=== PATIENT | female | born 1945 | race Caucasian/White ===

== ENCOUNTER 2016-07-28 19:38 | Emergency (ER) | payer OTHER, BC ==
[~2016-07-28] VITALS: Ht 165.1 cm; Wt 40.6 kg
[2016-07-28 19:43] VITALS: TEMP 37.2; Ht 165.1 cm; Wt 40.6 kg
[2016-07-28] MEDS ORDERED: ONDA4TAB46 PO (20:36)
[2016-07-28] MEDS ORDERED: POLY335019 PO (20:36)
[2016-07-28] MEDS ORDERED: OXYC1TAB3 PO (20:36)
[2016-07-28] MEDS ORDERED: ACET-1047 PO (20:36)
[2016-07-28] MEDS ORDERED: PRMT25 PO (20:36)
[2016-07-28] MEDS ORDERED: SERT25TA PO (20:36)
[2016-07-28] MEDS ORDERED: DICL1GEL12 TOP (20:36)
[2016-07-28] MEDS ORDERED: POTA10SO10 PO (20:36)
[2016-07-28] MEDS ORDERED: OXYSR/10 PO (20:36)
[2016-07-28] MEDS ORDERED: FOLI1TAB7 PO (20:36)
[2016-07-28] MEDS ORDERED: PANT40TA PO (20:36)
[2016-07-28] MEDS ORDERED: GABA-113 PO (20:36)
[2016-07-28] MEDS ORDERED: ASPI81TA28 PO (20:36)
[2016-07-28] MEDS ORDERED: DOCU100C31 PO (20:36)
[2016-07-28] MEDS ORDERED: ATOR-24 PO (20:36)
--- NOTE | 2016-07-28 20:49 | DIAGNOSTIC IMAGING REPORT ---
RIGHT FOOT 3 VIEWS HISTORY: RIGHT FOOT, HIT OFF A BEDPOST Right COMPARISON: None. FINDINGS: The bones are osteopenic. Small plantar heel spur. Mild soft tissue swelling within the dorsum of the midfoot. No acute fracture or dislocation. The Lisfranc joint is intact. Old, healed fractures within the third metatarsal and proximal phalanx of the right fifth toe. No radiopaque foreign bodies. IMPRESSION: No acute fractures within the right foot. Electronically signed by: Kenyon Alford M.D. 07/28/2016 8:47 PM Dictated Date/Time: 07/28/2016 8:45 PM
--- NOTE | 2016-07-28 21:01 | EMERGENCY ROOM VISIT NOTE ---
ED Visit Note First contact with patient: 19:47 CHIEF COMPLAINT: Right foot injury this afternoon Patient is a 71-year-old white female who presents the emergency department accompanied by her brother for evaluation of right foot pain. She struck the lateral aspect of the foot on a bed post this evening. She was wearing slippers at that time. Initially, she did not notice any discomfort and was able to walk and bear weight, but as the afternoon went on, it became more painful and she could not bear weight. She applied ice to the area. She is on chronic OxyContin and oxycodone for her low back pain and took her normal doses. She presently rates her for pain a 09/25. REVIEW OF SYSTEMS: Review of systems as per HPI. All other systems reviewed were negative. At least 6 systems reviewed. PMH: Electronic medical records are reviewed and summarized as above/below. See Problem List. SOCIAL HISTORY: Patient resides in [place], but has been staying locally with family members while she recovers from a prolonged hospitalization. Nonsmoker. PHYSICAL EXAM: Vital Signs: Reviewed Nurse's notes. GENERAL: Chronically ill- appearing 71-year-old white female who is awake and alert and seated in a wheelchair in no acute distress. EXTREMITIES: She has a knee-high RAJINDER stockings on the right lower extremity. This was removed. She has soft tissue swelling noted in the ankle and in the dorsum of the foot. There is slight ecchymosis over the fifth metatarsal, she is exquisite tenderness in the arch of her foot. Skin is otherwise intact. Distal pulses are easily palpable. Sensation to light touch is intact. Capillary refill is less than 2 seconds. EMERGENCY DEPARTMENT COURSE: X-rays of the right foot were obtained and were negative for acute fracture. The patient has a walker at home. They're also in the process of getting a wheelchair. She has an appointment with a new primary care provider to become established on Sunday, and was encouraged to keep this. She was advised to ice and elevate, and continue her regular pain medications. Differential diagnosis includes fracture, sprain, contusion, among others. RIGHT FOOT 3 VIEWS HISTORY: RIGHT FOOT, HIT OFF A BEDPOST Right COMPARISON: None. FINDINGS: The bones are osteopenic. Small plantar heel spur. Mild soft tissue swelling within the dorsum of the midfoot. No acute fracture or dislocation. The Lisfranc joint is intact. Old, healed fractures within the third metatarsal and proximal phalanx of the right fifth toe. No radiopaque foreign bodies. IMPRESSION: No acute fractures within the right foot. Problem List Medical Problems: (1) Chronic low back pain Status: Chronic (2) CVA (cerebral vascular accident) Status: Resolved (3) Dyslipidemia Status: Chronic (4) GERD (gastroesophageal reflux disease) Status: Chronic (5) Heart disease Status: Chronic (6) Hypertension Status: Chronic Current/Historical Medications Scheduled Aspirin (Aspirin Ec), 81 MG PO QAM Atorvastatin (Lipitor), 40 MG PO HS Diclofenac Sodium (Topical) (Voltaren 1% Top Gel), 1 APPLN TOP BID Docusate Sodium (Docusate Sodium), 100 MG PO Q2D Folic Acid (Folvite), 1 MG PO QAM Gabapentin (Neurontin), 600 MG PO HS Midodrine (Midodrine HCl), 2.5 MG PO TID Oxycodone HCl (Oxycontin), 10 MG PO BID Pantoprazole (Protonix), 40 MG PO QAM Potassium Chloride (Potassium Chloride), 20 MEQ PO QAM Sertraline (Zoloft), 25 MG PO QAM Scheduled PRN Acetaminophen (Mapap), 650 MG PO Q6H PRN for Pain or Fever Ondansetron Hcl (Zofran), 4 MG PO Q8 PRN for Nausea Oxycodone Ir (Roxicodone Ir), 2.5 MG PO BID PRN for Severe Pain Polyethylene Glycol 3350 (Miralax), 17 GM PO DAILY PRN for Constipation Allergies Coded Allergies: Penicillins (Verified Allergy, Intermediate, RASH-HAPPENED A CHILD, 03/04) Vital Signs Date Time Temp Pulse Resp B/P Pulse Ox O2 Delivery O2 Flow Rate FiO2 07/28/16 19:43 37.2 102 18 168/77 99 Room Air Departure Information Impression Primary Impression: Contusion of right foot Referrals Magalys VAZQUEZ M.D. (PCP) Patient Instructions My [facility] Additional Instructions Ibuprofen(Motrin, Advil) may be used for fever or pain. Use 600mg every six hours as needed. Take with food. Avoid using more than 2400mg in a 24 hour period. Do not use 2400mg per day for more than three consecutive days without physician direction. Prolonged inappropriate use can lead to stomach upset or ulcers. This medication can be taken if you need to drive, work, or perform activities which may be dangerous when taking narcotic pain medication. (AND/OR) Acetaminophen(Tylenol) may be used for fever or pain. Use 1000mg every six hours as needed. Avoid using more than 3000mg in a 24 hour period. This medication can be taken if you need to drive, work, or perform activities which may be dangerous when taking narcotic pain medication. Ice compresses for 20 minutes at a time four times daily for 2-3 days. Use your walker for ambulation as needed. Rest and elevate your injury. Continue current medications. Return to the ER immediately for any numbness, tingling, severe pain, extreme swelling in the extremity or as needed. Followup with your family doctor on Sunday as you have scheduled.
[2016-07-28 21:22] VITALS: BP 163/71; PULSE 98; O2SAT 97
[2016-08-25] MEDS ORDERED: RXC5 PO (16:02)
[2016-08-25] MEDS ORDERED: OXYSR/10 PO (16:02)
[2016-08-25] MEDS ORDERED: DEXA2TAB PO (16:02)
[2016-08-25] MEDS ORDERED: LACO50TA PO (16:17)
[2016-08-25] MEDS ORDERED: KFL500 PO (16:17)
[2016-09-26] MEDS ORDERED: MGCUDL400 PO (12:50)
[2016-09-26] MEDS ORDERED: RXC5 PO (12:50)
[2016-09-26] MEDS ORDERED: OXYSR/10 PO (12:50)
[2016-09-26] MEDS ORDERED: RXNS5 PO (12:50)
[2016-09-26] MEDS ORDERED: LORA-741 PO (12:55)
== END 2016-07-28 21:34 | disposition home or self-care (01) ==
LOC: C.EDB 19:41 → EDBD 19:41 → C.EDD 21:34
DX: S90.31XA Contusion of right foot, initial encounter (principal); W22.8XXA Striking against or struck by other objects, initial encounter; E78.5 Hyperlipidemia, unspecified; K21.9 Gastro-esophageal reflux disease without esophagitis; I10 Essential (primary) hypertension; I51.9 Heart disease, unspecified; G89.29 Other chronic pain; Z86.73 Personal history of transient ischemic attack (TIA), and cerebral infarction without residual deficits; Z79.82 Long term (current) use of aspirin; Z79.899 Other long term (current) drug therapy; Z88.0 Allergy status to penicillin

== ENCOUNTER 2016-08-05 18:32 | Inpatient (IN) | payer OTHER, BC ==
[~2016-08-05] VITALS: Ht 165.1 cm; Wt 57.0 kg
[~2016-08-05 18:32] MED LIST: ACET-1047 PO; ASPI81TA28 PO; ATOR-24 PO; DICL1GEL12 TOP; DOCU100C31 PO; FOLI1TAB7 PO; GABA-113 PO; ONDA4TAB46 PO; OXYC1TAB3 PO; OXYSR/10 PO; PANT40TA PO; POLY335019 PO; POTA10SO10 PO; PRMT25 PO; SERT25TA PO
[2016-08-05] MEDS ORDERED: MoRPHine SULFATE 10 MG/ML CARP/VIAL IM STA (18:53)
--- NOTE | 2016-08-05 18:55 | EMERGENCY ROOM VISIT NOTE ---
History Report prepared by Gonzalez: Hilary Cabrera Under the Supervision of: Dr. Amaury Pedraza M.D. First contact with patient: 18:40 Chief Complaint: PAIN (GENERALIZED) Stated Complaint: BACK PAIN, HEADACHE History of Present Illness The patient is a 71 year old female who presents to the Emergency Room with complaints of a persistent headache for the past 2 weeks. She is accompanied by her brother. She rates her pain as a 10/10 and describes the headache as feeling "splitting" and like a "sinus infection". She has been taking Sudafed for her congestion. The patient reports she was recently hospitalized in [place] for "strengthening and weight gain". She came to [place] to move in with her brother on July 22, 2016 and has been doing physical therapy. She admits to a history of chronic back pain and reports she injured one of her feet and rib area in an accident while getting into her home recently. She states she has been taking both Oxycodone (3 times a day) and OxyContin (twice a day) for her pain, but reports she has needed increasing doses recently to manage her discomfort. She has been unable to sleep because of her pain. The patient has established care with Dr. Bowden at [facility] and is supposed to undergo a CT scan early next week. She is also working on getting a home health nurse to come into her home once a week to help with PT and OT. The patient denies any abdominal pain. Source of History: patient, sibling (brother) Onset: 2 weeks [employer] Position: head Symptom Intensity: 10/10 Timing: other (persistent) Modifying Factors (Relieving): narcotics (Oxycodone) Associated Symptoms: + back pain, No abdominal pain Review of Systems All systems have been listed, reviewed, and are negative other than those previously mentioned. Please see Additional Medical History Sheet. Past Medical & Surgical Medical Problems: (1) Chronic low back pain (2) CVA (cerebral vascular accident) (3) Dyslipidemia (4) GERD (gastroesophageal reflux disease) (5) Heart disease (6) Hypertension Social History Smoking Status: Never Smoker Alcohol Use: none Drug Use: none Marital Status: Housing Status: lives with family Occupation Status: retired Current/Historical Medications Scheduled Aspirin (Aspirin Ec), 81 MG PO QAM Atorvastatin (Lipitor), 40 MG PO HS Diclofenac Sodium (Topical) (Voltaren 1% Top Gel), 1 APPLN TOP BID Folic Acid (Folvite), 1 MG PO QAM Gabapentin (Neurontin), 600 MG PO HS Midodrine (Midodrine HCl), 2.5 MG PO TID Oxycodone HCl (Oxycontin), 10 MG PO BID Pantoprazole (Protonix), 40 MG PO QAM Potassium Chloride (Potassium Chloride), 20 MEQ PO QAM Sertraline (Zoloft), 25 MG PO QAM Scheduled PRN Ondansetron Hcl (Zofran), 4 MG PO Q8 PRN for Nausea Oxycodone Ir (Roxicodone Ir), 2.5 MG PO BID PRN for Severe Pain Polyethylene Glycol 3350 (Miralax), 17 GM PO DAILY PRN for Constipation Allergies Coded Allergies: Penicillins (Verified Allergy, Intermediate, RASH-HAPPENED A CHILD, ) Physical Exam Vital Signs Date Time Temp Pulse Resp B/P Pulse Ox O2 Delivery O2 Flow Rate FiO2 08/05/16 21:58 100 20 120/72 95 Nasal Cannula 4.0 08/05/16 20:17 105 20 141/71 94 Nasal Cannula 6.0 08/05/16 20:14 58 Room Air 08/05/16 18:34 36.8 117 20 124/64 95 Room Air Physical Exam GENERAL: Patient awake, alert, oriented x 3. Patient appears to be in mild to moderate distress. Patient follows commands. Patient does not appear toxic. Patient is adequately hydrated and well-nourished. SKIN: No erythema, pallor, cyanosis or rash HEENT: Patient has some tenderness on palpation of maxillary and frontal sinus. Normal head, pupils equal, reactive to light and accommodation. Ears normal. Oral cavity and posterior pharynx appear normal. Neck: Without adenopathy, no neck vein distention. LUNGS: Clear to auscultation. No wheezes, no rales, no rhonchi. HEART: No murmurs. No gallops. No rubs ABDOMEN: Soft and nontender. EXTREMITIES: No signs of infection or trauma. No pedal or pretibial edema. No calf or thigh tenderness. NEUROLOGIC: Cranial nerves II-XII within normal limits. No gross motor sensory function deficits. Medical Decision & Procedures ER Provider Diagnostic Interpretation: This X-Ray was reviewed and interpreted by myself and the radiologist. CHEST 2 VIEWS ROUTINE IMPRESSION: Large left pleural effusion demonstrate near complete opacification left hemithorax. Slight cardiomediastinal silhouette shift to the right. Electronically signed by: Bunny Braun M.D. 08/05/2016 7:17 PM Laboratory Results 08/05/16 21:02 Red Blood Count 4.54, Mean Corpuscular Volume 84.4, Mean Corpuscular Hemoglobin 26.4, Mean Corpuscular Hemoglobin Concent 31.3, Mean Platelet Volume 9.7, Neutrophils (%) (Auto) 75.0, Lymphocytes (%) (Auto) 15.4, Monocytes (%) (Auto) 8.7, Eosinophils (%) (Auto) 0.5, Basophils (%) (Auto) 0.2, Neutrophils # (Auto) 7.50, Lymphocytes # (Auto) 1.54, Monocytes # (Auto) 0.87, Eosinophils # (Auto) 0.05, Basophils # (Auto) 0.02 08/05/16 21:02 Test 08/05/16 21:02 08/05/16 22:42 08/05/16 22:48 White Blood Count 10.00 K/uL (4.8-10.8) Red Blood Count 4.54 M/uL (4.2-5.4) Hemoglobin 12.0 g/dL (12.0-16.0) Hematocrit 38.3 % (37-47) Mean Corpuscular Volume 84.4 fL (80-100) Mean Corpuscular Hemoglobin 26.4 pg (25-34) Mean Corpuscular Hemoglobin Concent 31.3 g/dl (32-36) Platelet Count 293 K/uL (130-400) Mean Platelet Volume 9.7 fL (7.4-10.4) Neutrophils (%) (Auto) 75.0 % Lymphocytes (%) (Auto) 15.4 % Monocytes (%) (Auto) 8.7 % Eosinophils (%) (Auto) 0.5 % Basophils (%) (Auto) 0.2 % Neutrophils # (Auto) 7.50 K/uL (1.4-6.5) Lymphocytes # (Auto) 1.54 K/uL (1.2-3.4) Monocytes # (Auto) 0.87 K/uL (0.11-0.59) Eosinophils # (Auto) 0.05 K/uL (0-0.5) Basophils # (Auto) 0.02 K/uL (0-0.2) RDW Standard Deviation 50.6 fL (36.4-46.3) RDW Coefficient of Variation 16.1 % (11.5-14.5) Immature Granulocyte % (Auto) 0.2 % Immature Granulocyte # (Auto) 0.02 K/uL (0.00-0.02) Activated Partial Thromboplast Time 25.2 SECONDS (21.0-31.0) Partial Thromboplastin Ratio 1.0 Anion Gap 7.0 mmol/L (3-11) Est Creatinine Clear Calc Drug Dose 42.6 ml/min Estimated GFR () 71.7 Estimated GFR (Non- 61.9 BUN/Creatinine Ratio 23.7 (10-20) Calcium Level 9.2 mg/dl (8.5-10.1) Total Bilirubin 0.4 mg/dl (0.2-1) Aspartate Amino Transf (AST/SGOT) 18 U/L (15-37) Alanine Aminotransferase (ALT/SGPT) 15 U/L (12-78) Alkaline Phosphatase 123 U/L (45-117) Troponin I < 0.015 ng/ml (0-0.045) Pro-B-Type Natriuretic Peptide 886 pg/ml (0-900) Total Protein 7.3 gm/dl (6.4-8.2) Albumin 3.0 gm/dl (3.4-5.0) Globulin 4.3 gm/dl (2.5-4.0) Albumin/Globulin Ratio 0.7 (0.9-2) Magnesium Level 2.3 mg/dl (1.8-2.4) Ethyl Alcohol mg/dL < 3.0 mg/dl (0-3) Arterial Blood pH 7.41 (7.35-7.45) Arterial Blood Partial Pressure CO2 41 mmHg (35-46) Arterial Blood Partial Pressure O2 69 mm/Hg (80-95) Arterial Blood HCO3 26 mmol/L (19-24) Arterial Blood Oxygen Saturation 91.5 % (90-95) Arterial Blood Base Excess 1.1 mEq/L (-9-1.8) Arterial Blood Gas Delivery 4 L Case Test POS (POS) Laboratory results as stated above per my review. Medications Administered Medications (Trade) Dose Ordered Sig/Yuriy Route Start Time Stop Time Status Last Admin Dose Admin Morphine Sulfate (MoRPHine SULFATE INJ) 10 mg NOW STAT IM 08/05/16 18:53 08/05/16 18:54 DC 08/05/16 19:00 10 MG ECG Indication: weakness Rate (beats per minute): 110 Rhythm: sinus tachycardia Findings: no acute ischemic change, no ectopy ED Course 1842: Past medical records reviewed. The patient was evaluated in room A10. A complete history and physical examination was performed. 1852: Morphine Sulfate 10 mg IM. 1924: I reevaluated the patient. She is resting comfortably. 2019: Nursing informed me the patients pulse oximetry was 58%. She placed her on 6 Liters of Oxygen and her pulse ox is now in the 90's. 2022: I reevaluated the patient. I discussed my recommendation that she remain in the hospital for further evaluation and management and she verbalized complete understanding and agreement. 2229: I discussed the patients case with Queenie Issa. The patient will be further evaluated. Medical Decision Nurses notes reviewed. Medical history sheet reviewed. Differential diagnosis includes but is not limited to: Rib contusion versus fracture, pneumothorax, sinus congestion, chronic pain. The patient has a prior history of severe anemia and alcohol abuse. She was in the hospital in [place] for over one month followed by a long stay in the rehabilitation hospital. She recently moved here. Initially she had a chest x- ray performed to rule out a rib fracture. The patient was found to have a large left-sided pleural effusion. She was also hypoxic and required oxygen. Multiple other labs were obtained. Please see above. The patient will require admission. I discussed care with Dr. Angeles. I also discussed care with the patient and her brother. Consults Time Called: 2224 Consulting Physician: Queenie Issa Returned Call: [phone] I discussed the patients case with Queenie Issa. The patient will be further evaluated. Impression Primary Impression: Pleural effusion on left Scribe Attestation The scribe's documentation has been prepared under my direction and personally reviewed by me in its entirety. I confirm that the note above accurately reflects all work, treatment, procedures, and medical decision making performed by me. Departure Information Dispostion Being Evaluated By Hospitalist Referrals Magalys BOWDEN M.D. (PCP) Patient Instructions My [facility]
--- NOTE | 2016-08-05 19:19 | DIAGNOSTIC IMAGING REPORT ---
CHEST 2 VIEWS ROUTINE CLINICAL HISTORY: rib fx pneumo?? Chest pain COMPARISON STUDY: None FINDINGS: Very large left pleural effusion. Mild cardiac mediastinal silhouette shift of the right. Right lung is grossly clear. No evidence for true pneumothorax. IMPRESSION: Large left pleural effusion demonstrate near complete opacification left hemithorax. Slight cardiomediastinal silhouette shift to the right. Electronically signed by: Bunny Braun M.D. 08/05/2016 7:17 PM Dictated Date/Time: 08/05/2016 7:16 PM
[2016-08-05 21:30] LABS: ALT/SGPT 15 U/L (12-78); BLOOD UREA NITROGEN 22 mg/dl (7-18); BUN/CREATININE RATIO 23.7 (10-20); CARBON DIOXIDE 27 mmol/L (21-32); CHLORIDE 103 mmol/L (98-107); CREATININE 0.94 mg/dl (0.60-1.20); GLUCOSE 125 mg/dl (70-99); POTASSIUM 4.7 mmol/L (3.5-5.1); SODIUM 137 mmol/L (136-145)
[2016-08-05 21:35] LABS: ALB/GLOB RATIO 0.7 (0.9-2); ALKALINE PHOSPHATASE 123 U/L (45-117); AST/SGOT 18 U/L (15-37)
[2016-08-05 21:38] LABS: BASO % 0.2 %; BASO ABS # 0.02 K/uL (0-0.2); COMPLETE YES; EOS % 0.5 %; HEMATOCRIT 38.3 % (37-47); IG% 0.2 %; LYMPH % 15.4 %; LYMPH ABS # 1.54 K/uL (1.2-3.4); MEAN CELL VOLUME 84.4 fL (80-100); MEAN CORPUSCULAR HEMOGLOBIN 26.4 pg (25-34); MEAN CORPUSCULAR HGB CONC 31.3 g/dl (32-36); MEAN PLATELET VOLUME 9.7 fL (7.4-10.4); MONO % 8.7 %; PLATELET COUNT 293 K/uL (130-400); RED BLOOD COUNT 4.54 M/uL (4.2-5.4)
[2016-08-05 22:13] LABS: CALCIUM 9.2 mg/dl (8.5-10.1)
[2016-08-05 23:03] LABS: ARTERIAL BLD GAS O2 SATURATION 91.5 % (90-95); ARTERIAL BLOOD GAS BASE EXCESS 1.1 mEq/L (-9-1.8); ARTERIAL BLOOD GAS HCO3 26 mmol/L (19-24); ARTERIAL BLOOD GAS PO2 69 mm/Hg (80-95); ARTERIAL BLOOD GAS pH 7.41 (7.35-7.45)
[2016-08-05 23:04] LABS: ALLEN TEST POS (POS)
[2016-08-05 23:05] LABS: O2 ADMINISTRATION 4 L
[2016-08-05 23:10] LABS: MAGNESIUM 2.3 mg/dl (1.8-2.4)
[2016-08-05] MEDS ORDERED: ONDANSETRON INJ 2 MG/ML 2 ML VIAL IV ONE (23:46)
[2016-08-05] MEDS ORDERED: ONDANSETRON INJ 2 MG/ML 2 ML VIAL ONE (23:50)
[2016-08-06] VITALS (9 sets, daily range): BP systolic 88–186; BP diastolic 59–81; PULSE 79–96; TEMP 36.5–36.9; O2SAT 91–97; Ht 165.1 cm; Wt 57.0 kg
[2016-08-06] MEDS ORDERED: OPTIRAY 320 IV PRN (00:45)
[2016-08-06] MEDS ORDERED: OXYCODONE HCL 10 MG TABCR (OXYCONTIN) PO STA (01:00)
[2016-08-06] MEDS ORDERED: OXYCODONE HCL IR 5 MG TAB (IMMEDIATE RELEASE) PO PRN (01:15)
[2016-08-06] MEDS ORDERED: DEXAMETHASONE SOD INJ 10 MG/ML VIAL IV STA (02:27)
[2016-08-06] MEDS ORDERED: POLYETHYLENE (MIRALAX) 17 GM PACK PO PRN (03:00)
[2016-08-06] MEDS ORDERED: NITROGLYCERIN 0.4 MG SL PER TAB CHARGE SL PRN (03:00)
[2016-08-06] MEDS ORDERED: PROMETHAZINE HCL INJ 12.5 MG in SODIUM CHLORIDE 0.9% 50ML 50 ML IV PRN (03:00)
[2016-08-06] MEDS ORDERED: SODIUM CHLORIDE 0.9% 500ML 500 ML IV ONE (03:15)
[2016-08-06] MEDS ORDERED: OXYCODONE/ACETAMINOPHEN 5-325 TAB PO PRN (03:15)
[2016-08-06] MEDS ORDERED: OXYCODONE HCL IR 5 MG TAB (IMMEDIATE RELEASE) PO STA (03:25)
[2016-08-06] MEDS ORDERED: LEVALBUTEROL/IPRATROPIUM NEB INH PRN (03:30)
[2016-08-06] MEDS: ONDANSETRON INJ 2 MG/ML 2 ML VIAL IV PRN (04:45)
[2016-08-06] MEDS ORDERED: LEVALBUTEROL 1.25MG/0.5ML NEB INH PRN (05:00)
[2016-08-06] MEDS ORDERED: IPRATROPIUM BROMIDE NEB SOLN 0.02% 2.5 ML VIAL INH PRN (05:00)
[2016-08-06] MEDS ORDERED: IBUPROFEN 200 MG TAB PO PRN (05:15)
[2016-08-06] MEDS ORDERED: KETOROLAC TROMETHAMINE 15 MG/ML VIAL IV. PRN (05:15)
[2016-08-06 06:32] LABS: MANUAL MICROSCOPIC REQUIRED? NO; REVIEW REQ? NO; URINE APPEARANCE CLEAR (CLEAR); URINE BILIRUBIN NEG (NEG); URINE COLOR YELLOW; URINE NITRITE NEG (NEG); URINE SPECIFIC GRAVITY 1.042 (1.000-1.030); UROBILINOGEN NEG (NEG); ZZUR CULT IF INDIC CLEAN CATCH NO
--- NOTE | 2016-08-06 06:53 | DIAGNOSTIC IMAGING REPORT ---
HEAD CT NONCONTRAST CT DOSE: HISTORY: Headache. TECHNIQUE: Multiaxial CT images of the head were performed without the use of intravenous contrast. Automated exposure control was utilized for this study. Comparison: None. Findings: The paranasal sinuses and mastoid air cells are clear. There is a 2.6 cm lesion within the cortex of the right frontal lobe anteriorly. There is adjacent vasogenic edema. There is a hypodense area within the medial aspect of the right occipital lobe which may be due to an old infarct. There is also focal area of vasogenic edema within the posterior aspect the right occipital lobe and a possible 1.2 cm lesion. No hematoma or midline shift. The ventricles are normal in size. Impression: 1. Suspect 2 lesions within the right frontal lobe and right occipital lobe as described above. 2. Hypodensity within the medial aspect of the right occipital lobe favors an old infarct. 3. Brain MRI is recommended for further evaluation. Electronically signed by: Kenyon Alford M.D. 08/06/2016 6:51 AM Dictated Date/Time: 08/06/2016 6:48 AM
--- NOTE | 2016-08-06 07:31 | Pulmonary Consultation ---
History General Date of Service: August 06, 2016. Stated Complaint: Respiratory Failure, Acute HPI The patient is a 71 year old female who presents to with complaints of Respiratory Failure, Acute. The patient's primary care provider is Magalys VAZQUEZ M.D.. 71-year-old female who presented to the emergency room secondary to progressive headache over the last 2 weeks. She was accompanied by her brother and rated the pain a 10 out of 10. Further workup noted almost complete opacification of the left hemithorax by chest x-ray and CT angiogram ruled out pulmonary embolism but noted large left hemithoracic pleural effusion. The patient has been chronically sick since March 12, 2016 in and out of the hospital with prolonged stays in the intensive care unit and very little understanding of the underlying etiology of those studies. She is also noted to be at rehabilitation centers where she feels were inadequate in her care. At this time she does note continued headache but it is decreased, chronic fatigue and notable dyspnea on exertion. She denies: Fever, chills, vertigo, syncope, pleurisy, classic cardiac chest pain or chronic cough. Work-Up: WBC: 10K (Nuerto#: >7.50) Plt: 293K H/H: 12/38 AB.41/41/69/26 (4Lnc) INR/PT/aPTT: 1.0/11.0/25.2 BUN/Cr: 22/0.94 ALB: 3.0 TP: 7.3 BNP: 886 CXR: Osteopenia, right sided tracheal/mediastinal deviation Right sided luis antonio fullness with signs of daniele-bronchial cuffing Large left sided possible loculated effusion CT Head: Report Pending but per sign-out sign of right frontal vasogenic edema CT Abd: Bilateral pleural effusions L>>>R CTA Thorax: Bilateral pleural effusions L>>>R Right mediastinal shift Possible R4 and 7 enlarged lymph-nodes but poor quality exam Collapsed LLL and it appears Lingula with l large part of the FRANKLIN RLL 14mmnodule Right major fissure fluid Right hilar enlarge lymph nodes Historian: patient, EMS Review of Systems Constitutional: reports: malaise, weakness Eyes: reports: blurred vision ENT: reports: no symptoms Cardiovascular: reports: no symptoms Respiratory: reports: as stated in HPI Gastrointestinal: reports: no symptoms Genitourinary - Female: reports: urinary frequency Musculoskeletal: reports: back pain, myalgias Integumentary: reports: no symptoms Neurologic: reports: no symptoms Psychiatric: reports: anxiety Endocrine: no symptoms Hematologic / Lymphatic: no symptoms Allergic / Immunologic: no symptoms Past Medical History Past Medical History: 1) Chronic low back pain 2) CVA (cerebral vascular accident) 3) Dyslipidemia 4) GERD 5) Heart disease 6) Hypertension 7) Foot fractures 3rd metatarsal and proximal right 5th phalanx 8) Macular degeneration 9) Left eye cataract Past Surgical History: 1) L5-S1 laminectomy 2) Left Knee repair 3) Tonsillectomy Family History Patient is unsure of her family history we'll attempt to contact the brother Social History Smoking Status: Chronic smoker for greater than 30 year period of time notably inconsistent use and exact pack per day history is unknown Alcohol Use: none Drug Use: none Marital Status: Housing Status: lives with family Occupation Status: retired Smoking Status: Current Every Day Smoker Marital status: Occupational Status: retired Allergies Coded Allergies: Penicillins (Verified Allergy, Intermediate, RASH-HAPPENED A CHILD, ) Current Medications Reported Home Medications Medications Dose Route/Sig Max Daily Dose Days Date Category Dose Instructions Roxicodone Ir (Oxycodone HCl) 5 Mg Tab 2.5 Mg PO BID PRN 07/28/16 Reported Zofran (Ondansetron HCl) 4 Mg Tab 4 Mg PO Q8 PRN 07/28/16 Reported Voltaren 1% Top Gel (Diclofenac Sodium (Topical)) 1 % Gel 1 Appln TOP BID 07/28/16 Reported APPLY TO LOWER BACK Oxycontin (Oxycodone HCl) 10 Mg Tabcr 10 Mg PO BID 07/28/16 Reported Midodrine HCl (Midodrine) 2.5 Mg Tab 2.5 Mg PO TID 07/28/16 Reported Neurontin (Gabapentin) 300 Mg Cap 600 Mg PO HS 07/28/16 Reported Aspirin Ec (Aspirin) 81 Mg Tab 81 Mg PO QAM 07/28/16 Reported Miralax (Polyethylene Glycol 3350) 1 Pow Pow 17 Gm PO DAILY PRN 07/28/16 Reported Zoloft (Sertraline HCl) 25 Mg Tab 25 Mg PO QAM 07/28/16 Reported Potassium Chloride 10 % Liq 20 Meq PO QAM 07/28/16 Reported 20 MEQ/15 ML DOSE. Protonix (Pantoprazole Sodium) 40 Mg Tab 40 Mg PO QAM 07/28/16 Reported Folvite (Folic Acid) 1 Mg Tab 1 Mg PO QAM 07/28/16 Reported Lipitor (Atorvastatin Calcium) 40 Mg Tab 40 Mg PO HS 07/28/16 Reported Physical Physical Exam Vital Signs: Date Time Temp Pulse Resp B/P Pulse Ox O2 Delivery O2 Flow Rate FiO2 08/06/16 03:43 36.7 96 18 122/81 91 Nasal Cannula 4.0 08/06/16 02:54 101 22 159/80 93 Nasal Cannula 4.0 08/06/16 00:29 101 18 95 Nasal Cannula 4.0 08/05/16 21:58 100 20 120/72 95 Nasal Cannula 4.0 08/05/16 20:17 105 20 141/71 94 Nasal Cannula 6.0 08/05/16 20:14 58 Room Air 08/05/16 18:34 36.8 117 20 124/64 95 Room Air General Appearance: cachetic Head: NORMOCEPHALIC, ATRAUMATIC Eyes: PERRLA, NO DISCHARGE, EOMI ENT: NORMAL EAR EXAM, NORMAL NASAL EXAM, NORMAL MOUTH EXAM, NORMAL THROAT EXAM Neck: NORMAL RANGE OF MOTION, NO TENDERNESS, TRACHEA MIDLINE, NO STRIDOR Respiratory: other (decreased breath sounds with dullness to percussion of the left hemithorax ultrasound showing large left-sided pleural effusion and signs a loculated lung) Cardiovasular: REGULAR RATE/RHYTHM, NORMAL S1S2, NO M/G/R, NO MURMUR, NO GALLOP , NO RUB Abdomen: NON TENDER, NORMAL BOWEL SOUNDS, NO REBOUND, NO MASSES, NO GUARDING, NO ORGANOMEGALY, other (patient deferred rectal exam) Genitourinary - Female: EXTERNAL GENITALIA NORMAL Back: NORMAL INSPECTION, NO MIDLINE TENDERNESS, NO CVA TENDERNESS Upper Extremities: NO EDEMA, NO DEFORMITY, NORMAL ROM Lower Extremities: NO EDEMA, NO DEFORMITY, NORMAL ROM Pulses: carotid (R) (2+), carotid (L) (2+), dorsalis pedis (R) (1+), dorsalis pedis (L) (1+) Neuro: ALERT, ORIENTED x 3, NORMAL MOTOR EXAM, NORMAL SENSATION, NORMAL CEREBELLAR EXAM, NORMAL SPEECH Reflexes: biceps (R) (1+), bicpes (L) (1+), achilles (R) (1+), achilles (L) (1+ ) Babinski Testing: right (equivocal), left (equivocal) Psychiatric: anxious Diagnostics Labs Results Past 24 Hours Test 08/05/16 21:02 08/05/16 22:42 08/05/16 22:48 08/06/16 05:48 Range/Units White Blood Count 10.00 4.8-10.8 K/uL Red Blood Count 4.54 4.2-5.4 M/uL Hemoglobin 12.0 12.0-16.0 g/dL Hematocrit 38.3 37-47 % Mean Corpuscular Volume 84.4 80-100 fL Mean Corpuscular Hemoglobin 26.4 25-34 pg Mean Corpuscular Hemoglobin Concent 31.3 32-36 g/dl Platelet Count 293 130-400 K/uL Mean Platelet Volume 9.7 7.4-10.4 fL Neutrophils (%) (Auto) 75.0 % Lymphocytes (%) (Auto) 15.4 % Monocytes (%) (Auto) 8.7 % Eosinophils (%) (Auto) 0.5 % Basophils (%) (Auto) 0.2 % Neutrophils # (Auto) 7.50 1.4-6.5 K/uL Lymphocytes # (Auto) 1.54 1.2-3.4 K/uL Monocytes # (Auto) 0.87 0.11-0.59 K/uL Eosinophils # (Auto) 0.05 0-0.5 K/uL Basophils # (Auto) 0.02 0-0.2 K/uL RDW Standard Deviation 50.6 36.4-46.3 fL RDW Coefficient of Variation 16.1 11.5-14.5 % Immature Granulocyte % (Auto) 0.2 % Immature Granulocyte # (Auto) 0.02 0.00-0.02 K/uL Prothrombin Time 11.0 9.0-12.0 SECONDS Prothromb Time International Ratio 1.0 0.9-1.1 Activated Partial Thromboplast Time 25.2 21.0-31.0 SECONDS Partial Thromboplastin Ratio 1.0 Sodium Level 137 136-145 mmol/L Potassium Level 4.7 3.5-5.1 mmol/L Chloride Level 103 98-107 mmol/L Carbon Dioxide Level 27 21-32 mmol/L Anion Gap 7.0 3-11 mmol/L Blood Urea Nitrogen 22 7-18 mg/dl Creatinine 0.94 0.60-1.20 mg/dl Est Creatinine Clear Calc Drug Dose 42.6 ml/min Estimated GFR () 71.7 Estimated GFR (Non- 61.9 BUN/Creatinine Ratio 23.7 10-20 Random Glucose 125 70-99 mg/dl Calcium Level 9.2 8.5-10.1 mg/dl Total Bilirubin 0.4 0.2-1 mg/dl Aspartate Amino Transf (AST/SGOT) 18 15-37 U/L Alanine Aminotransferase (ALT/SGPT) 15 12-78 U/L Alkaline Phosphatase 123 45-117 U/L Total Creatine Kinase 37 26-192 U/L Troponin I < 0.015 0-0.045 ng/ml Pro-B-Type Natriuretic Peptide 886 0-900 pg/ml Total Protein 7.3 6.4-8.2 gm/dl Albumin 3.0 3.4-5.0 gm/dl Globulin 4.3 2.5-4.0 gm/dl Albumin/Globulin Ratio 0.7 0.9-2 Magnesium Level 2.3 1.8-2.4 mg/dl Lipase 128 73-393 U/L Ethyl Alcohol mg/dL < 3.0 0-3 mg/dl Arterial Blood pH 7.41 7.35-7.45 Arterial Blood Partial Pressure CO2 41 35-46 mmHg Arterial Blood Partial Pressure O2 69 80-95 mm/Hg Arterial Blood HCO3 26 19-24 mmol/L Arterial Blood Oxygen Saturation 91.5 90-95 % Arterial Blood Base Excess 1.1 -9-1.8 mEq/L Arterial Blood Gas Delivery 4 L Case Test POS POS Urine Color YELLOW Urine Appearance CLEAR CLEAR Urine pH 5.0 4.5-7.5 Urine Specific [place] 1.042 1.000-1.030 Urine Protein 3+ NEG Urine Glucose (UA) NEG NEG Urine Ketones NEG NEG Urine Occult Blood 1+ NEG Urine Nitrite NEG NEG Urine Bilirubin NEG NEG Urine Urobilinogen NEG NEG Urine Leukocyte Esterase NEG NEG Urine WBC (Auto) 1-5 0-5 /hpf Urine RBC (Auto) 0-4 0-4 /hpf Urine Hyaline Casts (Auto) 1-5 0-5 /lpf Urine Epithelial Cells (Auto) 10-20 0-5 /lpf Urine Bacteria (Auto) NEG NEG Diagnostic Radiology CXR: Osteopenia, right sided tracheal/mediastinal deviation Right sided luis antonio fullness with signs of daniele-bronchial cuffing Large left sided possible loculated effusion CT Head: Report Pending but per sign-out sign of right frontal vasogenic edema CT Abd: Bilateral pleural effusions L>>>R CTA Thorax: Bilateral pleural effusions L>>>R Right mediastinal shift Possible R4 and 7 enlarged lymph-nodes but poor quality exam Collapsed LLL and it appears Lingula with l large part of the FRANKLIN RLL 14mmnodule Right major fissure fluid Right hilar enlarge lymph nodes Impression Assessment and Plan 71-year-old female with large left-sided pleural effusion and signs mediastinal shifting next line #1 pleural effusion: At this time the patient has agreed to undergo IPC placement. This procedure should be helpful is both a diagnostic and therapeutic processes. The patient has had poor follow-up for her health maintenance such as colonoscopies, mammography's and speculum examinations. This a high likelihood this is malignant in origin so will send off for fluid cytology will also evaluate for possible infectious etiology or even rheumatologic evaluations. #2 mediastinal shift: At this time the patient shows both clinical as well as radiographic evidence of mediastinal shift but no signs of tension physiology. We'll initiate IPC catheter placement to avoid this issue.
--- NOTE | 2016-08-06 08:15 | DIAGNOSTIC IMAGING REPORT ---
CHEST CTA for PULMONARY ARTERIES CT DOSE: 989.18 mGy.cm HISTORY: Atypical chest pain. Back pain. Short of breath. TECHNIQUE: Multiaxial CT images of the chest were performed following the intravenous administration of contrast to evaluate the pulmonary arteries. Maximal intensity projection images were also obtained. COMPARISON STUDY: Chest 08/05/2016. FINDINGS: No evidence for an aortic dissection. The majority of the segmental and subsegmental pulmonary arteries are nondiagnostic due to the motion artifact. The main and lobar pulmonary arteries appear patent. Large left pleural effusion with associated right mediastinal shift. 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 Therefore, this favors a subclavian steal. There is compressive atelectasis of the left lower lobe and majority of the left upper lobe due to the large left pleural effusion. There is a 3.2 cm hypodense lesion within the left lower lobe. Scattered groundglass airspace opacity seen within the right lung apex. A 1.4 cm irregular nodule within the right lower lobe. Small to moderate right pleural effusion. Narrowing of the left lower lobe and left upper lobe bronchi. There is right axillary and subpectoral lymphadenopathy. Dominant right axillary lymph node measures 1.4 x 0.9 cm. There is mediastinal lymphadenopathy. Dominant AP window lymph node measures 1.9 x 1.4 cm. IMPRESSION: 1. No evidence for central pulmonary embolus. 2. Large left pleural effusion with associated right mediastinal shift. 3. A 3 cm left lower lobe hypodense lesion which is concerning for a primary malignancy or metastatic focus. 4. There is also a 1.4 cm irregular nodule within the right lower lobe. 5. Mediastinal lymphadenopathy. There is also right axillary/subpectoral lymphadenopathy. 6. Small to moderate right pleural effusion. 7. 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 Electronically signed by: Kenyon Alford M.D. 08/06/2016 8:13 AM Dictated Date/Time: 08/06/2016 8:02 AM
--- NOTE | 2016-08-06 08:22 | DIAGNOSTIC IMAGING REPORT ---
ABDOMEN AND PELVIS CT WITH IV CONTRAST CT DOSE: HISTORY: Generalized abdominal pain and back pain. TECHNIQUE: Multiaxial CT images of the abdomen and pelvis were performed following the use of intravenous contrast. COMPARISON STUDY: None. FINDINGS: Please refer to the dedicated chest CT performed same day for further evaluation. The gallbladder is distended. Common bile duct is mildly distended up to 8 mm. No hepatic or splenic masses. There is mild periportal edema within the left hepatic lobe. Normal caliber main pancreatic duct. A 6 mm hypodense lesion within the pancreatic tail. No hydronephrosis. A few subcentimeter bilateral renal hypodense lesions which are too small to characterize. Normal adrenal glands. No retroperitoneal lymphadenopathy. Bladder is not well-distended. Colonic diverticulosis. No bowel wall thickening or obstruction. Normal appendix. Moderate stool within the colon. IMPRESSION: 1. Please refer to the dedicated chest CT for further evaluation of the chest abnormalities. 2. Distended gallbladder and common bile duct. 3. No hepatic or splenic masses. 4. No bowel wall thickening or obstruction. 5. A 6 mm hypodense lesion within the pancreatic tail consistent with a small cystic lesion such as a side branch intraductal papillary mucinous neoplasm. Electronically signed by: Kenyon Alford M.D. 08/06/2016 8:20 AM Dictated Date/Time: 08/06/2016 8:13 AM
[2016-08-06] MEDS ORDERED: PANTOprazole SOD 40 MG TAB PO SCH (09:00)
[2016-08-06] MEDS ORDERED: MIDODRINE 2.5 MG TAB PO SCH (09:00)
[2016-08-06] MEDS: OXYCODONE HCL 10 MG TABCR (OXYCONTIN) PO SCH ×2 (09:03→21:01)
[2016-08-06] MEDS: DOCUSATE SODIUM 100 MG CAP PO SCH (09:03)
[2016-08-06] MEDS: ASPIRIN 81 MG ECTAB PO SCH (09:04)
--- NOTE | 2016-08-06 09:04 | Procedure Note ---
Procedure Note Date of Service August 06, 2016. Procedure Note Procedures: left sided indwelling pleural catheter Consent: obtained via the patient and placed into the chart Pre-Procedural Dx: Left-sided pleural effusion Post-Procedural Dx: Left-sided pleural effusion Analgesia: 10cc of 1% Liquid Lidocaine Procedure: The patient was placed in an upright position and thoracic US was used to select a spot for the procedure. A spot along the posterior axillary line was marked in the 7th intercostal space. The patient was then draped and prepped in a sterile fashion. A modified Seldinger technique was then used for catheter placement. Approximately 5 cm anterior a small 6 cm cut was performed and tunneling was made to the initial and catheter insertion. The indwelling pleural catheter easily slid into the left hemithorax. Flowing this approximately 1100cc of serosanguineous pleural fluid was removed. EBL: 3cc Complications: none
[2016-08-06] MEDS: SERTRALINE HCL 50 MG TAB PO SCH (09:05)
[2016-08-06] MEDS: DICLOFENAC SOD 1% GEL 100 GM TUBE EXT SCH ×2 (09:05→21:03)
[2016-08-06] MEDS: PANTOprazole SOD 40 MG TAB PO SCH (09:05)
--- NOTE | 2016-08-06 09:23 | DIAGNOSTIC IMAGING REPORT ---
CHEST ONE VIEW PORTABLE HISTORY: S/P Thoracentesis left sided COMPARISON: Chest 08/05/2016. FINDINGS: Moderate to large left pleural effusion is slightly decreased in size. Left chest tube terminates in the left lung apex. Small left apical pneumothorax with a pleural gap of 6 mm. Small right pleural effusion. Right mediastinal shift has improved. IMPRESSION: Decrease in size in the moderate to large left pleural effusion status post chest tube placement. There is a small left apical pneumothorax. Electronically signed by: Kenyon Alford M.D. 08/06/2016 9:22 AM Dictated Date/Time: 08/06/2016 9:21 AM
--- NOTE | 2016-08-06 09:47 | HISTORY & PHYSICAL EXAMINATION ---
DATE OF ADMISSION: 08/06/2016 PRIMARY CARE DOCTOR: Dr. Bowden. CHIEF COMPLAINTS: Headache, bodyaches. HISTORY OF PRESENT ILLNESS: History obtained from patient and records. 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 Patient is originally from [place], [place]. Recently relocated to [place], [place] 3 weeks ago under her brother's care. Recent confinement at [place], [place] from February 2016 to March 2016 for hypotension, anemia, embolic CVA, respiratory failure status post intubation. As per records, the patient was found at home in February 2016 lying on the floor at her home with the house in disorder and empty alcohol bottles. On admission, she was noted to be hypotensive and to have a hemoglobin of 4. FOBT negative. cystic lung mass on CXR. A CAT scan of the chest did not show any PE; however, showed a cavitary left lower lobe lung mass, 2.4 x 5 cm with inflammation and right upper nodule measuring 6 mm as well as lymphadenopathy. Admitted in the ICU. SBP and anemia improved w/ pressor tx, IVF, and blood transfusion. PX later noted to be hypotensive, confused, in resp distress after one week of confinement. PX subsequently intubated the next 2 weeks. MRI showed extensive subacute strokes. Concern for possible embolic event w/ a CTA w/c showed L subclavian artery occlusion. Anticoag precluded by recent bleed. Px dcd on low dose ASA. The patient initially put on Keppra for possible seizure, subsequently discontinued after negative EEG. PX subsequently noted to have UGIB at the ICU. EGD done showed some gastritis/fungal esophagitis sp Mycafungin tx. NGT trauma noted in the stomach. PX dcd on PPI. Pulmonary was consulted for lung mass. She underwent a bronchoscopy, mostly negative pathology as per records. Future biopsy recommended by crotch piece baster. Patient recalls thoracentesis done for pleural fluid as well. Px noted to have a DVT on the right leg. She underwent a IVC filter placement due to recent GI bleed. Hypotension initially treated w/ IVF, pressors, steroids. PX later maintained on midodrine. Patient subsequently underwent 3 months of rehab at [facility]. Upon on discharge from rehab about 3 weeks ago, the patient travelled to [place], [place] by car with her brother to reside w/ him permanently. Since arriving at [place], px noted achy frontal headache sx going to her face w/c she attributed to poss sinus congestion from allergies. No fever, no chills. No recent head trauma. Px also noted vague achy abdominal pain the few weeks. some nausea, no vomiting. no dysuria, Good bowel movement albeit pasty. About 2 weeks ago, the patient was seen at the Emergency Room for right foot pain after hitting the bed post. Seen at the Emergency Room. No acute fracture of the right foot. Patient was discharged. Patient noted left sided pleuritic chest pain after brother assisted her getting out of the car upon returning home from the ER. No actual shortness of breath. usual dry cough sx She saw a new PCP for the first time this week. Chest x-ray done at the office showed moderate L pleural effusion w/ atelectasis , poss L hilar mass. Outpatient CT chest study contemplated. Px presented to the ER tonight because of worsening headache and body aches. MEDICAL HISTORY: As above. SURGERIES: IVC filter placement, tonsillectomy, adenectomy, back surgery and knee surgery. HOME MEDICATIONS: Include aspirin, atorvastatin, diclofenac, folic acid, gabapentin, midodrine, Zofran, OxyContin, OxyIR, Protonix, potassium chloride, sertraline, and polyethylene glycol. ALLERGIES: TO PENICILLIN. FAMILY HISTORY: Heart disease. 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 . REVIEW OF SYSTEMS: as per HPI. admits to some depression. No suicidality. All other ROS negative. PHYSICAL EXAMINATION: VITAL SIGNS: Blood pressure was noted to be 120/70, pulse rate 100, RR 20, and O2 sats 58% on room, later 94% on 6 liters. GENERAL: Noted to be hyposthenic, occasionally agitated, somewhat uncomfortable, and distressed. SKIN: Pallor. HEENT: Pale palpebral conjunctivae. Dry mucosa. NECK: No JVD. supple CHEST: Decreased breath sounds, L. HEART: Regular rate and rhythm. ABDOMEN: Some distention, no overt tenderness. EXTREMITIES: No edema and no tenderness. NEUROLOGIC: No gross focality. LABS: Hemoglobin was noted to be 12, WBC 7 and platelets 293. Sodium 137, potassium 4.7, chloride 103, CO2 of 27, BUN 20, creatinine 0.9, glucose 125, and alkaline phosphatase 143. IMAGING: Chest x-ray showed large pleural effusion with near complete opacification of the left hemithorax with some shift to the right. EKG as per my interpretation : rate 110, sinus tachycardia, possible left atrial enlargement, some T-wave flattening in the septal leads, PRWP. ABG, pH 7.4, pCO2 of 41, pO2 of 69, 91.5 on 4 L. ASSESSMENT: 1. Acute hypoxemic failure secondary to pleural effusion (possibly malignant) hx L lung tumor noted on CT chest during 02/2016 confinement in [place] (negative initial bronchoscopic bx) Rule out pulmonary embolism w/ pleuritic chest pain. 2. Headaches possibly from allergic rhinosinusitis rule out structural intracranial pathology. 3. Nonspecific abdominal pain in the last few months possibly from narcotic related. Rule out structural abdominal pathology. 4. History of embolic cerebrovascular accident as per records 5. idiopathic hypotension as per records BP stable on midodrine 6. 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 7. History of gastritis and fungal esophagitis sp treatment. 8. Depression, suboptimal, not on meds 9. Past tobacco and alcohol abuse. 10. Chronic back pain sp surgery on narcotics. 11. malnutrition (low BMI) PLAN: PCU supplemental O2 CT chest, PE study CT head RE persistent ÁLVAREZ CT abd pelvis. RE abd pain Further management pending CT results Pulmonary consult. RE L pleural effusion Psych consult once px amenable. RE depression Nutrition consult RE low BMI. DVT prophylaxis, Lovenox subQ if no bleed on CAT scan. Full code. ADDENDUM : CAT scans initial read noted. CT of the head : vasogenic edema, Right frontal lobe w possible adjacent lesion R frontal lobe cortex measuring 1.5 x 2.9 cm with adjacent buckling of the white matter, some mass effect on the frontal horn of the right lateral ventricle. No hemorrhage or midline shift. Focal cortical hyperdensity involving right paracentral occipital lobe poss age indeterminate infarct. MRI recommended. CT chest with contrast : no evidence of PE, large left pleural effusion with compressive atelectasis entire left lobe, entire left upper lobe with white large rightward shift of the mediastinum. Circumscribed 3 cm hypodense lesion on the collapsed left lower lobe, indeterminate. Moderate right pleural effusion with adjacent atelectasis. 1.5 cm nodule right lower lobe. Atherosclerosis. CT abdomen and pelvis : gallbladder, common bile duct distention, no free air; hypodense lesion, pancreatic tail, moderate to large stool burden, diverticulosis. Will initiate Decadron for increased intracranial pressure 2 to tumorigenic edema. MRI Brain RE abn CT head Case discussed with Dr. Mckay (crotch piece baster immigration lawyer) He recommends possible chest tube insertion in the morning, Radiation Oncology consult for possible brain METs with vasogenic edema, and obtaining images from confinement from [facility] [place] months ago. Px and brother updated of CT findings and plan of care. PX requested that her information only be provided to her brother, Mr. Ang Fan. (Contact number : [phone]) Total critical care time : 60 mins. CALDERON
[2016-08-06] MEDS: DEXAMETHASONE INJ 4 MG in SYRINGE 0 ML IV SCH ×3 (09:57→19:23)
[2016-08-06 10:14] LABS: PLEURAL FLUID APPEARANCE CLOUDY; PLEURAL FLUID COLOR AMBER; PLEURAL FLUID MONONUC RELAT 94.5 %; PLEURAL FLUID POLYNUC 5.5 %; PLEURAL FLUID SOURCE LEFT LUNG; PLEURAL FLUID WBC (A) 1403 /uL
--- NOTE | 2016-08-06 12:18 | Progress Note ---
Internal Med Progress Note Date of Service: August 06, 2016. Provider Documentation: SUBJECTIVE: Patient c/o pain in back, left foot. SOB is better. Cough +, no sputum production, no chest pain, nausea, vomiting, abdominal pain Headache is better On 4 Litres oxygen OBJECTIVE: Vital Signs-as noted below Exam: General-AAOX3, no distress, Cachexia + Malnourished Eyes-No icterus Neck-Supple, No JVD Lungs-AE decreased on left side more than right. few crackles, no wheezing, rhonchi. IPC Filter placement + Heart-S1, S2 normal, no murmur Abdomen-Soft, non tender, non distended, BS present Extremities-No edema Neuro-Grossly no focal deficits Lab data as noted below. ASSESSMENT & PLAN: ASSESSMENT AND PLAN : ACUTE HYPOXIC RESPIRATORY FAILURE : Secondary to B/L PLEURAL EFFUSION LEFT > RIGHT. -On 4 L oxygen (none at home) -S/P IPC catheter placement by Dr Mckay today -Follow up pleural fluid analysis/Cytology as suspicious for pulmonary malignancy. POSSIBLE METASTATIC PULMONARY MALIGNANCY: Hx Left lung tumor noted on CT chest during 02/2016 confinement in [place] (Negative initial bronchoscopic bx). Was recommended to get another biopsy done in future. -Work up - CT abdomen- 1. Distended gallbladder and common bile duct. 3. No hepatic or splenic masses.4. No bowel wall thickening or obstruction. 5. A 6 mm hypodense lesion within the pancreatic tail consistent with a small cystic lesion such as a side branch intraductal papillary mucinous neoplasm. 2. Headaches possibly from allergic rhinosinusitis. CT scan chest-1. No evidence for central pulmonary embolus. 2. Large left pleural effusion with associated right mediastinal shift. 3. A 3 cm left lower lobe hypodense lesion which is concerning for a primary malignancy or metastatic focus. 4. There is also a 1.4 cm irregular nodule within the right lower lobe. 5. Mediastinal lymphadenopathy. There is also right axillary/subpectoral lymphadenopathy. 6. Small to moderate right pleural effusion. 7. 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 CT head- 1. Suspect 2 lesions within the right frontal lobe and right occipital lobe as described above. 2. Hypodensity within the medial aspect of the right occipital lobe favors an old infarct. -Follow up Cytology- Left pleural effusion -Appreciate pulmonary inputs HX OF EMBOLIC CVA -As per records -CT head- likely old infarct in right occipital lobe -Not on anticoagulation secondary to GI bleeding in past HX OF PVD IDIOPATHIC HYPOTENSION -On midodrine. Held as her BP was in 180s and now down to 80s. -Will restart it again RECURRENT DVT S/P IVC FILTER PLACEMENT -Had IVC filter placed at [place] as had GI bleeding. HX OF GASTRITIS/FUNGAL ESOPHAGITIS S/P TREATMENT DEPRESSION -Suboptimal PAST TOBACCO /ALCOHOL ABUSE CHRONIC BACK PAIN S/P SURGERY -On chronic narcotics MALNUTRITION Low BMI -Clerical Investigator consulted DVT prophylaxis: High risk with history of DVT in past, IVC filter placed. Did have GI bleeding in past. Full code. Does not want us to talk about her health her condition to anyone except her and her brother. Vital Signs: Date Time Temp Pulse Resp B/P Pulse Ox O2 Delivery O2 Flow Rate FiO2 08/06/16 12:00 36.5 79 18 88/59 96 Nasal Cannula 4.0 115/67 08/06/16 08:34 36.6 87 16 186/62 96 Nasal Cannula 4.0 08/06/16 08:00 91 Nasal Cannula 4.0 08/06/16 03:43 36.7 96 18 122/81 91 Nasal Cannula 4.0 08/06/16 02:54 101 22 159/80 93 Nasal Cannula 4.0 08/06/16 00:29 101 18 95 Nasal Cannula 4.0 08/05/16 21:58 100 20 120/72 95 Nasal Cannula 4.0 08/05/16 20:17 105 20 141/71 94 Nasal Cannula 6.0 08/05/16 20:14 58 Room Air 08/05/16 18:34 36.8 117 20 124/64 95 Room Air Lab Results: Results Past 24 Hours Test 08/05/16 21:02 08/05/16 22:42 08/05/16 22:48 08/06/16 00:00 Range/Units White Blood Count 10.00 4.8-10.8 K/uL Red Blood Count 4.54 4.2-5.4 M/uL Hemoglobin 12.0 12.0-16.0 g/dL Hematocrit 38.3 37-47 % Mean Corpuscular Volume 84.4 80-100 fL Mean Corpuscular Hemoglobin 26.4 25-34 pg Mean Corpuscular Hemoglobin Concent 31.3 32-36 g/dl Platelet Count 293 130-400 K/uL Mean Platelet Volume 9.7 7.4-10.4 fL Neutrophils (%) (Auto) 75.0 % Lymphocytes (%) (Auto) 15.4 % Monocytes (%) (Auto) 8.7 % Eosinophils (%) (Auto) 0.5 % Basophils (%) (Auto) 0.2 % Neutrophils # (Auto) 7.50 1.4-6.5 K/uL Lymphocytes # (Auto) 1.54 1.2-3.4 K/uL Monocytes # (Auto) 0.87 0.11-0.59 K/uL Eosinophils # (Auto) 0.05 0-0.5 K/uL Basophils # (Auto) 0.02 0-0.2 K/uL RDW Standard Deviation 50.6 36.4-46.3 fL RDW Coefficient of Variation 16.1 11.5-14.5 % Immature Granulocyte % (Auto) 0.2 % Immature Granulocyte # (Auto) 0.02 0.00-0.02 K/uL Prothrombin Time 11.0 9.0-12.0 SECONDS Prothromb Time International Ratio 1.0 0.9-1.1 Activated Partial Thromboplast Time 25.2 21.0-31.0 SECONDS Partial Thromboplastin Ratio 1.0 Sodium Level 137 136-145 mmol/L Potassium Level 4.7 3.5-5.1 mmol/L Chloride Level 103 98-107 mmol/L Carbon Dioxide Level 27 21-32 mmol/L Anion Gap 7.0 3-11 mmol/L Blood Urea Nitrogen 22 7-18 mg/dl Creatinine 0.94 0.60-1.20 mg/dl Est Creatinine Clear Calc Drug Dose 42.6 ml/min Estimated GFR () 71.7 Estimated GFR (Non- 61.9 BUN/Creatinine Ratio 23.7 10-20 Random Glucose 125 70-99 mg/dl Calcium Level 9.2 8.5-10.1 mg/dl Total Bilirubin 0.4 0.2-1 mg/dl Aspartate Amino Transf (AST/SGOT) 18 15-37 U/L Alanine Aminotransferase (ALT/SGPT) 15 12-78 U/L Alkaline Phosphatase 123 45-117 U/L Total Creatine Kinase 37 26-192 U/L Troponin I < 0.015 0-0.045 ng/ml Pro-B-Type Natriuretic Peptide 886 0-900 pg/ml Total Protein 7.3 6.4-8.2 gm/dl Albumin 3.0 3.4-5.0 gm/dl Globulin 4.3 2.5-4.0 gm/dl Albumin/Globulin Ratio 0.7 0.9-2 Magnesium Level 2.3 1.8-2.4 mg/dl Lipase 128 73-393 U/L Ethyl Alcohol mg/dL < 3.0 0-3 mg/dl Hepatitis C Antibody Screen NEG NEG Arterial Blood pH 7.41 7.35-7.45 Arterial Blood Partial Pressure CO2 41 35-46 mmHg Arterial Blood Partial Pressure O2 69 80-95 mm/Hg Arterial Blood HCO3 26 19-24 mmol/L Arterial Blood Oxygen Saturation 91.5 90-95 % Arterial Blood Base Excess 1.1 -9-1.8 mEq/L Arterial Blood Gas Delivery 4 L Case Test POS POS Pleural Fluid Source LEFT LUNG Pleural Fluid Color EDY Pleural Fluid Appearance CLOUDY Pleural Fluid WBC 1403 /uL Pleural Fluid RBC 9000 /uL Pleural Fluid pH 7.37 7.3-7.4 Pleural Fluid Polynuclear WBCs % 5.5 % Pleural Fluid Mononuclear WBCs % 94.5 % Pleural Fluid Total Protein 4.0 g/dl Pleural Fluid LDH 276 IU Pleural Fluid Glucose 148 mg/dl Pleural Fluid Amylase 70 U/L Test 08/06/16 05:48 Range/Units Urine Color YELLOW Urine Appearance CLEAR CLEAR Urine pH 5.0 4.5-7.5 Urine Specific [place] 1.042 1.000-1.030 Urine Protein 3+ NEG Urine Glucose (UA) NEG NEG Urine Ketones NEG NEG Urine Occult Blood 1+ NEG Urine Nitrite NEG NEG Urine Bilirubin NEG NEG Urine Urobilinogen NEG NEG Urine Leukocyte Esterase NEG NEG Urine WBC (Auto) 1-5 0-5 /hpf Urine RBC (Auto) 0-4 0-4 /hpf Urine Hyaline Casts (Auto) 1-5 0-5 /lpf Urine Epithelial Cells (Auto) 10-20 0-5 /lpf Urine Bacteria (Auto) NEG NEG Microbiology Results 08/06/16 Acid Fast Stain, Received Pending 08/06/16 Mycobacterial Culture, Received Pending 08/06/16 Gram Stain - Final, Resulted 08/06/16 Bacterial Culture, Resulted Pending
[2016-08-06] MEDS: BOOST VANILLA PO SCH ×4 (14:00→21:04)
[2016-08-06] MEDS: hydrOXYzine HCL 10 MG TAB PO PRN (19:23)
[2016-08-06] MEDS ORDERED: GADAVIST IV PRN (20:45)
[2016-08-06] MEDS: GABAPENTIN 300 MG CAP PO SCH (21:02)
[2016-08-06] MEDS: ATORVASTATIN 20 MG TAB PO SCH (21:03)
--- NOTE | 2016-08-06 21:03 | DIAGNOSTIC IMAGING REPORT ---
Brain MRI WITH AND WITHOUT CONTRAST HISTORY: headache, abn ct TECHNIQUE: Multiplanar multisequence MRI of the brain was performed both before and after the intravenous administration of contrast. COMPARISON STUDY: Head CT 08/06/2016. FINDINGS: There is a 1 cm ring-enhancing lesion seen within the right frontal lobe and a 5 mm ring-enhancing lesion within the right occipital lobe. There is surrounding vasogenic edema at these locations. 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 No acute infarct, hematoma, or midline shift. There is mild mass effect along the frontal horn of the right lateral ventricle. The paranasal sinuses and mastoid air cells are clear. The orbits are unremarkable. IMPRESSION: Right enhancing lesions within the right frontal lobe and right occipital lobe which are highly suspicious for metastatic disease. Electronically signed by: Kenyon Alford M.D. 08/06/2016 9:02 PM Dictated Date/Time: 08/06/2016 8:52 PM
[2016-08-06] MEDS: OXYCODONE HCL IR 5 MG TAB (IMMEDIATE RELEASE) PO PRN (23:33)
[2016-08-07] VITALS (7 sets, daily range): BP systolic 114–136; BP diastolic 65–70; PULSE 73–89; TEMP 36.2–36.9; O2SAT 95–100
[2016-08-07] MEDS: DEXAMETHASONE INJ 4 MG in SYRINGE 0 ML IV SCH ×4 (02:38→20:55)
--- NOTE | 2016-08-07 08:04 | DIAGNOSTIC IMAGING REPORT ---
SINGLE VIEW CHEST CLINICAL HISTORY: Left pleural effusion. Pleural catheter. FINDINGS: An AP, portable, upright chest radiograph is compared to chest x-ray and chest CT dated 08/06/2016. The examination is degraded by portable technique and patient rotation. The cardiomediastinal silhouette is unremarkable. There is atherosclerotic calcification of the thoracic aorta. Advanced emphysema and chronic interstitial thickening are identified. A pleural drain is seen at the left lung base. There is only trace residual left pleural effusion which is somewhat completely resolved from yesterday. Left basilar airspace opacities persist. The right lung is grossly clear No pneumothorax is seen. The skeletal structures are osteopenic. The bony thorax is grossly intact. IMPRESSION: 1. Advanced emphysema. 2. A pleural drain is seen at the left lung base and the left pleural effusion has almost completely resolved. 3. There are airspace opacities in the left mid to lower lung. This could represent atelectasis, an infectious/inflammatory pneumonitis, and/or a component of reexpansion edema. Radiographic follow-up to resolution is recommended. 3. The right lung is grossly clear. 4. No pneumothorax is clearly seen. Electronically signed by: Woodrow Brush M.D. 08/07/2016 8:03 AM Dictated Date/Time: 08/07/2016 8:01 AM
[2016-08-07] MEDS: DICLOFENAC SOD 1% GEL 100 GM TUBE EXT SCH ×2 (08:06→20:59)
[2016-08-07] MEDS: DOCUSATE SODIUM 100 MG CAP PO SCH (08:06)
[2016-08-07] MEDS: OXYCODONE HCL 10 MG TABCR (OXYCONTIN) PO SCH ×2 (08:07→20:55)
[2016-08-07] MEDS: PANTOprazole SOD 40 MG TAB PO SCH (08:07)
[2016-08-07] MEDS: ASPIRIN 81 MG ECTAB PO SCH (08:08)
[2016-08-07] MEDS: OXYCODONE HCL IR 5 MG TAB (IMMEDIATE RELEASE) PO PRN ×2 (08:08→16:43)
[2016-08-07] MEDS: SERTRALINE HCL 50 MG TAB PO SCH (08:09)
[2016-08-07] MEDS: BOOST VANILLA PO SCH ×6 (08:10→21:00)
--- NOTE | 2016-08-07 10:06 | Progress Note ---
Internal Med Progress Note Date of Service: August 07, 2016. Provider Documentation: SUBJECTIVE: Patient is feeling much better today. SOB has improved. No chest pain, nausea, vomiting, abdominal pain. Headache is better On 3 Litres oxygen (down from 4 L) Left pleural catheter- drained 950 cc at night OBJECTIVE: Vital Signs-as noted below Exam: General-AAOX3, no distress, Cachexia + Malnourished Eyes-No icterus Neck-Supple, No JVD Lungs-AE decreased on left side more than right- Improved air entry. Few crackles, no wheezing, rhonchi. Left PC in situ + Heart-S1, S2 normal, no murmur Abdomen-Soft, non tender, non distended, BS present Extremities-No edema Neuro-Grossly no focal deficits Lab data as noted below. ASSESSMENT & PLAN: Patient moved from [place] few weeks ago. Had a complicated hospital course in March 2015 ([place]) followed by Rehab stay o f 3 months. Moved to [facility] to be with her brother. ASSESSMENT AND PLAN : ACUTE HYPOXIC RESPIRATORY FAILURE : Secondary to B/L PLEURAL EFFUSION LEFT > RIGHT, suspicious for malignant effusion -On 3 L oxygen - down from 4 L (none at home) -S/P Left sided pleural catheter placement by Dr Mckay on 08/06/16--> Drained around 950 cc at night. -Pleural fluid - no bacterial infection. Cytology - pending. -Try to wean off oxygen. Will need 2 step prior to discharge -Pulmonary on board. Appreciate inputs POSSIBLE METASTATIC PULMONARY MALIGNANCY: Hx Left lung tumor noted on CT chest during 02/2016 confinement in [place] (Negative initial bronchoscopic bx). Was recommended to get another biopsy done in future. -Work up - CT abdomen- 1. Distended gallbladder and common bile duct. 3. No hepatic or splenic masses.4. No bowel wall thickening or obstruction. 5. A 6 mm hypodense lesion within the pancreatic tail consistent with a small cystic lesion such as a side branch intraductal papillary mucinous neoplasm. 2. Headaches possibly from allergic rhinosinusitis. CT scan chest-1. No evidence for central pulmonary embolus. 2. Large left pleural effusion with associated right mediastinal shift. 3. A 3 cm left lower lobe hypodense lesion which is concerning for a primary malignancy or metastatic focus. 4. There is also a 1.4 cm irregular nodule within the right lower lobe. 5. Mediastinal lymphadenopathy. There is also right axillary/subpectoral lymphadenopathy. 6. Small to moderate right pleural effusion. 7. 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 CT head- 1. Suspect 2 lesions within the right frontal lobe and right occipital lobe as described above. 2. Hypodensity within the medial aspect of the right occipital lobe favors an old infarct. -Follow up Cytology- Left pleural effusion -Appreciate pulmonary inputs HEADACHE Primary reason of coming to ER. CT head- 1. Suspect 2 lesions within the right frontal lobe and right occipital lobe as described above. 2. Hypodensity within the medial aspect of the right occipital lobe favors an old infarct. -IV Decadron q 8 hours x Day 2 to decrease vasogenic edema --> Needs to be tapered -Evaluation for carcinoma as before. HX OF EMBOLIC CVA -As per records -CT head- likely old infarct in right occipital lobe -Not on anticoagulation secondary to GI bleeding in past HX OF PVD IDIOPATHIC HYPOTENSION -On midodrine. Held as her BP was in 180s and now down to 80s. -Will restart it again RECURRENT DVT S/P IVC FILTER PLACEMENT -Had IVC filter placed at [place] as had GI bleeding. HX OF GASTRITIS/FUNGAL ESOPHAGITIS S/P TREATMENT DEPRESSION -Suboptimal PAST TOBACCO /ALCOHOL ABUSE CHRONIC BACK PAIN S/P SURGERY -On chronic narcotics MALNUTRITION Low BMI -Clothing Sales Assistant consulted DVT prophylaxis: High risk with history of DVT in past, IVC filter placed. Did have GI bleeding in past. Full code. DISPOSITION To be determined PT/OT ordered Discussed with patient, brother by bedside. Does not want us to talk about her health condition to anyone except her and her brother. OK for brother to make decisions on her behalf if she is not capable of making her own medical decisions. Vital Signs: Date Time Temp Pulse Resp B/P Pulse Ox O2 Delivery O2 Flow Rate FiO2 08/07/16 07:43 36.2 89 16 117/67 100 Nasal Cannula 08/07/16 04:00 99 Nasal Cannula 3.0 08/07/16 03:51 36.2 73 17 127/70 99 Nasal Cannula 3.0 08/06/16 23:59 96 Nasal Cannula 3.0 08/06/16 23:34 36.6 80 18 119/70 97 Nasal Cannula 3.0 08/06/16 20:00 95 Nasal Cannula 4.0 08/06/16 18:57 36.6 84 16 122/67 95 Nasal Cannula 4.5 08/06/16 16:00 Nasal Cannula 4.0 08/06/16 15:23 36.9 80 16 107/61 94 Nasal Cannula 4.5 08/06/16 12:00 91 Nasal Cannula 4.0 08/06/16 12:00 36.5 79 18 88/59 96 Nasal Cannula 4.0 115/67 Lab Results: Results Past 24 Hours Test 08/07/16 04:44 Range/Units
--- NOTE | 2016-08-07 13:46 | Pulmonology Progress Note ---
Pulmonary Progress Note Date of Service August 07, 2016. Attending Dr. Mckay Subjective Patient notes much improved pulmonary status as well as decreased headache Objective Patient able to ambulate from the bathroom to her bed as well as complete full sentences is with no signs of respiratory insufficiency or distress: Vital signs: Stable on 2 L nasal cannula Respiratory: Mild rhonchi appreciated greatest on the left hemithorax Cardiac: S1-S2 regular rate and rhythm Abdomen: Positive bowel sounds soft nontender Skin: No breakdown noted MRI Brain: Enhancing lesions of the right frontal and right occipital lobe suspicious for metastatic disease Chest x-ray: Dramatic resolution of the patients left-sided pleural effusion with IPC and place Pleural effusion: PH: 7.37 Total protein: 4.0 LDH: 276 Glucose: 148 Amylase: 70 WBC: 1403 /95% mononuclear cells Microbiology: No organisms noted on Gram stain and no growth to date Pathology: Pending Assessment & Plan 71-year-old female admitted with large left-sided pleural effusion status post IPC: #1 sided pleural effusion: Patient is status post IPC with notable improvement in her pleural effusion as well as her pulmonary signs and symptoms. At this time we'll obtain high resolution CAT scan of the left hemithorax for further evaluation for possible primary malignancy. #2 anxiety: Patient is notably anxious today possibly secondary to steroids, anxiety over current medical condition, metastatic lesions to her head or possible withdrawal type symptoms. I spoken to the nursing staff and will monitor closely. Data Medications: Current Inpatient Medications Medications (Trade) Dose Ordered Sig/Yuriy Route Start Time Stop Time Status Last Admin Dose Admin Ondansetron HCl (Zofran Inj) 4 mg Q6H PRN IV 08/06/16 00:00 09/05/16 00:00 08/06/16 04:45 4 MG Oxycodone HCl (Oxycontin Tab) 10 mg BID PO 08/06/16 09:00 08/20/16 08:59 08/07/16 08:07 10 MG Ioversol (Optiray 320) 100 ml UD PRN IV 08/06/16 00:45 08/10/16 00:44 Acetaminophen (Tylenol Tab) 650 mg Q4H PRN PO 08/06/16 03:00 09/05/16 02:59 Nitroglycerin (Nitrostat Tab) 0.4 mg UD PRN SL 08/06/16 03:00 09/05/16 02:59 Aspirin (Ecotrin Tab) 81 mg QAM PO 08/06/16 09:00 09/05/16 08:59 08/07/16 08:08 81 MG Atorvastatin Calcium (Lipitor Tab) 40 mg HS PO 08/06/16 21:00 09/05/16 20:59 08/06/16 21:03 40 MG Diclofenac Sodium (Voltaren 1% Top Gel) 1 appln BID EXT 08/06/16 09:00 09/05/16 08:59 08/07/16 08:06 1 APPLN Folic Acid (Folvite Tab) 1 mg QAM PO 08/06/16 09:00 09/05/16 08:59 08/07/16 08:08 1 MG Gabapentin (Neurontin Cap) 600 mg HS PO 08/06/16 21:00 09/05/16 20:59 08/06/16 21:02 600 MG Midodrine (Proamatine Tab) 2.5 mg TID@0900,1400,1800 PO 08/06/16 09:00 09/05/16 08:59 Future Hold Pantoprazole Sodium (Protonix Tab) 40 mg QAM PO 08/06/16 09:00 09/05/16 08:59 08/07/16 08:07 40 MG Sertraline HCl (Zoloft Tab) 25 mg QAM PO 08/06/16 09:00 09/05/16 08:59 08/07/16 08:09 25 MG Polyethylene 17 gm 17 gm DAILY PRN PO 08/06/16 03:00 09/05/16 02:59 Promethazine HCl/ Sodium Chloride (Phenergan Inj/ Nss 50ml) 50.5 ml @ 204 mls/hr Q6H PRN IV 08/06/16 03:00 09/05/16 02:59 Hydroxyzine HCl 10 mg 10 mg Q6H PRN PO 08/06/16 03:00 09/05/16 02:59 08/06/16 19:23 10 MG Dexamethasone Sodium Phosphate/ Syringe (Decadron Inj/ Syringe) 1 ml @ 1 mls/min Q6H IV 08/06/16 08:00 09/05/16 07:59 08/07/16 08:08 1 MLS/MIN Docusate Sodium (coLACE CAP) 100 mg DAILY PO 08/06/16 09:00 09/05/16 08:59 08/07/16 08:06 100 MG Ipratropium [place] (Atrovent 0.02% 0.5MG/2.5ML Neb) 0.5 mg Q4H PRN INH 08/06/16 05:00 09/05/16 04:59 Levalbuterol (Xopenex 1.25MG/ 0.5ML Neb) 1.25 mg Q4H PRN INH 08/06/16 05:00 09/05/16 04:59 Ketorolac Tromethamine (Toradol Inj) 15 mg Q6H PRN IV. 08/06/16 05:15 08/11/16 05:14 Ibuprofen (Advil Tab) 400 mg Q6H PRN PO 08/06/16 05:15 09/05/16 05:14 Enteral Nutritional Formula (Boost) 1 can TID PO 08/06/16 14:00 09/05/16 13:59 08/07/16 08:10 1 CAN Oxycodone HCl (Roxicodone Immediate Rel Tab) 5 mg Q6H PRN PO 08/06/16 20:15 08/20/16 20:14 08/07/16 08:08 5 MG Gadobutrol (Gadavist) 4.5 mmol UD PRN IV 08/06/16 20:45 08/10/16 20:44 I & O: 24-Hour Column 08/07/16 08:00 Intake Total 895 ml Output Total 5150 ml Balance -4255 ml Vital Signs: Date Time Temp Pulse Resp B/P Pulse Ox O2 Delivery O2 Flow Rate FiO2 08/07/16 12:00 Nasal Cannula 2.0 08/07/16 11:52 36.7 86 18 114/65 95 Nasal Cannula 08/07/16 08:00 Nasal Cannula 2.0 08/07/16 07:43 36.2 89 16 117/67 100 Nasal Cannula 08/07/16 04:00 99 Nasal Cannula 3.0 08/07/16 03:51 36.2 73 17 127/70 99 Nasal Cannula 3.0 08/06/16 23:59 96 Nasal Cannula 3.0 08/06/16 23:34 36.6 80 18 119/70 97 Nasal Cannula 3.0 08/06/16 20:00 95 Nasal Cannula 4.0 08/06/16 18:57 36.6 84 16 122/67 95 Nasal Cannula 4.5 08/06/16 16:00 Nasal Cannula 4.0 08/06/16 15:23 36.9 80 16 107/61 94 Nasal Cannula 4.5 Laboratory Results: Last 24 Hours Test 08/07/16 04:44
[2016-08-07 13:57] LABS: HEMATOCRIT 31.1 % (37-47); MEAN CELL VOLUME 82.1 fL (80-100); MEAN CORPUSCULAR HEMOGLOBIN 25.9 pg (25-34); MEAN CORPUSCULAR HGB CONC 31.5 g/dl (32-36); MEAN PLATELET VOLUME 9.5 fL (7.4-10.4); PLATELET COUNT 303 K/uL (130-400); RED BLOOD COUNT 3.79 M/uL (4.2-5.4); WHITE BLOOD COUNT 15.64 K/uL (4.8-10.8)
[2016-08-07 14:22] LABS: BUN/CREATININE RATIO 27.1 (10-20); CREATININE 1.1 mg/dl (0.60-1.20); POTASSIUM 4.6 mmol/L (3.5-5.1)
--- NOTE | 2016-08-07 15:47 | DIAGNOSTIC IMAGING REPORT ---
CT OF THE CHEST WITHOUT IV CONTRAST CLINICAL HISTORY: Evaluation for possible primary lung cancer. COMPARISON STUDY: Chest CT August 06, 2016. CT DOSE: 186.03 mGy.cm TECHNIQUE: Axial images of the chest were obtained without IV contrast. Images were reviewed in the axial, sagittal, and coronal planes. IV contrast was not administered for this examination. FINDINGS: A left pleural catheter has been placed with marked decrease in size of the left pleural effusion since CT of August 06, 2016. There is a trace residual pleural effusion. There is a small right pleural effusion. Note is made of a 3.1 x 2.7 cm thick-walled cavitary left lower lobe lesion. This likely corresponds to the hypodense abnormality on prior CT. Note is again made of a 1.4 cm groundglass and solid right lower lobe nodule shown on image 172. This is unchanged. There is also a 0.6 cm irregular nodule within the right upper lobe shown on image 67 of 296. There are scattered bilateral groundglass opacities. There is no pneumothorax. Central airways are patent. Multiple mildly enlarged mediastinal lymph nodes are noted, including a prevascular node measures 1.3 cm in short axis diameter. There are mildly enlarged precarinal and subcarinal lymph nodes. No suspicious osseous lesions are present. Upper abdomen is unremarkable on this unenhanced exam. There is no pericardial effusion. IMPRESSION: 1. Marked decrease in size of the left pleural effusion status post pleural catheter placement. Trace residual pleural effusion. Significant improvement in left lung aeration. 2. 3.1 x 2.7 cm thick-walled cavitary left lower lobe lesion. Differential considerations include a primary lung malignancy or an infectious process such as cavitary pneumonia or atypical infectious process such as fungal or mycobacterial infection. 2. Several groundglass and solid nodules within the lungs, as described above. These may be neoplastic or infectious. 4. No change in mild mediastinal lymphadenopathy which remains indeterminate. Electronically signed by: Festus Hannon M.D. 08/07/2016 3:45 PM Dictated Date/Time: 08/07/2016 3:29 PM
--- NOTE | 2016-08-07 17:44 | Radiation Oncology Consult ---
Radiation Oncology Consult Date / Reason August 07, 2016. Physicians Radiation Oncologist: Dr. Jos Dee Diagnosis (1) Pulmonary mass Stage: Unknown at this time (2) Brain metastases Stage: Unknown at this time History of Present Illness I am seeing Ms. Lisa in consultation at the request of Dr. Jay. Ms. Lisa is a 71-year-old female who recently presented to the emergency room due to headaches and shortness of breath. Her subsequent ED/Hospital Course: 1. Chest x-ray on 08/05/2016 - "IMPRESSION: Large left pleural effusion demonstrate near complete opacification left hemithorax. Slight cardiomediastinal silhouette shift to the right." 2. CT of the head on 08/06/2016 - "Impression: 1. Suspect 2 lesions within the right frontal lobe and right occipital lobe as described above. 2. Hypodensity within the medial aspect of the right occipital lobe favors an old infarct. 3. Brain MRI is recommended for further evaluation." 3. CT angiogram of the chest on 08/06/2016 - "IMPRESSION: 1. No evidence for central pulmonary embolus. 2. Large left pleural effusion with associated right mediastinal shift. 3. A 3 cm left lower lobe hypodense lesion which is concerning for a primary malignancy or metastatic focus. 4. There is also a 1.4 cm irregular nodule within the right lower lobe. 5. Mediastinal lymphadenopathy. There is also right axillary/subpectoral lymphadenopathy. 6. Small to moderate right pleural effusion. 7. 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 CT Abdomen/Pelvis (08/06/2016) - IMPRESSION: 1. Please refer to the dedicated chest CT for further evaluation of the chest abnormalities. 2. Distended gallbladder and common bile duct. 3. No hepatic or splenic masses. 4. No bowel wall thickening or obstruction. 5. A 6 mm hypodense lesion within the pancreatic tail consistent with a small cystic lesion such as a side branch intraductal papillary mucinous neoplasm 5. MRI of Brain (08/06/2016) - IMPRESSION: Right enhancing lesions within the right frontal lobe and right occipital lobe which are highly suspicious for metastatic disease. 6. Placement of catheter to drain large left pleural effusion by Dr. Mckay - cytology results are still pending. Social History Smoking Status: Current Every Day Smoker Estimated Cigarettes Per Day: 20 Hx Alcohol Use: Yes (occasionally ) Hx Substance Use : No Allergies Coded Allergies: Penicillins (Verified Allergy, Intermediate, RASH-HAPPENED A CHILD, ) Home Medications Scheduled Aspirin (Aspirin Ec), 81 MG PO QAM Atorvastatin (Lipitor), 40 MG PO HS Diclofenac Sodium (Topical) (Voltaren 1% Top Gel), 1 APPLN TOP BID Folic Acid (Folvite), 1 MG PO QAM Gabapentin (Neurontin), 600 MG PO HS Midodrine (Midodrine HCl), 2.5 MG PO TID Oxycodone HCl (Oxycontin), 10 MG PO BID Pantoprazole (Protonix), 40 MG PO QAM Potassium Chloride (Potassium Chloride), 20 MEQ PO QAM Sertraline (Zoloft), 25 MG PO QAM Scheduled PRN Ondansetron Hcl (Zofran), 4 MG PO Q8 PRN for Nausea Oxycodone Ir (Roxicodone Ir), 2.5 MG PO BID PRN for Severe Pain Polyethylene Glycol 3350 (Miralax), 17 GM PO DAILY PRN for Constipation Review of Systems Ear/Hearing: Ear Side: Bilateral Hearing Ability: Normal Edema: Present?: No Location Body Site Modifier: Bilateral Degree: Trace Sexuality-Female: Patient ?: No Pain Management Side: Mid Patient Preferred Pain Scale: 0 - 10 Initial Pain Intensity: 8.0 Physical Exam Height: 5 (Feet) 5.00 (Inches) 165.1 (Centimeters) 1.6510 (Meters) Weight: 97 (Pounds) 10.6 (Ounces) 44.300 (Kilograms) 99374.000 (Grams) Date Time Temp Pulse Resp B/P Pulse Ox O2 Delivery O2 Flow Rate FiO2 08/07/16 16:00 Nasal Cannula 2.0 08/07/16 15:24 36.6 76 22 136/68 99 Nasal Cannula 2.0 08/07/16 12:00 Nasal Cannula 2.0 08/07/16 11:52 36.7 86 18 114/65 95 Nasal Cannula 08/07/16 08:00 Nasal Cannula 2.0 08/07/16 07:43 36.2 89 16 117/67 100 Nasal Cannula 08/07/16 04:00 99 Nasal Cannula 3.0 08/07/16 03:51 36.2 73 17 127/70 99 Nasal Cannula 3.0 08/06/16 23:59 96 Nasal Cannula 3.0 08/06/16 23:34 36.6 80 18 119/70 97 Nasal Cannula 3.0 08/06/16 20:00 95 Nasal Cannula 4.0 08/06/16 18:57 36.6 84 16 122/67 95 Nasal Cannula 4.5 General Appearance: + cachetic, + thin Head: normocephalic Eyes: normal inspection ENT: normal ENT inspection Neck: supple, no adenopathy Respiratory/Chest: chest non-tender, no respiratory distress, + decreased breath sounds, + crackles Cardiovascular: regular rate, rhythm, no edema, no gallop, no JVD, no murmur Abdomen/GI: normal bowel sounds, non tender, soft, no organomegaly, no pulsatile mass Neurologic/Psych: video intern II-XII nml as tested, no motor/sensory deficits, alert, normal mood/affect, normal reflexes, oriented x 3 Laboratory Labortaory Results: were reviewed Pathology Pathology Comments Results Pending Imaging Imaging studies: were reviewed Assessment & Recommendations Ms. Lisa is a 71-year-old female who presents with probable metastatic lung cancer to the brain. The patient did undergo a thoracentesis by Dr. Mckay and the fluid has been sent for cytology and the results are pending. We are been asked to evaluate the patient regarding the metastatic disease in the brain. In general, I did have an in depth discussion with the patient regarding her diagnosis as well as potential treatment options regarding the brain. At this point, I have recommended that we do not initiate treatment until the patient has a confirmed diagnosis. With respect to treatment for her likely metastatic disease in the brain, I have recommended consideration of stereotactic radiosurgery. Alternatively, the patient could be considered for surgical resection however I went to the patient that maybe likely given her overall performance status and the patient is not interested in this option due to potential quality of life issues. We did also discuss whole brain radiation therapy as an alternative however the patient would prefer to preserve her quality of life. After the patient does have a confirmed diagnosis, we will bring her down for CT simulation for treatment planning. The patient should also be evaluated by medical oncology after there is confirmation of a diagnosis of cancer. I have spoken to her medical team and they are in agreement. We explained the indications, alternatives, benefits, risks and side effects of external beam radiation therapy to the brain. We explain the most common side effects including but not limited to skin erythema, skin break down, hair loss, radiation necrosis, fatigue, short-term memory loss, decreased neurocognitive performance, cerebral edema, hearing loss, damage to cochlea structures, seizures, loss of sensory and or motor function. We explained the treatment planning process and what to expect before during and after treatment. The patient understands and would be willing to consent to treatment. The patient had multiple questions which were answered to their full satisfaction. Thank you for allowing us to participate in the care of this patient. This chart was completed in part utilizing [employer] Speech Voice Recognition software. Attempts were made to minimize the grammatical errors, random word insertions, pronoun errors and incomplete sentences. Any formal questions or concerns about the content, text or information contained within the body of this dictation should be directly addressed to the provider for clarification. Jos Dee MD Department of Radiation Oncology [facility] Total Time In Consultation I spent 30 minutes examining and counseling the patient. I spent 15 minutes completing this note. Copy To Verónica Dee., S; Carlo Mckay MD
[2016-08-07] MEDS: GABAPENTIN 300 MG CAP PO SCH (20:56)
[2016-08-07] MEDS: ATORVASTATIN 20 MG TAB PO SCH (20:57)
[2016-08-08] VITALS (8 sets, daily range): BP systolic 91–156; BP diastolic 56–74; PULSE 75–83; TEMP 36.5–36.9; O2SAT 94–99
[2016-08-08] MEDS: DEXAMETHASONE INJ 4 MG in SYRINGE 0 ML IV SCH ×4 (02:26→19:53)
[2016-08-08] MEDS: OXYCODONE HCL IR 5 MG TAB (IMMEDIATE RELEASE) PO PRN ×2 (06:50→13:48)
[2016-08-08 07:34] LABS: HEMATOCRIT 32.3 % (37-47); MEAN CELL VOLUME 83.5 fL (80-100); MEAN CORPUSCULAR HEMOGLOBIN 26.4 pg (25-34); MEAN CORPUSCULAR HGB CONC 31.6 g/dl (32-36); MEAN PLATELET VOLUME 9.6 fL (7.4-10.4); PLATELET COUNT 293 K/uL (130-400); RED BLOOD COUNT 3.87 M/uL (4.2-5.4); WHITE BLOOD COUNT 10.95 K/uL (4.8-10.8)
[2016-08-08 08:07] LABS: BUN/CREATININE RATIO 32.4 (10-20); CREATININE 0.97 mg/dl (0.60-1.20); POTASSIUM 4.6 mmol/L (3.5-5.1)
[2016-08-08 08:29] LABS: CALCIUM 8.4 mg/dl (8.5-10.1)
[2016-08-08] MEDS: PANTOprazole SOD 40 MG TAB PO SCH (09:13)
[2016-08-08] MEDS: DOCUSATE SODIUM 100 MG CAP PO SCH (09:13)
[2016-08-08] MEDS: SERTRALINE HCL 50 MG TAB PO SCH (09:13)
[2016-08-08] MEDS: ASPIRIN 81 MG ECTAB PO SCH (09:14)
[2016-08-08] MEDS: DICLOFENAC SOD 1% GEL 100 GM TUBE EXT SCH ×2 (09:15→19:21)
[2016-08-08] MEDS: BOOST VANILLA PO SCH ×6 (09:15→19:20)
[2016-08-08] MEDS: OXYCODONE HCL 10 MG TABCR (OXYCONTIN) PO SCH ×2 (09:22→19:21)
[2016-08-08] MEDS: ONDANSETRON INJ 2 MG/ML 2 ML VIAL IV PRN (18:21)
--- NOTE | 2016-08-08 18:29 | Progress Note ---
Internal Med Progress Note Date of Service: August 08, 2016. Provider Documentation: SUBJECTIVE: resting comfortably says headaches much improved still feeling weak and tired eating ok slept ok has some chest pain while taking deep breath or coughing OBJECTIVE: Vital Signs-as noted below Exam: General-alert and awake and oriented x 3. ENT-normal hearing Neck-no neck masses Lungs-cta b/l no wheezing or crackles Heart-s1 and s2 heard regular rate and rhythm no murmurs Abdomen-soft bowel sounds present non tender no distension Extremities- no present no erythema Neuro-alert and awake oriented moves extremities Lab data as noted below. ASSESSMENT & PLAN: ACUTE HYPOXIC RESPIRATORY FAILURE : Secondary to B/L PLEURAL EFFUSION LEFT > RIGHT, suspicious for malignant effusion currently on 2lts oxygen S/P Left sided pleural catheter placement by Dr Mckay on 08/06/16--> Drained around 950 cc at night. Pleural fluid - no bacterial infection. Cytology -still pending. Needs 2 step prior to discharge Pulmonary on board and Appreciate inputs POSSIBLE METASTATIC PULMONARY MALIGNANCY: Hx Left lung tumor noted on CT chest during 02/2016 confinement in [place] (Negative initial bronchoscopic bx). Was recommended to get another biopsy done in future. Awaiting Cytology- Left pleural effusion Pulmonary on board HEADACHE Primary reason of coming to ER. ct head vasogenic edema on iv decadron improving radiation oncology on board and appreciate inputs. HX OF EMBOLIC CVA As per records CT head- likely old infarct in right occipital lobe Not on anticoagulation secondary to GI bleeding in past on aspirin HX OF PVD on aspirin IDIOPATHIC HYPOTENSION On midodrine. Held as her BP was in 180s and now down Will restart it again if needed RECURRENT DVT S/P IVC FILTER PLACEMENT Had IVC filter placed at [place] as had GI bleeding. HX OF GASTRITIS/FUNGAL ESOPHAGITIS S/P TREATMENT DEPRESSION Suboptimal PAST TOBACCO /ALCOHOL ABUSE CHRONIC BACK PAIN S/P SURGERY On chronic narcotics MALNUTRITION Low BMI Primary Teaching Assistant consulted DVT prophylaxis: High risk with history of DVT in past, IVC filter placed. Did have GI bleeding in past. scds Full code. DISPOSITION To be determined transferred to medical floor PT/OT ordered Vital Signs: Date Time Temp Pulse Resp B/P Pulse Ox O2 Delivery O2 Flow Rate FiO2 08/08/16 16:00 Nasal Cannula 2.0 08/08/16 15:21 80 96 08/08/16 15:02 36.6 76 20 115/66 99 2.0 5/23/17 12:15 Nasal Cannula 2.0 08/08/16 12:15 36.8 78 18 119/69 98 Room Air 08/08/16 11:43 36.8 78 18 98 2.0 08/08/16 08:10 36.8 78 18 156/74 98 08/08/16 08:00 Nasal Cannula 2.0 08/08/16 03:32 36.7 75 16 91/56 94 Nasal Cannula 2.0 08/07/16 23:55 36.8 74 17 121/68 97 Nasal Cannula 2.0 08/07/16 19:20 36.9 76 20 118/70 97 Nasal Cannula 2.0 Lab Results: Results Past 24 Hours Test 08/08/16 07:26 Range/Units White Blood Count 10.95 4.8-10.8 K/uL Red Blood Count 3.87 4.2-5.4 M/uL Hemoglobin 10.2 12.0-16.0 g/dL Hematocrit 32.3 37-47 % Mean Corpuscular Volume 83.5 80-100 fL Mean Corpuscular Hemoglobin 26.4 25-34 pg Mean Corpuscular Hemoglobin Concent 31.6 32-36 g/dl RDW Standard Deviation 48.7 36.4-46.3 fL RDW Coefficient of Variation 16.1 11.5-14.5 % Platelet Count 293 130-400 K/uL Mean Platelet Volume 9.6 7.4-10.4 fL Sodium Level 139 136-145 mmol/L Potassium Level 4.6 3.5-5.1 mmol/L Chloride Level 106 98-107 mmol/L Carbon Dioxide Level 27 21-32 mmol/L Anion Gap 6.0 3-11 mmol/L Blood Urea Nitrogen 31 7-18 mg/dl Creatinine 0.97 0.60-1.20 mg/dl Est Creatinine Clear Calc Drug Dose 38.3 ml/min Estimated GFR () 69.1 Estimated GFR (Non- 59.6 BUN/Creatinine Ratio 32.4 10-20 Random Glucose 169 70-99 mg/dl Calcium Level 8.4 8.5-10.1 mg/dl
[2016-08-08] MEDS: GABAPENTIN 300 MG CAP PO SCH (19:22)
[2016-08-08] MEDS: ATORVASTATIN 20 MG TAB PO SCH (19:22)
[2016-08-09] VITALS (7 sets, daily range): BP systolic 122–186; BP diastolic 67–78; PULSE 65–93; TEMP 36.4–36.8; O2SAT 97–100
[2016-08-09] MEDS: DEXAMETHASONE INJ 4 MG in SYRINGE 0 ML IV SCH ×4 (01:40→21:00)
[2016-08-09] MEDS: OXYCODONE HCL IR 5 MG TAB (IMMEDIATE RELEASE) PO PRN ×3 (07:49→23:40)
[2016-08-09] MEDS: OXYCODONE HCL 10 MG TABCR (OXYCONTIN) PO SCH ×2 (07:49→21:00)
[2016-08-09] MEDS: PANTOprazole SOD 40 MG TAB PO SCH (07:50)
[2016-08-09] MEDS: SERTRALINE HCL 50 MG TAB PO SCH (07:50)
[2016-08-09] MEDS: DOCUSATE SODIUM 100 MG CAP PO SCH ×2 (07:50→07:55)
[2016-08-09] MEDS: ASPIRIN 81 MG ECTAB PO SCH (07:50)
[2016-08-09] MEDS: DICLOFENAC SOD 1% GEL 100 GM TUBE EXT SCH ×2 (07:51→20:59)
[2016-08-09] MEDS: BOOST VANILLA PO SCH ×6 (07:51→20:00)
--- NOTE | 2016-08-09 11:17 | Pulmonology Progress Note ---
Pulmonary Progress Note Date of Service August 09, 2016. Attending Dr. Mckay Subjective Patient is very emotional and easy to anger. She and her brother did review her CAT scan imaging as well as as result of her pleural fluid diagnosing stage IV lung carcinoma. Objective Patient is not having active pulmonary complaints denies productive cough, hemoptysis, fever or pleurisy Vital signs: Stable on 2 L nasal cannula Respiratory: Mild rhonchi appreciated greatest on the left hemithorax Cardiac: S1-S2 regular rate and rhythm Abdomen: Positive bowel sounds soft nontender Skin: No breakdown noted MRI Brain: Enhancing lesions of the right frontal and right occipital lobe suspicious for metastatic disease Chest x-ray: Dramatic resolution of the patients left-sided pleural effusion with IPC and place Pleural effusion: PH: 7.37 Total protein: 4.0 LDH: 276 Glucose: 148 Amylase: 70 WBC: 1403 /95% mononuclear cells Microbiology: No organisms noted on Gram stain and no growth to date Pathology: Pending [facility] diagnoses: non-ST elevated myocardial infarction mild rhabdomyolysis SIRS with associated hypotension Alcohol abuse: Empty bottles of alcohol found in the home per EMS treated with Librium Bilateral pleural effusions (right>>> left) Malnutrition Polysubstance abuse Admission chest x-ray: Cystic lung mass CT angiogram: Left lower lobe cavitating lung mass 2.4 x 2.5 cm, right upper lobe 6 mm nodule Diffuse mediastinal lymphadenopathy Previous medical history DVT 2006 Alcoholism Procedures: Lumbar puncture: Intubation EGD: Severe esophagitis, gastritis EEG: BiPLEDS not subclinical seizure activity MRI of the brain, extensive subacute strokes Bronchoscopy 03/24/2016: No definitive findings mild yeast Particular catheter rash, bronchoalveolar lavage of the left lower lobe Assessment & Plan 71-year-old female status post IPC placement for large left-sided pleural effusion now on diagnosed with stage IV lung carcinoma: #1 sided pleural effusion: CT of the thorax demonstrates complete resolution of the patient's pleural effusion. We'll maintain IPC catheter placement for both therapeutic drainage as well as possible pleurodesis which is noted to occur in 50-60% the patient's within the next 3 months. #2 anxiety: Patient with severe anxiety and anger at this time continue to monitor. She is noted per [place] to have a history of alcoholism will continue after monitor for alcohol withdrawal as well as opiate withdrawal. We' ll place on CIWA protocol. #3 chronic pain: We'll consult pain management team #4 stage IV lung carcinoma: Patient has stage IV adenocarcinoma of the lung. Radiation oncology is artery involved with prostatic lesions of the head will consult oncology at this time. #5 pleural effusion: There were subsegments of single cells suggestive of reactive mesothelial cells. We'll continue to monitor secondary to possible hidden infection. Data Medications: Current Inpatient Medications Medications (Trade) Dose Ordered Sig/Yuriy Route Start Time Stop Time Status Last Admin Dose Admin Ondansetron HCl (Zofran Inj) 4 mg Q6H PRN IV 08/06/16 00:00 09/05/16 00:00 08/08/16 18:21 4 MG Oxycodone HCl (Oxycontin Tab) 10 mg BID PO 08/06/16 09:00 08/20/16 08:59 08/09/16 07:49 10 MG Ioversol (Optiray 320) 100 ml UD PRN IV 08/06/16 00:45 08/10/16 00:44 Acetaminophen (Tylenol Tab) 650 mg Q4H PRN PO 08/06/16 03:00 09/05/16 02:59 Nitroglycerin (Nitrostat Tab) 0.4 mg UD PRN SL 08/06/16 03:00 09/05/16 02:59 Aspirin (Ecotrin Tab) 81 mg QAM PO 08/06/16 09:00 09/05/16 08:59 08/09/16 07:50 81 MG Atorvastatin Calcium (Lipitor Tab) 40 mg HS PO 08/06/16 21:00 09/05/16 20:59 08/08/16 19:22 40 MG Diclofenac Sodium (Voltaren 1% Top Gel) 1 appln BID EXT 08/06/16 09:00 09/05/16 08:59 08/09/16 07:51 1 APPLN Folic Acid (Folvite Tab) 1 mg QAM PO 08/06/16 09:00 09/05/16 08:59 08/09/16 07:50 1 MG Gabapentin (Neurontin Cap) 600 mg HS PO 08/06/16 21:00 09/05/16 20:59 08/08/16 19:22 600 MG Midodrine (Proamatine Tab) 2.5 mg TID@0900,1400,1800 PO 08/06/16 09:00 09/05/16 08:59 Future Hold Pantoprazole Sodium (Protonix Tab) 40 mg QAM PO 08/06/16 09:00 09/05/16 08:59 08/09/16 07:50 40 MG Sertraline HCl (Zoloft Tab) 25 mg QAM PO 08/06/16 09:00 09/05/16 08:59 08/09/16 07:50 25 MG Polyethylene 17 gm 17 gm DAILY PRN PO 08/06/16 03:00 09/05/16 02:59 Promethazine HCl/ Sodium Chloride (Phenergan Inj/ Nss 50ml) 50.5 ml @ 204 mls/hr Q6H PRN IV 08/06/16 03:00 09/05/16 02:59 Hydroxyzine HCl 10 mg 10 mg Q6H PRN PO 08/06/16 03:00 09/05/16 02:59 08/06/16 19:23 10 MG Dexamethasone Sodium Phosphate/ Syringe (Decadron Inj/ Syringe) 1 ml @ 1 mls/min Q6H IV 08/06/16 08:00 09/05/16 07:59 08/09/16 07:51 1 MLS/MIN Docusate Sodium (coLACE CAP) 100 mg DAILY PO 08/06/16 09:00 09/05/16 08:59 08/08/16 09:13 100 MG Ipratropium [place] (Atrovent 0.02% 0.5MG/2.5ML Neb) 0.5 mg Q4H PRN INH 08/06/16 05:00 09/05/16 04:59 Levalbuterol (Xopenex 1.25MG/ 0.5ML Neb) 1.25 mg Q4H PRN INH 08/06/16 05:00 09/05/16 04:59 Ketorolac Tromethamine (Toradol Inj) 15 mg Q6H PRN IV. 08/06/16 05:15 08/11/16 05:14 Ibuprofen (Advil Tab) 400 mg Q6H PRN PO 08/06/16 05:15 09/05/16 05:14 Enteral Nutritional Formula (Boost) 1 can TID PO 08/06/16 14:00 09/05/16 13:59 08/09/16 07:51 1 CAN Oxycodone HCl (Roxicodone Immediate Rel Tab) 5 mg Q6H PRN PO 08/06/16 20:15 08/20/16 20:14 08/09/16 07:49 5 MG Gadobutrol (Gadavist) 4.5 mmol UD PRN IV 08/06/16 20:45 08/10/16 20:44 Vital Signs: Date Time Temp Pulse Resp B/P Pulse Ox O2 Delivery O2 Flow Rate FiO2 08/09/16 08:10 Nasal Cannula 2.0 08/09/16 07:34 36.5 66 16 129/72 100 1.0 08/09/16 03:42 36.4 65 16 122/69 98 Nasal Cannula 2.0 08/09/16 00:00 Nasal Cannula 2.0 08/08/16 23:39 36.5 79 16 132/69 97 Nasal Cannula 2.0 08/08/16 20:00 Nasal Cannula 2.0 08/08/16 19:32 36.9 83 16 115/60 98 Room Air 08/08/16 16:00 Nasal Cannula 2.0 08/08/16 15:21 80 96 08/08/16 15:02 36.6 76 20 115/66 99 2.0 08/08/16 12:15 Nasal Cannula 2.0 08/08/16 12:15 36.8 78 18 119/69 98 Room Air 08/08/16 11:43 36.8 78 18 98 2.0
[2016-08-09] MEDS: hydrOXYzine HCL 10 MG TAB PO PRN (11:42)
--- NOTE | 2016-08-09 12:44 | Oncology Consultation ---
Oncology/Heme Consultation Date of Consultation: August 09, 2016. Attending Physician: Pablo Matta MD Reason for Consultation: Probable lung carcinoma stage IV History of Present Illness Ms. Garcia seen today. Her brother Ang she currently lives with was present during the entire visit. She had presented by the records with headache and decreasing performance status. She reviews with me that in February last year while living in [place] she had a CVA and her brother confirms that she was in rehabilitation for a few months [facility] and has now relocated to this area. With her evaluation this time she was found to have a large left pleural effusion subsequently been drained with cytologic findings consistent with adenocarcinoma lung primary. Also an MRI of the brain is demonstrated that is consistent with metastatic disease. CT of the abdomen was reviewed in I believe is negative for definite evidence of metastatic disease. The chart reflects that she had been noted in the past to have a cavitary lesion in the left lung and apparently prior biopsies have been unrevealing. She is a smoker for quite some time. She also admits to moderate alcohol usage. She denies any prior history of heart disease or [place] disease other than was been mentioned. Chart also reflects that she has a history of deep venous thrombosis in the past and an IVC filter had been previously placed. She states her weight is been stable but she is very thin. Past Medical/Surgical History Medical Problems: (1) Chronic low back pain Status: Chronic (2) Contusion of right foot Status: Acute (3) Dyslipidemia Status: Chronic (4) GERD (gastroesophageal reflux disease) Status: Chronic (5) Heart disease Status: Chronic (6) Hypertension Status: Chronic (7) Pleural effusion on left Status: Acute Social History Smoking Status: Current Every Day Smoker Drug Use: none Marital Status: Housing Status: lives with family Occupation Status: retired Allergies Coded Allergies: Penicillins (Verified Allergy, Intermediate, RASH-HAPPENED A CHILD, ) Home Medications Scheduled Aspirin (Aspirin Ec), 81 MG PO QAM Atorvastatin (Lipitor), 40 MG PO HS Diclofenac Sodium (Topical) (Voltaren 1% Top Gel), 1 APPLN TOP BID Folic Acid (Folvite), 1 MG PO QAM Gabapentin (Neurontin), 600 MG PO HS Midodrine (Midodrine HCl), 2.5 MG PO TID Oxycodone HCl (Oxycontin), 10 MG PO BID Pantoprazole (Protonix), 40 MG PO QAM Potassium Chloride (Potassium Chloride), 20 MEQ PO QAM Sertraline (Zoloft), 25 MG PO QAM Scheduled PRN Ondansetron Hcl (Zofran), 4 MG PO Q8 PRN for Nausea Oxycodone Ir (Roxicodone Ir), 2.5 MG PO BID PRN for Severe Pain Polyethylene Glycol 3350 (Miralax), 17 GM PO DAILY PRN for Constipation Current Inpatient Medications Current Inpatient Medications Medications (Trade) Dose Ordered Sig/Yuriy Route Start Time Stop Time Status Last Admin Dose Admin Ondansetron HCl (Zofran Inj) 4 mg Q6H PRN IV 08/06/16 00:00 09/05/16 00:00 08/08/16 18:21 4 MG Oxycodone HCl (Oxycontin Tab) 10 mg BID PO 08/06/16 09:00 08/20/16 08:59 08/09/16 07:49 10 MG Ioversol (Optiray 320) 100 ml UD PRN IV 08/06/16 00:45 08/10/16 00:44 Acetaminophen (Tylenol Tab) 650 mg Q4H PRN PO 08/06/16 03:00 09/05/16 02:59 Nitroglycerin (Nitrostat Tab) 0.4 mg UD PRN SL 08/06/16 03:00 09/05/16 02:59 Aspirin (Ecotrin Tab) 81 mg QAM PO 08/06/16 09:00 09/05/16 08:59 08/09/16 07:50 81 MG Atorvastatin Calcium (Lipitor Tab) 40 mg HS PO 08/06/16 21:00 09/05/16 20:59 08/08/16 19:22 40 MG Diclofenac Sodium (Voltaren 1% Top Gel) 1 appln BID EXT 08/06/16 09:00 09/05/16 08:59 08/09/16 07:51 1 APPLN Folic Acid (Folvite Tab) 1 mg QAM PO 08/06/16 09:00 09/05/16 08:59 08/09/16 07:50 1 MG Gabapentin (Neurontin Cap) 600 mg HS PO 08/06/16 21:00 09/05/16 20:59 08/08/16 19:22 600 MG Midodrine (Proamatine Tab) 2.5 mg TID@0900,1400,1800 PO 08/06/16 09:00 09/05/16 08:59 Future Hold Pantoprazole Sodium (Protonix Tab) 40 mg QAM PO 08/06/16 09:00 09/05/16 08:59 08/09/16 07:50 40 MG Sertraline HCl (Zoloft Tab) 25 mg QAM PO 08/06/16 09:00 09/05/16 08:59 08/09/16 07:50 25 MG Polyethylene 17 gm 17 gm DAILY PRN PO 08/06/16 03:00 09/05/16 02:59 Promethazine HCl/ Sodium Chloride (Phenergan Inj/ Nss 50ml) 50.5 ml @ 204 mls/hr Q6H PRN IV 08/06/16 03:00 09/05/16 02:59 Hydroxyzine HCl 10 mg 10 mg Q6H PRN PO 08/06/16 03:00 09/05/16 02:59 08/09/16 11:42 10 MG Dexamethasone Sodium Phosphate/ Syringe (Decadron Inj/ Syringe) 1 ml @ 1 mls/min Q6H IV 08/06/16 08:00 09/05/16 07:59 08/09/16 07:51 1 MLS/MIN Docusate Sodium (coLACE CAP) 100 mg DAILY PO 08/06/16 09:00 09/05/16 08:59 08/08/16 09:13 100 MG Ipratropium [place] (Atrovent 0.02% 0.5MG/2.5ML Neb) 0.5 mg Q4H PRN INH 08/06/16 05:00 09/05/16 04:59 Levalbuterol (Xopenex 1.25MG/ 0.5ML Neb) 1.25 mg Q4H PRN INH 08/06/16 05:00 09/05/16 04:59 Ketorolac Tromethamine (Toradol Inj) 15 mg Q6H PRN IV. 08/06/16 05:15 08/11/16 05:14 Ibuprofen (Advil Tab) 400 mg Q6H PRN PO 08/06/16 05:15 09/05/16 05:14 Enteral Nutritional Formula (Boost) 1 can TID PO 08/06/16 14:00 09/05/16 13:59 08/09/16 07:51 1 CAN Oxycodone HCl (Roxicodone Immediate Rel Tab) 5 mg Q6H PRN PO 08/06/16 20:15 08/20/16 20:14 08/09/16 07:49 5 MG Gadobutrol (Gadavist) 4.5 mmol UD PRN IV 08/06/16 20:45 08/10/16 20:44 Review of Systems Constitutional: Negative for definite weight loss, night sweats, or fever Eyes: Negative for event change of vision ENT: Negative for epistaxis, nasal discharge, sore throat, or deafness Cardiovascular: Negative for chest pain, palpitations, dizziness, diaphoresis Respiratory: Negative for new shortness of breath,hemoptysis, or purulent cough Gastrointestinal: Negative for diarrhea, hematemesis, melena, nausea, vomiting , or dyspepsia Integumentary (skin): Negative for rash or jaundice discoloration Genitourinary: Negative for urinary frequency, hematuria, or dysuria Neurological: Negative for weakness, seizure activity, she has had frequent headaches headaches, Lymphatic/Hematologic: Negative for petechiae, bleeding or new adenopathy Musculoskeletal: Negative for new joint or back pain Allergic/Immunologic: Negative for unusual rash or pruritis. Physical Exam Date Time Temp Pulse Resp B/P Pulse Ox O2 Delivery O2 Flow Rate FiO2 08/09/16 11:29 36.7 93 18 186/77 97 Room Air 08/09/16 08:10 Nasal Cannula 2.0 08/09/16 07:34 36.5 66 16 129/72 100 1.0 08/09/16 03:42 36.4 65 16 122/69 98 Nasal Cannula 2.0 08/09/16 00:00 Nasal Cannula 2.0 08/08/16 23:39 36.5 79 16 132/69 97 Nasal Cannula 2.0 08/08/16 20:00 Nasal Cannula 2.0 08/08/16 19:32 36.9 83 16 115/60 98 Room Air 08/08/16 16:00 Nasal Cannula 2.0 08/08/16 15:21 80 96 08/08/16 15:02 36.6 76 20 115/66 99 2.0 Constitutional: vitals are stable. Thin female Eyes: Eyes are JACQUELINE EOMI without conjuctival erythema or icterus. ENT: External examination was negative for masses. Neck: Negative for masses or palpable thyromegaly Respiratory: Lung sounds were generally clear bilaterally. Chest catheters in place in the left lung (left thorax) Cardiovascular: Heart was RRR without significant murmur, gallops aoe rubs Gastrointestinal: No palpable hepatic or splenomegaly. The abdomen was soft with normal bowel sounds. Lymphatic system: there was no palpable peripheral lymphadenopathy Musculoskeletal System: The musculoskeletal system seemed concordant with age. Skin: The skin was negative for jaundice. Neurologic exam: The exam was negative for any focal findings. Deep tendon reflexes were equal and symmetrical. Psychiatric exam: Was essentially negative with normal mood and effect. Breast exam: Done with patient permission was negative for palpable masses or corollary supraclavicular or axillary palpable adenopathy. Exam was witnessed by either a relative, explosive operator grenade, or clinic staff. Extremities: Negative for significant edema or erythema Assessment & Plan Probable adenocarcinoma of the lung (primary) stage IV. She has seen radiation therapy and then understand radiation therapy is being planned for the brain. Biomarker studies are currently pending on the positive pleural fluid. Pain doesn't seem to be an issue. We will arrange for follow-up in our clinic to occur to 3 weeks which would be needed I suspect near the end of her radiation therapy and within the time of receiving biomarker studies. She has been told today that this is a difficult tumor to treat and with the information we currently have it is uncurable. She understood that. Follow-up in our clinic will be arranged in for now we will sign off as a service but please don't hesitate to reconsult if needed.
--- NOTE | 2016-08-09 15:05 | Radiation Oncology Progress Nt ---
Radiation Oncology Progress Nt Date of Service Date of Service: August 09, 2016. Subjective Pt evaluation today including: conversation w/ patient, conversation w/ family , chart review, review of studies Voiding: no voiding problems, no incontinence Review of Systems All Other Systems: Reviewed and Negative Objective Vital Signs Date Time Temp Pulse Resp B/P Pulse Ox O2 Delivery O2 Flow Rate FiO2 08/09/16 14:55 36.7 93 18 166/74 99 Room Air 08/09/16 12:38 84 148/78 98 Room Air 08/09/16 11:29 36.7 93 18 186/77 97 Room Air 08/09/16 08:10 Nasal Cannula 2.0 08/09/16 07:34 36.5 66 16 129/72 100 1.0 08/09/16 03:42 36.4 65 16 122/69 98 Nasal Cannula 2.0 08/09/16 00:00 Nasal Cannula 2.0 08/08/16 23:39 36.5 79 16 132/69 97 Nasal Cannula 2.0 08/08/16 20:00 Nasal Cannula 2.0 08/08/16 19:32 36.9 83 16 115/60 98 Room Air 08/08/16 16:00 Nasal Cannula 2.0 08/08/16 15:21 80 96 08/08/16 15:02 36.6 76 20 115/66 99 2.0 Physical Exam General Appearance: WD/WN, no apparent distress Eyes: normal inspection ENT: normal ENT inspection Neurologic/Psychiatric: operator vacuum II-XII nml as tested, alert, oriented x 3 Laboratory Results FINAL DIAGNOSIS - 08/06/2016 PLEURAL FLUID, LEFT PLEURAL CAVITY (CYTOLOGIC ANALYSIS): 1. METASTATIC ADENOCARCINOMA OF PULMONARY ORIGIN IS SEEN. 2. PLEASE SEE ABOVE DISCUSSION. Assessment and Plan Today, I did review the cytology findings from the thoracentesis performed by Dr. Mckay. The results did reveal metastatic adenocarcinoma of the lung. Today, I did discuss with the patient proceeding with stereotactic radiosurgery of the brain for the 2 lesions in the right frontal lobe and right occipital lobe. Again, we did discuss alternative treatment options including observation , it surgery and whole brain radiation therapy; we did discuss the advantages and disadvantages of each treatment option. At this point, the patient is not interested in surgery and would prefer to undergo radiation therapy. The patient would prefer to undergo stereotactic radiosurgery. We then spent time discussing the indications, alternatives, benefits, risks and side effects of stereotactic radiosurgery as previously documented in the consultation note. We will bring the patient down tomorrow for CT simulation for treatment planning. The patient will then be treated in the outpatient setting. The patient should also be seen by medical oncology. Please call us with any further questions or concerns.
--- NOTE | 2016-08-09 16:15 | Progress Note ---
Internal Med Progress Note Date of Service: August 09, 2016. Provider Documentation: SUBJECTIVE: patient got upset after she got news of her cancer but doing ok ow back pain is better denies sob afebrile awaiting further decisions regarding her cancer treatments OBJECTIVE: Vital Signs-as noted below Exam: General-alert and awake and oriented x 3. ENT-normal hearing Neck-no neck masses Lungs-cta b/l no wheezing or crackles Heart-s1 and s2 heard regular rate and rhythm no murmurs Abdomen-soft bowel sounds present non tender no distension Extremities- no present no erythema Neuro-alert and awake oriented moves extremities Lab data as noted below. ASSESSMENT & PLAN: ACUTE HYPOXIC RESPIRATORY FAILURE : Secondary to B/L PLEURAL EFFUSION LEFT > RIGHT, suspicious for malignant effusion currently on 2lts oxygen S/P Left sided pleural catheter placement by Dr Mckay on 08/06/16--> Drained around 950 cc at night. Pleural fluid - no bacterial infection. Cytology -still pending. Needs 2 step prior to discharge Pulmonary on board and Appreciate inputs stable now POSSIBLE METASTATIC PULMONARY MALIGNANCY: Hx Left lung tumor noted on CT chest during 02/2016 confinement in [place] (Negative initial bronchoscopic bx). Was recommended to get another biopsy done in future. Metastatic Adenocarcinoma of primary lung origin as per Cytology- Left pleural effusion Pulmonary on board Heme/onco to followup as outpatient radiation oncology to decide tx plan HEADACHE Primary reason of coming to ER. ct head vasogenic edema on iv decadron much improved radiation oncology on board and appreciate inputs. Stable condition: HX OF EMBOLIC CVA As per records CT head- likely old infarct in right occipital lobe Not on anticoagulation secondary to GI bleeding in past on aspirin HX OF PVD on aspirin IDIOPATHIC HYPOTENSION On midodrine. Held as her BP was in 180s and now down Will restart it again if needed RECURRENT DVT S/P IVC FILTER PLACEMENT Had IVC filter placed at [place] as had GI bleeding. HX OF GASTRITIS/FUNGAL ESOPHAGITIS S/P TREATMENT DEPRESSION Suboptimal PAST TOBACCO /ALCOHOL ABUSE CHRONIC BACK PAIN S/P SURGERY On chronic narcotics MALNUTRITION Low BMI Outpatient Therapist consulted DVT prophylaxis: High risk with history of DVT in past, IVC filter placed. Did have GI bleeding in past. scds Full code. DISPOSITION pt/ot social service for d/c planning Vital Signs: Date Time Temp Pulse Resp B/P Pulse Ox O2 Delivery O2 Flow Rate FiO2 08/09/16 14:55 36.7 93 18 166/74 99 Room Air 08/09/16 12:38 84 148/78 98 Room Air 08/09/16 11:29 36.7 93 18 186/77 97 Room Air 08/09/16 08:10 Nasal Cannula 2.0 08/09/16 07:34 36.5 66 16 129/72 100 1.0 08/09/16 03:42 36.4 65 16 122/69 98 Nasal Cannula 2.0 08/09/16 00:00 Nasal Cannula 2.0 08/08/16 23:39 36.5 79 16 132/69 97 Nasal Cannula 2.0 08/08/16 20:00 Nasal Cannula 2.0 08/08/16 19:32 36.9 83 16 115/60 98 Room Air
[2016-08-09] MEDS: GABAPENTIN 300 MG CAP PO SCH (21:01)
[2016-08-09] MEDS: ATORVASTATIN 20 MG TAB PO SCH (21:01)
[2016-08-10] VITALS (9 sets, daily range): BP systolic 110–150; BP diastolic 58–73; PULSE 77–85; TEMP 36.4–36.6; O2SAT 96–99
[2016-08-10] MEDS: DEXAMETHASONE INJ 4 MG in SYRINGE 0 ML IV SCH ×4 (02:29→20:07)
[2016-08-10] MEDS: DOCUSATE SODIUM 100 MG CAP PO SCH (08:00)
[2016-08-10] MEDS: OXYCODONE HCL 10 MG TABCR (OXYCONTIN) PO SCH ×2 (08:14→20:08)
[2016-08-10] MEDS: OXYCODONE HCL IR 5 MG TAB (IMMEDIATE RELEASE) PO PRN ×2 (08:15→14:17)
[2016-08-10] MEDS: DICLOFENAC SOD 1% GEL 100 GM TUBE EXT SCH ×2 (08:15→20:00)
[2016-08-10] MEDS: PANTOprazole SOD 40 MG TAB PO SCH (08:16)
[2016-08-10] MEDS: SERTRALINE HCL 50 MG TAB PO SCH (08:16)
[2016-08-10] MEDS: ASPIRIN 81 MG ECTAB PO SCH (08:16)
[2016-08-10] MEDS: BOOST VANILLA PO SCH ×6 (08:17→20:07)
--- NOTE | 2016-08-10 09:22 | CONSULTATION REPORT ---
DATE OF CONSULTATION: 08/10/2016 Plan of care discussed with Dr. Ruiz. CHIEF COMPLAINT: Chronic low back pain and headaches. HISTORY OF PRESENT ILLNESS: Ms. Lisa is a 71-year-old white female who was admitted with predominant complaint of headache and generalized body aches. The patient was found to be hypotensive and extremely anemic upon admission with a cystic lung mass identified on chest x-ray. The patient had a large pleural effusion and underwent IPC placement during this admission. Diagnosis of lung adenocarcinoma with metastatic disease involving the brain has been identified during this admission. The patient has been initiated on steroid therapy which has significantly improved her headache complaints. The patient also reports chronic axial low back pain with chronic utilization of opiate therapy in the outpatient setting with a prior history of lumbar laminectomy procedure performed in the mid . The patient had significant resolution of radicular pain from the surgical intervention, but has had persisting axial low back pain in the lumbosacral region without radiation. The patient is indicating adequate pain control at this time with her current medications of OxyContin at 10 mg b.i.d. with use of OxyIR 5 mg on a q. 6 hour basis for p.r.n. breakthrough pain. The patient also remains on gabapentin therapy at 600 mg at bedtime. The patient is rating her pain at a 5/10 and is satisfied with her level of pain control at this time. She denies residual radicular pattern to her pain, footdrop or any recent falling. The patient denies any bowel or bladder incontinence. She is moving her bowels without complications and denies diarrhea. No further constitutional complaints are noted at this time. PAST MEDICAL HISTORY: 1. Chronic lumbago, status post laminectomy. 2. History of CVA. 3. Dyslipidemia. 4. GERD. 5. CAD. 6. Hypertension. 7. History of third metatarsal and proximal right fifth phalanx fracture. 8. Macular degeneration. 9. Left eye cataract. 10. Opioid dependency. 11. Chronic alcohol abuse. 12. Lung adenocarcinoma with metastatic disease -- brain metastasis. PAST SURGICAL HISTORY: 1. L5-S1 laminectomy. 2. Left knee repair. 3. Tonsillectomy. 4. Status post IVC filter placement. SOCIAL HISTORY: The patient has tobacco utilization with a greater than [id number] history and continue to smoke 1 pack per day. Past history of alcohol abuse. The patient is not currently working. She is , currently residing with a brother in [place], [place]. She recently moved to [facility] from [place]. FAMILY HISTORY: CAD. ALLERGIES: PENICILLIN. CURRENT MEDICATIONS: Reviewed extensively in EMR -- refer current listing. REVIEW OF SYSTEMS: The patient denies complaints related to cardiac, pulmonary, GI, , endocrine, neurologic, hepatic, renal, ENT, dermatologic, musculoskeletal as described above in the HPI. PHYSICAL EXAMINATION: VITAL SIGNS: Temperature 36.4 degrees Celsius, pulse 77, respirations 16, BP 132/73, pulse oximetry 98 on room air. GENERAL: Ms. Lisa is lying quietly upon entering the room in no acute distress. Speech and thought process are appropriate. Mood and affect is appropriate. Cognition is intact. HEAD: Normocephalic and atraumatic. EYES: Pupils are equal, round, and reactive to light. Extraocular muscles are intact. NECK: Supple without adenopathy and full range of motion. CHEST: IVC catheter is in place in the left lateral chest wall. She is nontender to palpation of the chest with AP and lateral compression. She is nontender over the midline of the thoracic spine location. LUMBAR SPINE: The patient has a well-healed midline surgical incision over the lower lumbar spine. She has complete loss of lumbar lordosis. She is minimally tender in the lumbosacral region which is nonfocal. LOWER EXTREMITIES: Strength testing 5/5 and equal with dorsiflexion, plantar flexion, and hip flexion/extension maneuvering. Sensation is intact without deficits. No evidence of edema, erythema or skin breakdown. IMAGING STUDIES: Reviewed upon this hospitalization which were extensive -- refer to EMR. ASSESSMENT: 1. Chronic lumbago, status post L5-S1 laminectomy. 2. Lung adenocarcinoma -- new diagnosis upon this admission with brain metastasis. 3. Headache secondary to above -- improving. 4. History of cerebrovascular accident. 5. Depressive disorder. 6. Opioid dependency. 7. History of alcohol/tobacco abuse. TREATMENT AND RECOMMENDATIONS: 1. The patient is indicating adequate pain control at this time. Would recommend maintaining OxyContin 10 mg b.i.d. as well as OxyIR 5 mg on a q. 6 h. basis for p.r.n. breakthrough pain which is her chronic level of outpatient utilization per her reported history. I see no need for escalation of opiate therapy at this time. 2. Patient aware of her current diagnosis and plan for radiation therapy per Dr. Dee. We did discuss impact of headache complaints moving forward and she verbalized understanding. Thank you for allowing us to take in the care of Ms. Lisa. She appears to be stable on current opiate therapy and we will sign off on the patient at this time. Please reconsult pain service for further recommendations should her pain control be inadequate moving forward. MTDD
--- NOTE | 2016-08-10 17:25 | Pulmonology Progress Note ---
Pulmonary Progress Note Date of Service August 10, 2016. Attending Dr. Rouse Subjective Patient is calm and collected No shortness of breath, tolerating room air Objective Patient is not having active pulmonary complaints denies productive cough, hemoptysis, fever or pleurisy Vital signs: Stable on room air Respiratory: Few scattered rhonchi Chest: Left pleural catheter, no bleeding, dressing dry Cardiac: S1-S2 regular rate and rhythm Abdomen: Positive bowel sounds soft nontender Skin: No breakdown noted Pleural fluid pathology: metastatic adeno CA Assessment & Plan 71-year-old female status post IPC placement for large left-sided pleural effusion, diagnosed with stage IV lung carcinoma: Drain indwelling pleural catheter as needed. It will remain in place Radiation oncology and hematology-oncology following the patient. Decadron for right frontal and right occipital mets. To start radiation therapy of the brain. Awaiting biomarkers So far no evidence of septic process May be discharged from a pulmonary perspective Data Medications: Current Inpatient Medications Medications (Trade) Dose Ordered Sig/Yuriy Route Start Time Stop Time Status Last Admin Dose Admin Ondansetron HCl (Zofran Inj) 4 mg Q6H PRN IV 08/06/16 00:00 09/05/16 00:00 08/08/16 18:21 4 MG Oxycodone HCl (Oxycontin Tab) 10 mg BID PO 08/06/16 09:00 08/20/16 08:59 08/10/16 08:14 10 MG Acetaminophen (Tylenol Tab) 650 mg Q4H PRN PO 08/06/16 03:00 09/05/16 02:59 Nitroglycerin (Nitrostat Tab) 0.4 mg UD PRN SL 08/06/16 03:00 09/05/16 02:59 Aspirin (Ecotrin Tab) 81 mg QAM PO 08/06/16 09:00 09/05/16 08:59 08/10/16 08:16 81 MG Atorvastatin Calcium (Lipitor Tab) 40 mg HS PO 08/06/16 21:00 09/05/16 20:59 08/09/16 21:01 40 MG Diclofenac Sodium (Voltaren 1% Top Gel) 1 appln BID EXT 08/06/16 09:00 09/05/16 08:59 08/10/16 08:15 1 APPLN Folic Acid (Folvite Tab) 1 mg QAM PO 08/06/16 09:00 09/05/16 08:59 08/10/16 08:16 1 MG Gabapentin (Neurontin Cap) 600 mg HS PO 08/06/16 21:00 09/05/16 20:59 08/09/16 21:01 600 MG Midodrine (Proamatine Tab) 2.5 mg TID@0900,1400,1800 PO 08/06/16 09:00 09/05/16 08:59 Future Hold Pantoprazole Sodium (Protonix Tab) 40 mg QAM PO 08/06/16 09:00 09/05/16 08:59 08/10/16 08:16 40 MG Sertraline HCl (Zoloft Tab) 25 mg QAM PO 08/06/16 09:00 09/05/16 08:59 08/10/16 08:16 25 MG Polyethylene 17 gm 17 gm DAILY PRN PO 08/06/16 03:00 09/05/16 02:59 Promethazine HCl/ Sodium Chloride (Phenergan Inj/ Nss 50ml) 50.5 ml @ 204 mls/hr Q6H PRN IV 08/06/16 03:00 09/05/16 02:59 Hydroxyzine HCl 10 mg 10 mg Q6H PRN PO 08/06/16 03:00 09/05/16 02:59 08/09/16 11:42 10 MG Dexamethasone Sodium Phosphate/ Syringe (Decadron Inj/ Syringe) 1 ml @ 1 mls/min Q6H IV 08/06/16 08:00 09/05/16 07:59 08/10/16 14:18 1 MLS/MIN Docusate Sodium (coLACE CAP) 100 mg DAILY PO 08/06/16 09:00 09/05/16 08:59 08/08/16 09:13 100 MG Ipratropium [place] (Atrovent 0.02% 0.5MG/2.5ML Neb) 0.5 mg Q4H PRN INH 08/06/16 05:00 09/05/16 04:59 Levalbuterol (Xopenex 1.25MG/ 0.5ML Neb) 1.25 mg Q4H PRN INH 08/06/16 05:00 09/05/16 04:59 Ketorolac Tromethamine (Toradol Inj) 15 mg Q6H PRN IV. 08/06/16 05:15 08/11/16 05:14 Ibuprofen (Advil Tab) 400 mg Q6H PRN PO 08/06/16 05:15 09/05/16 05:14 Enteral Nutritional Formula (Boost) 1 can TID PO 08/06/16 14:00 09/05/16 13:59 08/10/16 14:18 1 CAN Oxycodone HCl (Roxicodone Immediate Rel Tab) 5 mg Q6H PRN PO 08/06/16 20:15 08/20/16 20:14 08/10/16 14:17 5 MG Gadobutrol (Gadavist) 4.5 mmol UD PRN IV 08/06/16 20:45 08/10/16 20:44 Vital Signs: Date Time Temp Pulse Resp B/P Pulse Ox O2 Delivery O2 Flow Rate FiO2 08/10/16 16:00 99 Room Air 08/10/16 15:39 97 08/10/16 15:15 36.4 79 16 110/71 98 Room Air 08/10/16 11:18 36.4 81 16 123/65 96 Room Air 08/10/16 08:20 Room Air 08/10/16 07:31 36.4 77 16 132/73 98 Room Air 08/10/16 05:02 36.4 78 19 117/58 96 Room Air 08/10/16 00:30 Room Air 08/10/16 00:06 36.6 82 19 150/70 96 Room Air 08/09/16 19:44 36.8 83 18 133/67 97 Room Air
[2016-08-10] MEDS: ACETAMINOPHEN 325 MG TAB PO PRN (17:38)
--- NOTE | 2016-08-10 19:06 | Progress Note ---
Internal Med Progress Note Date of Service: August 10, 2016. Provider Documentation: SUBJECTIVE: patient eating her lunch denies pain afebrile says she is too weak to go back to her brothers house and request for rehab placement OBJECTIVE: Vital Signs-as noted below Exam: General-alert and awake and oriented x 3. ENT-normal hearing Neck-no neck masses Lungs-cta b/l no wheezing or crackles Heart-s1 and s2 heard regular rate and rhythm no murmurs Abdomen-soft bowel sounds present non tender no distension Extremities- no present no erythema Neuro-alert and awake oriented moves extremities Lab data as noted below. ASSESSMENT & PLAN: ACUTE HYPOXIC RESPIRATORY FAILURE : Secondary to B/L PLEURAL EFFUSION LEFT > RIGHT, suspicious for malignant effusion currently on 2lts oxygen S/P Left sided pleural catheter placement by Dr Mckay on 08/06/16--> Drained around 950 cc at night. Pleural fluid - no bacterial infection. Cytology -still pending. Needs 2 step prior to discharge Pulmonary on board and Appreciate inputs stable now and saturating fine on room air. POSSIBLE METASTATIC PULMONARY MALIGNANCY: Hx Left lung tumor noted on CT chest during 02/2016 confinement in [place] (Negative initial bronchoscopic bx). Was recommended to get another biopsy done in future. Metastatic Adenocarcinoma of primary lung origin as per Cytology- Left pleural effusion Pulmonary on board Heme/onco to followup as outpatient had ct mapping for radiation today radiation oncology to decide tx plan HEADACHE Primary reason of coming to ER. ct head vasogenic edema on iv decadron much improved will taper Decadron radiation oncology on board and appreciate inputs. Stable condition: HX OF EMBOLIC CVA As per records CT head- likely old infarct in right occipital lobe Not on anticoagulation secondary to GI bleeding in past on aspirin HX OF PVD on aspirin IDIOPATHIC HYPOTENSION On midodrine. Held as her BP was in 180s and now down Will restart it again if needed RECURRENT DVT S/P IVC FILTER PLACEMENT Had IVC filter placed at [place] as had GI bleeding. 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 Did have GI bleeding in past. scds Full code. DISPOSITION pt/ot patient request placement social service for d/c planning Vital Signs: Date Time Temp Pulse Resp B/P Pulse Ox O2 Delivery O2 Flow Rate FiO2 08/10/16 16:00 99 Room Air 08/10/16 15:39 97 08/10/16 15:15 36.4 79 16 110/71 98 Room Air 08/10/16 11:18 36.4 81 16 123/65 96 Room Air 08/10/16 08:20 Room Air 08/10/16 07:31 36.4 77 16 132/73 98 Room Air 08/10/16 05:02 36.4 78 19 117/58 96 Room Air 08/10/16 00:30 Room Air 08/10/16 00:06 36.6 82 19 150/70 96 Room Air 08/09/16 19:44 36.8 83 18 133/67 97 Room Air
[2016-08-10] MEDS: ATORVASTATIN 20 MG TAB PO SCH (20:08)
[2016-08-10] MEDS: GABAPENTIN 300 MG CAP PO SCH (20:09)
[2016-08-11] MEDS: DEXAMETHASONE INJ 4 MG in SYRINGE 0 ML IV SCH ×3 (01:56→14:04)
[2016-08-11 04:43] VITALS: BP 109/72; PULSE 73; TEMP 36.4; O2SAT 97
[2016-08-11 07:43] VITALS: BP 100/64; PULSE 68; TEMP 36.4; O2SAT 97
[2016-08-11] MEDS: DOCUSATE SODIUM 100 MG CAP PO SCH (08:00)
[2016-08-11] MEDS: OXYCODONE HCL IR 5 MG TAB (IMMEDIATE RELEASE) PO PRN ×3 (08:14→21:24)
[2016-08-11] MEDS: SERTRALINE HCL 50 MG TAB PO SCH (08:14)
[2016-08-11] MEDS: OXYCODONE HCL 10 MG TABCR (OXYCONTIN) PO SCH ×2 (08:14→20:03)
[2016-08-11] MEDS: PANTOprazole SOD 40 MG TAB PO SCH (08:15)
[2016-08-11] MEDS: ASPIRIN 81 MG ECTAB PO SCH (08:15)
[2016-08-11] MEDS: BOOST VANILLA PO SCH ×6 (08:15→20:08)
[2016-08-11] MEDS: DICLOFENAC SOD 1% GEL 100 GM TUBE EXT SCH ×2 (08:16→20:08)
[2016-08-11 11:02] VITALS: BP 96/59; PULSE 76; TEMP 36.7; O2SAT 97
[2016-08-11] MEDS: ACETAMINOPHEN 325 MG TAB PO PRN ×2 (12:57→17:23)
[2016-08-11 14:51] VITALS: BP 161/73; PULSE 93; TEMP 36.7; O2SAT 96
--- NOTE | 2016-08-11 18:28 | Progress Note ---
Internal Med Progress Note Date of Service: August 11, 2016. Provider Documentation: SUBJECTIVE: patient resting comfortably no sob' no pain afebrile OBJECTIVE: Vital Signs-as noted below Exam: General-alert and awake and oriented x 3. ENT-normal hearing Neck-no neck masses Lungs-cta b/l no wheezing or crackles Heart-s1 and s2 heard regular rate and rhythm no murmurs Abdomen-soft bowel sounds present non tender no distension Extremities- no present no erythema Neuro-alert and awake oriented moves extremities Lab data as noted below. ASSESSMENT & PLAN: ACUTE HYPOXIC RESPIRATORY FAILURE : Secondary to B/L PLEURAL EFFUSION LEFT > RIGHT, suspicious for malignant effusion required oxygen S/P Left sided pleural catheter placement by Dr Mckay on 08/06/16--> Drained around 950 cc at night. Pleural fluid - no bacterial infection. sent for Cytology - Needs 2 step prior to discharge Pulmonary on board and Appreciate inputs stable now and saturating fine on room air. POSSIBLE METASTATIC PULMONARY MALIGNANCY: Hx Left lung tumor noted on CT chest during 02/2016 confinement in [place] (Negative initial bronchoscopic bx). Was recommended to get another biopsy done in future. Metastatic Adenocarcinoma of primary lung origin as per Cytology- Left pleural effusion Pulmonary on board Heme/onco to followup as outpatient had ct mapping for radiation radiation oncology to decide tx plan HEADACHE Primary reason of coming to ER. ct head vasogenic edema on iv decadron much improved will taper Decadron to po radiation oncology on board and appreciate inputs. Stable condition: HX OF EMBOLIC CVA As per records CT head- likely old infarct in right occipital lobe Not on anticoagulation secondary to GI bleeding in past on aspirin HX OF PVD on aspirin IDIOPATHIC HYPOTENSION On midodrine. Held as her BP was in 180s and now down Will restart it again if needed RECURRENT DVT S/P IVC FILTER PLACEMENT Had IVC filter placed at [place] as had GI bleeding. 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 Did have GI bleeding in past. scds Full code. DISPOSITION pt/ot patient request placement plan for rehab social service for d/c planning Vital Signs: Date Time Temp Pulse Resp B/P Pulse Ox O2 Delivery O2 Flow Rate FiO2 08/11/16 16:10 Room Air 08/11/16 14:51 36.7 93 18 161/73 96 Room Air 08/11/16 11:02 36.7 76 16 96/59 97 Room Air 08/11/16 08:20 Room Air 08/11/16 07:43 36.4 68 16 100/64 97 Room Air 08/11/16 04:43 36.4 73 20 109/72 97 Room Air 08/11/16 00:00 Room Air 08/10/16 23:23 36.6 85 20 137/69 97 Room Air 08/10/16 19:28 36.4 82 18 123/66 97 Room Air
[2016-08-11 19:58] VITALS: BP 144/69; PULSE 76; TEMP 36.7; O2SAT 96
[2016-08-11] MEDS: ATORVASTATIN 20 MG TAB PO SCH (20:04)
[2016-08-11] MEDS: GABAPENTIN 300 MG CAP PO SCH (20:05)
[2016-08-11] MEDS: DEXAMETHASONE 4 MG TAB PO SCH (20:08)
[2016-08-11 23:19] VITALS: BP_SYST 112; BP_SYST 166; BP_DIAS 74; PULSE 82; TEMP 36.7; O2SAT 96
[2016-08-12] VITALS (7 sets, daily range): BP systolic 99–156; BP diastolic 64–76; PULSE 78–84; TEMP 36.5–36.8; O2SAT 97–99
[2016-08-12] MEDS: OXYCODONE HCL IR 5 MG TAB (IMMEDIATE RELEASE) PO PRN ×3 (04:21→17:09)
[2016-08-12] MEDS: DOCUSATE SODIUM 100 MG CAP PO SCH (08:00)
[2016-08-12] MEDS: DEXAMETHASONE 4 MG TAB PO SCH ×3 (08:19→20:15)
[2016-08-12] MEDS: ASPIRIN 81 MG ECTAB PO SCH (08:20)
[2016-08-12] MEDS: SERTRALINE HCL 50 MG TAB PO SCH (08:21)
[2016-08-12] MEDS: BOOST VANILLA PO SCH ×6 (08:21→20:13)
[2016-08-12] MEDS: DICLOFENAC SOD 1% GEL 100 GM TUBE EXT SCH ×2 (08:21→20:15)
[2016-08-12] MEDS: OXYCODONE HCL 10 MG TABCR (OXYCONTIN) PO SCH ×2 (08:21→20:10)
[2016-08-12] MEDS: PANTOprazole SOD 40 MG TAB PO SCH (08:21)
--- NOTE | 2016-08-12 18:52 | Progress Note ---
Internal Med Progress Note Date of Service: August 12, 2016. Provider Documentation: SUBJECTIVE: patient resting comfortably eating fine no pain afebrile OBJECTIVE: Vital Signs-as noted below Exam: General-alert and awake and oriented x 3. ENT-normal hearing Neck-no neck masses Lungs-cta b/l no wheezing or crackles Heart-s1 and s2 heard regular rate and rhythm no murmurs Abdomen-soft bowel sounds present non tender no distension Extremities- no present no erythema Neuro-alert and awake oriented moves extremities Lab data as noted below. ASSESSMENT & PLAN: ACUTE HYPOXIC RESPIRATORY FAILURE : Secondary to B/L PLEURAL EFFUSION LEFT > RIGHT, suspicious for malignant effusion required oxygen S/P Left sided pleural catheter placement by Dr Mckay on 08/06/16--> Drained around 950 cc at night. Pleural fluid - no bacterial infection. sent for Cytology - Needs 2 step prior to discharge Pulmonary on board and Appreciate inputs stable now and saturating fine on room air. no complaints POSSIBLE METASTATIC PULMONARY MALIGNANCY: Hx Left lung tumor noted on CT chest during 02/2016 confinement in [place] (Negative initial bronchoscopic bx). Was recommended to get another biopsy done in future. Metastatic Adenocarcinoma of primary lung origin as per Cytology- Left pleural effusion Pulmonary on board Heme/onco to followup as outpatient had ct mapping for radiation radiation oncology to decide tx plan await final diagnosis HEADACHE Primary reason of coming to ER. ct head vasogenic edema on iv decadron much improved will taper Decadron to po radiation oncology on board and appreciate inputs. stable Stable condition: HX OF EMBOLIC CVA As per records CT head- likely old infarct in right occipital lobe Not on anticoagulation secondary to GI bleeding in past on aspirin HX OF PVD on aspirin IDIOPATHIC HYPOTENSION On midodrine. Held as her BP was in 180s and now down Will restart it again if needed stable. RECURRENT DVT S/P IVC FILTER PLACEMENT Had IVC filter placed at [place] as had GI bleeding. 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 DVT prophylaxis: High risk with history of DVT in past, IVC filter placed. Did have GI bleeding in past. scds Full code. DISPOSITION pt/ot patient requests placement plan for rehab and await placement social service for d/c planning Vital Signs: Date Time Temp Pulse Resp B/P Pulse Ox O2 Delivery O2 Flow Rate FiO2 08/12/16 16:07 Room Air 08/12/16 14:48 36.6 83 20 130/72 97 Room Air 08/12/16 11:11 36.8 81 18 108/71 97 Room Air 08/12/16 10:00 Room Air 08/12/16 07:12 36.5 80 18 100/65 97 Room Air 08/12/16 04:13 36.6 78 20 156/76 98 Room Air 08/12/16 00:00 99 Room Air 08/11/16 23:19 36.7 82 20 112/74 96 Room Air 166/74 08/11/16 19:58 36.7 76 20 144/69 96 Room Air
[2016-08-12] MEDS: GABAPENTIN 300 MG CAP PO SCH (20:14)
[2016-08-12] MEDS: ATORVASTATIN 20 MG TAB PO SCH (20:14)
[2016-08-13 04:06] VITALS: BP 100/68; PULSE 80; TEMP 36.6; O2SAT 99
[2016-08-13] MEDS: OXYCODONE HCL IR 5 MG TAB (IMMEDIATE RELEASE) PO PRN ×3 (05:50→18:33)
[2016-08-13 07:20] VITALS: BP 105/69; PULSE 79; TEMP 36.6; O2SAT 100
[2016-08-13] MEDS: DOCUSATE SODIUM 100 MG CAP PO SCH (08:00)
[2016-08-13] MEDS: ASPIRIN 81 MG ECTAB PO SCH (08:27)
[2016-08-13] MEDS: OXYCODONE HCL 10 MG TABCR (OXYCONTIN) PO SCH ×2 (08:27→20:32)
[2016-08-13] MEDS: DEXAMETHASONE 4 MG TAB PO SCH ×3 (08:27→20:34)
[2016-08-13] MEDS: PANTOprazole SOD 40 MG TAB PO SCH (08:27)
[2016-08-13] MEDS: BOOST VANILLA PO SCH ×6 (08:28→20:34)
[2016-08-13] MEDS: SERTRALINE HCL 50 MG TAB PO SCH (08:28)
[2016-08-13] MEDS: DICLOFENAC SOD 1% GEL 100 GM TUBE EXT SCH ×2 (08:28→20:35)
[2016-08-13] MEDS: SIMETHICONE 80 MG CHEW PO PRN (09:25)
[2016-08-13 11:05] VITALS: BP 131/65; PULSE 80; TEMP 36.6; O2SAT 98
[2016-08-13 14:41] VITALS: BP 147/75; PULSE 85; TEMP 36.9; O2SAT 96
--- NOTE | 2016-08-13 17:28 | Progress Note ---
Internal Med Progress Note Date of Service: August 13, 2016. Provider Documentation: SUBJECTIVE: patient resting comfortably says having somewhat loose stools but no diarrhea no abdominal pain denies sob OBJECTIVE: Vital Signs-as noted below Exam: General-alert and awake and oriented x 3. ENT-normal hearing Neck-no neck masses Lungs-cta b/l no wheezing or crackles Heart-s1 and s2 heard regular rate and rhythm no murmurs Abdomen-soft bowel sounds present non tender no distension Extremities- no present no erythema Neuro-alert and awake oriented moves extremities Lab data as noted below. ASSESSMENT & PLAN: ACUTE HYPOXIC RESPIRATORY FAILURE : Secondary to B/L PLEURAL EFFUSION LEFT > RIGHT, suspicious for malignant effusion required oxygen S/P Left sided pleural catheter placement by Dr Mckay on 08/06/16--> Drained around 950 cc at night. Pleural fluid - no bacterial infection. sent for Cytology - Pulmonary on board and Appreciate inputs stable now and saturating fine on room air. no complaints to drain Pleurx catheter based on symptoms POSSIBLE METASTATIC PULMONARY MALIGNANCY: Hx Left lung tumor noted on CT chest during 02/2016 confinement in [place] (Negative initial bronchoscopic bx). Was recommended to get another biopsy done in future. Metastatic Adenocarcinoma of primary lung origin as per Cytology- Left pleural effusion Pulmonary on board Heme/onco to followup as outpatient had ct mapping for radiation radiation oncology to decide tx plan awaiting final diagnosis no pain HEADACHE Primary reason of coming to ER. ct head vasogenic edema on iv decadron much improved will taper Decadron to po radiation oncology on board and appreciate inputs. stable Stable condition: HX OF EMBOLIC CVA As per records CT head- likely old infarct in right occipital lobe Not on anticoagulation secondary to GI bleeding in past on aspirin HX OF PVD on aspirin IDIOPATHIC HYPOTENSION On midodrine. Held as her BP was in 180s and now down Will restart it again if needed stable. RECURRENT DVT S/P IVC FILTER PLACEMENT Had IVC filter placed at [place] as had GI bleeding. 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 DVT prophylaxis: High risk with history of DVT in past, IVC filter placed. Did have GI bleeding in past. scds Full code. DISPOSITION pt/ot patient requests placement plan for rehab and await placement social service for d/c planning Vital Signs: Date Time Temp Pulse Resp B/P Pulse Ox O2 Delivery O2 Flow Rate FiO2 08/13/16 14:41 36.9 85 18 147/75 96 Room Air 08/13/16 14:29 Room Air 08/13/16 11:05 36.6 80 18 131/65 98 Room Air 08/13/16 07:20 36.6 79 16 105/69 100 Room Air 08/13/16 04:06 36.6 80 20 100/68 99 Room Air 08/12/16 23:59 Room Air 08/12/16 23:44 36.5 84 20 99/64 98 Room Air 08/12/16 20:00 Room Air 08/12/16 19:25 36.8 81 18 151/75 98 Room Air
[2016-08-13 19:50] VITALS: BP 138/72; PULSE 85; TEMP 36.9; O2SAT 98
[2016-08-13] MEDS: GABAPENTIN 300 MG CAP PO SCH (20:33)
[2016-08-13] MEDS: ATORVASTATIN 20 MG TAB PO SCH (20:33)
[2016-08-14 00:10] VITALS: BP 136/72; PULSE 83; TEMP 36.6; O2SAT 97
[2016-08-14 03:55] VITALS: BP 131/71; PULSE 83; TEMP 36.5; O2SAT 97
[2016-08-14] MEDS: OXYCODONE HCL IR 5 MG TAB (IMMEDIATE RELEASE) PO PRN ×2 (05:46→15:38)
[2016-08-14 08:33] VITALS: BP 138/73; PULSE 78; TEMP 37; O2SAT 98
[2016-08-14] MEDS: SERTRALINE HCL 50 MG TAB PO SCH (08:35)
[2016-08-14] MEDS: OXYCODONE HCL 10 MG TABCR (OXYCONTIN) PO SCH ×2 (08:35→19:50)
[2016-08-14] MEDS: PANTOprazole SOD 40 MG TAB PO SCH (08:36)
[2016-08-14] MEDS: DEXAMETHASONE 4 MG TAB PO SCH ×3 (08:36→19:50)
[2016-08-14] MEDS: DICLOFENAC SOD 1% GEL 100 GM TUBE EXT SCH ×2 (08:36→19:49)
[2016-08-14] MEDS: ASPIRIN 81 MG ECTAB PO SCH (08:36)
[2016-08-14] MEDS: BOOST VANILLA PO SCH ×6 (08:36→19:51)
[2016-08-14] MEDS: DOCUSATE SODIUM 100 MG CAP PO SCH (08:37)
[2016-08-14] MEDS: SIMETHICONE 80 MG CHEW PO PRN (09:20)
[2016-08-14 11:40] VITALS: BP 137/82; PULSE 82; TEMP 36.8; O2SAT 98
[2016-08-14 17:08] VITALS: BP 145/69; PULSE 82; TEMP 36.7; O2SAT 96
[2016-08-14 18:50] VITALS: BP 139/69; PULSE 80; TEMP 36.8; O2SAT 96
--- NOTE | 2016-08-14 19:04 | Progress Note ---
Internal Med Progress Note Date of Service: August 14, 2016. Provider Documentation: SUBJECTIVE: says has some lose stools no abdominal pain appetite is good had some low back pain today no chest pain or sob awaiting radiation tx OBJECTIVE: Vital Signs-as noted below Exam: General-alert and awake and oriented x 3. ENT-normal hearing Neck-no neck masses Lungs-cta b/l no wheezing or crackles Heart-s1 and s2 heard regular rate and rhythm no murmurs Abdomen-soft bowel sounds present non tender no distension Extremities- no present no erythema Neuro-alert and awake oriented moves extremities Lab data as noted below. ASSESSMENT & PLAN: 71F who was ([place] [facility]recently admitted to hospital in [place] February 2016 to March 2016 for hypotension, anemia, embolic CVA, respiratory failure status post intubation.Also found to have embolic strokes, Gi bleed, DVT s/p filter and lung mass. Had bronchoscopy and biopsy of lung mass but negative findings and recommend for future biopsy. Patient then moved to [place] to live with her brother. Patient also has hx of alcoholism. Presented with respiratory failure form pleural effusions and headaches. Ct head showed vasogenic edema and was started on Decadron. Seen by pulmonary s.p Pleurx catheter and pleural fluid drained. Currently headaches resolved and sob resolved. Cytology from pleural fluid came back metastatic adenocarcinoma of pulmonary origin.Seen by radiation/oncology and heme/onco. hem/onco o f/u as outpatinet in 2 weeks. [id number]/oncology planning for radiation tx. patient doesn't want to go home and requesting rehab placement. ACUTE HYPOXIC RESPIRATORY FAILURE : Secondary to B/L PLEURAL EFFUSION LEFT > RIGHT, suspicious for malignant effusion required oxygen S/P Left sided pleural catheter placement by Dr Mckay on 08/06/16--> Drained around 950 cc at night. Pleural fluid - no bacterial infection. sent for Cytology - Pulmonary on board and Appreciate inputs stable now and saturating fine on room air. no complaints to drain Pleurx catheter based on symptoms f/u as outpatient POSSIBLE METASTATIC PULMONARY MALIGNANCY: Hx Left lung tumor noted on CT chest during 02/2016 confinement in [place] (Negative initial bronchoscopic bx). Was recommended to get another biopsy done in future. Metastatic Adenocarcinoma of primary lung origin as per Cytology- Left pleural effusion Pulmonary on board Heme/onco to followup as outpatient in couple of weeks had ct mapping for radiation radiation oncology to decide tx plan possible radiation tomorrow HEADACHE Primary reason of coming to ER. ct head vasogenic edema on iv decadron much improved Tapered Decadron to po radiation oncology on board and appreciate inputs. stable HX OF EMBOLIC CVA As per records CT head- likely old infarct in right occipital lobe Not on anticoagulation secondary to GI bleeding in past on aspirin HX OF PVD on aspirin IDIOPATHIC HYPOTENSION On midodrine. Held as her BP was in 180s and now down Will restart it again if needed stable currently RECURRENT DVT S/P IVC FILTER PLACEMENT Had IVC filter placed at [place] as had GI bleeding. 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 DVT prophylaxis: High risk with history of DVT in past, IVC filter placed. Did have GI bleeding in past. scds Full code. DISPOSITION pt/ot patient requests placement plan for rehab and await placement social service for d/c planning Followup with Family doctor, heme/onco, radiation/oncology and pulmonary Vital Signs: Date Time Temp Pulse Resp B/P Pulse Ox O2 Delivery O2 Flow Rate FiO2 08/14/16 18:50 36.8 80 16 139/69 96 Room Air 08/14/16 17:08 36.7 82 16 145/69 96 Room Air 08/14/16 16:00 Room Air 08/14/16 11:40 36.8 82 17 137/82 98 Room Air 08/14/16 08:33 37.0 78 16 138/73 98 Room Air 08/14/16 08:20 Room Air 08/14/16 03:55 36.5 83 20 131/71 97 Room Air 08/14/16 00:10 36.6 83 20 136/72 97 Room Air 08/13/16 23:59 Room Air
[2016-08-14] MEDS: hydrOXYzine HCL 10 MG TAB PO PRN (19:49)
[2016-08-14] MEDS: ATORVASTATIN 20 MG TAB PO SCH (19:50)
[2016-08-14] MEDS: GABAPENTIN 300 MG CAP PO SCH (19:50)
[2016-08-15] VITALS (7 sets, daily range): BP systolic 115–151; BP diastolic 67–77; PULSE 74–89; TEMP 36.4–36.8; O2SAT 97–100
[2016-08-15] MEDS: OXYCODONE HCL IR 5 MG TAB (IMMEDIATE RELEASE) PO PRN ×3 (06:46→20:47)
[2016-08-15] MEDS: DOCUSATE SODIUM 100 MG CAP PO SCH (08:00)
[2016-08-15] MEDS: SERTRALINE HCL 50 MG TAB PO SCH (08:28)
[2016-08-15] MEDS: DEXAMETHASONE 4 MG TAB PO SCH ×3 (08:28→19:52)
[2016-08-15] MEDS: ASPIRIN 81 MG ECTAB PO SCH (08:29)
[2016-08-15] MEDS: PANTOprazole SOD 40 MG TAB PO SCH (08:29)
[2016-08-15] MEDS: OXYCODONE HCL 10 MG TABCR (OXYCONTIN) PO SCH ×2 (08:29→19:52)
[2016-08-15] MEDS: BOOST VANILLA PO SCH ×6 (08:29→19:52)
[2016-08-15] MEDS: DICLOFENAC SOD 1% GEL 100 GM TUBE EXT SCH ×2 (08:33→19:52)
[2016-08-15] MEDS: SIMETHICONE 80 MG CHEW PO PRN ×2 (10:05→16:13)
--- NOTE | 2016-08-15 13:00 | Progress Note ---
Medicine Progress Note Date & Time of Visit: August 15, 2016 at 11:20 . Subjective No fever. Dyspnea improved since chest tube insertion. Occasional mild cough. No chest pain. No nausea, vomiting. Stools soft, but not loose. Headache improved since starting dexamethasone. No focal neuro symptoms. . Objective Last 8 Hrs Date Time Temp Pulse Resp B/P Pulse Ox O2 Delivery O2 Flow Rate FiO2 08/15/16 11:28 36.8 81 18 134/67 98 Room Air 08/15/16 08:15 Room Air 08/15/16 07:21 36.5 74 18 146/71 99 Room Air Physical Exam: General- no distress Eyes- anicteric Neck- no JVD Lungs- decreased breath sounds left base Heart- RRR Thorax- left lateral pleural catheter site bandaged Abdomen- + BS, soft, nontender Extremities- no pretibial edema or calf tenderness Neuro- alert, oriented; PERRL, EOMI; motor strength upper and lower extremities intact . Assessment & Plan ADENOCARCINOMA CT chest revealed large left pleural effusion, small-moderate right pleural effusion, 3 cm FRANKLIN mass, 1.4 cm RLL mass, mediastinal adenopathy. Cytology from left thoracentesis revealed adenocarcinoma. Immunohistochemical stains notable for positive TTF-1 and Napsin A consistent with pulmonary primary. Management per Medical Oncology. BRAIN METS Neuroimaging demonstrated right frontal and occipital lesions with associated vasogenic edema. Presumed brain mets from underlying adenocarcinoma. Headache improved with dexamethasone. Radiation therapy anticipated. MALIGNANT LEFT PLEURAL EFFUSION Dyspnea improved after insertion of pleural catheter. Cytology revealed adenocarcinoma. Immunohistochemical stains notable for positive TTF-1 and Napsin A consistent with pulmonary primary. DEPRESSION Continue sertraline. VTE PROPHYLAXIS History of DVT. No anticoagulants due to brain mets. S/P IV filter. SCD's. Ambulate. DISPOSITION To be determined. Medical follow-up with Dr. Bowden. . Current Inpatient Medications: Current Inpatient Medications Medications (Trade) Dose Ordered Sig/Yuriy Route Start Time Stop Time Status Last Admin Dose Admin Ondansetron HCl (Zofran Inj) 4 mg Q6H PRN IV 08/06/16 00:00 09/05/16 00:00 08/08/16 18:21 4 MG Oxycodone HCl (Oxycontin Tab) 10 mg BID PO 08/06/16 09:00 08/20/16 08:59 08/15/16 08:29 10 MG Acetaminophen (Tylenol Tab) 650 mg Q4H PRN PO 08/06/16 03:00 09/05/16 02:59 08/11/16 17:23 650 MG Nitroglycerin (Nitrostat Tab) 0.4 mg UD PRN SL 08/06/16 03:00 09/05/16 02:59 Aspirin (Ecotrin Tab) 81 mg QAM PO 08/06/16 09:00 09/05/16 08:59 08/15/16 08:29 81 MG Atorvastatin Calcium (Lipitor Tab) 40 mg HS PO 08/06/16 21:00 09/05/16 20:59 08/14/16 19:50 40 MG Diclofenac Sodium (Voltaren 1% Top Gel) 1 appln BID EXT 08/06/16 09:00 09/05/16 08:59 08/14/16 08:36 1 APPLN Folic Acid (Folvite Tab) 1 mg QAM PO 08/06/16 09:00 09/05/16 08:59 08/15/16 08:29 1 MG Gabapentin (Neurontin Cap) 600 mg HS PO 08/06/16 21:00 09/05/16 20:59 08/14/16 19:50 600 MG Midodrine (Proamatine Tab) 2.5 mg TID@0900,1400,1800 PO 08/06/16 09:00 09/05/16 08:59 Future Hold Pantoprazole Sodium (Protonix Tab) 40 mg QAM PO 08/06/16 09:00 09/05/16 08:59 08/15/16 08:29 40 MG Sertraline HCl (Zoloft Tab) 25 mg QAM PO 08/06/16 09:00 09/05/16 08:59 08/15/16 08:28 25 MG Polyethylene 17 gm 17 gm DAILY PRN PO 08/06/16 03:00 09/05/16 02:59 Promethazine HCl/ Sodium Chloride (Phenergan Inj/ Nss 50ml) 50.5 ml @ 204 mls/hr Q6H PRN IV 08/06/16 03:00 09/05/16 02:59 Hydroxyzine HCl (Vistaril Tab) 10 mg Q6H PRN PO 08/06/16 03:00 09/05/16 02:59 08/14/16 19:49 10 MG Docusate Sodium (coLACE CAP) 100 mg DAILY PO 08/06/16 09:00 09/05/16 08:59 08/08/16 09:13 100 MG Ipratropium [place] (Atrovent 0.02% 0.5MG/2.5ML Neb) 0.5 mg Q4H PRN INH 08/06/16 05:00 09/05/16 04:59 Levalbuterol (Xopenex 1.25MG/ 0.5ML Neb) 1.25 mg Q4H PRN INH 08/06/16 05:00 09/05/16 04:59 Ibuprofen (Advil Tab) 400 mg Q6H PRN PO 08/06/16 05:15 09/05/16 05:14 Enteral Nutritional Formula (Boost) 1 can TID PO 08/06/16 14:00 09/05/16 13:59 08/15/16 08:29 1 CAN Oxycodone HCl (Roxicodone Immediate Rel Tab) 5 mg Q6H PRN PO 08/06/16 20:15 08/20/16 20:14 08/15/16 06:46 5 MG Dexamethasone (Decadron Tab) 4 mg TID PO 08/11/16 20:00 09/10/16 19:59 08/15/16 08:28 4 MG Simethicone (Mylicon Chew Tab) 80 mg Q6H PRN PO 08/12/16 17:45 09/11/16 17:44 08/15/16 10:05 80 MG
[2016-08-15] MEDS: ATORVASTATIN 20 MG TAB PO SCH (19:52)
[2016-08-15] MEDS: GABAPENTIN 300 MG CAP PO SCH (19:52)
[2016-08-16] MEDS: SIMETHICONE 80 MG CHEW PO PRN ×2 (00:01→09:31)
[2016-08-16] MEDS: OXYCODONE HCL IR 5 MG TAB (IMMEDIATE RELEASE) PO PRN ×3 (03:43→16:11)
[2016-08-16 03:56] VITALS: BP 113/75; PULSE 89; TEMP 36.9; O2SAT 97
[2016-08-16 05:51] LABS: HEMATOCRIT 34.1 % (37-47); MEAN CELL VOLUME 83.4 fL (80-100); MEAN CORPUSCULAR HEMOGLOBIN 26.4 pg (25-34); MEAN CORPUSCULAR HGB CONC 31.7 g/dl (32-36); PLATELET COUNT 344 K/uL (130-400); RED BLOOD COUNT 4.09 M/uL (4.2-5.4); WHITE BLOOD COUNT 19.85 K/uL (4.8-10.8)
[2016-08-16 06:30] LABS: BUN/CREATININE RATIO 52.3 (10-20); CALCIUM 7.4 mg/dl (8.5-10.1); CREATININE 0.82 mg/dl (0.60-1.20); POTASSIUM 4.8 mmol/L (3.5-5.1)
[2016-08-16 07:37] VITALS: BP 104/68; PULSE 80; TEMP 36.4; O2SAT 100
[2016-08-16] MEDS ORDERED: DOCUSATE SODIUM 100 MG CAP PO PRN (08:00)
[2016-08-16] MEDS: ASPIRIN 81 MG ECTAB PO SCH (08:30)
[2016-08-16] MEDS: DEXAMETHASONE 4 MG TAB PO SCH ×3 (08:30→20:29)
[2016-08-16] MEDS: SERTRALINE HCL 50 MG TAB PO SCH (08:30)
[2016-08-16] MEDS: PANTOprazole SOD 40 MG TAB PO SCH (08:30)
[2016-08-16] MEDS: BOOST VANILLA PO SCH ×6 (08:31→20:00)
[2016-08-16] MEDS: DICLOFENAC SOD 1% GEL 100 GM TUBE EXT SCH ×2 (08:31→20:31)
[2016-08-16] MEDS: OXYCODONE HCL 10 MG TABCR (OXYCONTIN) PO SCH ×2 (08:31→20:30)
[2016-08-16] MEDS: ONDANSETRON INJ 2 MG/ML 2 ML VIAL IV PRN (09:27)
[2016-08-16 11:04] VITALS: BP 107/72; PULSE 86; TEMP 36.6; O2SAT 94
[2016-08-16] MEDS ORDERED: ONDANSETRON 4MG OD TAB PO PRN (12:30)
[2016-08-16] MEDS: ACETAMINOPHEN 325 MG TAB PO PRN (13:35)
[2016-08-16 16:32] VITALS: BP 147/69; PULSE 91; TEMP 36.9; O2SAT 96
[2016-08-16] MEDS: hydrOXYzine HCL 10 MG TAB PO PRN (17:40)
[2016-08-16 19:43] VITALS: BP 136/68; PULSE 82; TEMP 37.1; O2SAT 97
[2016-08-16] MEDS: ATORVASTATIN 20 MG TAB PO SCH (20:29)
[2016-08-16] MEDS: GABAPENTIN 300 MG CAP PO SCH (20:29)
--- NOTE | 2016-08-16 22:39 | Progress Note ---
Medicine Progress Note Date & Time of Visit: August 16, 2016 at 11:50 . Subjective No fever. Minimal cough. No shortness of breath. No chest pain. Mild nausea. No vomiting. No constipation or diarrhea. Headache resolved. . Objective Last 8 Hrs Date Time Temp Pulse Resp B/P Pulse Ox O2 Delivery O2 Flow Rate FiO2 08/16/16 19:43 37.1 82 20 136/68 97 Room Air 08/16/16 16:32 36.9 91 18 147/69 96 Room Air 08/16/16 16:00 Room Air Physical Exam: General- no distress Eyes- anicteric Neck- no JVD Lungs- clear to auscultation Heart- RRR Abdomen- + BS, soft, nontender Extremities- no pretibial edema or calf tenderness Neuro- alert, oriented; PERRL, EOMI; motor strength upper and lower extremities intact . Laboratory Results: Last 24 Hours Test 08/16/16 05:15 White Blood Count 19.85 K/uL Red Blood Count 4.09 M/uL Hemoglobin 10.8 g/dL Hematocrit 34.1 % Mean Corpuscular Volume 83.4 fL Mean Corpuscular Hemoglobin 26.4 pg Mean Corpuscular Hemoglobin Concent 31.7 g/dl RDW Standard Deviation 51.4 fL RDW Coefficient of Variation 16.9 % Platelet Count 344 K/uL Mean Platelet Volume 9.0 fL Sodium Level 140 mmol/L Potassium Level 4.8 mmol/L Chloride Level 105 mmol/L Carbon Dioxide Level 30 mmol/L Anion Gap 5.0 mmol/L Blood Urea Nitrogen 43 mg/dl Creatinine 0.82 mg/dl Est Creatinine Clear Calc Drug Dose 52.1 ml/min Estimated GFR () 84.6 Estimated GFR (Non- 73.0 BUN/Creatinine Ratio 52.3 Random Glucose 144 mg/dl Calcium Level 7.4 mg/dl Assessment & Plan ADENOCARCINOMA CT chest revealed large left pleural effusion, small-moderate right pleural effusion, 3 cm FRANKLIN mass, 1.4 cm RLL mass, mediastinal adenopathy. Cytology from left thoracentesis revealed adenocarcinoma. Immunohistochemical stains notable for positive TTF-1 and Napsin A consistent with pulmonary primary. Management per Medical Oncology. BRAIN METS Neuroimaging demonstrated right frontal and occipital lesions with associated vasogenic edema. Presumed brain mets from underlying adenocarcinoma. Headache improved with dexamethasone. Radiation therapy anticipated. MALIGNANT LEFT PLEURAL EFFUSION Dyspnea improved after insertion of pleural catheter. Cytology revealed adenocarcinoma. Immunohistochemical stains notable for positive TTF-1 and Napsin A consistent with pulmonary primary. LEUKOCYTOSIS WBC today = 19,850. Afebrile. No specific signs/symptoms of infection. Leukocytosis most likely secondary to steroid therapy. Follow. DEPRESSION Continue sertraline. VTE PROPHYLAXIS History of DVT. No anticoagulants due to brain mets. S/P IV filter. SCD's. Ambulate. DISPOSITION To be determined. Anticipate need for inpatient rehabilitation for skilled care. Medical follow-up with Dr. Bowden. Radiation Oncology follow-up with Dr. Jos Dee. Medical Oncology follow-up with Dr. Montano. . Current Inpatient Medications: Current Inpatient Medications Medications (Trade) Dose Ordered Sig/Yuriy Route Start Time Stop Time Status Last Admin Dose Admin Ondansetron HCl (Zofran Inj) 4 mg Q6H PRN IV 08/06/16 00:00 09/05/16 00:00 08/08/16 18:21 4 MG Oxycodone HCl (Oxycontin Tab) 10 mg BID PO 08/06/16 09:00 08/20/16 08:59 08/16/16 20:30 10 MG Acetaminophen (Tylenol Tab) 650 mg Q4H PRN PO 08/06/16 03:00 09/05/16 02:59 08/16/16 13:35 650 MG Nitroglycerin (Nitrostat Tab) 0.4 mg UD PRN SL 08/06/16 03:00 09/05/16 02:59 Aspirin (Ecotrin Tab) 81 mg QAM PO 08/06/16 09:00 09/05/16 08:59 08/16/16 08:30 81 MG Atorvastatin Calcium (Lipitor Tab) 40 mg HS PO 08/06/16 21:00 09/05/16 20:59 08/16/16 20:29 40 MG Diclofenac Sodium (Voltaren 1% Top Gel) 1 appln BID EXT 08/06/16 09:00 09/05/16 08:59 08/16/16 20:31 1 APPLN Folic Acid (Folvite Tab) 1 mg QAM PO 08/06/16 09:00 09/05/16 08:59 08/16/16 08:30 1 MG Gabapentin (Neurontin Cap) 600 mg HS PO 08/06/16 21:00 09/05/16 20:59 08/16/16 20:29 600 MG Midodrine (Proamatine Tab) 2.5 mg TID@0900,1400,1800 PO 08/06/16 09:00 09/05/16 08:59 Future Hold Pantoprazole Sodium (Protonix Tab) 40 mg QAM PO 08/06/16 09:00 09/05/16 08:59 08/16/16 08:30 40 MG Sertraline HCl (Zoloft Tab) 25 mg QAM PO 08/06/16 09:00 09/05/16 08:59 08/16/16 08:30 25 MG Polyethylene 17 gm 17 gm DAILY PRN PO 08/06/16 03:00 09/05/16 02:59 Promethazine HCl/ Sodium Chloride (Phenergan Inj/ Nss 50ml) 50.5 ml @ 204 mls/hr Q6H PRN IV 08/06/16 03:00 09/05/16 02:59 Hydroxyzine HCl (Vistaril Tab) 10 mg Q6H PRN PO 08/06/16 03:00 09/05/16 02:59 08/16/16 17:40 10 MG Ipratropium [place] (Atrovent 0.02% 0.5MG/2.5ML Neb) 0.5 mg Q4H PRN INH 08/06/16 05:00 09/05/16 04:59 Levalbuterol (Xopenex 1.25MG/ 0.5ML Neb) 1.25 mg Q4H PRN INH 08/06/16 05:00 09/05/16 04:59 Ibuprofen (Advil Tab) 400 mg Q6H PRN PO 08/06/16 05:15 09/05/16 05:14 Enteral Nutritional Formula (Boost) 1 can TID PO 08/06/16 14:00 09/05/16 13:59 08/16/16 20:00 1 CAN Oxycodone HCl (Roxicodone Immediate Rel Tab) 5 mg Q6H PRN PO 08/06/16 20:15 08/20/16 20:14 08/16/16 16:11 5 MG Dexamethasone (Decadron Tab) 4 mg TID PO 08/11/16 20:00 09/10/16 19:59 08/16/16 20:29 4 MG Simethicone (Mylicon Chew Tab) 80 mg Q6H PRN PO 08/12/16 17:45 09/11/16 17:44 08/16/16 09:31 80 MG Docusate Sodium (coLACE CAP) 100 mg DAILY PRN PO 08/16/16 08:00 09/15/16 07:59 Ondansetron HCl (Zofran Odt) 4 mg Q6H PRN PO 08/16/16 12:30 09/15/16 12:29
[2016-08-16 23:36] VITALS: BP 136/70; PULSE 87; TEMP 36.6; O2SAT 98
[2016-08-17] VITALS (7 sets, daily range): BP systolic 122–179; BP diastolic 66–81; PULSE 78–138; TEMP 36.6–37.3; O2SAT 93–100
[2016-08-17] MEDS: OXYCODONE HCL IR 5 MG TAB (IMMEDIATE RELEASE) PO PRN ×3 (05:51→19:26)
[2016-08-17] MEDS: BOOST VANILLA PO SCH ×6 (08:00→21:00)
[2016-08-17] MEDS: DEXAMETHASONE 4 MG TAB PO SCH ×3 (08:58→21:00)
[2016-08-17] MEDS: DICLOFENAC SOD 1% GEL 100 GM TUBE EXT SCH ×2 (08:58→21:00)
[2016-08-17] MEDS: OXYCODONE HCL 10 MG TABCR (OXYCONTIN) PO SCH ×2 (08:59→21:00)
[2016-08-17] MEDS: PANTOprazole SOD 40 MG TAB PO SCH (08:59)
[2016-08-17] MEDS: ASPIRIN 81 MG ECTAB PO SCH (08:59)
[2016-08-17] MEDS: SERTRALINE HCL 50 MG TAB PO SCH (09:00)
[2016-08-17] MEDS: SIMETHICONE 80 MG CHEW PO PRN ×2 (09:24→15:48)
[2016-08-17] MEDS ORDERED: LOPERAMIDE HCL 2 MG CAP PO PRN (16:30)
[2016-08-17] MEDS ORDERED: LOPERAMIDE HCL 2 MG CAP PO ONE (16:45)
[2016-08-17] MEDS: hydrOXYzine HCL 10 MG TAB PO PRN (17:07)
[2016-08-17] MEDS ORDERED: NALOXONE HCL 0.4 MG/1 ML VIAL/CARP IV STA (19:39)
[2016-08-17] MEDS ORDERED: NALOXONE HCL 0.4 MG/1 ML VIAL/CARP ONE (19:41)
--- NOTE | 2016-08-17 20:43 | DIAGNOSTIC IMAGING REPORT ---
HEAD CT NONCONTRAST CT DOSE: 1805.94 mGy.cm HISTORY: brain mets, seizure TECHNIQUE: Multiaxial CT images of the head were performed without the use of intravenous contrast. Automated exposure control was utilized for this study. Comparison: Head CT 08/06/2016. Brain MRI 08/06/2016. Findings: The paranasal sinuses and mastoid air cells are clear. 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 The right occipital lobe lesion is again noted in the approximate 8 mm.. The 1 cm right frontal lobe lesion is faintly visualized. Vasogenic edema within the right frontal lobe remains unchanged. Mild mass effect along the right lateral ventricle frontal horn remains unchanged. No hematoma, midline shift, acute infarct. No new masses identified. Impression: 1. No significant change compared to the prior studies. 2. The right frontal and right occipital lobe lesions are again noted. 3. 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 Electronically signed by: Kenyon Alford M.D. 08/17/2016 8:42 PM Dictated Date/Time: 08/17/2016 8:37 PM
[2016-08-17] MEDS: LORAZEPAM INJ 1 MG in SYRINGE 0.5 ML IV PRN (20:54)
[2016-08-17] MEDS: ATORVASTATIN 20 MG TAB PO SCH (21:00)
[2016-08-17] MEDS ORDERED: METOPROLOL TARTRATE 1 MG/ML VIAL IV ONE (21:00)
[2016-08-17] MEDS: GABAPENTIN 300 MG CAP PO SCH (21:00)
[2016-08-17] MEDS ORDERED: LEVETIRACETAM IV 1,000 MG in DEXTROSE 5% 100ML 100 ML IV ONE (21:15)
[2016-08-17] MEDS ORDERED: PANTOprazole INJ 40 MG in SYRINGE 0 ML IV SCH (21:30)
[2016-08-17] MEDS ORDERED: DEXAMETHASONE INJ 6 MG in SYRINGE 0 ML IV ONE (21:45)
[2016-08-17] MEDS ORDERED: SODIUM CHLORIDE 0.9% 1000ML 1,000 ML IV SCH (21:45)
--- NOTE | 2016-08-17 21:45 | Progress Note ---
Medicine Progress Note Date & Time of Visit: Aug 17, 2016 at 16:20 . Subjective Several stools today, soft / pasty per nursing. No melena or hematochezia. Patient concerned that there is something wrong with her rectum. No fever. No chest pain. No cough or shortness of breath. No urinary symptoms. No headache. Feels stronger; ambulating with assistance. . Objective Last 8 Hrs Date Time Temp Pulse Resp B/P (MAP) Pulse Ox O2 Delivery O2 Flow Rate FiO2 08/17/16 20:57 139 179/97 08/17/16 19:05 36.9 104 20 158/81 (106) 93 Room Air 08/17/16 16:00 Room Air 08/17/16 14:38 36.6 78 16 122/66 (84) 97 Room Air Physical Exam: General- lying in bed, no distress Eyes- anicteric Neck- no JVD Lungs- clear to auscultation Heart- RRR Abdomen- + BS, soft, nontender Rectal- no masses, stool rectal vault (exam performed with nursing assistance) Extremities- no pretibial edema or calf tenderness Neuro- alert, oriented; PERRL, EOMI; motor strength upper and lower extremities intact . Laboratory Results: Last 24 Hours Test 08/17/16 19:32 08/17/16 21:23 Bedside Glucose 180 mg/dl Assessment & Plan ADENOCARCINOMA CT chest revealed large left pleural effusion, small-moderate right pleural effusion, 3 cm FRANKLIN mass, 1.4 cm RLL mass, mediastinal adenopathy. Cytology from left thoracentesis revealed adenocarcinoma. Immunohistochemical stains notable for positive TTF-1 and Napsin A consistent with pulmonary primary. Management per Medical Oncology. BRAIN METS Neuroimaging demonstrated right frontal and occipital lesions with associated vasogenic edema. Presumed brain mets from underlying adenocarcinoma. Headache improved with dexamethasone. Radiation therapy anticipated as outpatient in near future. MALIGNANT LEFT PLEURAL EFFUSION Dyspnea improved after insertion of pleural catheter. Cytology revealed adenocarcinoma. Immunohistochemical stains notable for positive TTF-1 and Napsin A consistent with pulmonary primary. LEUKOCYTOSIS WBC 08/16 was 19,850. Afebrile. No specific signs/symptoms of infection. Leukocytosis most likely secondary to steroid therapy. Follow. DEPRESSION Continue sertraline. VTE PROPHYLAXIS History of DVT. No anticoagulants due to brain mets. S/P IV filter. SCD's. Ambulate. DISPOSITION To be determined. Anticipate need for inpatient rehabilitation for skilled care. Medical follow-up with Dr. Bowden. Radiation Oncology follow-up with Dr. Jos Dee. Medical Oncology follow-up with Dr. Montano. ADDENDUM: Patient had witnessed generalized tonic-clonic seizure at approximately 19:30. I assessed her at approximately 19:45. She was postictal. Denied headache. Pupils were equal and reactive. Unable to cooperate with eye movement testing. Dysarthric. ? left upper extremity weakness. Lungs were clear. Tachycardic. 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 No hemorrhage was noted. Transferred to ICU. Soon after arrival she had another seizure. She was tachycardic around 150, initially thought to be possible SVT. Received metoprolol 2.5 mg IV with gradual slowing of rate to 120 with visualized P-waves; therefore tachycardia with sinus tachycardia. Received loading dose of levetiracetam 1000 mg to be followed by 500 mg IV every 12 hours. Check EEG. Consult Neurology. Patient will be nothing by mouth. Change dexamethasone to intravenous. Patient is on chronic narcotic analgesics for back pain. IV hydromorphone PRN while NPO. Brother came to hospital and was given update. Case discussed with Critical Care Medicine. Labs were obtained. WBC 39,940. Leukocytosis could be secondary to steroid therapy and seizure. Chest x-ray demonstrated small left pleural effusion, left perihilar cavitary mass as previously noted. Blood and urine cultures ordered by [facility] and patient started on empiric intravenous antibiotic therapy. Patient had several stools earlier in the day that are described as soft/pasty. Consider C. difficile even though patient is not having claudio diarrhea. C diff PCR ordered. BUN / creatinine elevated. IV fluids ordered by [facility]. . Current Inpatient Medications: Current Inpatient Medications Medications (Trade) Dose Ordered Sig/Yuriy Route Start Time Stop Time Status Last Admin Dose Admin Ondansetron HCl (Zofran Inj) 4 mg Q6H PRN IV 08/06/16 00:00 09/05/16 00:00 08/08/16 18:21 4 MG Nitroglycerin (Nitrostat Tab) 0.4 mg UD PRN SL 08/06/16 03:00 09/05/16 02:59 Ipratropium [place] (Atrovent 0.02% 0.5MG/2.5ML Neb) 0.5 mg Q4H PRN INH 08/06/16 05:00 09/05/16 04:59 Levalbuterol (Xopenex 1.25MG/ 0.5ML Neb) 1.25 mg Q4H PRN INH 08/06/16 05:00 09/05/16 04:59 Lorazepam 1 mg/ Syringe 1 ml @ 0.5 mls/min UD PRN IV 08/17/16 19:45 09/16/16 19:44 08/17/16 20:54 0.5 MLS/MIN Pantoprazole Sodium 40 mg/ Syringe 10 ml @ 5 mls/min TODAY@2130 IV 08/17/16 21:30 08/17/16 23:59 Pantoprazole Sodium 40 mg/ Syringe 10 ml @ 5 mls/min DAILY@11 IV 08/18/16 11:00 09/17/16 10:59 Hydromorphone HCl (Dilaudid Inj) 0.5 mg Q2H PRN IV 08/17/16 21:30 08/31/16 21:29 Dexamethasone (Decadron Tab) 6 mg Q6H PO 08/17/16 22:00 09/16/16 21:59 Levetiracetam (Keppra Tab) 500 mg BID PO 08/18/16 09:00 09/17/16 08:59 Sodium Chloride 1,000 ml @ 100 mls/hr Q10H IV 08/17/16 21:45 08/18/16 07:44
[2016-08-17 21:53] LABS: BUN/CREATININE RATIO 37.3 (10-20); CREATININE 1.4 mg/dl (0.60-1.20); MAGNESIUM 2.3 mg/dl (1.8-2.4); POTASSIUM 5.4 mmol/L (3.5-5.1)
--- NOTE | 2016-08-17 21:53 | DIAGNOSTIC IMAGING REPORT ---
CHEST ONE VIEW PORTABLE HISTORY: lung and, pleural effusion COMPARISON: Chest 08/07/2016. FINDINGS: No pneumothorax. The heart is stable in size. Left basilar pleural drain is unchanged in position. Small left pleural effusion has slightly increased in size. Trace right pleural effusion persist. Left basilar densities are again noted. Mild diffuse interstitial thickening is again noted. Left perihilar cavitary mass is also unchanged. IMPRESSION: 1. Slight increase in size in the small left pleural effusion. Left basilar drain is unchanged in position. 2. Left perihilar cavitary mass is again noted. 3. No change in the diffuse interstitial thickening. Electronically signed by: Kenyon Alford M.D. 08/17/2016 9:51 PM Dictated Date/Time: 08/17/2016 9:49 PM
[2016-08-17 21:55] LABS: HEMATOCRIT 40.5 % (37-47); MEAN CELL VOLUME 84.4 fL (80-100); MEAN CORPUSCULAR HEMOGLOBIN 27.1 pg (25-34); MEAN CORPUSCULAR HGB CONC 32.1 g/dl (32-36); PLATELET COUNT 471 K/uL (130-400); WHITE BLOOD COUNT 39.94 K/uL (4.8-10.8)
[2016-08-17 22:00] LABS: CALCIUM 7.5 mg/dl (8.5-10.1)
[2016-08-17] MEDS ORDERED: DEXAMETHASONE 4 MG TAB PO SCH (22:00)
[2016-08-17] MEDS ORDERED: ONDANSETRON INJ 2 MG/ML 2 ML VIAL IV PRN (22:00)
[2016-08-17] MEDS ORDERED: METOPROLOL TARTRATE 1 MG/ML VIAL IV PRN (22:00)
[2016-08-17] MEDS ORDERED: VANCOMYCIN 1GM/270ML NSS IV STA (22:38)
[2016-08-17] MEDS ORDERED: INSULIN PROTOCOL GOAL RANGE ONE (22:45)
[2016-08-17] MEDS ORDERED: LEVOFLOXACIN / D5W 750 MG in PREMIXED IN D5W 150 ML IV SCH (23:00)
[2016-08-17] MEDS ORDERED: VANCOMYCIN INJ 1,300 MG in SODIUM CHLORIDE 0.9% 250ML 250 ML IV SCH (23:00)
[2016-08-17] MEDS ORDERED: PHARMACY GLYCEMIC MGMT CONSULT PRN (23:10)
[2016-08-17] MEDS ORDERED: VANCOMYCIN CONSULT ACTIVE PRN (23:11)
[2016-08-17 23:17] LABS: BASO % 0.2 %; BASO ABS # 0.07 K/uL (0-0.2); COMPLETE YES; ECHINOCYTES 1+; IG% 3.6 %; LYMPH % 8.4 %; LYMPH ABS # 3.37 K/uL (1.2-3.4); MONO % 4.1 %; NEUT % 83.7 %
[2016-08-17] MEDS ORDERED: INSULIN HUMAN REGULAR PER UNIT 10 UNITS in SYRINGE 9.9 ML IV SCH (23:30)
[2016-08-17] MEDS ORDERED: INSULIN HUMAN REGULAR PER UNIT 5 UNITS in SYRINGE 4.95 ML IV SCH (23:30)
[2016-08-17] MEDS ORDERED: LEVOFLOXACIN CONSULT ACTIVE PRN (23:58)
[2016-08-18] VITALS (16 sets, daily range): BP systolic 110–151; BP diastolic 66–91; PULSE 98–135; TEMP 36.5–37.4; O2SAT 93–98
[2016-08-18] MEDS ORDERED: GLUCOSE 40% GEL 15 GM TUBE PO PRN (00:15)
[2016-08-18] MEDS ORDERED: DEXTROSE 50% 50 ML SYR IV PRN (00:15)
[2016-08-18] MEDS ORDERED: GLUCAGON FOR INJ 1 MG VIAL SQ PRN (00:15)
[2016-08-18] MEDS ORDERED: GLUCOSE 10 TABS/TUBE PO PRN (00:15)
[2016-08-18] MEDS: INSULIN ASPART 100 UNITS/ML 3 ML PEN SC SCH ×6 (00:30→21:00)
[2016-08-18] MEDS: ONDANSETRON INJ 2 MG/ML 2 ML VIAL IV PRN (01:54)
[2016-08-18] MEDS: DEXAMETHASONE INJ 6 MG in SYRINGE 0 ML IV SCH ×4 (04:13→22:24)
[2016-08-18 05:51] LABS: HEMATOCRIT 36.9 % (37-47); MEAN CELL VOLUME 83.1 fL (80-100); MEAN CORPUSCULAR HEMOGLOBIN 26.4 pg (25-34); MEAN CORPUSCULAR HGB CONC 31.7 g/dl (32-36); MEAN PLATELET VOLUME 9.2 fL (7.4-10.4); PLATELET COUNT 316 K/uL (130-400); RED BLOOD COUNT 4.44 M/uL (4.2-5.4)
[2016-08-18 06:29] LABS: ALKALINE PHOSPHATASE 87 U/L (45-117); ALT/SGPT 45 U/L (12-78); AST/SGOT 30 U/L (15-37); BLOOD UREA NITROGEN 49 mg/dl (7-18); BUN/CREATININE RATIO 49.5 (10-20); CALCIUM 7.5 mg/dl (8.5-10.1); CARBON DIOXIDE 28 mmol/L (21-32); CHLORIDE 106 mmol/L (98-107); GLUCOSE 130 mg/dl (70-99); PHOSPHORUS 4.1 mg/dl (2.5-4.9); POTASSIUM 5.2 mmol/L (3.5-5.1); SODIUM 140 mmol/L (136-145)
[2016-08-18] MEDS: LEVETIRACETAM IV 500 MG in DEXTROSE 5% 100ML 100 ML IV SCH ×2 (08:39→21:11)
[2016-08-18] MEDS ORDERED: LEVETIRACETAM IV 500 MG in DEXTROSE 5% 100ML 100 ML IV SCH (09:00)
[2016-08-18] MEDS ORDERED: LEVETIRACETAM 500 MG TAB PO SCH (09:00)
[2016-08-18] MEDS: VANCOMYCIN INJ 1,000 MG in SODIUM CHLORIDE 0.9% 250ML 250 ML IV SCH (10:10)
[2016-08-18] MEDS: PANTOprazole INJ 40 MG in SYRINGE 0 ML IV SCH (10:10)
--- NOTE | 2016-08-18 11:52 | Pharmacy Progress Note ---
Pharmacy Abx Initial Consult Date of Service Aug 18, 2016. Pharmacy Dosing Scope Date of Consult: 08/17/16 Consultation requested by: Dr. Cortes Pharmacy is consulted to initiate vancomycin and levofloxacin IV dosing therapy , order appropriate labs and adjust drug dose/frequency. Subjective The patient is a 71 year old female admitted on August 06, 2016 at 02:42. Objective Height (Feet): 5 Height (Inches): 5.00 Weight (Kilograms): 55.100 Vital Signs (Past 12Hrs) Vital Signs Past 12 Hours Date Time Temp Pulse Resp B/P (MAP) Pulse Ox O2 Delivery O2 Flow Rate FiO2 08/18/16 10:03 109 26 149/86 (107) 95 Nasal Cannula 3.0 08/18/16 08:03 36.5 110 20 139/80 (99) 96 Nasal Cannula 3.0 08/18/16 08:00 Nasal Cannula 3.0 08/18/16 07:03 110 21 144/86 (105) 96 Nasal Cannula 3.0 08/18/16 06:01 105 18 126/72 (90) 95 Nasal Cannula 3.0 08/18/16 04:00 36.7 99 20 121/73 (89) 96 Nasal Cannula 3.0 08/18/16 04:00 Nasal Cannula 3.0 Venturi Mask 08/18/16 02:00 105 20 112/66 (81) 96 Venturi Mask 9.0 35 08/18/16 00:38 131 139/74 08/18/16 00:01 37.4 135 26 139/74 (95) 95 Venturi Mask 12.0 40 08/17/16 23:59 Venturi Mask 12.0 40 Lab Results (24Hrs) Test 08/17/16 21:23 08/18/16 04:16 08/18/16 05:25 08/18/16 07:30 White Blood Count 39.94 K/uL (4.8-10.8) 36.90 K/uL (4.8-10.8) Red Blood Count 4.80 M/uL (4.2-5.4) 4.44 M/uL (4.2-5.4) Hemoglobin 13.0 g/dL (12.0-16.0) 11.7 g/dL (12.0-16.0) Hematocrit 40.5 % (37-47) 36.9 % (37-47) Mean Corpuscular Volume 84.4 fL (80-100) 83.1 fL (80-100) Mean Corpuscular Hemoglobin 27.1 pg (25-34) 26.4 pg (25-34) Mean Corpuscular Hemoglobin Concent 32.1 g/dl (32-36) 31.7 g/dl (32-36) Platelet Count 471 K/uL (130-400) 316 K/uL (130-400) Mean Platelet Volume 9.0 fL (7.4-10.4) 9.2 fL (7.4-10.4) Neutrophils (%) (Auto) 83.7 % Lymphocytes (%) (Auto) 8.4 % Monocytes (%) (Auto) 4.1 % Eosinophils (%) (Auto) 0.0 % Basophils (%) (Auto) 0.2 % Neutrophils # (Auto) 33.42 K/uL (1.4-6.5) Lymphocytes # (Auto) 3.37 K/uL (1.2-3.4) Monocytes # (Auto) 1.63 K/uL (0.11-0.59) Eosinophils # (Auto) 0.01 K/uL (0-0.5) Basophils # (Auto) 0.07 K/uL (0-0.2) RDW Standard Deviation 53.3 fL (36.4-46.3) 51.9 fL (36.4-46.3) RDW Coefficient of Variation 17.2 % (11.5-14.5) 17.0 % (11.5-14.5) Immature Granulocyte % (Auto) 3.6 % Immature Granulocyte # (Auto) 1.44 K/uL (0.00-0.02) Echinocytes 1+ Sodium Level 136 mmol/L (136-145) 140 mmol/L (136-145) Potassium Level 5.4 mmol/L (3.5-5.1) 5.2 mmol/L (3.5-5.1) Chloride Level 102 mmol/L (98-107) 106 mmol/L (98-107) Carbon Dioxide Level 26 mmol/L (21-32) 28 mmol/L (21-32) Anion Gap 8.0 mmol/L (3-11) 6.0 mmol/L (3-11) Blood Urea Nitrogen 52 mg/dl (7-18) 49 mg/dl (7-18) Creatinine 1.40 mg/dl (0.60-1.20) 1.00 mg/dl (0.60-1.20) Est Creatinine Clear Calc Drug Dose 31.0 ml/min 43.4 ml/min Estimated GFR () 44.3 66.6 Estimated GFR (Non- 38.2 57.4 BUN/Creatinine Ratio 37.3 (10-20) 49.5 (10-20) Random Glucose 291 mg/dl (70-99) 130 mg/dl (70-99) Calcium Level 7.5 mg/dl (8.5-10.1) 7.5 mg/dl (8.5-10.1) Magnesium Level 2.3 mg/dl (1.8-2.4) Bedside Glucose 117 mg/dl (70-90) Phosphorus Level 4.1 mg/dl (2.5-4.9) Total Bilirubin 0.4 mg/dl (0.2-1) Direct Bilirubin < 0.1 mg/dl (0-0.2) Aspartate Amino Transf (AST/SGOT) 30 U/L (15-37) Alanine Aminotransferase (ALT/SGPT) 45 U/L (12-78) Alkaline Phosphatase 87 U/L (45-117) Total Creatine Kinase 57 U/L (26-192) Total Protein 5.2 gm/dl (6.4-8.2) Albumin 2.3 gm/dl (3.4-5.0) Random Vancomycin Level 13.7 mcg/ml Test 08/18/16 10:16 Bedside Glucose 146 mg/dl (70-90) Micro Results Date/Time Source Procedure Growth Status 08/17/16 23:25 Blood Blood Culture Pending Received 08/17/16 23:15 Blood Blood Culture Pending Received 08/17/16 21:00 Nasal MRSA DNA Surveillance Screen - Final Specimen Negative for MRSA by DNA Probe Complete 08/17/16 22:45 Urine,Catheterized Urine Culture Pending Received 08/06/16 00:00 Pleural Fluid (Thoracentesis) Left Acid Fast Stain - Final Resulted 08/06/16 00:00 Pleural Fluid (Thoracentesis) Left Mycobacterial Culture - Preliminary NO ACID-FAST BACILLI ISOLATED - REPOR... Resulted 08/06/16 00:00 Pleural Fluid (Thoracentesis) Left Gram Stain - Final Complete 08/06/16 00:00 Pleural Fluid (Thoracentesis) Left Bacterial Culture - Final NO GROWTH Complete Risk Factors for Resistance * Hospitalization for 48 hours or more within the past 90 days * in [place] * Current hospitalization > 5 days * Immunocompromised (chronic steroid therapy) Assessment & Plan Assessment 71 year old female admitted with L pleural effusion. Recently transferred to the ICU s/p tonic-clonic seizures. Noted to have leukocytosis and broad- spectrum ABX started Plan vancomycin and levofloxacin for treatment of hospital acquired pneumonia Vancomycin IV * Loading dose: 1300 mg (25 mg/kg) * Maintenance dose: 1000 mg IV (18 mg/kg) every 20 hours * Goal trough level for pneumonia : 15 to 20 mcg/mL * Trough/Random level ordered for 08/20/16 prior to the 02:00 dose Levofloxacin IV * Target dose: 750mg IV/PO every 24 hours * dose adj for CrCl 20-50mL/min to 750mg IV/PO q48 hours Of Note: * 08/17 nasal MRSA swab was negative - may be able to de-escalate vancomycin if patient improving * PCN allergy and recent seizure - likely B-lactam not ideal for treatment, agree with Levofloxacin * if double pseudomonal coverage wanted, may consider an aminoglycoside ( tobramycin) Pharmacy will continue to follow and will adjust dose/frequency as necessary. Thank you.
--- NOTE | 2016-08-18 13:09 | Critical Care Consultation ---
Critical Care Consultation Date of Consultation: Aug 18, 2016. Attending Physician: Ang Birmingham M.D. 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 She underwent a CT head which ruled out bleed and then moved to ICU where she had a second seizure. She was loaded with Keppra and her decadron increased to 6 mg Q6. 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 She is originally from [place], [place]. Her most recent hospitalization at [facility], [place], [place] from February 2016 to March 2016 for Alcohol Abuse (found lying on the floor at her home with the house in disorder and empty alcohol bottles) She was found to anemia with Hb down to 4 , embolic CVA, respiratory failure status post intubation. As per records, the patient was found at home in February 2016 On admission there , she was noted to be hypotensive and to have a hemoglobin of 4. EGD showed gastritis fungal esophagitis. Her stay was complicated with respiratory failure necessitating 2 weeks of MV UGIB requiring EGD with findings of gastritis as above. Reported to have several embolic strokes to the brain and was briefly kept on Keppra which was continued after a negative EEG. She also was in shock and given pressors then DC on midodrine. She was managed in intensive care there. Also a cavitary left lower lobe lung mass, 2.4 x 5 cm with inflammation and right upper nodule measuring 6 mm as well as lymphadenopathy. Bronchoscopy was done there and was mostly non diagnostic as per records. Patient recalls thoracentesis done for pleural fluid as well but no diagnosis made She was noted to have DVT on the right leg. She underwent a IVC filter placement due to recent GI bleed.. Anticoag precluded by recent bleed. Px dcd on low dose ASA. CTA had also showed L subclavian artery occlusion and No PEs noted. Subsequently she had a 3 months of rehab at [facility]. She presented to [facility] with pleuritic chest pain headaches and worsening body aches. Chest x-ray done at the here PCP office here in [place] showed moderate L pleural effusion w/ atelectasis, poss L hilar mass. Her course in the hospital here was noted for the following. She underwent pleurex catheter placement and the fluid showed adenocarcinoma which stains 90% positive for PDL1 receptor. The patient was seen by Radiation oncology and is being planned for stereotactic radiation surgery for both brain lesions. She was being treated with decadron on the wards when she developed her seizures yesterday and transferred to MICU At the bedside patient reports mild headache and back pain. Denies any other or GI symptoms. She has no CP no SOB and is alert awake and oriented PX requested that her information only be provided to her brother, Mr. Ang Fan. 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 Smoking Status: Current Every Day Smoker Alcohol Use: previous ETOH abuse as above Drug Use: none Marital Status: Housing Status: lives with family Occupation Status: retired Allergies Coded Allergies: Penicillins (Verified Allergy, Intermediate, RASH-HAPPENED A CHILD, ) Home Medications Scheduled Aspirin (Aspirin Ec), 81 MG PO QAM Atorvastatin (Lipitor), 40 MG PO HS Diclofenac Sodium (Topical) (Voltaren 1% Top Gel), 1 APPLN TOP BID Folic Acid (Folvite), 1 MG PO QAM Gabapentin (Neurontin), 600 MG PO HS Midodrine (Midodrine HCl), 2.5 MG PO TID Oxycodone HCl (Oxycontin), 10 MG PO BID Pantoprazole (Protonix), 40 MG PO QAM Potassium Chloride (Potassium Chloride), 20 MEQ PO QAM Sertraline (Zoloft), 25 MG PO QAM Scheduled PRN Ondansetron Hcl (Zofran), 4 MG PO Q8 PRN for Nausea Oxycodone Ir (Roxicodone Ir), 2.5 MG PO BID PRN for Severe Pain Polyethylene Glycol 3350 (Miralax), 17 GM PO DAILY PRN for Constipation Current Inpatient Medications Current Inpatient Medications Medications (Trade) Dose Ordered Sig/Yuriy Route Start Time Stop Time Status Last Admin Dose Admin Ondansetron HCl (Zofran Inj) 4 mg Q6H PRN IV 08/06/16 00:00 09/05/16 00:00 08/18/16 01:54 4 MG Nitroglycerin (Nitrostat Tab) 0.4 mg UD PRN SL 08/06/16 03:00 09/05/16 02:59 Ipratropium [place] (Atrovent 0.02% 0.5MG/2.5ML Neb) 0.5 mg Q4H PRN INH 08/06/16 05:00 09/05/16 04:59 Levalbuterol (Xopenex 1.25MG/ 0.5ML Neb) 1.25 mg Q4H PRN INH 08/06/16 05:00 09/05/16 04:59 Lorazepam 1 mg/ Syringe 1 ml @ 0.5 mls/min UD PRN IV 08/17/16 19:45 09/16/16 19:44 08/17/16 20:54 0.5 MLS/MIN Pantoprazole Sodium 40 mg/ Syringe 10 ml @ 5 mls/min DAILY@11 IV 08/18/16 11:00 09/17/16 10:59 Hydromorphone HCl (Dilaudid Inj) 0.5 mg Q2H PRN IV 08/17/16 21:30 08/31/16 21:29 Levetiracetam 500 mg/Dextrose 105 ml @ 420 mls/hr Q12 IV 08/18/16 09:00 09/17/16 08:59 08/18/16 08:39 420 MLS/HR Dexamethasone Sodium Phosphate 6 mg/Syringe 1.5 ml @ 1 mls/min Q6H IV 08/18/16 04:00 09/17/16 03:59 08/18/16 04:13 1 MLS/MIN Metoprolol Tartrate (Lopressor Iv) 5 mg Q4 PRN IV 08/17/16 22:00 09/16/16 21:59 08/18/16 00:38 5 MG Gabapentin (Neurontin) 600 mg HS PO 08/18/16 21:00 09/17/16 20:59 Levofloxacin 750 mg/Prmx 150 ml @ 100 mls/hr Q48H IV 08/17/16 23:00 08/24/16 22:59 08/17/16 22:55 100 MLS/HR Vancomycin HCl (Consult) 1 ea DAILY PRN N/A 08/17/16 23:11 09/16/16 23:10 Levofloxacin (Consult) 1 ea DAILY PRN N/A 08/17/16 23:58 09/16/16 23:57 Miscellaneous Information (Consult Glycemic Management Pharmacy) 1 ea DAILY PRN N/A 08/17/16 23:10 09/16/16 23:09 Insulin Aspart (novoLOG ASPART) SLIDING SCALE ACHS SC 08/18/16 06:45 09/17/16 06:44 Glucose (Glucose 40% Gel) 15-30 GRAMS 15 GRAMS... UD PRN PO 08/18/16 00:15 09/17/16 00:14 Glucose (Glucose Chew Tab) 4-8 Tablets 4 Tabl... UD PRN PO 08/18/16 00:15 09/17/16 00:14 Dextrose (Dextrose 50% 50ML Syringe) 25-50ML OF 50% DW IV FOR... UD PRN IV 08/18/16 00:15 09/17/16 00:14 Glucagon (Glucagon Inj) 1 mg UD PRN SQ 08/18/16 00:15 09/17/16 00:14 Review of Systems She denies fever and chills but says she is cold. She has no headache but a littel dizzy/foggy. She has no chest pain or abdominal pain. She has a chronic backpain which had worened over the past month or so. She denies any other complaint on a 10 point ROS Physical Exam Date Time Temp Pulse Resp B/P (MAP) Pulse Ox O2 Delivery O2 Flow Rate FiO2 08/18/16 08:03 36.5 110 20 139/80 (99) 96 Nasal Cannula 3.0 08/18/16 07:03 110 21 144/86 (105) 96 Nasal Cannula 3.0 08/18/16 06:01 105 18 126/72 (90) 95 Nasal Cannula 3.0 08/18/16 04:00 36.7 99 20 121/73 (89) 96 Nasal Cannula 3.0 08/18/16 04:00 Nasal Cannula 3.0 Venturi Mask 08/18/16 02:00 105 20 112/66 (81) 96 Venturi Mask 9.0 35 08/18/16 00:38 131 139/74 08/18/16 00:01 37.4 135 26 139/74 (95) 95 Venturi Mask 12.0 40 08/17/16 23:59 Venturi Mask 12.0 40 08/17/16 22:00 138 20 152/73 (99) 93 Venturi Mask 12.0 40 08/17/16 20:57 139 179/97 08/17/16 20:25 37.3 122 20 179/75 (109) 94 Venturi Mask 15.0 50 08/17/16 19:05 36.9 104 20 158/81 (106) 93 Room Air 08/17/16 16:00 Room Air 08/17/16 14:38 36.6 78 16 122/66 (84) 97 Room Air 08/17/16 11:02 36.6 82 16 132/71 (91) 98 Room Air General Appearance: uncomfortable, thin Head: normocephalic, atraumatic Eyes: PERRLA, sclerae normal ENT: other (normal pharynx) Neck: no stridor, supple Respiratory: clear to auscultation, other (left base shows rhales) Cardiovasular: normal S1S2, no murmur, no gallop Abdomen: non tender, no rebound, no masses Genitourinary - Female: external genitalia normal Back: normal inspection Upper Extremities: other (no edema or cyanosis) Lower Extremities: no deformity, other (no edema or cyanosis) Pulses: carotid (R) (2+), carotid (L) (2+), radial (R) (2+), radial (L), dorsalis pedis (R) (2+), dorsalis pedis (L) (2+) Neuro: alert, oriented x 3 Laboratory Results Last 24 Hours Test 08/17/16 19:32 08/17/16 21:23 08/17/16 23:25 08/18/16 00:28 Bedside Glucose 180 mg/dl 212 mg/dl 90 mg/dl White Blood Count 39.94 K/uL Red Blood Count 4.80 M/uL Hemoglobin 13.0 g/dL Hematocrit 40.5 % Mean Corpuscular Volume 84.4 fL Mean Corpuscular Hemoglobin 27.1 pg Mean Corpuscular Hemoglobin Concent 32.1 g/dl Platelet Count 471 K/uL Mean Platelet Volume 9.0 fL Neutrophils (%) (Auto) 83.7 % Lymphocytes (%) (Auto) 8.4 % Monocytes (%) (Auto) 4.1 % Eosinophils (%) (Auto) 0.0 % Basophils (%) (Auto) 0.2 % Neutrophils # (Auto) 33.42 K/uL Lymphocytes # (Auto) 3.37 K/uL Monocytes # (Auto) 1.63 K/uL Eosinophils # (Auto) 0.01 K/uL Basophils # (Auto) 0.07 K/uL RDW Standard Deviation 53.3 fL RDW Coefficient of Variation 17.2 % Immature Granulocyte % (Auto) 3.6 % Immature Granulocyte # (Auto) 1.44 K/uL Echinocytes 1+ Sodium Level 136 mmol/L Potassium Level 5.4 mmol/L Chloride Level 102 mmol/L Carbon Dioxide Level 26 mmol/L Anion Gap 8.0 mmol/L Blood Urea Nitrogen 52 mg/dl Creatinine 1.40 mg/dl Est Creatinine Clear Calc Drug Dose 31.0 ml/min Estimated GFR () 44.3 Estimated GFR (Non- 38.2 BUN/Creatinine Ratio 37.3 Random Glucose 291 mg/dl Calcium Level 7.5 mg/dl Magnesium Level 2.3 mg/dl Test 08/18/16 04:16 08/18/16 05:25 08/18/16 07:30 Bedside Glucose 117 mg/dl White Blood Count 36.90 K/uL Red Blood Count 4.44 M/uL Hemoglobin 11.7 g/dL Hematocrit 36.9 % Mean Corpuscular Volume 83.1 fL Mean Corpuscular Hemoglobin 26.4 pg Mean Corpuscular Hemoglobin Concent 31.7 g/dl RDW Standard Deviation 51.9 fL RDW Coefficient of Variation 17.0 % Platelet Count 316 K/uL Mean Platelet Volume 9.2 fL Sodium Level 140 mmol/L Potassium Level 5.2 mmol/L Chloride Level 106 mmol/L Carbon Dioxide Level 28 mmol/L Anion Gap 6.0 mmol/L Blood Urea Nitrogen 49 mg/dl Creatinine 1.00 mg/dl Est Creatinine Clear Calc Drug Dose 43.4 ml/min Estimated GFR () 66.6 Estimated GFR (Non- 57.4 BUN/Creatinine Ratio 49.5 Random Glucose 130 mg/dl Calcium Level 7.5 mg/dl Phosphorus Level 4.1 mg/dl Total Bilirubin 0.4 mg/dl Direct Bilirubin < 0.1 mg/dl Aspartate Amino Transf (AST/SGOT) 30 U/L Alanine Aminotransferase (ALT/SGPT) 45 U/L Alkaline Phosphatase 87 U/L Total Creatine Kinase 57 U/L Total Protein 5.2 gm/dl Albumin 2.3 gm/dl Random Vancomycin Level 13.7 mcg/ml Diagnostic Results CT head and chest as mentioned in HPI Assessment & Plan 71 yo female patient with history of ETOH abuse admitted with (1) metastatic lung adenocarcinoma, (2) malignant pleural fluid, (3) brain frontal, and occipital as well as the contralateral lung. admitted with seizures 1- neuro decadron 6 mg IV Q6 keppra 500 mg IV Q12 zoloft 25 mg PO dailyondansetrone for nausea 2- respiratory O2 via NC Ipratropium and levalbuterol Q4 PRN 3- cardiovascular will hold atorvastatin and get a lipid profile in am. 4- GI may resume feeding. She is on pantoprazole IV 5- ID vancomycin and levaquin on board for a leukocytosis of 39K Will FU blood and urine cultures + procalcitonin. If negative will stop antibiotics. 6- renal UO adequate for today Blalance is + 700 ml so far. FU and replete lytes will give kayexalate PO for the persistent hyperkalemia -despite insulin and nebs 7- she has peripheral lines and gaona as well as pleurex catheter. She is critically ill and will monitor in MICU CCT 60 min
[2016-08-18] MEDS ORDERED: SODIUM POLYST. SULF SUSP 15G/60ML PO ONE (13:45)
--- NOTE | 2016-08-18 14:01 | Pharmacy Progress Note ---
Glycemic Control Intl Consult Date of Service Aug 18, 2016. Scope Glycemic Pharmacist consulted by Dr Cortes on 08/18/16 for glycemic control and to write orders per [facility] inpatient glycemic control protocol Objective Weight (Kilograms): 55.100 Accuchecks BSG (last 24hrs): Test 08/17/16 19:32 08/17/16 21:23 08/17/16 23:25 08/18/16 00:28 Bedside Glucose 180 mg/dl (70-90) 212 mg/dl (70-90) 90 mg/dl (70-90) Random Glucose 291 mg/dl (70-99) Test 08/18/16 04:16 08/18/16 05:25 08/18/16 10:16 Bedside Glucose 117 mg/dl (70-90) 146 mg/dl (70-90) Random Glucose 130 mg/dl (70-99) Laboratory Data (last 24hrs) Test 08/17/16 21:23 08/18/16 05:25 Anion Gap 8.0 mmol/L 6.0 mmol/L BUN/Creatinine Ratio 37.3 49.5 Blood Urea Nitrogen 52 mg/dl 49 mg/dl Creatinine 1.40 mg/dl 1.00 mg/dl Potassium Level 5.4 mmol/L 5.2 mmol/L Sodium Level 136 mmol/L 140 mmol/L White Blood Count 39.94 K/uL 36.90 K/uL Red Blood Count 4.80 M/uL Hemoglobin 13.0 g/dL Hematocrit 40.5 % Mean Corpuscular Volume 84.4 fL Mean Corpuscular Hemoglobin 27.1 pg Mean Corpuscular Hemoglobin Concent 32.1 g/dl Platelet Count 471 K/uL Mean Platelet Volume 9.0 fL Neutrophils (%) (Auto) 83.7 % Lymphocytes (%) (Auto) 8.4 % Monocytes (%) (Auto) 4.1 % Eosinophils (%) (Auto) 0.0 % Basophils (%) (Auto) 0.2 % Neutrophils # (Auto) 33.42 K/uL Lymphocytes # (Auto) 3.37 K/uL Monocytes # (Auto) 1.63 K/uL Eosinophils # (Auto) 0.01 K/uL Basophils # (Auto) 0.07 K/uL Recent Pertinent Medications Outpatient Anti-diabetic Regimen: * none The patient is currently receiving: * Basal insulin: * none * Bolus Insulin: * NovoLog Correction per scale AC/HS - Goal Range: Low 140 mg/dL - High 180 mg/dL - Correction Factor: 45 mg/dL/unit - Carb ratio of 1 unit per 7 grams CHO consumed Risk Factors for Insulin Resistance: * Steroids: Dexamethasone 10mg IV x1 dose, then 6mg IV every 6 hours * Infection: Vancomycin and Levofloxacin IV * IVF: NSS, Keppra IV * Diet: NPO --> Regular Assessment & Plan ASSESSMENT: * ADA & AACE recommend a goal blood sugar range 140-180 mg/dl for the majority of critically ill & non-critically ill patients. However, more stringent targets may be selected in individual cases. 08/18/16 * Ms Lisa has been transferred to the ICU after experiencing a tonic- clonic seizure last evening. * No history of diabetes prior to admission, however BSGs elevated last evening (secondary to stress/dexamethasone/etc) * NovoLog started * BSGs today are back to baseline and reflect appropriate glycemic control * continue NovoLog since patient continues on around the clock steroids and will be ordered a diet later today - parameters are conservative since pt is likely quite insulin sensitive. * A1c unknown * order with AM labs on 08/19 PLAN FOR INPATIENT GLYCEMIC CONTROL: * Basal insulin: * forgo at this time * Bolus insulin: * continue NovoLog SQ AC and HS - Correction factor: 45 mg/dL/unit - Carb ratio: 1 unit per 20 g of CHO consumed - Goal: 140-180mg/dL * A1c in AM * Please note that the plan above was derived based on current level of insulin resistance and hospital stress. These recommendations are appropriate for inpatient admission only. Plan of care upon discharge will need to be reassessed to avoid potential outpatient hypo/hyperglycemia. Thank you.
[2016-08-18] MEDS: OXYCODONE HCL 10 MG TABCR (OXYCONTIN) PO SCH ×2 (14:34→23:57)
--- NOTE | 2016-08-18 21:07 | NEUROLOGY CONSULTATION ---
DATE OF CONSULTATION: 08/18/2016 REASON FOR CONSULTATION: Seizure. HISTORY OF PRESENT ILLNESS: The patient is a 71-year-old with a recent diagnosis of metastatic adenocarcinoma of the lung with brain metastasis. She was admitted to our hospital on 08/06/2016 for headache and shortness of breath. Nursing staff noted last evening while giving the patient pain medicines that she had a generalized seizure lasting under 1 minute after which she was unresponsive. Her vitals were 37, 113, 18, 116/81, 88% on room air and her blood sugar was 180. Appropriate care was administered. Ventimask was used until the patient was stabilized. She was brought downstairs for CAT scan and my understanding is that she had a second seizure witnessed by RN lasting 30-45 seconds. She was loaded with Keppra and she has not had any recurrence. By way of summarization of history, I have spoken to the patient and her brother as well reviewed the admission H&P. The patient had been in [place], had been hospitalized since February 2016. She was found at home lying on the floor with the house in disorder with empty alcohol bottles. On admission she was hypotensive, had hemoglobin of 4 and a cystic lung mass on chest x-ray. There was no evidence of a PE, but there was a cavitary left lower lung mass with a right upper nodule. She was intubated after a period of hypotension and respiratory distress. During that hospitalization, an MRI showed "extensive subacute strokes." There was a concern about a possible embolic event with the CTA showing left subclavian artery occlusion, but anticoagulation was precluded by a "recent bleed." The patient was discharged on low dose aspirin. There was some initial use of Keppra for possible seizure, but it was subsequently discontinued after a negative EEG. The patient rehabilitated in an outpatient facility for several months. During the hospitalization prior to discharge, the patient underwent a bronchoscopy which was negative. There was a thoracentesis as well. She had a DVT and underwent an IVC filter placement due to recent GI bleed and she required ongoing Midrin for orthostatic hypotension. The patient traveled by car early in July to [facility] to live with her brother permanently. Since moving to [place] she has had some right frontal headache which has gradually worsened. It is better with lying down, there was no accompanying nausea. The patient was brought to the hospital because of complaints of headache and ongoing chest pain and body aches. The patient has no complaints, the headache is improving. She admits to being thirsty. PAST MEDICAL HISTORY: As above and macular degeneration. PAST SURGICAL HISTORY: IVC filter placement, tonsillectomy, adenectomy, back surgery and knee surgery. MEDICATIONS AT HOME: Aspirin, atorvastatin, diclofenac, folic acid, gabapentin, Midrin, Zofran, OxyContin, OxyIR, Protonix, potassium, sertraline, polyethylene glycol. Her current medications are sertraline, senna, gabapentin 600 at bedtime, Colace, OxyContin, pantoprazole, vancomycin, now Keppra, insulin, Decadron 6 mg per syringe 1.5 mL q.6, levofloxacin, metoprolol, Dilaudid p.r.n., Narcan which was administered x1 after the seizure, Atrovent, levalbuterol and Zofran. SOCIAL HISTORY: Remote smoker. The patient indicates no recent alcohol use or withdrawal. ALLERGIES: PENICILLIN. FAMILY HISTORY: Heart disease. REVIEW OF SYSTEMS: Weight loss and then some weight gain. No unilateral weakness or numbness, chest pain or palpitations. IMAGING: On this admission pleural fluid was positive for metastatic adenocarcinoma and an MRI of the brain with and without contrast which I have reviewed shows a right [employer]OR infarct as well as a 1 cm ring enhancing lesion in the right frontal lobe and a 5 mm ring enhancing lesion in the right occipital lobe with vasogenic edema. LABORATORY DATA: On the evening of the seizure her white count was 39. H&H 13/40, platelet count 471. Chemistry profile: Sodium 136, potassium 5.4, BUN and creatinine 52/1.4, random glucose 291, magnesium 2.3. PHYSICAL EXAMINATION: GENERAL: She is awake and alert, very pleasant, mildly distractible. Oriented x3. No right/left confusion. No spinal tenderness, no carotid bruits. HEART: Regular rate and rhythm. ABDOMEN: Soft, nontender. EXTREMITIES: Minimal pretibial edema noted on the shins. No calf swelling or tenderness. Feet are cool with difficult to palpate pulses. NEUROLOGIC: Pupils are equal, round, reactive to light. She appeared to have bilateral cataracts. The optic nerves are unremarkable. There is a left homonymous hemianopsia. No significant facial asymmetry, normal speech and language. Motor, there is mild generalized weakness, but no asymmetric weakness. No drift. Normal rapid alternating movements. Symmetric reflexes, absent knee and ankle jerks, downgoing toes. Vibration is present at the ankles. [id number] and [id number] are normal. Gait was not tested. IMPRESSION: New onset seizure, likely related to brain metastasis. PLAN: EEG, although would treat whether normal or not, Keppra 500 b.i.d. No need for dose adjustment unless the patient has additional seizures. Consultation with radiation therapy as I am sure has been done. We will follow with you. MTDD
[2016-08-18] MEDS: DOCUSATE SODIUM 100 MG CAP PO SCH (21:11)
[2016-08-18] MEDS: GABAPENTIN 250 MG/5 ML 470 ML BTL PO SCH (21:15)
--- NOTE | 2016-08-18 23:30 | Progress Note ---
Medicine Progress Note Date & Time of Visit: Aug 18, 2016 at 19:20 . Subjective 2 seizures last night. Started on IV Keppra. No seizures today. No headache. No fever. Occasional nonproductive cough. No shortness of breath. No chest pain. No nausea or vomiting. No diarrhea. Has Baron catheter. . Objective Last 8 Hrs Date Time Temp Pulse Resp B/P (MAP) Pulse Ox O2 Delivery O2 Flow Rate FiO2 08/18/16 22:03 98 18 114/77 (89) 97 Nasal Cannula 3.0 08/18/16 21:03 102 15 134/83 (100) 97 Nasal Cannula 3.0 08/18/16 20:03 37.1 101 19 140/81 (100) 95 Nasal Cannula 3.0 08/18/16 20:01 Nasal Cannula 3.0 08/18/16 19:21 102 29 143/83 (103) 95 Nasal Cannula 3.0 08/18/16 18:05 107 20 137/86 (103) 95 Nasal Cannula 3.0 08/18/16 16:00 94 Nasal Cannula 3.0 08/18/16 16:00 37.1 111 16 151/91 (111) 94 Nasal Cannula 3.0 Physical Exam: General- lying in bed, no distress Eyes- anicteric Neck- no JVD Lungs- clear to auscultation Heart- RRR Abdomen- + BS, soft, nontender Extremities- no pretibial edema or calf tenderness Neuro- alert, oriented; PERRL, EOMI; motor strength upper and lower extremities intact . Laboratory Results: Last 24 Hours Test 08/18/16 00:28 08/18/16 04:16 08/18/16 05:25 08/18/16 07:30 Bedside Glucose 90 mg/dl 117 mg/dl White Blood Count 36.90 K/uL Red Blood Count 4.44 M/uL Hemoglobin 11.7 g/dL Hematocrit 36.9 % Mean Corpuscular Volume 83.1 fL Mean Corpuscular Hemoglobin 26.4 pg Mean Corpuscular Hemoglobin Concent 31.7 g/dl RDW Standard Deviation 51.9 fL RDW Coefficient of Variation 17.0 % Platelet Count 316 K/uL Mean Platelet Volume 9.2 fL Sodium Level 140 mmol/L Potassium Level 5.2 mmol/L Chloride Level 106 mmol/L Carbon Dioxide Level 28 mmol/L Anion Gap 6.0 mmol/L Blood Urea Nitrogen 49 mg/dl Creatinine 1.00 mg/dl Est Creatinine Clear Calc Drug Dose 43.4 ml/min Estimated GFR () 66.6 Estimated GFR (Non- 57.4 BUN/Creatinine Ratio 49.5 Random Glucose 130 mg/dl Calcium Level 7.5 mg/dl Phosphorus Level 4.1 mg/dl Total Bilirubin 0.4 mg/dl Direct Bilirubin < 0.1 mg/dl Aspartate Amino Transf (AST/SGOT) 30 U/L Alanine Aminotransferase (ALT/SGPT) 45 U/L Alkaline Phosphatase 87 U/L Total Creatine Kinase 57 U/L Total Protein 5.2 gm/dl Albumin 2.3 gm/dl Random Vancomycin Level 13.7 mcg/ml Test 08/18/16 10:16 08/18/16 13:22 08/18/16 15:33 08/18/16 21:10 Bedside Glucose 146 mg/dl 159 mg/dl 146 mg/dl Procalcitonin 3.81 ng/ml Assessment & Plan ADENOCARCINOMA CT chest revealed large left pleural effusion, small-moderate right pleural effusion, 3 cm FRANKLIN mass, 1.4 cm RLL mass, mediastinal adenopathy. Cytology from left thoracentesis revealed adenocarcinoma. Immunohistochemical stains notable for positive TTF-1 and Napsin A consistent with pulmonary primary. Management per Medical Oncology. BRAIN METS Neuroimaging demonstrated right frontal and occipital lesions with associated vasogenic edema. Presumed brain mets from underlying adenocarcinoma. Headache improved with dexamethasone. Radiation therapy anticipated as outpatient in near future. MALIGNANT LEFT PLEURAL EFFUSION Dyspnea improved after insertion of pleural catheter. Cytology revealed adenocarcinoma. Immunohistochemical stains notable for positive TTF-1 and Napsin A consistent with pulmonary primary. LEUKOCYTOSIS WBC 08/16 was 19,850. Afebrile. No specific signs/symptoms of infection. Leukocytosis attributed to steroid therapy. WBC last night 39,940. WBC this morning 36,900. Afebrile. No obvious source of infection. Blood and urine cultures ordered and started on empiric IV antibiotic therapy. Stools ordered for C. difficile, but patient not having any diarrhea. Follow. DEPRESSION Continue sertraline. SEIZURE Most likely secondary to TRAUMA REGISTRAR mets. Started on anti-convulsive therapy with levetiracetam. EEG ordered. Neurology consulted. VTE PROPHYLAXIS History of DVT. No anticoagulants due to brain mets. S/P IV filter. SCD's. Ambulate. DISPOSITION To be determined. Anticipate need for inpatient rehabilitation for skilled care. Medical follow-up with Dr. Bowden. Radiation Oncology follow-up with Dr. Jos Dee. Medical Oncology follow-up with Dr. Montano. . Current Inpatient Medications: Current Inpatient Medications Medications (Trade) Dose Ordered Sig/Yuriy Route Start Time Stop Time Status Last Admin Dose Admin Ondansetron HCl (Zofran Inj) 4 mg Q6H PRN IV 08/06/16 00:00 09/05/16 00:00 08/18/16 01:54 4 MG Nitroglycerin (Nitrostat Tab) 0.4 mg UD PRN SL 08/06/16 03:00 09/05/16 02:59 Ipratropium [place] (Atrovent 0.02% 0.5MG/2.5ML Neb) 0.5 mg Q4H PRN INH 08/06/16 05:00 09/05/16 04:59 Levalbuterol (Xopenex 1.25MG/ 0.5ML Neb) 1.25 mg Q4H PRN INH 08/06/16 05:00 09/05/16 04:59 Lorazepam 1 mg/ Syringe 1 ml @ 0.5 mls/min UD PRN IV 08/17/16 19:45 09/16/16 19:44 08/17/16 20:54 0.5 MLS/MIN Pantoprazole Sodium 40 mg/ Syringe 10 ml @ 5 mls/min DAILY@11 IV 08/18/16 11:00 09/17/16 10:59 08/18/16 10:10 5 MLS/MIN Hydromorphone HCl (Dilaudid Inj) 0.5 mg Q2H PRN IV 08/17/16 21:30 08/31/16 21:29 Levetiracetam 500 mg/Dextrose 105 ml @ 420 mls/hr Q12 IV 08/18/16 09:00 09/17/16 08:59 08/18/16 21:11 420 MLS/HR Dexamethasone Sodium Phosphate 6 mg/Syringe 1.5 ml @ 1 mls/min Q6H IV 08/18/16 04:00 09/17/16 03:59 08/18/16 22:24 1 MLS/MIN Metoprolol Tartrate (Lopressor Iv) 5 mg Q4 PRN IV 08/17/16 22:00 09/16/16 21:59 08/18/16 00:38 5 MG Gabapentin (Neurontin) 600 mg HS PO 08/18/16 21:00 09/17/16 20:59 08/18/16 21:15 600 MG Levofloxacin 750 mg/Prmx 150 ml @ 100 mls/hr Q48H IV 08/17/16 23:00 08/24/16 22:59 08/17/16 22:55 100 MLS/HR Vancomycin HCl (Consult) 1 ea DAILY PRN N/A 08/17/16 23:11 09/16/16 23:10 Levofloxacin (Consult) 1 ea DAILY PRN N/A 08/17/16 23:58 09/16/16 23:57 Miscellaneous Information (Consult Glycemic Management Pharmacy) 1 ea DAILY PRN N/A 08/17/16 23:10 09/16/16 23:09 Insulin Aspart (novoLOG ASPART) SLIDING SCALE ACHS SC 08/18/16 06:45 09/17/16 06:44 Glucose (Glucose 40% Gel) 15-30 GRAMS 15 GRAMS... UD PRN PO 08/18/16 00:15 09/17/16 00:14 Glucose (Glucose Chew Tab) 4-8 Tablets 4 Tabl... UD PRN PO 08/18/16 00:15 09/17/16 00:14 Dextrose (Dextrose 50% 50ML Syringe) 25-50ML OF 50% DW IV FOR... UD PRN IV 08/18/16 00:15 09/17/16 00:14 Glucagon (Glucagon Inj) 1 mg UD PRN SQ 08/18/16 00:15 09/17/16 00:14 Vancomycin HCl 1000 mg/Sodium Chloride 270 ml @ 125 mls/hr Q20H IV 08/18/16 10:00 08/25/16 09:59 08/18/16 10:10 125 MLS/HR Sertraline HCl (Zoloft Tab) 25 mg QAM PO 08/19/16 09:00 09/18/16 08:59 Oxycodone HCl (Oxycontin Tab) 10 mg BID PO 08/18/16 14:00 09/01/16 13:59 Docusate Sodium (coLACE CAP) 100 mg BID PO 08/18/16 21:00 09/17/16 20:59 08/18/16 21:11 100 MG Senna (Senokot Tab) 8.6 mg QAM PO 08/19/16 09:00 09/18/16 08:59
[2016-08-19] VITALS (13 sets, daily range): BP systolic 106–133; BP diastolic 69–87; PULSE 84–116; TEMP 36.6–36.8; O2SAT 91–100
[2016-08-19] MEDS ORDERED: LORAZEPAM 0.5 MG TAB PO STA (02:14)
[2016-08-19] MEDS: DEXAMETHASONE INJ 6 MG in SYRINGE 0 ML IV SCH ×2 (04:50→10:55)
[2016-08-19] MEDS: VANCOMYCIN INJ 1,000 MG in SODIUM CHLORIDE 0.9% 250ML 250 ML IV SCH (06:05)
[2016-08-19 06:24] LABS: HEMATOCRIT 35.3 % (37-47); MEAN CELL VOLUME 81.5 fL (80-100); MEAN CORPUSCULAR HEMOGLOBIN 25.9 pg (25-34); MEAN CORPUSCULAR HGB CONC 31.7 g/dl (32-36); MEAN PLATELET VOLUME 8.7 fL (7.4-10.4); PLATELET COUNT 261 K/uL (130-400); RED BLOOD COUNT 4.33 M/uL (4.2-5.4); WHITE BLOOD COUNT 22.42 K/uL (4.8-10.8)
[2016-08-19] MEDS: INSULIN ASPART 100 UNITS/ML 3 ML PEN SC SCH ×2 (06:45→10:55)
[2016-08-19 06:56] LABS: BUN/CREATININE RATIO 57.6 (10-20); CALCIUM 7.5 mg/dl (8.5-10.1); CREATININE 0.6 mg/dl (0.60-1.20); POTASSIUM 4.6 mmol/L (3.5-5.1)
[2016-08-19 07:18] LABS: ESTIMATED AVERAGE GLUCOSE 120 mg/dl; HA1C FLAG Normal (Normal)
[2016-08-19] MEDS: LEVETIRACETAM IV 500 MG in DEXTROSE 5% 100ML 100 ML IV SCH (07:49)
[2016-08-19] MEDS: DOCUSATE SODIUM 100 MG CAP PO SCH (07:49)
[2016-08-19] MEDS: SERTRALINE HCL 50 MG TAB PO SCH (07:50)
[2016-08-19] MEDS: OXYCODONE HCL 10 MG TABCR (OXYCONTIN) PO SCH ×2 (07:50→22:11)
[2016-08-19] MEDS ORDERED: SENNA 8.6 MG TAB PO SCH (09:00)
[2016-08-19] MEDS: PANTOprazole INJ 40 MG in SYRINGE 0 ML IV SCH (10:55)
[2016-08-19] MEDS ORDERED: CIPROFLOXACIN / D5W 400 MG in PREMIXED IN D5W 200 ML IV ONE (13:00)
--- NOTE | 2016-08-19 13:22 | NEUROLOGY PROGRESS NOTE ---
DATE: 08/19/2016 DATE: 08/19/2016. SUBJECTIVE: I am seeing Mrs. Lisa in followup of new onset of 2 seizures in the setting of brain metastasis from adenocarcinoma. She has not had any further seizures. She admits to some difficulty falling asleep and some vivid dreams. It is not clear to me how the duration of such. She feels it is related to the Keppra. There have been no further seizures. Her headaches are improved. PHYSICAL EXAMINATION: GENERAL: She is awake and alert, oriented to hospital. Mildly distractible, getting mildly confused about whether her brother is in the hospital currently visiting with her or not. There is left homonymous hemianopsia. No dysarthria. No facial droop. No asymmetric weakness. IMPRESSION: New onset seizures related to brain metastasis from adenocarcinoma. No seizures on Keppra. It is unclear to me whether or not the patient has had a mood change since starting Keppra, most of what she speaks about some insomnia, anxiousness could be related to steroid use. Certainly if it becomes clear that the Keppra is causing some mood changes, we may have to make a change. Will follow with you.
[2016-08-19] MEDS: DEXAMETHASONE 4 MG TAB PO SCH ×2 (17:04→22:12)
[2016-08-19] MEDS: ONDANSETRON INJ 2 MG/ML 2 ML VIAL IV PRN (17:04)
[2016-08-19] MEDS ORDERED: CIPROFLOXACIN / D5W 400 MG in PREMIXED IN D5W 200 ML IV SCH (21:00)
[2016-08-19] MEDS: LORAZEPAM INJ 1 MG in SYRINGE 0.5 ML IV PRN (21:57)
[2016-08-19] MEDS: LEVETIRACETAM 500 MG TAB PO SCH (22:10)
[2016-08-19] MEDS: GABAPENTIN 250 MG/5 ML 470 ML BTL PO SCH (22:12)
--- NOTE | 2016-08-19 23:27 | Progress Note ---
Medicine Progress Note Date & Time of Visit: Aug 19, 2016 at ~ 09:00 . Subjective No further seizure activity. No headaches. No focal neurologic symptoms. Anxious and a bit confused. No fever. No cough or shortness of breath. No chest pain. No nausea, vomiting, diarrhea. Has Baron catheter. . Objective Last 8 Hrs Date Time Temp Pulse Resp B/P (MAP) Pulse Ox O2 Delivery O2 Flow Rate FiO2 08/19/16 16:07 36.6 96 18 133/87 (102) 98 3.0 08/19/16 16:00 Nasal Cannula 3.0 Physical Exam: General- sitting in chair, no distress Eyes- anicteric Neck- no JVD Lungs- clear to auscultation Heart- RRR Abdomen- + BS, soft, nontender Extremities- no pretibial edema or calf tenderness Neuro- alert, mild confusion; PERRL, EOMI; motor strength upper and lower extremities intact . Laboratory Results: Last 24 Hours Test 08/19/16 06:05 08/19/16 10:52 08/19/16 16:28 08/19/16 20:36 White Blood Count 22.42 K/uL Red Blood Count 4.33 M/uL Hemoglobin 11.2 g/dL Hematocrit 35.3 % Mean Corpuscular Volume 81.5 fL Mean Corpuscular Hemoglobin 25.9 pg Mean Corpuscular Hemoglobin Concent 31.7 g/dl RDW Standard Deviation 50.8 fL RDW Coefficient of Variation 17.1 % Platelet Count 261 K/uL Mean Platelet Volume 8.7 fL Sodium Level 141 mmol/L Potassium Level 4.6 mmol/L Chloride Level 105 mmol/L Carbon Dioxide Level 30 mmol/L Anion Gap 6.0 mmol/L Blood Urea Nitrogen 35 mg/dl Creatinine 0.60 mg/dl Est Creatinine Clear Calc Drug Dose 77.0 ml/min Estimated GFR () 107.8 Estimated GFR (Non- 93.0 BUN/Creatinine Ratio 57.6 Random Glucose 97 mg/dl Estimated Average Glucose 120 mg/dl Hemoglobin A1c 5.8 % Calcium Level 7.5 mg/dl Bedside Glucose 120 mg/dl 141 mg/dl 124 mg/dl Assessment & Plan ADENOCARCINOMA CT chest revealed large left pleural effusion, small-moderate right pleural effusion, 3 cm FRANKLIN mass, 1.4 cm RLL mass, mediastinal adenopathy. Cytology from left thoracentesis revealed adenocarcinoma. Immunohistochemical stains notable for positive TTF-1 and Napsin A consistent with pulmonary primary. Management per Medical Oncology. BRAIN METS Neuroimaging demonstrated right frontal and occipital lesions with associated vasogenic edema. Presumed brain mets from underlying adenocarcinoma. Headache improved with dexamethasone. Radiation therapy anticipated as outpatient in near future. Received IV dexamethasone when transferred to ICU; transition back to oral therapy and taper as tolerated. MALIGNANT LEFT PLEURAL EFFUSION Dyspnea improved after insertion of pleural catheter. Cytology revealed adenocarcinoma. Immunohistochemical stains notable for positive TTF-1 and Napsin A consistent with pulmonary primary. LEUKOCYTOSIS WBC 08/16 was 19,850. Afebrile. No specific signs/symptoms of infection. Leukocytosis attributed to steroid therapy. WBC evening of 08/17 was 39,940. Afebrile. No obvious source of infection. Blood and urine cultures ordered and started on empiric IV antibiotic therapy. Stools ordered for C. difficile, but patient not having any diarrhea. Urine culture growing Escherichia coli, pansensitive. WBC this morning = 22,420. Patient is reportedly allergic to penicillin. Treat UTI with levofloxacin. DEPRESSION Continue sertraline. 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 Started on anti-convulsive therapy with levetiracetam. EEG ordered. Neurology consulted. Transition to oral levetiracetam. VTE PROPHYLAXIS History of DVT. No anticoagulants due to brain mets. S/P IV filter. SCD's. Ambulate. DISPOSITION To be determined. Anticipate need for inpatient rehabilitation for skilled care. Medical follow-up with Dr. Bowden. Radiation Oncology follow-up with Dr. Jos Dee. Medical Oncology follow-up with Dr. Montano. . Current Inpatient Medications: Current Inpatient Medications Medications (Trade) Dose Ordered Sig/Yuriy Route Start Time Stop Time Status Last Admin Dose Admin Ondansetron HCl (Zofran Inj) 4 mg Q6H PRN IV 08/06/16 00:00 09/05/16 00:00 08/19/16 17:04 4 MG Nitroglycerin (Nitrostat Tab) 0.4 mg UD PRN SL 08/06/16 03:00 09/05/16 02:59 Ipratropium [place] (Atrovent 0.02% 0.5MG/2.5ML Neb) 0.5 mg Q4H PRN INH 08/06/16 05:00 09/05/16 04:59 Levalbuterol (Xopenex 1.25MG/ 0.5ML Neb) 1.25 mg Q4H PRN INH 08/06/16 05:00 09/05/16 04:59 Lorazepam 1 mg/ Syringe 1 ml @ 0.5 mls/min UD PRN IV 08/17/16 19:45 09/16/16 19:44 08/19/16 21:57 0.5 MLS/MIN Hydromorphone HCl (Dilaudid Inj) 0.5 mg Q2H PRN IV 08/17/16 21:30 08/31/16 21:29 Gabapentin (Neurontin) 600 mg HS PO 08/18/16 21:00 09/17/16 20:59 08/19/16 22:12 600 MG Sertraline HCl (Zoloft Tab) 25 mg QAM PO 08/19/16 09:00 09/18/16 08:59 08/19/16 07:50 25 MG Oxycodone HCl (Oxycontin Tab) 10 mg BID PO 08/18/16 14:00 09/01/16 13:59 08/19/16 07:50 10 MG Levetiracetam (Keppra Tab) 500 mg BID PO 08/19/16 20:00 09/18/16 20:59 Dexamethasone (Decadron Tab) 4 mg TID PO 08/19/16 14:00 09/18/16 13:59 08/19/16 22:12 4 MG
[2016-08-20] VITALS (7 sets, daily range): BP systolic 97–119; BP diastolic 66–85; PULSE 85–105; TEMP 36.4–36.7; O2SAT 94–100
[2016-08-20] MEDS ORDERED: VANCOMYCIN TROUGH SCH (01:30)
[2016-08-20 05:57] LABS: HEMATOCRIT 35.7 % (37-47); MEAN CELL VOLUME 81.5 fL (80-100); MEAN CORPUSCULAR HEMOGLOBIN 27.4 pg (25-34); MEAN CORPUSCULAR HGB CONC 33.6 g/dl (32-36); MEAN PLATELET VOLUME 8.9 fL (7.4-10.4); PLATELET COUNT 260 K/uL (130-400); RED BLOOD COUNT 4.38 M/uL (4.2-5.4); WHITE BLOOD COUNT 15.05 K/uL (4.8-10.8)
[2016-08-20 06:32] LABS: BUN/CREATININE RATIO 43.1 (10-20); CALCIUM 7.5 mg/dl (8.5-10.1); CREATININE 0.66 mg/dl (0.60-1.20); POTASSIUM 4.2 mmol/L (3.5-5.1)
[2016-08-20] MEDS: DEXAMETHASONE 4 MG TAB PO SCH ×3 (08:34→22:03)
[2016-08-20] MEDS: SERTRALINE HCL 50 MG TAB PO SCH (08:34)
[2016-08-20] MEDS: OXYCODONE HCL 10 MG TABCR (OXYCONTIN) PO SCH ×2 (08:41→22:04)
[2016-08-20] MEDS: LEVETIRACETAM 500 MG TAB PO SCH (08:41)
[2016-08-20] MEDS ORDERED: LEVOFLOXACIN 500 MG TAB PO SCH (11:00)
[2016-08-20] MEDS: CEFTRIAXONE SOD INJ 1 GM in DEXTROSE 5% ADD-VANTAGE 50ML 50 ML IV SCH (11:23)
[2016-08-20] MEDS: HYDROmorphone INJ 1 MG/ML SYR IV PRN ×2 (12:36→14:35)
--- NOTE | 2016-08-20 13:49 | PROGRESS NOTE ---
DATE: 08/20/2016 SUBJECTIVE: I am seeing Mrs. Lisa in followup of new onset seizure with a history of a recently diagnosed brain metastasis in the right frontal and right occipital lobe. She as well in the last several months had a right OVERNIGHT CAREGIVER infarct. She has been feeling irritable, agitated and nauseated since starting on Keppra. She refused 2 doses. No seizures have been noted. She denies any current headache. OBJECTIVE: VITAL SIGNS: 36.7, 85, 18, 97/66, 100% on 3 liters. GENERAL: The patient is awake and alert. She has difficulty generating the name of the hospital, but she is not from this area. She knows that it is August 2016. There is mild puffiness periorbitally. There is a left heteronomous hemianopsia. No facial asymmetry, no dysarthria, no asymmetric weakness. Her left forearm is mildly warm over the radius. This according to her brother is the site of the IV infiltration. IMPRESSION: New onset seizures related to brain metastasis. I believe she is not tolerating the Keppra. We will start her on Vimpat. Another option where she not to tolerate that would be Depakote, both should not interfere with or interact with chemotherapy; however Vimpat has the advantage that it does not cause thrombocytopenia. We will make that switch and will follow with you. MTDD
[2016-08-20] MEDS: LACOSAMIDE 50 MG TAB PO SCH ×2 (14:13→22:04)
--- NOTE | 2016-08-20 19:29 | Progress Note ---
Medicine Progress Note Date & Time of Visit: Aug 20, 2016 at 09:55 . Subjective No further seizure activity. Refused Keppra last night and this morning due to adverse side effects- causing anxiety and nausea. No fever. No chest pain. No cough or shortness of breath. Nausea as noted above; no emesis. No diarrhea. No headache. . Objective Last 8 Hrs Date Time Temp Pulse Resp B/P (MAP) Pulse Ox O2 Delivery O2 Flow Rate FiO2 08/20/16 16:20 Nasal Cannula 3.0 08/20/16 15:37 36.7 89 17 105/72 (83) 99 Room Air 08/20/16 12:22 36.6 91 18 103/69 (80) 99 3.0 Physical Exam: General- lying in bed, no distress Eyes- anicteric Neck- no JVD Lungs- clear to auscultation Heart- RRR Abdomen- normal bowel sounds, soft, nontender Extremities- no pretibial edema or calf tenderness Neuro- alert, mild confusion; PERRL, EOMI; motor strength upper and lower extremities intact . Laboratory Results: Last 24 Hours Test 08/19/16 20:36 08/20/16 05:46 08/20/16 08:20 Bedside Glucose 124 mg/dl 97 mg/dl White Blood Count 15.05 K/uL Red Blood Count 4.38 M/uL Hemoglobin 12.0 g/dL Hematocrit 35.7 % Mean Corpuscular Volume 81.5 fL Mean Corpuscular Hemoglobin 27.4 pg Mean Corpuscular Hemoglobin Concent 33.6 g/dl RDW Standard Deviation 49.9 fL RDW Coefficient of Variation 16.7 % Platelet Count 260 K/uL Mean Platelet Volume 8.9 fL Sodium Level 138 mmol/L Potassium Level 4.2 mmol/L Chloride Level 102 mmol/L Carbon Dioxide Level 28 mmol/L Anion Gap 8.0 mmol/L Blood Urea Nitrogen 28 mg/dl Creatinine 0.66 mg/dl Est Creatinine Clear Calc Drug Dose 70.0 ml/min Estimated GFR () 104.5 Estimated GFR (Non- 90.1 BUN/Creatinine Ratio 43.1 Random Glucose 133 mg/dl Calcium Level 7.5 mg/dl Assessment & Plan ADENOCARCINOMA CT chest revealed large left pleural effusion, small-moderate right pleural effusion, 3 cm FRANKLIN mass, 1.4 cm RLL mass, mediastinal adenopathy. Cytology from left thoracentesis revealed adenocarcinoma. Immunohistochemical stains notable for positive TTF-1 and Napsin A consistent with pulmonary primary. Management per Medical Oncology. BRAIN METS Neuroimaging demonstrated right frontal and occipital lesions with associated vasogenic edema. Presumed brain mets from underlying adenocarcinoma. Headache improved with dexamethasone. Radiation therapy anticipated as outpatient in near future. Received IV dexamethasone when transferred to ICU; transitioned back to oral therapy. Taper as tolerated. MALIGNANT LEFT PLEURAL EFFUSION Dyspnea improved after insertion of pleural catheter. Cytology revealed adenocarcinoma. Immunohistochemical stains notable for positive TTF-1 and Napsin A consistent with pulmonary primary. LEUKOCYTOSIS WBC 08/16 was 19,850. Afebrile. No specific signs/symptoms of infection. Leukocytosis attributed to steroid therapy. WBC evening of 08/17 was 39,940. Afebrile. No obvious source of infection. Blood and urine cultures ordered and started on empiric IV antibiotic therapy. Stools ordered for C. difficile, but patient not having any diarrhea. Urine culture grew Escherichia coli, pansensitive. WBC this morning = 15,050. UTI Urine culture grew Escherichia coli, pansensitive. Patient is reportedly allergic to penicillin. Best to avoid quinolones due to confusion and seizure. Will opt for IV ceftriaxone at this time due to nausea. DEPRESSION Continue sertraline. 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 Started on anti-convulsive therapy with levetiracetam. EEG ordered. Neurology consulted. Patient experiencing undesirable side effects from Keppra. Anticonvulsive therapy changed to lacosamide. VTE PROPHYLAXIS History of DVT. No anticoagulants due to brain mets. S/P IV filter. SCD's. Ambulate. DISPOSITION To be determined. Anticipate need for inpatient rehabilitation for skilled care. Medical follow-up with Dr. Bowden. Radiation Oncology follow-up with Dr. Jos Dee. Medical Oncology follow-up with Dr. Montano. . Current Inpatient Medications: Current Inpatient Medications Medications (Trade) Dose Ordered Sig/Yuriy Route Start Time Stop Time Status Last Admin Dose Admin Ondansetron HCl (Zofran Inj) 4 mg Q6H PRN IV 08/06/16 00:00 09/05/16 00:00 08/19/16 17:04 4 MG Nitroglycerin (Nitrostat Tab) 0.4 mg UD PRN SL 08/06/16 03:00 09/05/16 02:59 Ipratropium [place] (Atrovent 0.02% 0.5MG/2.5ML Neb) 0.5 mg Q4H PRN INH 08/06/16 05:00 09/05/16 04:59 Levalbuterol (Xopenex 1.25MG/ 0.5ML Neb) 1.25 mg Q4H PRN INH 08/06/16 05:00 09/05/16 04:59 Lorazepam 1 mg/ Syringe 1 ml @ 0.5 mls/min UD PRN IV 08/17/16 19:45 09/16/16 19:44 08/19/16 21:57 0.5 MLS/MIN Hydromorphone HCl (Dilaudid Inj) 0.5 mg Q2H PRN IV 08/17/16 21:30 08/31/16 21:29 08/20/16 12:36 0.5 MG Gabapentin (Neurontin) 600 mg HS PO 08/18/16 21:00 09/17/16 20:59 08/19/16 22:12 600 MG Sertraline HCl (Zoloft Tab) 25 mg QAM PO 08/19/16 09:00 09/18/16 08:59 08/20/16 08:34 25 MG Oxycodone HCl (Oxycontin Tab) 10 mg BID PO 08/18/16 14:00 09/01/16 13:59 08/20/16 08:41 10 MG Dexamethasone (Decadron Tab) 4 mg TID PO 08/19/16 14:00 09/18/16 13:59 08/20/16 14:11 4 MG Ceftriaxone Sodium 1 gm/ Dextrose 50 ml @ 100 mls/hr Q24H IV 08/20/16 11:00 08/30/16 10:59 08/20/16 11:23 100 MLS/HR Lacosamide (Vimpat Tab) 100 mg BID PO 08/20/16 13:00 09/19/16 12:59 08/20/16 14:13 100 MG
[2016-08-20] MEDS: GABAPENTIN 300 MG CAP PO SCH (22:04)
[2016-08-21] VITALS (13 sets, daily range): BP systolic 90–111; BP diastolic 58–77; PULSE 85–96; TEMP 36.3–36.8; O2SAT 2–100
[2016-08-21 06:27] LABS: HEMATOCRIT 33.5 % (37-47); MEAN CELL VOLUME 79.6 fL (80-100); MEAN CORPUSCULAR HEMOGLOBIN 26.4 pg (25-34); MEAN CORPUSCULAR HGB CONC 33.1 g/dl (32-36); PLATELET COUNT 227 K/uL (130-400); RED BLOOD COUNT 4.21 M/uL (4.2-5.4); WHITE BLOOD COUNT 11.81 K/uL (4.8-10.8)
[2016-08-21 06:59] LABS: CALCIUM 7.1 mg/dl (8.5-10.1); CREATININE 0.55 mg/dl (0.60-1.20); POTASSIUM 4.4 mmol/L (3.5-5.1)
--- NOTE | 2016-08-21 07:43 | ELECTROENCEPHALOGRAPH REPORT ---
CLINICAL DIAGNOSIS: Possible seizures. EEG DIAGNOSIS: Essentially normal EEG during wakefulness. DESCRIPTION OF TRACING: This EEG was done as a bedside recording with simultaneous video analysis of patient movement and behavior. No activation procedures were utilized, and drowsiness and light sleep are not clearly recorded. Video recording captures quite a bit of the head rolling and other movements of the extremities, which is reflected on the EEG as muscle and movement artifacts, and these occur frequently throughout the recording. Between these events; however, there is sufficient amounts of tracing to at least be interpreted and reveals normal-appearing background rhythm in the alpha range of about 9 Hz of maximum frequency and 30 microvolts of maximum amplitude. This is maximum in the posterior head regions and bilaterally symmetrical. Polymorphic mid frequency theta activity of modest voltage is seen over all head regions without clear focal or regional predominance. Anterior head region maximum bilaterally symmetrical low voltage fast activity in the beta range is present. At no time during the tracing is there evidence for unequivocal potentially epileptogenic activity in the form of polyspike or spike wave bursts, focal sharp waves or focal spikes. INTERPRETATION: This EEG is essentially normal during wakefulness without focal or lateralizing abnormalities and without potentially epileptogenic activity, but the absence of the latter does not exclude the diagnosis of a seizure disorder. MTDD
[2016-08-21] MEDS: SERTRALINE HCL 50 MG TAB PO SCH (08:40)
[2016-08-21] MEDS: DEXAMETHASONE 4 MG TAB PO SCH ×3 (08:41→19:55)
[2016-08-21] MEDS: OXYCODONE HCL 10 MG TABCR (OXYCONTIN) PO SCH ×2 (08:48→19:54)
[2016-08-21] MEDS: LACOSAMIDE 50 MG TAB PO SCH ×2 (10:30→19:57)
[2016-08-21] MEDS: CEFTRIAXONE SOD INJ 1 GM in DEXTROSE 5% ADD-VANTAGE 50ML 50 ML IV SCH (10:30)
--- NOTE | 2016-08-21 16:45 | Radiation Oncology Progress Nt ---
Radiation Oncology Progress Nt Date of Service Date of Service: Aug 21, 2016. Subjective Pt evaluation today including: conversation w/ patient Objective Vital Signs Date Time Temp Pulse Resp B/P (MAP) Pulse Ox O2 Delivery O2 Flow Rate FiO2 08/21/16 15:54 100 Nasal Cannula 2.0 08/21/16 15:30 36.6 88 18 90/58 (69) 100 2.0 08/21/16 14:14 92 99 08/21/16 13:34 99 Nasal Cannula 1.0 08/21/16 13:30 2 Nasal Cannula 100 08/21/16 11:40 36.6 88 16 91/60 (70) 100 Nasal Cannula 3.0 08/21/16 08:40 100/64 (76) 08/21/16 08:30 100 Nasal Cannula 3.0 08/21/16 07:39 36.4 96 18 111/77 (88) 100 3.0 08/21/16 04:11 36.6 86 20 104/73 (83) 100 Nasal Cannula 3.0 08/21/16 00:04 36.3 85 20 109/76 (87) 100 Nasal Cannula 3.0 08/21/16 00:00 Nasal Cannula 3.0 08/20/16 19:56 36.7 92 20 105/75 (85) 100 Nasal Cannula 3.0 Laboratory Results Last 24 Hours Test 08/21/16 06:13 White Blood Count 11.81 K/uL Red Blood Count 4.21 M/uL Hemoglobin 11.1 g/dL Hematocrit 33.5 % Mean Corpuscular Volume 79.6 fL Mean Corpuscular Hemoglobin 26.4 pg Mean Corpuscular Hemoglobin Concent 33.1 g/dl RDW Standard Deviation 48.2 fL RDW Coefficient of Variation 16.7 % Platelet Count 227 K/uL Mean Platelet Volume 9.0 fL Sodium Level 141 mmol/L Potassium Level 4.4 mmol/L Chloride Level 106 mmol/L Carbon Dioxide Level 28 mmol/L Anion Gap 7.0 mmol/L Blood Urea Nitrogen 25 mg/dl Creatinine 0.55 mg/dl Est Creatinine Clear Calc Drug Dose 80.0 ml/min Estimated GFR () 110.9 Estimated GFR (Non- 95.7 BUN/Creatinine Ratio 45.0 Random Glucose 117 mg/dl Calcium Level 7.1 mg/dl Assessment and Plan Today, I did review the cytology findings from the thoracentesis performed by Dr. Mckay. The results did reveal metastatic adenocarcinoma of the lung. Today, I did discuss with the patient proceeding with stereotactic radiosurgery of the brain for the 2 lesions in the right frontal lobe and right occipital lobe. Again, we did discuss alternative treatment options including observation , it surgery and whole brain radiation therapy; we did discuss the advantages and disadvantages of each treatment option. At this point, the patient is not interested in surgery and would prefer to undergo radiation therapy. The patient would prefer to undergo stereotactic radiosurgery. We then spent time discussing the indications, alternatives, benefits, risks and side effects of stereotactic radiosurgery as previously documented in the consultation note. We will bring the patient down tomorrow for CT simulation for treatment planning. The patient will then be treated in the outpatient setting. The patient should also be seen by medical oncology. Please call us with any further questions or concerns. ADDENDUM: Today, 08/21/2016, I have spoken with Dr. Ang [place] and the patient. I have explained to the patient that we are finalizing her treatment plan. We are tentatively planning her first radiosurgery treatment either in the inpatient setting or outpatient setting on . We can adjust based on her disposition. The patient had multiple questions which I answered to her satisfaction. Please call us with any further questions or concerns.
[2016-08-21] MEDS ORDERED: LORAZEPAM 0.5 MG TAB PO PRN (17:30)
[2016-08-21] MEDS: GABAPENTIN 300 MG CAP PO SCH (21:03)
--- NOTE | 2016-08-21 21:29 | Progress Note ---
Medicine Progress Note Date & Time of Visit: Aug 21, 2016 at ~ 15:00 . Subjective Doing better today. Less anxious. Nausea improved, but still anorexic. Still very weak. No fever. No chest pain. No cough or shortness of breath. No diarrhea. No dysuria. No headache. ? worsening vision left eye - patient not certain, has underlying macular degeneration. . Objective Last 8 Hrs Date Time Temp Pulse Resp B/P (MAP) Pulse Ox O2 Delivery O2 Flow Rate FiO2 08/21/16 19:08 36.8 88 18 111/76 (88) 100 2.0 08/21/16 15:54 100 Nasal Cannula 2.0 08/21/16 15:30 36.6 88 18 90/58 (69) 100 2.0 08/21/16 14:14 92 99 08/21/16 13:34 99 Nasal Cannula 1.0 08/21/16 13:30 2 Nasal Cannula 100 Physical Exam: General- lying in bed, no distress Eyes- anicteric Neck- no JVD Lungs- clear to auscultation Heart- RRR Abdomen- normal bowel sounds, soft, nontender Extremities- no pretibial edema or calf tenderness Neuro- alert, oriented; PERRL, EOMI; motor strength upper and lower extremities intact; able to count fingers with both eyes . Laboratory Results: Last 24 Hours Test 08/21/16 06:13 White Blood Count 11.81 K/uL Red Blood Count 4.21 M/uL Hemoglobin 11.1 g/dL Hematocrit 33.5 % Mean Corpuscular Volume 79.6 fL Mean Corpuscular Hemoglobin 26.4 pg Mean Corpuscular Hemoglobin Concent 33.1 g/dl RDW Standard Deviation 48.2 fL RDW Coefficient of Variation 16.7 % Platelet Count 227 K/uL Mean Platelet Volume 9.0 fL Sodium Level 141 mmol/L Potassium Level 4.4 mmol/L Chloride Level 106 mmol/L Carbon Dioxide Level 28 mmol/L Anion Gap 7.0 mmol/L Blood Urea Nitrogen 25 mg/dl Creatinine 0.55 mg/dl Est Creatinine Clear Calc Drug Dose 80.0 ml/min Estimated GFR () 110.9 Estimated GFR (Non- 95.7 BUN/Creatinine Ratio 45.0 Random Glucose 117 mg/dl Calcium Level 7.1 mg/dl Assessment & Plan ADENOCARCINOMA CT chest revealed large left pleural effusion, small-moderate right pleural effusion, 3 cm FRANKLIN mass, 1.4 cm RLL mass, mediastinal adenopathy. Cytology from left thoracentesis revealed adenocarcinoma. Immunohistochemical stains notable for positive TTF-1 and Napsin A consistent with pulmonary primary. Management per Medical Oncology. BRAIN METS Neuroimaging demonstrated right frontal and occipital lesions with associated vasogenic edema. Presumed brain mets from underlying adenocarcinoma. Headache improved with dexamethasone. Received IV dexamethasone when transferred to ICU; transitioned back to oral therapy. Currently receiving 4 mg by mouth 3 times a day. Taper as tolerated. Radiation Oncology consulted. MALIGNANT LEFT PLEURAL EFFUSION Dyspnea improved after insertion of pleural catheter. Cytology revealed adenocarcinoma. Immunohistochemical stains notable for positive TTF-1 and Napsin A consistent with pulmonary primary. LEUKOCYTOSIS WBC 08/16 was 19,850. Afebrile. No specific signs/symptoms of infection. Leukocytosis attributed to steroid therapy. WBC evening of 08/17 was 39,940. Afebrile. No obvious source of infection. Blood and urine cultures ordered and started on empiric IV antibiotic therapy. Stools ordered for C. difficile, but patient not having any diarrhea. Urine culture grew Escherichia coli, pansensitive. WBC this morning = 11,810. UTI Urine culture grew Escherichia coli, pansensitive. Patient is reportedly allergic to penicillin. Best to avoid quinolones due to confusion and seizure. Initially treated with IV ceftriaxone. Transition to oral therapy with cephalexin. DEPRESSION Continue sertraline. 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 Started on anti-convulsive therapy with levetiracetam. EEG ordered. Neurology consulted. Patient experiencing undesirable side effects from Keppra. Anticonvulsive therapy changed to lacosamide. VTE PROPHYLAXIS History of DVT. No anticoagulants due to brain mets. S/P IV filter. SCD's. Ambulate. DISPOSITION To be determined. Anticipate need for inpatient rehabilitation for skilled care. Medical follow-up with Dr. Bowden. Radiation Oncology follow-up with Dr. Jos Dee. Medical Oncology follow-up with Dr. Montano. . Current Inpatient Medications: Current Inpatient Medications Medications (Trade) Dose Ordered Sig/Yuriy Route Start Time Stop Time Status Last Admin Dose Admin Ondansetron HCl (Zofran Inj) 4 mg Q6H PRN IV 08/06/16 00:00 09/05/16 00:00 08/19/16 17:04 4 MG Nitroglycerin (Nitrostat Tab) 0.4 mg UD PRN SL 08/06/16 03:00 09/05/16 02:59 Ipratropium [place] (Atrovent 0.02% 0.5MG/2.5ML Neb) 0.5 mg Q4H PRN INH 08/06/16 05:00 09/05/16 04:59 Levalbuterol (Xopenex 1.25MG/ 0.5ML Neb) 1.25 mg Q4H PRN INH 08/06/16 05:00 09/05/16 04:59 Lorazepam 1 mg/ Syringe 1 ml @ 0.5 mls/min UD PRN IV 08/17/16 19:45 09/16/16 19:44 08/19/16 21:57 0.5 MLS/MIN Hydromorphone HCl (Dilaudid Inj) 0.5 mg Q2H PRN IV 08/17/16 21:30 08/31/16 21:29 08/20/16 12:36 0.5 MG Sertraline HCl (Zoloft Tab) 25 mg QAM PO 08/19/16 09:00 09/18/16 08:59 08/21/16 08:40 25 MG Oxycodone HCl (Oxycontin Tab) 10 mg BID PO 08/18/16 14:00 09/01/16 13:59 08/21/16 08:48 10 MG Dexamethasone (Decadron Tab) 4 mg TID PO 08/19/16 14:00 09/18/16 13:59 08/21/16 19:55 4 MG Ceftriaxone Sodium 1 gm/ Dextrose 50 ml @ 100 mls/hr Q24H IV 08/20/16 11:00 08/30/16 10:59 08/21/16 10:30 100 MLS/HR Lacosamide (Vimpat Tab) 100 mg BID PO 08/20/16 13:00 09/19/16 12:59 08/21/16 19:57 100 MG Gabapentin (Neurontin Cap) 600 mg HS PO 08/20/16 21:00 09/19/16 20:59 08/21/16 21:03 600 MG Lorazepam (Ativan Tab) 0.25 mg Q6H PRN PO 08/21/16 17:30 09/20/16 17:29 08/21/16 18:19 0.25 MG
--- NOTE | 2016-08-21 23:42 | PROGRESS NOTE ---
DATE: 08/21/2016 I am seeing Mrs. Lisa in followup of 2 seizures, which occurred in the setting of brain metastasis from lung cancer. I made the switch yesterday from Keppra to Vimpat because of adverse effects and the patient is feeling much improved. There have been no further seizures. Radiation oncology is planning radiosurgery on . She had some difficulty to describe change in vision this morning and she does not recall if it was monocular, binocular or what portion of vision was impaired. 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 There has been no headache. OBJECTIVE: VITAL SIGNS: 36.8, 88, 18, 111/76, 100%. GENERAL: The patient awake and alert. Affect, speech and language are unremarkable. There is an incongruent left hemianopsia. Normal facial symmetry. Symmetric strength. No carotid bruits. No heart murmurs. IMPRESSION: 1. Recent onset seizure related to metastastic adenocarcinoma of the lung. Doing well on Vimpat. After 1 week, increase to 150 b.i.d. 2. The nature of her visual symptoms are unclear, as she did not notice them very specifically, it could be multifactorial. As I recall, a carotid ultrasound, while showing moderate stenosis, did not show high-grade stenosis. She is on steroids, which could cause some blurring. She has macular degeneration, which has not been treated recently because of her extended hospitalizations and a metastasis in the right occipital lobe. I have asked her to monitor for any ongoing symptoms and specifically, try to isolate eyes, which might be helpful in determining etiology. She will do so. I will see her tomorrow in followup. [facility]
[2016-08-22] VITALS (9 sets, daily range): BP systolic 90–121; BP diastolic 59–79; PULSE 81–104; TEMP 36.3–36.9; O2SAT 96–100
[2016-08-22] MEDS: OXYCODONE HCL 10 MG TABCR (OXYCONTIN) PO SCH ×3 (08:00→22:26)
[2016-08-22] MEDS: CEPHALEXIN MONOHYDRATE 500 MG CAP PO SCH ×4 (09:34→22:26)
[2016-08-22] MEDS: LACOSAMIDE 50 MG TAB PO SCH ×2 (09:35→22:27)
[2016-08-22] MEDS: DEXAMETHASONE 4 MG TAB PO SCH ×3 (09:35→22:25)
[2016-08-22] MEDS: SERTRALINE HCL 50 MG TAB PO SCH (09:36)
--- NOTE | 2016-08-22 16:29 | PROGRESS NOTE ---
DATE: 08/22/2016 DATE: 08/22/2016. SUBJECTIVE: I am seeing Mrs. Lisa in followup. 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 She had 2 seizures since admission here, none since she was loaded with Keppra. She did not tolerate Keppra because of severe debility and anxiety and is now on Vimpat 100 twice a day which she has tolerated well. Yesterday, she may have had some visual symptoms, but they have not recurred. PHYSICAL EXAMINATION: GENERAL: On exam she is awake and alert. Speech and language are unremarkable. VITAL SIGNS: 36.8, 104, 18, 121/79, 98%. There is a left temporal field cut in the left eye, otherwise motility is normal. There is normal facial symmetry. Symmetric strength. Mild tremor on intention. IMPRESSIONS: 1. New onset seizures related to brain metastasis. Continue Vimpat 100 twice a day for a week and then 150 twice a day. 2. Right posterior cerebral artery infarct. Continue antiplatelet therapy. We will continue to follow with you. [place]
--- NOTE | 2016-08-22 17:10 | Progress Note ---
Medicine Progress Note Date & Time of Visit: Aug 22, 2016 at 16:32. Subjective Pt was seen and examined Lying in bed very comfortable with no distress with brother at bedside pt said that she feels fine No seizure activity noted she said that she tolerates the seizure med she said that she started to gain her strength back her vision seems to be better today denies any chest pain, palpitation, dizziness, sob. Objective Last 8 Hrs Date Time Temp Pulse Resp B/P (MAP) Pulse Ox O2 Delivery O2 Flow Rate FiO2 08/22/16 15:13 36.8 104 18 121/79 (93) 98 Nasal Cannula 0.5 Physical Exam: General- No acute distress, pleasant Head- atraumatic Eyes- PERRL, EOMI ENT- oropharynx clear Neck- supple, no JVD Lungs- clear to auscultation Heart- regular rhythm; no murmur Abdomen- normal bowel sounds, soft Extremities- no pretibial edema, no calf tenderness Neuro- alert, oriented x 3; PERRL, EOMI; no facial palsy; no dysarthria Skin- warm & dry Assessment & Plan ADENOCARCINOMA CT chest revealed large left pleural effusion, small-moderate right pleural effusion, 3 cm FRANKLIN mass, 1.4 cm RLL mass, mediastinal adenopathy. Left thoracentesis on 08/06/[address] Mckay showed adenocarcinoma. Immunohistochemical stains positive TTF-1 and Napsin A consistent with pulmonary primary source Oncology on board, was seen by Dr. Montano BRAIN METS MRI of the brain showed a 1 cm ring-enhancing lesion seen within the right frontal lobe and a 5 mm ring-enhancing lesion within the right occipital lobe with surrounding vasogenic edema that is suspicious for brain mets from underlying adenocarcinoma. Her headache is significantly improved with dexamethasone. Continue Decadron 4mg TID Radiation Oncology hans Ramirez to start the first radiosurgery treatment this Pt would like to start the treatment in the hospital before discharging to [facility]. MALIGNANT LEFT PLEURAL EFFUSION Denies any SOB currently Left thoracentesis on 08/06/[address] Mckay showed adenocarcinoma. Immunohistochemical stains positive TTF-1 and Napsin A consistent with pulmonary primary source LEUKOCYTOSIS Mostly attributed to steroid Afebrile, no signs of infection Blood cx no growth Stool for C-diff negative Urine culture grew Escherichia coli, pansensitive. Was started on IV Rocephin that changed to cephalexin UTI Urine culture grew Escherichia coli, pansensitive. Penicillin. Best to avoid quinolones due to confusion and seizure. Was started on IV ceftriaxone that switched to oral cephalexin. Stable DEPRESSION Continue sertraline. 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 Was started on Keppra and discontinued due to side effects. EEG showed no potentially epileptogenic activity Neurology on board changed Keppra to Vimpat No further seizure activity noted VTE PROPHYLAXIS History of DVT. No anticoagulants due to brain mets. S/P IV filter. SCD's. Ambulate. DISPOSITION Has been accepted to transfer to [facility] after her 1st treatment Medical follow-up with Dr. Bowden. Radiation Oncology follow-up with Dr. Jos Dee. Medical Oncology follow-up with Dr. Montano. Consultants: Neuro Oncology Radiation Oncology Pulmonology Procedures: left sided indwelling pleural catheter Current Inpatient Medications: Current Inpatient Medications Medications (Trade) Dose Ordered Sig/Yuriy Route Start Time Stop Time Status Last Admin Dose Admin Ondansetron HCl (Zofran Inj) 4 mg Q6H PRN IV 08/06/16 00:00 09/05/16 00:00 08/19/16 17:04 4 MG Nitroglycerin (Nitrostat Tab) 0.4 mg UD PRN SL 08/06/16 03:00 09/05/16 02:59 Ipratropium [place] (Atrovent 0.02% 0.5MG/2.5ML Neb) 0.5 mg Q4H PRN INH 08/06/16 05:00 09/05/16 04:59 Levalbuterol (Xopenex 1.25MG/ 0.5ML Neb) 1.25 mg Q4H PRN INH 08/06/16 05:00 09/05/16 04:59 Lorazepam 1 mg/ Syringe 1 ml @ 0.5 mls/min UD PRN IV 08/17/16 19:45 09/16/16 19:44 08/19/16 21:57 0.5 MLS/MIN Hydromorphone HCl (Dilaudid Inj) 0.5 mg Q2H PRN IV 08/17/16 21:30 08/31/16 21:29 08/20/16 12:36 0.5 MG Sertraline HCl (Zoloft Tab) 25 mg QAM PO 08/19/16 09:00 09/18/16 08:59 08/22/16 09:36 25 MG Oxycodone HCl (Oxycontin Tab) 10 mg BID PO 08/18/16 14:00 09/01/16 13:59 08/22/16 14:44 10 MG Dexamethasone (Decadron Tab) 4 mg TID PO 08/19/16 14:00 09/18/16 13:59 08/22/16 13:10 4 MG Lacosamide (Vimpat Tab) 100 mg BID PO 08/20/16 13:00 09/19/16 12:59 08/22/16 09:35 100 MG Gabapentin (Neurontin Cap) 600 mg HS PO 08/20/16 21:00 09/19/16 20:59 08/21/16 21:03 600 MG Lorazepam (Ativan Tab) 0.25 mg Q6H PRN PO 08/21/16 17:30 09/20/16 17:29 08/21/16 18:19 0.25 MG Cephalexin Monohydrate (Keflex Cap) 500 mg QID PO 08/22/16 08:00 08/27/16 07:59 08/22/16 13:10 500 MG
[2016-08-22] MEDS: GABAPENTIN 300 MG CAP PO SCH (22:27)
[2016-08-23] VITALS (7 sets, daily range): BP systolic 95–137; BP diastolic 66–93; PULSE 89–104; TEMP 36.5–36.8; O2SAT 97–100
[2016-08-23 07:05] LABS: HEMATOCRIT 32.5 % (37-47); MEAN CELL VOLUME 82.1 fL (80-100); MEAN CORPUSCULAR HEMOGLOBIN 25.8 pg (25-34); MEAN CORPUSCULAR HGB CONC 31.4 g/dl (32-36); MEAN PLATELET VOLUME 8.5 fL (7.4-10.4); PLATELET COUNT 182 K/uL (130-400); RED BLOOD COUNT 3.96 M/uL (4.2-5.4)
[2016-08-23 07:48] LABS: BUN/CREATININE RATIO 34.8 (10-20); CALCIUM 7.3 mg/dl (8.5-10.1); CREATININE 0.66 mg/dl (0.60-1.20); POTASSIUM 4.5 mmol/L (3.5-5.1)
[2016-08-23] MEDS: OXYCODONE HCL 10 MG TABCR (OXYCONTIN) PO SCH ×2 (07:57→20:46)
[2016-08-23] MEDS: CEPHALEXIN MONOHYDRATE 500 MG CAP PO SCH ×4 (07:58→20:46)
[2016-08-23] MEDS: SERTRALINE HCL 50 MG TAB PO SCH (07:58)
[2016-08-23] MEDS: DEXAMETHASONE 4 MG TAB PO SCH ×3 (07:58→21:37)
[2016-08-23] MEDS: LACOSAMIDE 50 MG TAB PO SCH ×2 (07:58→21:38)
[2016-08-23] MEDS: ONDANSETRON INJ 2 MG/ML 2 ML VIAL IV PRN (13:34)
--- NOTE | 2016-08-23 15:36 | Neurology Progress Notes ---
Neurology Progress Note Date of Service Aug 23, 2016. Robinson Yousif is a 71 year old female who has a PMH embolic CVA, hypotension on midodrine, recurrent DVT with IVC filter, gastritis/fungal esophagitis, L lung mass, macular degeneration previously receiving injections. She has a history of EtOH and tobacco abuse. She was in a hospital in [facility] from February 2016-March 2016 which involved respiratory failure and intubation after being found at home on the floor. On admission she was found to have a lung mass with lymphadenopathy. She was in rehab for 3 months and then moved from [place] to [place] to live with her brother. She had follow up with her new PCP and the hilar mass was discovered. She was complaining of a frontal headache and it was discover she had brain mets. Subsequently she had a 2 seizures while in the hospital and loaded with keppra. She didn't tolerate the Keppra and then was switched to Vimpat and has done will with no recurrent seizures. She is sitting bedside and states she really has no complaints. denies CP, SOB, abdominal pain , N, V. she is eating better and states the only complaint she has with the Vimpat is her taste is off for foods. She states she is going to rehab after her first radiation treatment on but she is uncertain when she will be transferred or how many treatments are planned. she is still have the flashes of light but is unable to isolate it to one eye. Objective Date Time Temp Pulse Resp B/P (MAP) Pulse Ox O2 Delivery O2 Flow Rate FiO2 08/23/16 11:20 36.6 98 18 103/69 (80) 98 Room Air 08/23/16 08:00 100 Room Air 08/23/16 07:47 36.5 94 16 95/66 (76) 100 Room Air 08/23/16 04:19 36.8 93 18 122/79 (93) 97 Room Air 08/23/16 00:00 Room Air 08/22/16 23:22 36.9 94 18 109/73 (85) 96 Room Air 08/22/16 19:53 36.9 102 18 112/75 (87) 97 08/22/16 16:00 98 Room Air 08/22/16 15:13 36.8 104 18 121/79 (93) 98 Nasal Cannula 0.5 Last 24 Hours Test 08/23/16 06:47 White Blood Count 12.10 K/uL Red Blood Count 3.96 M/uL Hemoglobin 10.2 g/dL Hematocrit 32.5 % Mean Corpuscular Volume 82.1 fL Mean Corpuscular Hemoglobin 25.8 pg Mean Corpuscular Hemoglobin Concent 31.4 g/dl RDW Standard Deviation 51.1 fL RDW Coefficient of Variation 17.0 % Platelet Count 182 K/uL Mean Platelet Volume 8.5 fL Sodium Level 140 mmol/L Potassium Level 4.5 mmol/L Chloride Level 105 mmol/L Carbon Dioxide Level 30 mmol/L Anion Gap 5.0 mmol/L Blood Urea Nitrogen 23 mg/dl Creatinine 0.66 mg/dl Est Creatinine Clear Calc Drug Dose 68.6 ml/min Estimated GFR () 104.5 Estimated GFR (Non- 90.1 BUN/Creatinine Ratio 34.8 Random Glucose 112 mg/dl Calcium Level 7.3 mg/dl Imaging: no new imaging Exam: Physical Exam: Constitutional: appearance thin pale Ears, Nose, Mouth and Throat: mucous membranes moist, no injection and skin normal, eyes normal Cardiovascular: normal S-1 and S-2 and regular rate and rhythm Respiratory decreased breath sounds Musculoskeletal: no peripheral edema Skin: no stigmata of neurocutaneous disease noted and normal and intact Eyes: extraocular muscles intact (EOMI) and pupils equal, round and reactive to light (PERRL) NEUROLOGIC EXAMINATION: Mental status: Alert and interactive Oriented to full date and location Oriented to person Speech fluent with no evidence of aphasia Cranial Nerves smile eye brow raise symmetric, tongue midline Coordination: finger to nose without bipass Gait/Stance: Posture sitting up bed side Motor: Negative for pronator drift of out stretched arms with eyes closed. 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, hip flex 5/5 bilaterally Current Inpatient Medications Medications (Trade) Dose Ordered Sig/Yuriy Route Start Time Stop Time Status Last Admin Dose Admin Ondansetron HCl (Zofran Inj) 4 mg Q6H PRN IV 08/06/16 00:00 09/05/16 00:00 08/23/16 13:34 4 MG Nitroglycerin (Nitrostat Tab) 0.4 mg UD PRN SL 08/06/16 03:00 09/05/16 02:59 Ipratropium [place] (Atrovent 0.02% 0.5MG/2.5ML Neb) 0.5 mg Q4H PRN INH 08/06/16 05:00 09/05/16 04:59 Levalbuterol (Xopenex 1.25MG/ 0.5ML Neb) 1.25 mg Q4H PRN INH 08/06/16 05:00 09/05/16 04:59 Lorazepam 1 mg/ Syringe 1 ml @ 0.5 mls/min UD PRN IV 08/17/16 19:45 09/16/16 19:44 08/19/16 21:57 0.5 MLS/MIN Hydromorphone HCl (Dilaudid Inj) 0.5 mg Q2H PRN IV 08/17/16 21:30 08/31/16 21:29 08/20/16 12:36 0.5 MG Sertraline HCl (Zoloft Tab) 25 mg QAM PO 08/19/16 09:00 09/18/16 08:59 08/23/16 07:58 25 MG Oxycodone HCl (Oxycontin Tab) 10 mg BID PO 08/18/16 14:00 09/01/16 13:59 08/23/16 07:57 10 MG Dexamethasone (Decadron Tab) 4 mg TID PO 08/19/16 14:00 09/18/16 13:59 08/23/16 13:13 4 MG Lacosamide (Vimpat Tab) 100 mg BID PO 08/20/16 13:00 09/19/16 12:59 08/23/16 07:58 100 MG Gabapentin (Neurontin Cap) 600 mg HS PO 08/20/16 21:00 09/19/16 20:59 08/22/16 22:27 600 MG Lorazepam (Ativan Tab) 0.25 mg Q6H PRN PO 08/21/16 17:30 09/20/16 17:29 08/21/16 18:19 0.25 MG Cephalexin Monohydrate (Keflex Cap) 500 mg QID PO 08/22/16 08:00 08/27/16 07:59 08/23/16 11:43 500 MG Impression 71 year old female with 2 metastatic lesions in the right frontal and right occipital lobe related to metastatic adenocarcinoma lung mass. She had 2 seizures since admission Plan 1. continue Vimpat 100 mg BID x 1 week then increase to 150 mg BID 2. currently on no antiplatelet or anticoagulation therapy previous CVA would restart ASA f no contra indication 3. IVC filter in place 4. ophthalmology will need retinal specialist once discharged from rehab 5. will see her back in our office in 2-3 weeks after rehab 6. will sign off for now will be available if needed I have seen and discussed above patient with Dr Susan Lund, neurology PT seen and examined, exam unchanged. Escalate vimpat as above, Discussed antu okt with DR Mallory Will sign off. Pt should see us as outpt REI Lund MD
[2016-08-23] MEDS ORDERED: ASPIRIN 81 MG ECTAB PO ONE (16:36)
[2016-08-23] MEDS: OXYCODONE HCL IR 5 MG TAB (IMMEDIATE RELEASE) PO PRN (18:06)
--- NOTE | 2016-08-23 19:04 | Progress Note ---
Medicine Progress Note Date & Time of Visit: Aug 23, 2016 at 18:51. Subjective Pt was seen and examined Lying in bed with no distress Pt said that this morning she had the visual disturbance symptom she said that it was mild she said that she feeling a little bit stronger she denies any chest pain, palpitation, dizziness and sob Objective Last 8 Hrs Date Time Temp Pulse Resp B/P (MAP) Pulse Ox O2 Delivery O2 Flow Rate FiO2 08/23/16 15:16 36.6 104 20 106/74 (85) 97 Room Air 08/23/16 11:20 36.6 98 18 103/69 (80) 98 Room Air Physical Exam: General- No acute distress, pleasant Head- atraumatic Eyes- PERRL, EOMI ENT- oropharynx clear Neck- supple, no JVD Lungs- clear to auscultation Heart- regular rhythm; no murmur Abdomen- normal bowel sounds, soft Extremities- no pretibial edema, no calf tenderness Neuro- alert, oriented x 3; PERRL, EOMI; no facial palsy; no dysarthria Skin- warm & dry Laboratory Results: Last 24 Hours Test 08/23/16 06:47 White Blood Count 12.10 K/uL Red Blood Count 3.96 M/uL Hemoglobin 10.2 g/dL Hematocrit 32.5 % Mean Corpuscular Volume 82.1 fL Mean Corpuscular Hemoglobin 25.8 pg Mean Corpuscular Hemoglobin Concent 31.4 g/dl RDW Standard Deviation 51.1 fL RDW Coefficient of Variation 17.0 % Platelet Count 182 K/uL Mean Platelet Volume 8.5 fL Sodium Level 140 mmol/L Potassium Level 4.5 mmol/L Chloride Level 105 mmol/L Carbon Dioxide Level 30 mmol/L Anion Gap 5.0 mmol/L Blood Urea Nitrogen 23 mg/dl Creatinine 0.66 mg/dl Est Creatinine Clear Calc Drug Dose 68.6 ml/min Estimated GFR () 104.5 Estimated GFR (Non- 90.1 BUN/Creatinine Ratio 34.8 Random Glucose 112 mg/dl Calcium Level 7.3 mg/dl Assessment & Plan ADENOCARCINOMA CT chest revealed large left pleural effusion, small-moderate right pleural effusion, 3 cm FRANKLIN mass, 1.4 cm RLL mass, mediastinal adenopathy. Left thoracentesis on 08/06/[address] Mckay showed adenocarcinoma. Immunohistochemical stains positive TTF-1 and Napsin A consistent with pulmonary primary source Oncology on board, was seen by Dr. Montano Treatment will start tomorrow BRAIN METS MRI of the brain showed a 1 cm ring-enhancing lesion seen within the right frontal lobe and a 5 mm ring-enhancing lesion within the right occipital lobe with surrounding vasogenic edema that is suspicious for brain mets from underlying adenocarcinoma. Her headache is significantly improved with dexamethasone. Continue Decadron 4mg TID Radiation Oncology hans Ramirez to start the first radiosurgery treatment tomorrow MALIGNANT LEFT PLEURAL EFFUSION Denies any SOB currently Left thoracentesis on 08/06/[address] Mckay showed adenocarcinoma. Immunohistochemical stains positive TTF-1 and Napsin A consistent with pulmonary primary source LEUKOCYTOSIS Mostly attributed to steroid Afebrile, no signs of infection Blood cx no growth Stool for C-diff negative Urine culture grew Escherichia coli, pansensitive. Was started on IV Rocephin that changed to cephalexin UTI Urine culture grew Escherichia coli, pansensitive. Penicillin. Best to avoid quinolones due to confusion and seizure. Was started on IV ceftriaxone that switched to oral cephalexin. Continue cephalexin Stable DEPRESSION Continue sertraline. 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 Was started on Keppra and discontinued due to side effects. EEG showed no potentially epileptogenic activity Neurology on board changed Keppra to Vimpat No further seizure activity noted Tolerated very well follow with Neuro in 2-3 weeks as an outpatient VISUAL DISTURBANCE Has been having flashes of light MRI of the head Right enhancing lesions within the right frontal lobe and right occipital lobe She will need to see a retinal specialist once discharged from rehab Hx CVA Continue aspirin Stable VTE PROPHYLAXIS History of DVT. No anticoagulants due to brain mets. S/P IV filter. SCD's. Ambulate. DISPOSITION Has been accepted to transfer to [facility] Medical follow-up with Dr. Bowden. Radiation Oncology follow-up with Dr. Jos Dee. Medical Oncology follow-up with Dr. Montano. Consultants: Neuro Oncology Radiation Oncology Pulmonology Procedures: left sided indwelling pleural catheter Current Inpatient Medications: Current Inpatient Medications Medications (Trade) Dose Ordered Sig/Yuriy Route Start Time Stop Time Status Last Admin Dose Admin Ondansetron HCl (Zofran Inj) 4 mg Q6H PRN IV 08/06/16 00:00 09/05/16 00:00 08/23/16 13:34 4 MG Nitroglycerin (Nitrostat Tab) 0.4 mg UD PRN SL 08/06/16 03:00 09/05/16 02:59 Ipratropium [place] (Atrovent 0.02% 0.5MG/2.5ML Neb) 0.5 mg Q4H PRN INH 08/06/16 05:00 09/05/16 04:59 Levalbuterol (Xopenex 1.25MG/ 0.5ML Neb) 1.25 mg Q4H PRN INH 08/06/16 05:00 09/05/16 04:59 Lorazepam 1 mg/ Syringe 1 ml @ 0.5 mls/min UD PRN IV 08/17/16 19:45 09/16/16 19:44 08/19/16 21:57 0.5 MLS/MIN Sertraline HCl (Zoloft Tab) 25 mg QAM PO 08/19/16 09:00 09/18/16 08:59 08/23/16 07:58 25 MG Oxycodone HCl (Oxycontin Tab) 10 mg BID PO 08/18/16 14:00 09/01/16 13:59 08/23/16 07:57 10 MG Dexamethasone (Decadron Tab) 4 mg TID PO 08/19/16 14:00 09/18/16 13:59 08/23/16 13:13 4 MG Lacosamide (Vimpat Tab) 100 mg BID PO 08/20/16 13:00 09/19/16 12:59 08/23/16 07:58 100 MG Gabapentin (Neurontin Cap) 600 mg HS PO 08/20/16 21:00 09/19/16 20:59 08/22/16 22:27 600 MG Lorazepam (Ativan Tab) 0.25 mg Q6H PRN PO 08/21/16 17:30 09/20/16 17:29 08/21/16 18:19 0.25 MG Cephalexin Monohydrate (Keflex Cap) 500 mg QID PO 08/22/16 08:00 08/27/16 07:59 08/23/16 18:06 500 MG Aspirin (Ecotrin Tab) 81 mg QAM PO 08/24/16 08:00 09/23/16 07:59 Oxycodone HCl (Roxicodone Immediate Rel Tab) 5 mg BID PRN PO 08/23/16 17:30 09/06/16 17:29 08/23/16 18:06 5 MG
[2016-08-23] MEDS: GABAPENTIN 300 MG CAP PO SCH (21:37)
[2016-08-24] VITALS (7 sets, daily range): BP systolic 99–124; BP diastolic 66–85; PULSE 87–95; TEMP 36.6–36.8; O2SAT 95–100
[2016-08-24] MEDS: OXYCODONE HCL IR 5 MG TAB (IMMEDIATE RELEASE) PO PRN (04:31)
[2016-08-24] MEDS: CEPHALEXIN MONOHYDRATE 500 MG CAP PO SCH ×4 (07:25→20:35)
[2016-08-24] MEDS: ASPIRIN 81 MG ECTAB PO SCH (07:25)
[2016-08-24] MEDS: SERTRALINE HCL 50 MG TAB PO SCH (07:26)
[2016-08-24] MEDS: DEXAMETHASONE 4 MG TAB PO SCH ×3 (07:26→20:37)
[2016-08-24] MEDS: LACOSAMIDE 50 MG TAB PO SCH ×2 (07:26→21:04)
[2016-08-24] MEDS: OXYCODONE HCL 10 MG TABCR (OXYCONTIN) PO SCH ×2 (07:30→20:35)
[2016-08-24] MEDS ORDERED: OXYCODONE HCL IR 5 MG TAB (IMMEDIATE RELEASE) PO PRN (12:05)
[2016-08-24] MEDS ORDERED: OXYCODONE HCL IR 5 MG TAB (IMMEDIATE RELEASE) ONE (12:08)
--- NOTE | 2016-08-24 17:19 | Progress Note ---
Medicine Progress Note Date & Time of Visit: Aug 24, 2016 at 17:15. Subjective Pt was seen and examined Lying in bed with no distress Pt is very anxious today because she waiting to start her first radiation today she said that this morning while watching TV she had the visual disturbance that was mild Pt said that when she was in [place] she was followed with a retinal specialist and she was getting injection in her eyes denies any chest pain, palpitation, dizziness and sob Objective Last 8 Hrs Date Time Temp Pulse Resp B/P (MAP) Pulse Ox O2 Delivery O2 Flow Rate FiO2 08/24/16 14:26 36.7 95 18 105/70 (82) 97 Room Air 08/24/16 11:37 36.7 90 18 108/69 (82) 95 Room Air Physical Exam: General- No acute distress, pleasant Head- atraumatic Eyes- PERRL, EOMI ENT- oropharynx clear Neck- supple, no JVD Lungs- clear to auscultation Heart- regular rhythm; no murmur Abdomen- normal bowel sounds, soft Extremities- no pretibial edema, no calf tenderness Neuro- alert, oriented x 3; PERRL, EOMI; no facial palsy; no dysarthria Skin- warm & dry Assessment & Plan ADENOCARCINOMA CT chest revealed large left pleural effusion, small-moderate right pleural effusion, 3 cm FRANKLIN mass, 1.4 cm RLL mass, mediastinal adenopathy. Left thoracentesis on 08/06/[address] Mckay showed adenocarcinoma. Immunohistochemical stains positive TTF-1 and Napsin A consistent with pulmonary primary source Oncology on board, was seen by Dr. Montano will start radiation today BRAIN METS MRI of the brain showed a 1 cm ring-enhancing lesion seen within the right frontal lobe and a 5 mm ring-enhancing lesion within the right occipital lobe with surrounding vasogenic edema that is suspicious for brain mets from underlying adenocarcinoma. Her headache is significantly improved with dexamethasone. Continue Decadron 4mg TID Radiation Oncology hans Ramirez to start the first radiosurgery treatment today MALIGNANT LEFT PLEURAL EFFUSION Denies any SOB currently Left thoracentesis on 08/06/[address] Mckay showed adenocarcinoma. Immunohistochemical stains positive TTF-1 and Napsin A consistent with pulmonary primary source LEUKOCYTOSIS Mostly attributed to steroid Afebrile, no signs of infection Blood cx no growth Stool for C-diff negative Urine culture grew Escherichia coli, pansensitive. Was started on IV Rocephin that changed to cephalexin UTI Urine culture grew Escherichia coli, pansensitive. Penicillin. Best to avoid quinolones due to confusion and seizure. Was started on IV ceftriaxone that switched to oral cephalexin. Continue cephalexin Stable DEPRESSION Continue sertraline. 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 Was started on Keppra and discontinued due to side effects. EEG showed no potentially epileptogenic activity Neurology on board changed Keppra to Vimpat No further seizure activity noted Tolerated very well follow with Neuro in 2-3 weeks as an outpatient stable VISUAL DISTURBANCE Has been having flashes of light MRI of the head Right enhancing lesions within the right frontal lobe and right occipital lobe She will need to see a retinal specialist once discharged Hx CVA Continue aspirin Stable VTE PROPHYLAXIS History of DVT. No anticoagulants due to brain mets. S/P IV filter. SCD's. Ambulate. DISPOSITION Has been accepted to transfer to [facility] tomorrow Medical follow-up with Dr. Bowden. Radiation Oncology follow-up with Dr. Jos Dee. Medical Oncology follow-up with Dr. Montano. Consultants: Neuro Oncology Radiation Oncology Pulmonology Procedures: left sided indwelling pleural catheter Current Inpatient Medications: Current Inpatient Medications Medications (Trade) Dose Ordered Sig/Yuriy Route Start Time Stop Time Status Last Admin Dose Admin Ondansetron HCl (Zofran Inj) 4 mg Q6H PRN IV 08/06/16 00:00 09/05/16 00:00 08/23/16 13:34 4 MG Nitroglycerin (Nitrostat Tab) 0.4 mg UD PRN SL 08/06/16 03:00 09/05/16 02:59 Ipratropium [place] (Atrovent 0.02% 0.5MG/2.5ML Neb) 0.5 mg Q4H PRN INH 08/06/16 05:00 09/05/16 04:59 Levalbuterol (Xopenex 1.25MG/ 0.5ML Neb) 1.25 mg Q4H PRN INH 08/06/16 05:00 09/05/16 04:59 Lorazepam 1 mg/ Syringe 1 ml @ 0.5 mls/min UD PRN IV 08/17/16 19:45 09/16/16 19:44 08/19/16 21:57 0.5 MLS/MIN Sertraline HCl (Zoloft Tab) 25 mg QAM PO 08/19/16 09:00 09/18/16 08:59 08/24/16 07:26 25 MG Oxycodone HCl (Oxycontin Tab) 10 mg BID PO 08/18/16 14:00 09/01/16 13:59 08/24/16 07:30 10 MG Dexamethasone (Decadron Tab) 4 mg TID PO 08/19/16 14:00 09/18/16 13:59 08/24/16 14:17 4 MG Lacosamide (Vimpat Tab) 100 mg BID PO 08/20/16 13:00 09/19/16 12:59 08/24/16 07:26 100 MG Gabapentin (Neurontin Cap) 600 mg HS PO 08/20/16 21:00 09/19/16 20:59 08/23/16 21:37 600 MG Lorazepam (Ativan Tab) 0.25 mg Q6H PRN PO 08/21/16 17:30 09/20/16 17:29 08/21/16 18:19 0.25 MG Cephalexin Monohydrate (Keflex Cap) 500 mg QID PO 08/22/16 08:00 08/27/16 07:59 08/24/16 16:31 500 MG Aspirin (Ecotrin Tab) 81 mg QAM PO 08/24/16 08:00 09/23/16 07:59 08/24/16 07:25 81 MG Oxycodone HCl (Roxicodone Immediate Rel Tab) 5 mg Q8 PRN PO 08/24/16 12:05 09/06/16 17:29
[2016-08-24] MEDS: GABAPENTIN 300 MG CAP PO SCH (20:37)
[2016-08-25 03:42] VITALS: BP 101/68; PULSE 99; TEMP 36.7; O2SAT 93
[2016-08-25 07:19] VITALS: BP 112/75; PULSE 106; TEMP 36.8; O2SAT 96
[2016-08-25] MEDS: SERTRALINE HCL 50 MG TAB PO SCH (07:51)
[2016-08-25] MEDS: CEPHALEXIN MONOHYDRATE 500 MG CAP PO SCH ×2 (07:51→12:00)
[2016-08-25] MEDS: DEXAMETHASONE 4 MG TAB PO SCH ×2 (07:51→14:07)
[2016-08-25] MEDS: ASPIRIN 81 MG ECTAB PO SCH (07:52)
[2016-08-25] MEDS: OXYCODONE HCL 10 MG TABCR (OXYCONTIN) PO SCH (07:58)
[2016-08-25 08:30] VITALS: O2SAT 96
[2016-08-25] MEDS: LACOSAMIDE 50 MG TAB PO SCH (09:07)
[2016-08-25 11:08] VITALS: BP 106/75; PULSE 106; TEMP 36.7; O2SAT 96
[2016-08-25 15:20] VITALS: BP 110/78; PULSE 98; TEMP 36.7; O2SAT 96
[2016-08-25 15:41] VITALS: BP 110/78; PULSE 98; TEMP 36.7; O2SAT 96
[2016-08-25] MEDS ORDERED: SIMETHICONE 80 MG CHEW PO ONE (16:00)
[2016-08-25] MEDS ORDERED: DEXA2TAB PO (16:02)
[2016-08-25] MEDS ORDERED: OXYSR/10 PO (16:02)
[2016-08-25] MEDS ORDERED: RXC5 PO (16:02)
--- NOTE | 2016-08-25 16:10 | Discharge Instructions ---
Discharge Instructions Date of Service Aug 25, 2016. Admission Reason for Admission: Acute Respiratory Failure Discharge Discharge Diagnosis / Problem: ADENOCARCINOMA WITH BRAIN METS,MALIGNANT LEFT PLEURAL EFFUSION,SEIZURE, UTI Discharge Goals Goal(s): Decrease discomfort, Improve function, Improve disease control Activity Recommendations Activity Limitations: resume your previous activity ( TOLERATED) . Instructions / Follow-Up Instructions / Follow-Up Discharge to [facility] for Rehab Continue PT/OT Fall precaution Seizure precaution Medical follow-up with Dr. Bowden (or any other physician that you choose) once discharge from rehab Radiation Oncology follow-up with Dr. Jos Dee. Next radiation therapy schedule for 08/28 Medical Oncology follow-up with Dr. Montano once discharge from rehab Neurology follow up with Dr. Lund once discharge from rehab Please schedule a follow up appointment with the retinal specialist for the visual disturbance Current Hospital Diet Patient's current hospital diet: Regular Diet Discharge Diet Recommended Diet: Regular Diet Procedures Procedures Performed: Thoracentensis Pending Studies Studies pending at discharge: no Laboratory Results Hemoglobin A1c Test 08/19/16 06:05 Range/Units Estimated Average Glucose 120 mg/dl Hemoglobin A1c 5.8 H 4.5-5.6 % Medical Emergencies . Who to Call and When: Medical Emergencies: If at any time you feel your situation is an emergency, please call 911 immediately. . Non-Emergent Contact Non-Emergency issues call your: Primary Care Provider Call Non-Emergent contact if: your pain is not controlled, your pain is worsening, you have any medication questions . . "Provider Documentation" section prepared by Bambi Mallory. . VTE Core Measure Inpt VTE Proph given/why not?: SCD's [place] Drug Monitoring Program Search Results: patient reviewed within database
[2016-08-25] MEDS ORDERED: KFL500 PO (16:17)
[2016-08-25] MEDS ORDERED: LACO50TA PO (16:17)
--- NOTE | 2016-08-25 17:58 | Progress Note ---
Medicine Progress Note Date & Time of Visit: Aug 25, 2016 at 15:47. Subjective Pt was seen and examined Lying in bed with no distress Pt said that she feels fine She had her first radiation therapy done yesterday she said that it went well she denies any radiation side effect she said that early this morning she had the vision problem she said that she had the vision symptom after the light was turned one the symptoms only last for a few seconds denies any vision loss, headache, palpitation, dizziness, numbness and sob Objective Last 8 Hrs Date Time Temp Pulse Resp B/P (MAP) Pulse Ox O2 Delivery O2 Flow Rate FiO2 08/25/16 15:41 36.7 98 20 96 Room Air 08/25/16 15:20 36.7 98 20 110/78 (89) 96 Room Air 08/25/16 11:08 36.7 106 16 106/75 (85) 96 Room Air 08/25/16 08:30 96 Physical Exam: General- No acute distress, pleasant Head- atraumatic Eyes- PERRL, EOMI ENT- oropharynx clear Neck- supple, no JVD Lungs- clear to auscultation Heart- regular rhythm; no murmur Abdomen- normal bowel sounds, soft Extremities- no pretibial edema, no calf tenderness Neuro- alert, oriented x 3; PERRL, EOMI; no facial palsy; no dysarthria Skin- warm & dry Assessment & Plan ADENOCARCINOMA CT chest revealed large left pleural effusion, small-moderate right pleural effusion, 3 cm FARNKLIN mass, 1.4 cm RLL mass, mediastinal adenopathy. Left thoracentesis on 08/06/[address] Mckay showed adenocarcinoma. Immunohistochemical stains positive TTF-1 and Napsin A consistent with pulmonary primary source Oncology on board, was seen by Dr. Montano Had her first radiation therapy yesterday BRAIN METS MRI of the brain showed a 1 cm ring-enhancing lesion seen within the right frontal lobe and a 5 mm ring-enhancing lesion within the right occipital lobe with surrounding vasogenic edema that is suspicious for brain mets from underlying adenocarcinoma. Her headache is significantly improved with dexamethasone. Continue Decadron 4mg TID Radiation Oncology Dr Dee Had her first radiation therapy yesterday Tolerated treatment very well Next radiation therapy is scheduled for next Sun (08/28) Case discussed with Dr. Dee that recommended to discharge on a taper dose of Decadron Continue follow up with Radiation oncologist MALIGNANT LEFT PLEURAL EFFUSION Denies any SOB currently Left thoracentesis on 08/06/[address] Mckay showed adenocarcinoma. Immunohistochemical stains positive TTF-1 and Napsin A consistent with pulmonary primary source Stable LEUKOCYTOSIS Mostly attributed to steroid Afebrile, no signs of infection Blood cx no growth Stool for C-diff negative Urine culture grew Escherichia coli, pansensitive. Was started on IV Rocephin that changed to cephalexin UTI Urine culture grew Escherichia coli, pansensitive. Penicillin. Best to avoid quinolones due to confusion and seizure. Was started on IV ceftriaxone that switched to oral cephalexin. Continue cephalexin for 2 more days Stable DEPRESSION Continue sertraline. 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 Was started on Keppra and discontinued due to side effects. EEG showed no potentially epileptogenic activity Neurology on board changed Keppra to Vimpat No further seizure activity noted Tolerated Vimpat very well follow with Neuro in 2-3 weeks as an outpatient Continue Vimpat stable VISUAL DISTURBANCE Has been having flashes of light MRI of the head Right enhancing lesions within the right frontal lobe and right occipital lobe She will need to see a retinal specialist once discharged Hx CVA Continue aspirin Stable VTE PROPHYLAXIS History of DVT. No anticoagulants due to brain mets. S/P IV filter. SCD's. Ambulate. DISPOSITION Will discharge to [facility] possible today Medical follow-up with Dr. Bowden. Radiation Oncology follow-up with Dr. Jos Dee. Medical Oncology follow-up with Dr. Montano. Consultants: Neuro Oncology Radiation Oncology Pulmonology Procedures: left sided indwelling pleural catheter Current Inpatient Medications: Current Inpatient Medications Medications (Trade) Dose Ordered Sig/Yuriy Route Start Time Stop Time Status Last Admin Dose Admin Ondansetron HCl (Zofran Inj) 4 mg Q6H PRN IV 08/06/16 00:00 09/05/16 00:00 08/23/16 13:34 4 MG Nitroglycerin (Nitrostat Tab) 0.4 mg UD PRN SL 08/06/16 03:00 09/05/16 02:59 Ipratropium [place] (Atrovent 0.02% 0.5MG/2.5ML Neb) 0.5 mg Q4H PRN INH 08/06/16 05:00 09/05/16 04:59 Levalbuterol (Xopenex 1.25MG/ 0.5ML Neb) 1.25 mg Q4H PRN INH 08/06/16 05:00 09/05/16 04:59 Lorazepam 1 mg/ Syringe 1 ml @ 0.5 mls/min UD PRN IV 08/17/16 19:45 09/16/16 19:44 08/19/16 21:57 0.5 MLS/MIN Sertraline HCl (Zoloft Tab) 25 mg QAM PO 08/19/16 09:00 09/18/16 08:59 08/25/16 07:51 25 MG Oxycodone HCl (Oxycontin Tab) 10 mg BID PO 08/18/16 14:00 09/01/16 13:59 08/25/16 07:58 10 MG Dexamethasone (Decadron Tab) 4 mg TID PO 08/19/16 14:00 09/18/16 13:59 08/25/16 14:07 4 MG Lacosamide (Vimpat Tab) 100 mg BID PO 08/20/16 13:00 09/19/16 12:59 08/25/16 09:07 100 MG Gabapentin (Neurontin Cap) 600 mg HS PO 08/20/16 21:00 09/19/16 20:59 08/24/16 20:37 600 MG Lorazepam (Ativan Tab) 0.25 mg Q6H PRN PO 08/21/16 17:30 09/20/16 17:29 08/21/16 18:19 0.25 MG Cephalexin Monohydrate (Keflex Cap) 500 mg QID PO 08/22/16 08:00 08/27/16 07:59 08/25/16 12:00 500 MG Aspirin (Ecotrin Tab) 81 mg QAM PO 08/24/16 08:00 09/23/16 07:59 08/25/16 07:52 81 MG Oxycodone HCl (Roxicodone Immediate Rel Tab) 5 mg Q8 PRN PO 08/24/16 12:05 09/06/16 17:29
--- NOTE | 2016-08-28 18:25 | Discharge Summary ---
Discharge Summary Date of Service Aug 28, 2016. Discharge Summary Admission Date: August 06, 2016 at 02:42 Discharge Date: Aug 25, 2016 Discharge Disposition: Rehab Principal Diagnosis: ADENOCARCINOMA WITH BRAIN METS Secondary Diagnoses/Problems: MALIGNANT LEFT PLEURAL EFFUSION SEIZURE UTI LEUKOCYTOSIS SEIZURE VISUAL DISTURBANCE DEPRESSION HX CVA Procedures: left sided indwelling pleural catheter Brain MRI WITH AND WITHOUT CONTRAST HISTORY: headache, abn ct TECHNIQUE: Multiplanar multisequence MRI of the brain was performed both before and after the intravenous administration of contrast. COMPARISON STUDY: Head CT 08/06/2016. FINDINGS: There is a 1 cm ring-enhancing lesion seen within the right frontal lobe and a 5 mm ring-enhancing lesion within the right occipital lobe. There is surrounding vasogenic edema at these locations. Encephalomalacia within the medial right occipital lobe consistent with an old SALT LIFTER territory infarct. No acute infarct, hematoma, or midline shift. There is mild mass effect along the frontal horn of the right lateral ventricle. The paranasal sinuses and mastoid air cells are clear. The orbits are unremarkable. IMPRESSION: Right enhancing lesions within the right frontal lobe and right occipital lobe which are highly suspicious for metastatic disease. Electronically signed by: Kenyon Alford M.D. 08/06/2016 9:02 PM Dictated Date/Time: 08/06/2016 8:[address] CT DOSE: 1805.94 mGy.cm HISTORY: brain mets, seizure TECHNIQUE: Multiaxial CT images of the head were performed without the use of intravenous contrast. Automated exposure control was utilized for this study. Comparison: Head CT 08/06/2016. Brain MRI 08/06/2016. Findings: The paranasal sinuses and mastoid air cells are clear. Old right SALT LIFTER territory infarct is again noted. The right occipital lobe lesion is again noted in the approximate 8 mm.. The 1 cm right frontal lobe lesion is faintly visualized. Vasogenic edema within the right frontal lobe remains unchanged. Mild mass effect along the right lateral ventricle frontal horn remains unchanged. No hematoma, midline shift, acute infarct. No new masses identified. Impression: 1. No significant change compared to the prior studies. 2. The right frontal and right occipital lobe lesions are again noted. 3. Old right SALT LIFTER territory infarct. Electronically signed by: Kenyon Alford M.D. 08/17/2016 8:42 PM Dictated Date/Time: 08/17/2016 8:37 PM Consultations: Neuro Oncology Radiation Oncology Pulmonology Medication Reconciliation New Medications: Cephalexin Monohydrate (Cephalexin) 500 Mg Cap 500 MG PO QID for 2 Days, CAP Dexamethasone (Dexamethasone) 2 Mg Tab 2 MG PO UD for 15 Days Take 2 tabs po TID for 3 days, then 2 tab po BID for 3 days, then 2 tab daily for 3 days, then 1 tab daily for 3 days, then half tab daily for 3 days and stop. Lacosamide (Vimpat) 50 Mg Tab 100 MG PO BID for 30 Days, TAB Oxycodone HCl (Oxycodone HCl) 5 Mg Tab 5 MG PO Q8 PRN for severe Pain for 3 Days, #9 TAB Changed Medications: Oxycodone HCl (Oxycontin) 10 Mg Tabcr 10 MG PO BID PRN for Pain for 3 Days (Medication details modified) Continued Medications: Aspirin (Aspirin Ec) 81 Mg Tab 81 MG PO QAM Atorvastatin (Lipitor) 40 Mg Tab 40 MG PO HS, TAB Diclofenac Sodium (Topical) (Voltaren 1% Top Gel) 1 % Gel 1 APPLN TOP BID APPLY TO LOWER BACK Folic Acid (Folvite) 1 Mg Tab 1 MG PO QAM, TAB Gabapentin (Neurontin) 300 Mg Cap 600 MG PO HS, CAP Midodrine (Midodrine HCl) 2.5 Mg Tab 2.5 MG PO TID Ondansetron Hcl (Zofran) 4 Mg Tab 4 MG PO Q8 PRN for Nausea, TAB Pantoprazole (Protonix) 40 Mg Tab 40 MG PO QAM, #30 TAB Polyethylene Glycol 3350 (Miralax) 1 Pow Pow 17 GM PO DAILY PRN for Constipation, #255 GM Sertraline (Zoloft) 25 Mg Tab 25 MG PO QAM, TAB Discontinued Medications: Oxycodone Ir (Roxicodone Ir) 5 Mg Tab 2.5 MG PO BID PRN for Severe Pain, TAB Potassium Chloride (Potassium Chloride) 10 % Liq 20 MEQ PO QAM 20 MEQ/15 ML DOSE. Admission Information HPI (per Admitting provider): CHIEF COMPLAINTS: Headache, bodyaches. HISTORY OF PRESENT ILLNESS: History obtained from patient and records. 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 Patient is originally from [place], [place]. Recently relocated to [place], [place] 3 weeks ago under her brother's care. Recent confinement at [facility], [place], [place] from February 2016 to March 2016 for hypotension, anemia, embolic CVA, respiratory failure status post intubation. As per records, the patient was found at home in February 2016 lying on the floor at her home with the house in disorder and empty alcohol bottles. On admission, she was noted to be hypotensive and to have a hemoglobin of 4. FOBT negative. cystic lung mass on CXR. A CAT scan of the chest did not show any PE; however, showed a cavitary left lower lobe lung mass, 2.4 x 5 cm with inflammation and right upper nodule measuring 6 mm as well as lymphadenopathy. Admitted in the ICU. SBP and anemia improved w/ pressor tx, IVF, and blood transfusion. PX later noted to be hypotensive, confused, in resp distress after one week of confinement. PX subsequently intubated the next 2 weeks. MRI showed extensive subacute strokes. Concern for possible embolic event w/ a CTA w/c showed L subclavian artery occlusion. Anticoag precluded by recent bleed. Px dcd on low dose ASA. The patient initially put on Keppra for possible seizure, subsequently discontinued after negative EEG. PX subsequently noted to have UGIB at the ICU. EGD done showed some gastritis/fungal esophagitis sp Mycafungin tx. NGT trauma noted in the stomach. PX dcd on PPI. Pulmonary was consulted for lung mass. She underwent a bronchoscopy, mostly negative pathology as per records. Future biopsy recommended by cupola tapper helper. Patient recalls thoracentesis done for pleural fluid as well. Px noted to have a DVT on the right leg. She underwent a IVC filter placement due to recent GI bleed. Hypotension initially treated w/ IVF, pressors, steroids. PX later maintained on midodrine. Patient subsequently underwent 3 months of rehab at [facility]. Upon on discharge from rehab about 3 weeks ago, the patient travelled to [place], [place] by car with her brother to reside w/ him permanently. Since arriving at [place], px noted achy frontal headache sx going to her face w/c she attributed to poss sinus congestion from allergies. No fever, no chills. No recent head trauma. Px also noted vague achy abdominal pain the few weeks. some nausea, no vomiting. no dysuria, Good bowel movement albeit pasty. About 2 weeks ago, the patient was seen at the Emergency Room for right foot pain after hitting the bed post. Seen at the Emergency Room. No acute fracture of the right foot. Patient was discharged. Patient noted left sided pleuritic chest pain after brother assisted her getting out of the car upon returning home from the ER. No actual shortness of breath. usual dry cough sx She saw a new PCP for the first time this week. Chest x-ray done at the office showed moderate L pleural effusion w/ atelectasis , poss L hilar mass. Outpatient CT chest study contemplated. Px presented to the ER tonight because of worsening headache and body aches. Physical Exam (per Admitting): VITAL SIGNS: Blood pressure was noted to be 120/70, pulse rate 100, RR 20, and O2 sats 58% on room, later 94% on 6 liters. GENERAL: Noted to be hyposthenic, occasionally agitated, somewhat uncomfortable, and distressed. SKIN: Pallor. HEENT: Pale palpebral conjunctivae. Dry mucosa. NECK: No JVD. supple CHEST: Decreased breath sounds, L. HEART: Regular rate and rhythm. ABDOMEN: Some distention, no overt tenderness. EXTREMITIES: No edema and no tenderness. NEUROLOGIC: No gross focality. Hospital Course ADENOCARCINOMA CT chest revealed large left pleural effusion, small-moderate right pleural effusion, 3 cm FRANKLIN mass, 1.4 cm RLL mass, mediastinal adenopathy. Left thoracentesis on 08/06/[address] Mckay showed adenocarcinoma. Immunohistochemical stains positive TTF-1 and Napsin A consistent with pulmonary primary source Oncology on board, was seen by Dr. Montano Had her first radiation therapy yesterday BRAIN METS MRI of the brain showed a 1 cm ring-enhancing lesion seen within the right frontal lobe and a 5 mm ring-enhancing lesion within the right occipital lobe with surrounding vasogenic edema that is suspicious for brain mets from underlying adenocarcinoma. Her headache is significantly improved with dexamethasone. Continue Decadron 4mg TID Radiation Oncology Dr Dee Had her first radiation therapy yesterday Tolerated treatment very well Next radiation therapy is scheduled for next Mon (08/28) Case discussed with Dr. Dee that recommended to discharge on a taper dose of Decadron Continue follow up with Radiation oncologist MALIGNANT LEFT PLEURAL EFFUSION Denies any SOB currently Left thoracentesis on 08/06/[address] Mckay showed adenocarcinoma. Immunohistochemical stains positive TTF-1 and Napsin A consistent with pulmonary primary source Stable LEUKOCYTOSIS Mostly attributed to steroid Afebrile, no signs of infection Blood cx no growth Stool for C-diff negative Urine culture grew Escherichia coli, pansensitive. Was started on IV Rocephin that changed to cephalexin UTI Urine culture grew Escherichia coli, pansensitive. Penicillin. Best to avoid quinolones due to confusion and seizure. Was started on IV ceftriaxone that switched to oral cephalexin. Continue cephalexin for 2 more days Stable DEPRESSION Continue sertraline. 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 Was started on Keppra and discontinued due to side effects. EEG showed no potentially epileptogenic activity Neurology on board changed Keppra to Vimpat No further seizure activity noted Tolerated Vimpat very well follow with Neuro in 2-3 weeks as an outpatient Continue Vimpat stable VISUAL DISTURBANCE Has been having flashes of light MRI of the head Right enhancing lesions within the right frontal lobe and right occipital lobe She will need to see a retinal specialist once discharged Hx CVA Continue aspirin Stable VTE PROPHYLAXIS History of DVT. No anticoagulants due to brain mets. S/P IV filter. SCD's. Ambulate. DISPOSITION Will discharge to [facility] possible today Medical follow-up with Dr. Bowden. Radiation Oncology follow-up with Dr. Jos Dee. Medical Oncology follow-up with Dr. Montano. Total time spent on discharge = 45 MINUTES This includes examination of the patient, discharge planning, medication reconciliation, and communication with other providers. Discharge Instructions Discharge Instructions Date of Service Aug 25, 2016. Admission Reason for Admission: Acute Respiratory Failure Discharge Discharge Diagnosis / Problem: ADENOCARCINOMA WITH BRAIN METS,MALIGNANT LEFT PLEURAL EFFUSION,SEIZURE, UTI Discharge Goals Goal(s): Decrease discomfort, Improve function, Improve disease control Activity Recommendations Activity Limitations: resume your previous activity ( TOLERATED) . Instructions / Follow-Up Instructions / Follow-Up Discharge to [facility] for Rehab Continue PT/OT Fall precaution Seizure precaution Medical follow-up with Dr. Bowden (or any other physician that you choose) once discharge from rehab Radiation Oncology follow-up with Dr. Jos Dee. Next radiation therapy schedule for Mon 08/28 Medical Oncology follow-up with Dr. Montano once discharge from rehab Neurology follow up with Dr. Lund once discharge from rehab Please schedule a follow up appointment with the retinal specialist for the visual disturbance Current Hospital Diet Patient's current hospital diet: Regular Diet Discharge Diet Recommended Diet: Regular Diet Procedures Procedures Performed: Thoracentensis Pending Studies Studies pending at discharge: no Laboratory Results Hemoglobin A1c Test 08/19/16 06:05 Range/Units Estimated Average Glucose 120 mg/dl Hemoglobin A1c 5.8 H 4.5-5.6 % Medical Emergencies . Who to Call and When: Medical Emergencies: If at any time you feel your situation is an emergency, please call 911 immediately. . Non-Emergent Contact Non-Emergency issues call your: Primary Care Provider Call Non-Emergent contact if: your pain is not controlled, your pain is worsening, you have any medication questions . . "Provider Documentation" section prepared by Bambi Mallory. . VTE Core Measure Inpt VTE Proph given/why not?: SCD's [place] Drug Monitoring Program Search Results: patient reviewed within database Additional Copies To Magalys BOWDEN M.D. [facility]
[2016-09-26] MEDS ORDERED: RXC5 PO (12:50)
[2016-09-26] MEDS ORDERED: MGCUDL400 PO (12:50)
[2016-09-26] MEDS ORDERED: OXYSR/10 PO (12:50)
[2016-09-26] MEDS ORDERED: RXNS5 PO (12:50)
[2016-09-26] MEDS ORDERED: LORA-741 PO (12:55)
== END 2016-08-25 16:23 | DRG 180 ==
LOC: ENRESERVDT → ENRESERVTM → C.EDB 18:34 → EEVIPCON 08-06 02:42 → C.2T 08-06 02:42 → C.4E 08-08 12:20 → ENRESERV 08-17 20:01 → C.MSICU 08-17 20:24 → C.4E 08-19 12:33 → EDBEDREQ 08-19 12:46 → EDBEDREQSVC 08-19 12:46 → ENRESERV 08-19 13:10
PROVIDERS: ADMIT Internal Medicine; ATTEND Internal Medicine
PROC: 0W9B30Z Drainage of Left Pleural Cavity with Drainage Device, Percutaneous Approach (ICD-10-PCS; principal; 2016-08-06)
DX: C34.90 Malignant neoplasm of unspecified part of unspecified bronchus or lung (principal); J96.01 Acute respiratory failure with hypoxia; E46 Unspecified protein-calorie malnutrition; C79.31 Secondary malignant neoplasm of brain; J91.0 Malignant pleural effusion; N39.0 Urinary tract infection, site not specified; K21.9 Gastro-esophageal reflux disease without esophagitis; E78.5 Hyperlipidemia, unspecified; I95.0 Idiopathic hypotension; Z79.899 Other long term (current) drug therapy; R51 Headache; F32.9 Major depressive disorder, single episode, unspecified; B96.20 Unspecified Escherichia coli [E. coli] as the cause of diseases classified elsewhere; G89.29 Other chronic pain; F41.9 Anxiety disorder, unspecified; M54.5 Low back pain; R19.7 Diarrhea, unspecified; R56.9 Unspecified convulsions; D72.829 Elevated white blood cell count, unspecified; T38.0X5A Adverse effect of glucocorticoids and synthetic analogues, initial encounter; Z68.20 Body mass index [BMI] 20.0-20.9, adult; Z79.82 Long term (current) use of aspirin; Z86.73 Personal history of transient ischemic attack (TIA), and cerebral infarction without residual deficits; F17.200 Nicotine dependence, unspecified, uncomplicated; Z86.718 Personal history of other venous thrombosis and embolism

== ENCOUNTER → 2016-09-09 | Outpatient (CLI) | payer OTHER, BC ==
[~2016-09-09] MED LIST changes: -ACET-1047 PO; +ACET-1311 PO; +BISA1TAB15 PO; +DEXA2TAB PO; -DOCU100C31 PO; +KFL500 PO; +LACO50TA PO; +LORA-741 PO; +MGCUDL400 PO; +MOML PO; -OXYC1TAB3 PO; -POTA10SO10 PO; +RXC5 PO; +RXNS5 PO; +SODIENE PR
[2016-09-09 07:14] LABS: BASO % 0.2 %; BASO ABS # 0.02 K/uL (0-0.2); COMPLETE YES; EOS % 0.7 %; HEMATOCRIT 31.8 % (37-47); IG% 1.6 %; LYMPH % 14.1 %; LYMPH ABS # 1.25 K/uL (1.2-3.4); MEAN CELL VOLUME 85.5 fL (80-100); MEAN CORPUSCULAR HEMOGLOBIN 26.9 pg (25-34); MEAN CORPUSCULAR HGB CONC 31.4 g/dl (32-36); MEAN PLATELET VOLUME 9.7 fL (7.4-10.4); MONO % 8.5 %; NEUT % 74.9 %; PLATELET COUNT 178 K/uL (130-400); RED BLOOD COUNT 3.72 M/uL (4.2-5.4); WHITE BLOOD COUNT 8.84 K/uL (4.8-10.8)
[2016-09-09 07:16] LABS: ALT/SGPT 32 U/L (12-78); BLOOD UREA NITROGEN 20 mg/dl (7-18); BUN/CREATININE RATIO 26.4 (10-20); CALCIUM 8.7 mg/dl (8.5-10.1); CARBON DIOXIDE 31 mmol/L (21-32); CHLORIDE 104 mmol/L (98-107); CREATININE 0.76 mg/dl (0.60-1.20); GLUCOSE 82 mg/dl (70-99); POTASSIUM 4.1 mmol/L (3.5-5.1); SODIUM 142 mmol/L (136-145)
[2016-09-09 07:24] LABS: ALB/GLOB RATIO 0.6 (0.9-2); ALKALINE PHOSPHATASE 84 U/L (45-117); AST/SGOT 27 U/L (15-37)
[2016-09-09 07:31] LABS: URINE APPEARANCE CLEAR (CLEAR); URINE BILIRUBIN NEG (NEG); URINE COLOR DK YELLOW; URINE EPITHELIAL CELL AUTO >30 /lpf (0-5); URINE NITRITE NEG (NEG); URINE SPECIFIC GRAVITY 1.023 (1.000-1.030); UROBILINOGEN NEG (NEG); ZZUR CULT IF INDIC CLEAN CATCH NO
[2016-09-09 07:50] LABS: MANUAL MICROSCOPIC REQUIRED? NO; REVIEW REQ? NO
== END ==
LOC: C.LABUPNIT 11:48
PROVIDERS: ATTEND Family Medicine
DX: N39.0 Urinary tract infection, site not specified (principal)

== ENCOUNTER → 2016-09-11 | Outpatient (CLI) | payer OTHER, BC ==
--- NOTE | 2016-09-11 13:16 | DIAGNOSTIC IMAGING REPORT ---
PET/CT CLINICAL HISTORY: Non-small cell lung cancer. COMPARISON STUDY: Chest CT dated 08/07/2016. Abdominal CT dated 08/06/2016. TECHNIQUE: One hour following the IV administration of 12.80 mCi of F-18 FDG, PET/CT examination was performed from the orbital meatal line through the bony pelvis. Noncontrast CT is performed for the purposes of anatomic correlation and attenuation correction. Note that this does not reflect a diagnostic CT examination. Images were reviewed on a separate [employer] independent workstation. Fused images were obtained. Standard uptake values reported are maximum values within the region of interest expressed in gm/mL. FINDINGS: PET FINDINGS: Head and neck: There is expected physiologic activity within the visualized brain parenchyma at the skull base and the salivary glands. Thorax: Evaluation of the thorax demonstrates expected physiologic myocardial activity. There is a 3.6 cm mass lesion identified in the left lower lobe with foci of central cavitation. This was demonstrably FDG avid with a maximum SUV of 4.1. There is FDG avid mediastinal and hilar lymphadenopathy. Prevascular nodes seen on image #76 measure up to 1.5 cm in short axis and demonstrates a maximum SUV of 6.2. A subcarinal node on image #83 measures 1.3 cm short axis and demonstrates a maximum SUV of 4.3. An anterior mediastinal node on image #75 measures 1.3 cm and demonstrates a maximum SUV of 2.9. There are FDG avid left hilar nodes which demonstrate a maximum SUV of 3.0. These are suboptimally visualized on the grayscale images. No FDG avid right hilar nodes are identified. There is an FDG avid 1.5 cm right axillary node seen on image #65 which demonstrates a maximum SUV of 3.7. Mildly FDG avid right subpectoral nodes measure up to 1.0 cm and demonstrate a maximum SUV of 1.8. There are is dense airspace consolidation identified throughout the upper lobes. This is markedly FDG avid with a maximum SUV of 6.0. This is new from 08/07/2016 and likely on an infectious/inflammatory basis. Consolidation at the anterior right lung base is also mild FDG avid. The 1.4 cm right lower lobe nodule is unchanged in appearance and did not demonstrate pathologic FDG uptake. Abdomen and pelvis: There is expected activity within the liver, spleen, kidneys, renal collecting system, and bladder. Low-level bowel activity is likely within physical limits. Unenhanced CT images: The visualized brain parenchyma the skull base is normal in appearance. The bony orbits are intact and orbital contents are within normal limits. The visualized paranasal sinuses and the mastoid air cells are clear. The salivary and thyroid glands are normal in appearance. No cervical lymphadenopathy is identified. There is atherosclerotic calcification of the thoracic aorta which is normal in caliber. The heart is normal in size and there is trace pericardial effusion. The pulmonary trunk is normal in caliber. Emphysema is observed. There are moderate to large pleural effusions with bibasilar consolidation, left larger than right. A pleural drain is noted on the left. Patchy airspace consolidation is seen throughout the upper lobes. See above under PET findings for detailed discussion. The unenhanced liver, spleen, pancreas, adrenal glands, and kidneys are grossly normal as imaged. The gallbladder is distended but otherwise unremarkable. The abdominal aorta is normal in course and caliber noting advanced atherosclerotic calcification. There is no bowel obstruction. A normal appendix is identified. There is advanced colonic diverticulosis without CT evidence of acute diverticulitis. Colonic fecal retention is observed. No intraperitoneal free air is seen and there is no abdominal ascites. Trace free fluid is noted in the pelvis. There is no abdominal, pelvic, or inguinal lymphadenopathy. The bladder is decompressed and grossly unremarkable. The uterus and adnexa are normal as imaged. There is anasarca of the body wall. The skeletal structures are osteopenic. No lytic or blastic lesions are seen. Mild degenerative change is present throughout the spine. IMPRESSION: 1. There is a 3.6 cm cavitary and FDG avid mass lesion identified in the left lower lobe. This likely corresponds to patient's reported history of lung cancer. 2. There are FDG avid mediastinal and left hilar lymph nodes. The appearance is concerning for magdalena metastatic disease. 3. There is dense airspace consolidation seen throughout the upper lobes, right greater than left. This is markedly FDG avid and new from 08/05/2016. This is likely on an infectious/inflammatory basis. Neoplasm is considered less likely. Follow-up to resolution is recommended. 4. There are moderate to large pleural effusions, left larger than right with a pleural drain in place on the left. These have significantly increased in size from 08/07/2016. 5. There are FDG avid right axillary and right subpectoral lymph nodes. These are of indeterminant etiology and neoplasm is not excluded. This is atypical for a primary lung cancer. 6. A 1.4 cm irregular nodule in the right lower lobe is again seen. This was not demonstrably FDG and remains indeterminant. 7. There is no evidence of metastatic disease in the abdomen or pelvis. 8. Advanced colonic diverticulosis without CT evidence of acute diverticulitis. 9. There is anasarca of the body wall. 10. Emphysema. 11. Trace free fluid is seen in the cul-de-sac. 12. Additional findings as above. Electronically signed by: Woodrow Brush M.D. 09/11/2016 1:15 PM Dictated Date/Time: 09/11/2016 12:51 PM
--- NOTE | 2016-10-10 06:53 | CODING QUERY MEDICAL NECESSITY ---
CQSUPPORTING DIAGNOSIS NEEDED A supporting diagnosis is required for the test/procedure performed on this patient in order for us to be reimbursed by the patient's insurance. Please provide a supporting diagnosis for the following test/procedure listed below next to the test name along with your signature. *If there is no additional diagnosis for this patient that would support the following test/procedure please document that below next to the test/procedure. Test(s)/Procedure(s) that require a supporting diagnosis: DOS 09/11/16 POSITRON EMISSION TOMOGRAPHY (PET SCAN) Provider Signature: Date: Thank you Marina Albright Health Information Management Once completed, please kindly fax back to [phone] For questions please call [phone]
== END | disposition home or self-care (01) ==
LOC: C.PET 09:44
PROVIDERS: ATTEND Internal Medicine Hematology & Oncology
DX: C34.32 Malignant neoplasm of lower lobe, left bronchus or lung (principal); J43.9 Emphysema, unspecified; K57.90 Diverticulosis of intestine, part unspecified, without perforation or abscess without bleeding; R59.0 Localized enlarged lymph nodes; J90 Pleural effusion, not elsewhere classified

== ENCOUNTER → 2016-09-12 | Outpatient (CLI) | payer OTHER, BC ==
[2016-09-12 10:11] LABS: MEAN CELL VOLUME 84.7 fL (80-100); MEAN CORPUSCULAR HEMOGLOBIN 26.6 pg (25-34); MEAN CORPUSCULAR HGB CONC 31.3 g/dl (32-36); MEAN PLATELET VOLUME 9.4 fL (7.4-10.4); PLATELET COUNT 182 K/uL (130-400); RED BLOOD COUNT 3.54 M/uL (4.2-5.4); WHITE BLOOD COUNT 5.94 K/uL (4.8-10.8)
== END ==
LOC: C.LABUPNIT 08:20
PROVIDERS: ATTEND Family Medicine
DX: J91.0 Malignant pleural effusion (principal)

== ENCOUNTER → 2016-09-13 | Outpatient (CLI) | payer OTHER, BC ==
[2016-09-13 10:40] LABS: HEMATOCRIT 25.9 % (37-47); MEAN CELL VOLUME 84.9 fL (80-100); MEAN CORPUSCULAR HEMOGLOBIN 26.6 pg (25-34); MEAN CORPUSCULAR HGB CONC 31.3 g/dl (32-36); MEAN PLATELET VOLUME 9.9 fL (7.4-10.4); PLATELET COUNT 176 K/uL (130-400); RED BLOOD COUNT 3.05 M/uL (4.2-5.4); WHITE BLOOD COUNT 4.94 K/uL (4.8-10.8)
== END ==
LOC: C.LABUPNIT 08:37
PROVIDERS: ATTEND Family Medicine
DX: Z01.89 Encounter for other specified special examinations (principal)

== ENCOUNTER 2016-09-14 16:07 | Inpatient (IN) | payer OTHER, BC ==
[~2016-09-14] VITALS: Ht 160 cm; Wt 58.3 kg
[~2016-09-14 16:07] MED LIST changes: -ACET-1311 PO; -BISA1TAB15 PO; -LORA-741 PO; -MGCUDL400 PO; -MOML PO; -RXNS5 PO; -SODIENE PR
[2016-09-14] MEDS ORDERED: MOML PO (16:24)
[2016-09-14] MEDS ORDERED: BISA1TAB15 PO (16:24)
[2016-09-14] MEDS ORDERED: LORA-741 PO (16:24)
[2016-09-14] MEDS ORDERED: SODIENE PR (16:24)
[2016-09-14] MEDS ORDERED: ACET-1311 PO (16:24)
[2016-09-14] MEDS ORDERED: CEFEPIME IV 1,000 MG in DEXTROSE 5% 100ML 100 ML IV STA (16:32)
[2016-09-14] MEDS ORDERED: SODIUM CHLORIDE 0.9% 1000ML 1,000 ML IV STA (16:32)
[2016-09-14] MEDS ORDERED: OPTIRAY 320 IV PRN (16:45)
[2016-09-14 16:51] LABS: ISTAT HEMOGLOBIN 9.2 g/dl (12.0-16.0); ISTAT IONIZED CALCIUM 1.1 mmol/l (1.12-1.32)
--- NOTE | 2016-09-14 17:00 | DIAGNOSTIC IMAGING REPORT ---
CHEST ONE VIEW PORTABLE HISTORY: fever COMPARISON: Chest 08/17/2016. FINDINGS: The heart remains mildly enlarged. Diffuse interstitial thickening with a small right and moderate left pleural effusion. This likely represents pulmonary edema. Cavitating left perihilar mass is again noted. This measures approximately 3.2 cm. This is similar to the prior PET/CT. A left-sided chest tube is noted. No pneumothorax. IMPRESSION: 1. Moderate pulmonary edema with a small right and moderate left pleural effusion. 2. Left-sided chest tube is again noted. No definite pneumothorax. 3. Left perihilar cavitary mass is better appreciated on the recent PET/CT. Electronically signed by: Kenyon Alford M.D. 09/14/2016 4:59 PM Dictated Date/Time: 09/14/2016 4:56 PM
[2016-09-14 17:12] LABS: BASO % 0.1 %; BASO ABS # 0.01 K/uL (0-0.2); COMPLETE YES; EOS % 0.1 %; HEMATOCRIT 29.4 % (37-47); IG% 0.2 %; LYMPH % 9.2 %; LYMPH ABS # 0.75 K/uL (1.2-3.4); MEAN CELL VOLUME 84.7 fL (80-100); MEAN CORPUSCULAR HEMOGLOBIN 26.8 pg (25-34); MEAN CORPUSCULAR HGB CONC 31.6 g/dl (32-36); MEAN PLATELET VOLUME 9.3 fL (7.4-10.4); MONO % 7.1 %; NEUT % 83.3 %; PLATELET COUNT 203 K/uL (130-400); RED BLOOD COUNT 3.47 M/uL (4.2-5.4); WHITE BLOOD COUNT 8.17 K/uL (4.8-10.8)
[2016-09-14 17:20] LABS: PROTHROMBIN TIME (PATIENT) 10.7 SECONDS (9.0-12.0)
[2016-09-14 17:30] LABS: VEN BLOOD GAS BASE EXCESS 2.3 mmol/L; VENOUS BLOOD GAS PCO2 52 mmHg (38.0-50.0); VENOUS BLOOD GAS PO2 19 mmHg
[2016-09-14 17:31] LABS: BUN/CREATININE RATIO 29.1 (10-20); CALCIUM 8.2 mg/dl (8.5-10.1); CREATININE 0.82 mg/dl (0.60-1.20); MAGNESIUM 2.1 mg/dl (1.8-2.4); POTASSIUM 4.7 mmol/L (3.5-5.1)
[2016-09-14 17:31] LABS: VEN BLD GAS O2 SATURATION < 60.0 %
[2016-09-14 17:40] LABS: CKMB/CK RATIO 2.8 (0-3.0)
--- NOTE | 2016-09-14 17:44 | DIAGNOSTIC IMAGING REPORT ---
CT OF THE HEAD WITHOUT CONTRAST CLINICAL HISTORY: Altered mental status. Lung cancer. COMPARISON STUDY: MRI of the brain August 06, [address] August 17, 2016. TECHNIQUE: Helical axial images of the head were obtained without IV contrast. Automated exposure control was utilized for the study. FINDINGS: No acute intracranial hemorrhage, midline shift or mass effect is present. Ventricular system is normal. The basilar cisterns are patent. There are no extra-axial collections. Encephalomalacia within the medial right occipital lobe is consistent with an old infarct. Edema within the right frontal lobe has improved since initial head CT of August 06, 2016. The enhancing lesion shown at this site on MRI of August 06, 2016 is not visualized, likely due to technique. Similarly, the small right occipital lobe ring enhancing lesion shown on MRI is not evident on since exam. No calvarial lesions are identified. Visualized portions of the sinuses and mastoid air cells are clear. IMPRESSION: 1. No acute intracranial hemorrhage. 2. Interval decrease in edema associated with the right frontal lobe metastasis shown on MRI of August 06, 2016 suggestive of a treatment response. The lesion itself is not well visualized on this exam, possibly due to technique. Similarly, the ring-enhancing right occipital lobe lesion shown on prior MRI is not well delineated on this exam. 3. 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 Electronically signed by: Festus Hannon M.D. 09/14/2016 5:43 PM Dictated Date/Time: 09/14/2016 5:35 PM
--- NOTE | 2016-09-14 17:59 | DIAGNOSTIC IMAGING REPORT ---
CT ANGIOGRAPHY OF THE CHEST, PULMONARY EMBOLUS PROTOCOL CLINICAL HISTORY: Hypoxia. Lung cancer. COMPARISON STUDY: Chest CT August 07, 2016 and PET/CT September 12, 2016. TECHNIQUE: Following IV administration of 71 mL of Optiray-320, helical axial images of the chest were obtained utilizing the pulmonary embolus protocol. Maximal intensity projections and sagittal and coronal reformats were viewed on an independent 3D workstation. IV contrast was administered without complication. CT DOSE: 802.35 mGy.cm FINDINGS: No central or lobar pulmonary emboli are identified. The segmental and subsegmental arteries are suboptimally assessed due to respiratory motion. The heart is mildly enlarged. There is no pericardial effusion. Large bilateral pleural effusions, left larger than right, have increased in size since PET/CT of September 11, 2016. A left pleural drain is in place. The known cavitary left lower lobe mass is obscured and surrounded by atelectatic left lower lobe. The additional pulmonary nodules shown on prior exam are obscured on this study. Lungs are suboptimally assessed due to respiratory motion. There is diffuse interlobular septal thickening with extensive bilateral airspace opacities. There is left lower lobe collapse which is likely related to the pleural effusion. There is segmental right lower lobe, lingular and right middle lobe atelectasis. There is no pneumothorax. Central airways are grossly patent. No suspicious osseous lesions are present. Several mildly enlarged thoracic lymph nodes are unchanged since PET/CT include a 1.1 cm prevascular node and a 1.5 cm AP window node. There is a 1.3 cm right axillary lymph node. Upper abdomen is unremarkable. There is subcutaneous edema suggestive of anasarca. IMPRESSION: 1. No pulmonary emboli identified although segmental and subsegmental pulmonary arteries suboptimally assessed due to respiratory motion. 2. Large bilateral pleural effusions, left larger than right, which have increased in size since PET/CT of September 11, 2016. Left pleural catheter in place. The known left lower lobe primary malignancy is obscured by surrounding collapsed left lower lobe. Segmental right lower lobe, lingular and right middle lobe atelectasis. 3. Interlobular septal thickening consistent with pulmonary edema. Additional airspace opacities likely reflect pulmonary edema however a superimposed infectious process could appear similar. Lymphangitic carcinomatosis is within the differential although considered less likely. 4. No change in thoracic lymphadenopathy which is suspicious for magdalena spread of disease. Electronically signed by: Festus Hannon M.D. 09/14/2016 5:58 PM Dictated Date/Time: 09/14/2016 5:43 PM
[2016-09-14] MEDS ORDERED: VANCOMYCIN INJ 1,400 MG in SODIUM CHLORIDE 0.9% 500ML 500 ML IV STA (18:09)
[2016-09-14 18:15] LABS: URINE APPEARANCE CLOUDY (CLEAR); URINE COLOR DK YELLOW; URINE EPITHELIAL CELL AUTO >30 /lpf (0-5); URINE NITRITE NEG (NEG); URINE SPECIFIC GRAVITY 1.029 (1.000-1.030); UROBILINOGEN NEG (NEG)
[2016-09-14 18:18] LABS: MANUAL MICROSCOPIC REQUIRED? NO; REVIEW REQ? YES; URINE BILIRUBIN NEG (NEG)
[2016-09-14 18:33] LABS: URINE PATH CASTS 0-3 GRANULAR CASTS /lpf (0)
[2016-09-14 18:34] LABS: ZZURINE CULT IF INDIC CATH YES
[2016-09-14] MEDS ORDERED: DEXAMETHASONE 2 MG PO SCH (19:00)
[2016-09-14] MEDS ORDERED: LORAZEPAM 0.5 MG TAB PO SCH (19:00)
[2016-09-14] MEDS ORDERED: LEVALBUTEROL 0.31MG/3 ML VIAL INH PRN (19:00)
[2016-09-14] MEDS ORDERED: BISACODYL 5 MG TABEC PO PRN (19:00)
[2016-09-14] MEDS ORDERED: OXYCODONE HCL 10 MG TABCR (OXYCONTIN) PO PRN (19:00)
[2016-09-14] MEDS ORDERED: MAGNESIUM HYDROXIDE SUSP 30 ML UDC PO PRN (19:00)
[2016-09-14] MEDS ORDERED: SOD PHOSPHATE/SOD BIPHOSPHATE ENEMA 132 ML BTL PR PRN (19:00)
[2016-09-14] MEDS ORDERED: LEVOFLOXACIN / D5W 750 MG IV STA (19:27)
--- NOTE | 2016-09-14 19:36 | History and Physical ---
History & Physical Date & Time of Service: Sep 14, 2016 at 19:02 Chief Complaint: AMS Primary Care Physician: Kj Frias History of Present Illness Source: patient, family (bROTHER) 71 year old female who presents to the Emergency Room with complaints of constant altered mental status beginning yesterday following her first immunotherapy infusion for stage IV lung cancer with metastases to the brain. The patient's brother reports that after the treatment the patient became confused and began speaking about things that happened 30 years ago. Today he reports that the patient was at [facility] and they noted that she was also confused today. The patient complains of a headache that is not unusual, cough beginning 10 days ago, leg swelling that began a few weeks ago and those are erythematous now . She denies any change in vision, weakness in the arms or legs , nausea, vomiting, urinary symptoms, abdominal pain, recent falls, and trauma. Per nursing staff the patient is usually on 2.5L of oxygen and her oxygen was 84 % on arrival. Her brother states that she is on Lasix and is not on any blood thinners. 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 She received her first Immunomodulator therapy yesterday. She was hemodynamically stable with Tachycardia and anxiety.CT of the chest did not show any PE and the effusions are increased ,no definite Pneumonia,CT of the Brain edema is decreasing.She has bilateral leg edema with cellulitis.Started to feel better following IVF and IV antibiotics Admitted to Telemetry unit for continuation of care. Past Medical/Surgical History Medical Problems: (1) Chronic low back pain Status: Chronic (2) CVA (cerebral vascular accident) Status: Resolved (3) Dyslipidemia Status: Chronic (4) GERD (gastroesophageal reflux disease) Status: Chronic (5) Heart disease Status: Chronic (6) Hypertension Status: Chronic Social History Smoking Status: Former Smoker Alcohol Use: none Drug Use: none Marital Status: Housing status: other ([facility]) Occupational Status: retired Allergies Coded Allergies: Penicillins (Verified Allergy, Intermediate, RASH-HAPPENED A CHILD, ) Home Medications Scheduled Aspirin (Aspirin Ec), 81 MG PO QAM Atorvastatin (Lipitor), 40 MG PO HS Dexamethasone (Dexamethasone), 2 MG PO UD Folic Acid (Folvite), 1 MG PO QAM Gabapentin (Neurontin), 600 MG PO HS Lacosamide (Vimpat), 100 MG PO BID Lorazepam (Ativan), 0.5 MG PO Q6H Midodrine (Midodrine HCl), 2.5 MG PO TID Scheduled PRN Acetaminophen (Tylenol), 650 MG PO Q6 PRN for Pain or Fever Bisacodyl (Bisacodyl), 2 TAB PO UD PRN for constipation Magnesium Hydroxide (Milk Of Magnesia), 30 ML PO for Constipation Oxycodone HCl (Oxycontin), 10 MG PO BID PRN for Pain Oxycodone HCl (Oxycodone HCl), 5 MG PO Q8 PRN for severe Pain Sodium Phosphate/Biphosphate (Fleet Enema), 1 EA NC DAILY PRN for constipation Review of Systems Constitutional: + fatigue Respiratory: + wheezing, + shortness of breath Neurologic: + memory loss Physical Exam Vital Signs Date Time Temp Pulse Resp B/P (MAP) Pulse Ox O2 Delivery O2 Flow Rate FiO2 09/14/16 18:05 109 16 97/49 98 Non-Rebreather 15.0 143/72 09/14/16 16:42 108 09/14/16 16:09 93 Nasal Cannula 5.0 09/14/16 16:09 37.0 100 22 134/75 94 Nasal Cannula 5.0 General Appearance: + moderate distress Head: atraumatic Eyes: normal inspection ENT: normal ENT inspection Neck: supple Respiratory/Chest: + decreased breath sounds (Bilateral,left more than the right) Cardiovascular: + tachycardia Abdomen/GI: normal bowel sounds Extremities/Musculoskelatal: + inflammation (Redness lower extremities), + pedal edema, + swelling Skin: warm/dry Diagnostics Laboratory Results Results Past 24 Hours Test 09/14/16 15:59 09/14/16 16:40 09/14/16 17:02 09/14/16 17:12 Range/Units White Blood Count 8.17 4.8-10.8 K/uL Red Blood Count 3.47 4.2-5.4 M/uL Hemoglobin 9.3 12.0-16.0 g/dL Hematocrit 29.4 37-47 % Mean Corpuscular Volume 84.7 80-100 fL Mean Corpuscular Hemoglobin 26.8 25-34 pg Mean Corpuscular Hemoglobin Concent 31.6 32-36 g/dl Platelet Count 203 130-400 K/uL Mean Platelet Volume 9.3 7.4-10.4 fL Neutrophils (%) (Auto) 83.3 % Lymphocytes (%) (Auto) 9.2 % Monocytes (%) (Auto) 7.1 % Eosinophils (%) (Auto) 0.1 % Basophils (%) (Auto) 0.1 % Neutrophils # (Auto) 6.80 1.4-6.5 K/uL Lymphocytes # (Auto) 0.75 1.2-3.4 K/uL Monocytes # (Auto) 0.58 0.11-0.59 K/uL Eosinophils # (Auto) 0.01 0-0.5 K/uL Basophils # (Auto) 0.01 0-0.2 K/uL RDW Standard Deviation 56.6 36.4-46.3 fL RDW Coefficient of Variation 18.2 11.5-14.5 % Immature Granulocyte % (Auto) 0.2 % Immature Granulocyte # (Auto) 0.02 0.00-0.02 K/uL Prothrombin Time 10.7 9.0-12.0 SECONDS Prothromb Time International Ratio 1.0 0.9-1.1 Sodium Level 141 136-145 mmol/L Potassium Level 4.7 3.5-5.1 mmol/L Chloride Level 106 98-107 mmol/L Carbon Dioxide Level 27 21-32 mmol/L Anion Gap 8.0 12.0 16-25 mmol/L Blood Urea Nitrogen 24 7-18 mg/dl Creatinine 0.82 0.60-1.20 mg/dl Est Creatinine Clear Calc Drug Dose 62.3 ml/min Estimated GFR () 84.6 Estimated GFR (Non- 73.0 BUN/Creatinine Ratio 29.1 10-20 Random Glucose 105 70-99 mg/dl Calcium Level 8.2 8.5-10.1 mg/dl Magnesium Level 2.1 1.8-2.4 mg/dl Total Bilirubin 0.5 0.2-1 mg/dl Direct Bilirubin 0.1 0-0.2 mg/dl Aspartate Amino Transf (AST/SGOT) 24 15-37 U/L Alanine Aminotransferase (ALT/SGPT) 23 12-78 U/L Alkaline Phosphatase 95 45-117 U/L Total Creatine Kinase 53 26-192 U/L Creatine Kinase MB 1.5 0.5-3.6 ng/ml Creatine Kinase MB Ratio 2.8 0-3.0 Troponin I 0.083 0-0.045 ng/ml Total Protein 6.0 6.4-8.2 gm/dl Albumin 1.8 3.4-5.0 gm/dl Bedside Hemoglobin 9.2 12.0-16.0 g/dl Bedside Hematocrit 27 37-47 % Bedside Sodium 139 135-144 mEq/L Bedside Potassium 4.7 3.3-5.0 mEq/L Bedside Chloride 103 101-112 mEq/L Bedside Total CO2 29 24-31 mEq/l Bedside Blood Urea Nitrogen 25 7-18 mg/dl Bedside Creatinine 1.0 0.6-1.3 mg/dl Bedside Glucose (other) 113 70-99 mg/dl Bedside Ionized Calcium (Teresa) 1.10 1.12-1.32 mmol/l Bedside Lactic Acid Venous 0.79 0.90-1.70 mmol/L Venous Blood pH 7.36 7.36-7.41 Venous Blood Partial Pressure CO2 52 38.0-50.0 mmHg Venous Blood Partial Pressure O2 19 mmHg Venous Blood HCO3 28 mmol/L Venous Blood Oxygen Saturation < 60.0 % Venous Blood Base Excess 2.3 mmol/L Test 09/14/16 17:55 Range/Units Urine Color DK YELLOW Urine Appearance CLOUDY CLEAR Urine pH 5.0 4.5-7.5 Urine Specific [place] 1.029 1.000-1.030 Urine Protein 3+ NEG Urine Glucose (UA) NEG NEG Urine Ketones TRACE NEG Urine Occult Blood 2+ NEG Urine Nitrite NEG NEG Urine Bilirubin NEG NEG Urine Urobilinogen NEG NEG Urine Leukocyte Esterase MODERATE NEG Urine WBC (Auto) >30 0-5 /hpf Urine RBC (Auto) 0-4 0-4 /hpf Urine Hyaline Casts (Auto) 10-30 0-5 /lpf Urine Epithelial Cells (Auto) >30 0-5 /lpf Urine Bacteria (Auto) 4+ NEG Urine Pathogenic Casts 0-3 GRANULAR CASTS 0 /lpf Microbiology Results 09/14/16 Blood Culture, Received Pending 09/14/16 Blood Culture, Received Pending 09/14/16 Urine Culture, Received Pending Diagnostic Radiology CXR::1. Moderate pulmonary edema with a small right and moderate left pleural effusion. 2. Left-sided chest tube is again noted. No definite pneumothorax. 3. Left perihilar cavitary mass is better appreciated on the recent PET/CT. CTA-1. No pulmonary emboli identified although segmental and subsegmental pulmonary arteries suboptimally assessed due to respiratory motion. 2. Large bilateral pleural effusions, left larger than right, which have increased in size since PET/CT of September 11, 2016. Left pleural catheter in place. The known left lower lobe primary malignancy is obscured by surrounding collapsed left lower lobe. Segmental right lower lobe, lingular and right middle lobe atelectasis. 3. Interlobular septal thickening consistent with pulmonary edema. Additional airspace opacities likely reflect pulmonary edema however a superimposed infectious process could appear similar. Lymphangitic carcinomatosis is within the differential although considered less likely. 4. No change in thoracic lymphadenopathy which is suspicious for magdalena spread of disease. CT of the Head:: 1. No acute intracranial hemorrhage. 2. Interval decrease in edema associated with the right frontal lobe metastasis shown on MRI of August 06, 2016 suggestive of a treatment response. The lesion itself is not well visualized on this exam, possibly due to technique. Similarly, the ring-enhancing right occipital lobe lesion shown on prior MRI is not well delineated on this exam. 3. Old right BOTANY TEACHER territory infarct. other (Tachycardia) Impression Assessment and Plan Change in Mental Status Bilateral Leg Cellulitis,No definite Pneumonia and or Sepsis Probable causes-Brain Mets,Infection,Hypoxemia,related to recent Immunotherapy, dehydration Admit to Tele Received Vanco and Cefepime in ER Gentle IVF and IV antibiotic Metastatic Adenocarcinoma Bilateral Pleural Effusion Left pleural catheter in place CT of the chest as above Pulmonary consult Management per Medical Oncology. BRAIN METS Neuroimaging demonstrated right frontal and occipital lesions with associated vasogenic edema. Received Radiation therapy Continue current dose of Dexamethasone MALIGNANT LEFT PLEURAL EFFUSION Has left Pleural Catheter DEPRESSION Continue sertraline. VTE PROPHYLAXIS History of DVT. No anticoagulants due to brain mets. S/P IV filter. SCD's. Ambulate. Code Status-DNR ,discussed with the patient and the Brother DISPOSITION To be determined. Anticipate need for inpatient rehabilitation for skilled care. Medical follow-up with Dr. Bowden. VTE Prophylaxis VTE Risk Assessment Done? Y/N: Yes Risk Level: High
[2016-09-14 20:48] VITALS: BP 168/77; PULSE 118; TEMP 36.8; O2SAT 91; O2SAT 92; Ht 160 cm; Wt 58.3 kg
[2016-09-14] MEDS: OXYCODONE HCL IR 5 MG TAB (IMMEDIATE RELEASE) PO PRN (20:57)
[2016-09-14] MEDS ORDERED: NSS + 20MEQ KCL 1000ML 1,000 ML IV SCH (21:21)
[2016-09-14] MEDS: ATORVASTATIN 40 MG TAB PO SCH (21:50)
[2016-09-14] MEDS: GABAPENTIN 600 MG TAB PO SCH (21:51)
[2016-09-14] MEDS: LACOSAMIDE 50 MG TAB PO SCH (21:51)
[2016-09-14] MEDS ORDERED: LEVOFLOXACIN / D5W 750 MG in PREMIXED IN D5W 150 ML IV SCH (22:00)
[2016-09-14] MEDS ORDERED: LEVALBUTEROL/IPRATROPIUM NEB INH STA (22:30)
[2016-09-14] MEDS ORDERED: FUROSEMIDE INJ 40 MG in SYRINGE 0 ML IV ONE (22:45)
[2016-09-14] MEDS ORDERED: IPRATROPIUM BROMIDE NEB SOLN 0.02% 2.5 ML VIAL INH SCH (23:00)
[2016-09-14] MEDS ORDERED: LEVALBUTEROL 1.25MG/0.5ML NEB INH SCH (23:00)
--- NOTE | 2016-09-14 23:19 | EMERGENCY ROOM VISIT NOTE ---
History Report prepared by Gonzalez: Lianna Jackson Under the Supervision of: Dr. Easton Goodwin D.O. First contact with patient: 16:16 Chief Complaint: ALTERED MENTAL STATUS Stated Complaint: AMS Nursing Triage Summary: pt arrives via ALS from [facility] Per [facility] pt has brain and lung cancer had 1st round of chemo yesterday (09/13) After that she became intermittently confused and was not answering questions appropriately She also takes 3 people to transfer The [facility] called her son and he wanted her evaluated She wears 2 Liters normally, but was put on 15L in the ambulance because her o2 sat @ [facility] side was 84% on 2L History of Present Illness The patient is a 71 year old female who presents to the Emergency Room with complaints of constant altered mental status beginning yesterday. 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 The patient's brother reports that after the treatment the patient became confused and began speaking about things that happened 30 years ago. Today he reports that the patient was at [facility] and they noted that she was also confused today. The patient complains of a headache that is not unusual, cough beginning 10 days ago, leg swelling that began a few weeks ago. She denies any change in vision, weakness in the arms or legs, nausea, vomiting, urinary symptoms, abdominal pain, recent falls, and trauma. Per nursing staff the patient is usually on 2.5L of oxygen and her oxygen was 84% on arrival. Her brother states that she is on Lasix and is not on any blood thinners. Source of History: patient, family Onset: yesterday Position: other (global) Quality: other (AMS) Timing: constant Associated Symptoms: + headache, + cough, No nausea, No vomiting, No abdominal pain, No urinary symptoms, No weakness Note: She denies any change in vision, recent falls, and trauma. Review of Systems See HPI for pertinent positives & negatives. A total of 10 systems reviewed and were otherwise negative. Past Medical & Surgical Medical Problems: (1) Adenocarcinoma of lung, stage 4 (2) Brain metastases (3) Brain metastasis (4) Change in mental status (5) Chronic low back pain (6) CVA (cerebral vascular accident) (7) Dyslipidemia (8) GERD (gastroesophageal reflux disease) (9) Heart disease (10) Hypertension (11) Pulmonary mass (12) Respiratory failure, acute Family History No pertinent family history stated. Social History Smoking Status: Former Smoker Alcohol Use: none Drug Use: none Marital Status: Housing Status: lives with family Occupation Status: retired Current/Historical Medications Scheduled Aspirin (Aspirin Ec), 81 MG PO QAM Atorvastatin (Lipitor), 40 MG PO HS Folic Acid (Folvite), 1 MG PO QAM Gabapentin (Neurontin), 600 MG PO HS Lacosamide (Vimpat), 100 MG PO BID Midodrine (Midodrine HCl), 2.5 MG PO TID Scheduled PRN Acetaminophen (Tylenol), 650 MG PO Q6 PRN for Pain or Fever Bisacodyl (Bisacodyl), 2 TAB PO UD PRN for constipation Lorazepam (Ativan), 0.5 MG PO Q6H PRN for Anxiety/Agitation Magnesium Hydroxide (Milk Of Magnesia), 30 ML PO for Constipation Oxycodone HCl (Oxycontin), 10 MG PO BID PRN for Pain Oxycodone HCl (Oxycodone HCl), 5 MG PO Q8 PRN for severe Pain Sodium Phosphate/Biphosphate (Fleet Enema), 1 EA VT DAILY PRN for constipation Allergies Coded Allergies: Penicillins (Verified Allergy, Intermediate, RASH-HAPPENED A CHILD, ) Physical Exam Vital Signs Date Time Temp Pulse Resp B/P (MAP) Pulse Ox O2 Delivery O2 Flow Rate FiO2 09/14/16 18:05 109 16 97/49 98 Non-Rebreather 15.0 143/72 09/14/16 16:42 108 09/14/16 16:09 93 Nasal Cannula 5.0 09/14/16 16:09 37.0 100 22 134/75 94 Nasal Cannula 5.0 Physical Exam GENERAL: sitting up in bed, ill appearing, disheveled, mild distress, on nasal cannula EYE EXAM: normal conjunctiva, PERRL and EOM's intact OROPHARYNX: no exudate, no erythema, lips, buccal mucosa, and tongue normal and mucous membranes are moist NECK: supple, no nuchal rigidity, no adenopathy, non-tender CHEST: Pleurocath located along left chest wall LUNGS: Diminished to the mid to distal lung guevara bilaterally. Normal chest wall mechanics HEART: tachycardia, no murmurs, S1 normal and S2 normal ABDOMEN: abdomen soft, non-tender, normo-active bowel sounds, no masses, no rebound or guarding. BACK: Back is symmetrical on inspection and there is no deformity, no midline tenderness, no CVA tenderness. SKIN: no rashes and no bruising UPPER EXTREMITIES: upper extremities are grossly normal. LOWER EXTREMITIES: No pitting edema. Erythema on bilateral shins NEURO EXAM: Alert, follows commands but not oriented to place, cranial nerves II -XII intact, no weakness of upper or lower extremities Medical Decision & Procedures ER Provider Diagnostic Interpretation: Radiology results as stated below per my review and the radiologist's interpretation: CHEST ONE VIEW PORTABLE FINDINGS: The heart remains mildly enlarged. Diffuse interstitial thickening with a small right and moderate left pleural effusion. This likely represents pulmonary edema. Cavitating left perihilar mass is again noted. This measures approximately 3.2 cm. This is similar to the prior PET/CT. A left-sided chest tube is noted. No pneumothorax. IMPRESSION: 1. Moderate pulmonary edema with a small right and moderate left pleural effusion. 2. Left-sided chest tube is again noted. No definite pneumothorax. 3. Left perihilar cavitary mass is better appreciated on the recent PET/CT. Electronically signed by: Kenyon Alford M.D. 09/14/2016 4:59 PM Dictated Date/Time: 09/14/2016 4:[address] ANGIOGRAPHY OF THE CHEST, PULMONARY EMBOLUS PROTOCOL FINDINGS: No central or lobar pulmonary emboli are identified. The segmental and subsegmental arteries are suboptimally assessed due to respiratory motion. The heart is mildly enlarged. There is no pericardial effusion. Large bilateral pleural effusions, left larger than right, have increased in size since PET/CT of September 11, 2016. A left pleural drain is in place. The known cavitary left lower lobe mass is obscured and surrounded by atelectatic left lower lobe. The additional pulmonary nodules shown on prior exam are obscured on this study. Lungs are suboptimally assessed due to respiratory motion. There is diffuse interlobular septal thickening with extensive bilateral airspace opacities. There is left lower lobe collapse which is likely related to the pleural effusion. There is segmental right lower lobe, lingular and right middle lobe atelectasis. There is no pneumothorax. Central airways are grossly patent. No suspicious osseous lesions are present. Several mildly enlarged thoracic lymph nodes are unchanged since PET/CT include a 1.1 cm prevascular node and a 1.5 cm AP window node. There is a 1.3 cm right axillary lymph node. Upper abdomen is unremarkable. There is subcutaneous edema suggestive of anasarca. IMPRESSION: 1. No pulmonary emboli identified although segmental and subsegmental pulmonary arteries suboptimally assessed due to respiratory motion. 2. Large bilateral pleural effusions, left larger than right, which have increased in size since PET/CT of September 11, 2016. Left pleural catheter in place. The known left lower lobe primary malignancy is obscured by surrounding collapsed left lower lobe. Segmental right lower lobe, lingular and right middle lobe atelectasis. 3. Interlobular septal thickening consistent with pulmonary edema. Additional airspace opacities likely reflect pulmonary edema however a superimposed infectious process could appear similar. Lymphangitic carcinomatosis is within the differential although considered less likely. 4. No change in thoracic lymphadenopathy which is suspicious for magdalena spread of disease. Electronically signed by: Festus Hannon M.D. 09/14/2016 5:58 PM Dictated Date/Time: 09/14/2016 5:[address] OF THE HEAD WITHOUT CONTRAST FINDINGS: No acute intracranial hemorrhage, midline shift or mass effect is present. Ventricular system is normal. The basilar cisterns are patent. There are no extra-axial collections. Encephalomalacia within the medial right occipital lobe is consistent with an old infarct. Edema within the right frontal lobe has improved since initial head CT of August 06, 2016. The enhancing lesion shown at this site on MRI of August 06, 2016 is not visualized, likely due to technique. Similarly, the small right occipital lobe ring enhancing lesion shown on MRI is not evident on since exam. No calvarial lesions are identified. Visualized portions of the sinuses and mastoid air cells are clear. IMPRESSION: 1. No acute intracranial hemorrhage. 2. Interval decrease in edema associated with the right frontal lobe metastasis shown on MRI of August 06, 2016 suggestive of a treatment response. The lesion itself is not well visualized on this exam, possibly due to technique. Similarly, the ring-enhancing right occipital lobe lesion shown on prior MRI is not well delineated on this exam. 3. 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 Electronically signed by: Festus Hannon M.D. 09/14/2016 5:43 PM Dictated Date/Time: 09/14/2016 5:35 PM Laboratory Results 09/14/16 15:59 Red Blood Count 3.47, Mean Corpuscular Volume 84.7, Mean Corpuscular Hemoglobin 26.8, Mean Corpuscular Hemoglobin Concent 31.6, Mean Platelet Volume 9.3, Neutrophils (%) (Auto) 83.3, Lymphocytes (%) (Auto) 9.2, Monocytes (%) (Auto) 7.1, Eosinophils (%) (Auto) 0.1, Basophils (%) (Auto) 0.1, Neutrophils # (Auto) 6.80, Lymphocytes # (Auto) 0.75, Monocytes # (Auto) 0.58, Eosinophils # (Auto) 0.01, Basophils # (Auto) 0.01 09/14/16 15:59 Test 09/14/16 15:59 09/14/16 16:40 09/14/16 17:02 09/14/16 17:12 White Blood Count 8.17 K/uL (4.8-10.8) Red Blood Count 3.47 M/uL (4.2-5.4) Hemoglobin 9.3 g/dL (12.0-16.0) Hematocrit 29.4 % (37-47) Mean Corpuscular Volume 84.7 fL (80-100) Mean Corpuscular Hemoglobin 26.8 pg (25-34) Mean Corpuscular Hemoglobin Concent 31.6 g/dl (32-36) Platelet Count 203 K/uL (130-400) Mean Platelet Volume 9.3 fL (7.4-10.4) Neutrophils (%) (Auto) 83.3 % Lymphocytes (%) (Auto) 9.2 % Monocytes (%) (Auto) 7.1 % Eosinophils (%) (Auto) 0.1 % Basophils (%) (Auto) 0.1 % Neutrophils # (Auto) 6.80 K/uL (1.4-6.5) Lymphocytes # (Auto) 0.75 K/uL (1.2-3.4) Monocytes # (Auto) 0.58 K/uL (0.11-0.59) Eosinophils # (Auto) 0.01 K/uL (0-0.5) Basophils # (Auto) 0.01 K/uL (0-0.2) RDW Standard Deviation 56.6 fL (36.4-46.3) RDW Coefficient of Variation 18.2 % (11.5-14.5) Immature Granulocyte % (Auto) 0.2 % Immature Granulocyte # (Auto) 0.02 K/uL (0.00-0.02) Prothrombin Time 10.7 SECONDS (9.0-12.0) Prothromb Time International Ratio 1.0 (0.9-1.1) Est Creatinine Clear Calc Drug Dose 62.3 ml/min Estimated GFR () 84.6 Estimated GFR (Non- 73.0 BUN/Creatinine Ratio 29.1 (10-20) Calcium Level 8.2 mg/dl (8.5-10.1) Magnesium Level 2.1 mg/dl (1.8-2.4) Total Bilirubin 0.5 mg/dl (0.2-1) Direct Bilirubin 0.1 mg/dl (0-0.2) Aspartate Amino Transf (AST/SGOT) 24 U/L (15-37) Alanine Aminotransferase (ALT/SGPT) 23 U/L (12-78) Alkaline Phosphatase 95 U/L (45-117) Total Creatine Kinase 53 U/L (26-192) Creatine Kinase MB 1.5 ng/ml (0.5-3.6) Creatine Kinase MB Ratio 2.8 (0-3.0) Troponin I 0.083 ng/ml (0-0.045) Total Protein 6.0 gm/dl (6.4-8.2) Albumin 1.8 gm/dl (3.4-5.0) Bedside Hemoglobin 9.2 g/dl (12.0-16.0) Bedside Hematocrit 27 % (37-47) Bedside Sodium 139 mEq/L (135-144) Bedside Potassium 4.7 mEq/L (3.3-5.0) Bedside Chloride 103 mEq/L (101-112) Bedside Total CO2 29 mEq/l (24-31) Anion Gap 12.0 mmol/L (16-25) Bedside Blood Urea Nitrogen 25 mg/dl (7-18) Bedside Creatinine 1.0 mg/dl (0.6-1.3) Bedside Glucose (other) 113 mg/dl (70-99) Bedside Ionized Calcium (Teresa) 1.10 mmol/l (1.12-1.32) Bedside Lactic Acid Venous 0.79 mmol/L (0.90-1.70) Venous Blood pH 7.36 (7.36-7.41) Venous Blood Partial Pressure CO2 52 mmHg (38.0-50.0) Venous Blood Partial Pressure O2 19 mmHg Venous Blood HCO3 28 mmol/L Venous Blood Oxygen Saturation < 60.0 % Venous Blood Base Excess 2.3 mmol/L Test 09/14/16 17:55 Urine Color DK YELLOW Urine Appearance CLOUDY (CLEAR) Urine pH 5.0 (4.5-7.5) Urine Specific [place] 1.029 (1.000-1.030) Urine Protein 3+ (NEG) Urine Glucose (UA) NEG (NEG) Urine Ketones TRACE (NEG) Urine Occult Blood 2+ (NEG) Urine Nitrite NEG (NEG) Urine Bilirubin NEG (NEG) Urine Urobilinogen NEG (NEG) Urine Leukocyte Esterase MODERATE (NEG) Urine WBC (Auto) >30 /hpf (0-5) Urine RBC (Auto) 0-4 /hpf (0-4) Urine Hyaline Casts (Auto) 10-30 /lpf (0-5) Urine Epithelial Cells (Auto) >30 /lpf (0-5) Urine Bacteria (Auto) 4+ (NEG) Urine Pathogenic Casts 0-3 GRANULAR CASTS /lpf (0) Laboratory results per my review. Medications Administered Medications (Trade) Dose Ordered Sig/Yuriy Route Start Time Stop Time Status Last Admin Dose Admin Cefepime HCl 1000 mg/Dextrose 111.3 ml @ 200 mls/hr NOW STAT IV 09/14/16 16:32 09/14/16 17:05 DC 09/14/16 16:32 200 MLS/HR Vancomycin HCl 1400 mg/Sodium Chloride 528 ml @ 200 mls/hr ONE STAT IV 09/14/16 18:09 09/14/16 20:51 DC 09/14/16 18:09 200 MLS/HR ECG Indication: other (AMS) Rate (beats per minute): 103 Rhythm: sinus tachycardia Findings: PVC, other (normal axis, flipped t waves in septal and high lateral leads) Comparison ECG Date: 18-AUG-2016 Change: Flipped t waves are new in high lateral leads. ED Course ED COURSE: Vital signs were reviewed and showed tachycardia and hypoxia The patients medical record was reviewed The above diagnostic studies were performed and reviewed. ED treatments and interventions as stated above. 1616: The patient was evaluated in room C3. A complete history and physical examination was performed. 1632: Cefepime HCl 1000mg/Dextrose 111.3 ml @ 200mls/hr IV, Sodium Chloride 1000 ml @ 999 mls/hr IV. 1702: I reevaluated the patient. She is going to CT scan. 1734: The patient went unresponsive in CT scan for a minute. 1741: The patient is back to her baseline. 1803: I reevaluated and updated the patient. 181: I reviewed the patient's case with Dr. Mclaughlin. He will evaluate the patient for further management. 1815: Upon reevaluation, the patient is doing well.I discussed my findings with the patient and she understands and agrees with the treatment plan. Based on the patients age, coexisting illnesses, exam and lab findings the decision to treat as an inpatient was made. The patient remained stable while under my care. The patient will be evaluated for further management. Medical Decision Differential diagnoses includes but is not limited to toxic, metabolic, infectious, traumatic, cardiac, neurologic, hematologic, psychiatric and inflammatory etiologies. Blood pressure screening: Patient was found to have normal blood pressure on screening and does not require follow-up. Medication Reconciliation: I attest that I have personally reviewed the patient' s current medication list. Patient is a 71-year-old stage IV lung cancer who has metastases to the brain who presents the ER for confusion which started yesterday. Patient follows with Dr. Medrano. Patient does have a cough. Labs are remarkable for an elevated troponin 0.08. UA is contaminated. Patient is anemic at 9.3. CT of the chest shows pleural effusions bilaterally. Patient does have a Pleura-Cath in place. CT of the head shows improvement of edema. Patient was covered with broad-spectrum antibiotics. Patient was admitted to internal medicine for further workup of her hypoxia, tachycardia and altered mental status. Consults Time Called: 1809 Consulting Physician: Dr. Quin Jerome Returned Call: 1811 I reviewed the patient's case with Dr. Mclaughlin. He will evaluate the patient for further management. Impression Primary Impression: Hypoxia Additional Impressions: Pleural effusion Elevated troponin Altered mental status Brain metastases Scribe Attestation The scribe's documentation has been prepared under my direction and personally reviewed by me in its entirety. I confirm that the note above accurately reflects all work, treatment, procedures, and medical decision making performed by me. Departure Information Dispostion Being Evaluated By Hospitalist Referrals Kj Frias (PCP) Patient Instructions My [facility] Problem Qualifiers Additional Impressions: Altered mental status Altered mental status type: unspecified Qualified Codes: R41.82 - Altered mental status, unspecified
[2016-09-14 23:36] VITALS: BP 115/66; PULSE 117; TEMP 37.5
[2016-09-15] VITALS (10 sets, daily range): BP systolic 93–117; BP diastolic 56–76; PULSE 90–124; TEMP 36.6–37.8; O2SAT 93–95
[2016-09-15 01:01] LABS: ARTERIAL BLOOD GAS BASE EXCESS 0.9 mEq/L (-9-1.8); ARTERIAL BLOOD GAS HCO3 26 mmol/L (19-24); ARTERIAL BLOOD GAS PO2 53 mm/Hg (80-95)
[2016-09-15 01:06] LABS: ALLEN TEST POS (POS); O2 ADMINISTRATION 5 L
[2016-09-15 02:11] LABS: BASO % 0.1 %; BASO ABS # 0.01 K/uL (0-0.2); COMPLETE YES; EOS % 0.3 %; HEMATOCRIT 29.2 % (37-47); IG% 0.3 %; LYMPH % 6.3 %; LYMPH ABS # 0.43 K/uL (1.2-3.4); MEAN CELL VOLUME 84.6 fL (80-100); MEAN CORPUSCULAR HEMOGLOBIN 26.4 pg (25-34); MEAN CORPUSCULAR HGB CONC 31.2 g/dl (32-36); MONO % 5.8 %; NEUT % 87.2 %; PLATELET COUNT 186 K/uL (130-400); RED BLOOD COUNT 3.45 M/uL (4.2-5.4); WHITE BLOOD COUNT 6.84 K/uL (4.8-10.8)
[2016-09-15 02:27] LABS: BUN/CREATININE RATIO 29.1 (10-20); CREATININE 0.91 mg/dl (0.60-1.20); MAGNESIUM 1.7 mg/dl (1.8-2.4); POTASSIUM 4.1 mmol/L (3.5-5.1)
[2016-09-15] MEDS ORDERED: MAGNESIUM SULFATE 1GM / D5W 1 GM in PREMIXED IN D5W 100 ML IV ONE (02:45)
--- NOTE | 2016-09-15 02:53 | Progress Note ---
Internal Med Progress Note Date of Service: Sep 15, 2016. Provider Documentation: Made aware by RN persistent resp distress, tachycardia Admission notes/work up reviewed. Pulmonary edema on CXR, CT chest. AP Pulm congestion ? CHF stop maintenance IVF Lasix stat TTE re poss CHF may need Cardio opinion Will relay to AM provider. Vital Signs: Date Time Temp Pulse Resp B/P (MAP) Pulse Ox O2 Delivery O2 Flow Rate FiO2 09/15/16 08:06 95 Nasal Cannula 6.0 09/15/16 08:02 36.8 98 22 108/76 (87) 95 Nasal Cannula 6.0 09/15/16 04:11 37.8 109 22 93/56 (68) 93 Nasal Cannula 6.0 09/15/16 04:00 94 Nasal Cannula 6.0 09/15/16 03:19 118 117/61 (79) 09/15/16 00:51 124 22 94 Nasal Cannula 6.0 09/15/16 00:00 94 Nasal Cannula 6.0 09/14/16 23:36 37.5 117 22 115/66 (82) 09/14/16 20:48 36.8 118 24 168/77 (107) 91 Nasal Cannula 6.0 09/14/16 20:48 92 Nasal Cannula 6.0 09/14/16 19:51 103 20 143/72 93 Mask 6.0 09/14/16 18:05 109 16 97/49 98 Non-Rebreather 15.0 143/72 09/14/16 16:42 108 09/14/16 16:09 93 Nasal Cannula 5.0 09/14/16 16:09 37.0 100 22 134/75 94 Nasal Cannula 5.0 Lab Results: Results Past 24 Hours Test 09/14/16 15:59 09/14/16 16:40 09/14/16 17:02 09/14/16 17:12 Range/Units White Blood Count 8.17 4.8-10.8 K/uL Red Blood Count 3.47 4.2-5.4 M/uL Hemoglobin 9.3 12.0-16.0 g/dL Hematocrit 29.4 37-47 % Mean Corpuscular Volume 84.7 80-100 fL Mean Corpuscular Hemoglobin 26.8 25-34 pg Mean Corpuscular Hemoglobin Concent 31.6 32-36 g/dl Platelet Count 203 130-400 K/uL Mean Platelet Volume 9.3 7.4-10.4 fL Neutrophils (%) (Auto) 83.3 % Lymphocytes (%) (Auto) 9.2 % Monocytes (%) (Auto) 7.1 % Eosinophils (%) (Auto) 0.1 % Basophils (%) (Auto) 0.1 % Neutrophils # (Auto) 6.80 1.4-6.5 K/uL Lymphocytes # (Auto) 0.75 1.2-3.4 K/uL Monocytes # (Auto) 0.58 0.11-0.59 K/uL Eosinophils # (Auto) 0.01 0-0.5 K/uL Basophils # (Auto) 0.01 0-0.2 K/uL RDW Standard Deviation 56.6 36.4-46.3 fL RDW Coefficient of Variation 18.2 11.5-14.5 % Immature Granulocyte % (Auto) 0.2 % Immature Granulocyte # (Auto) 0.02 0.00-0.02 K/uL Prothrombin Time 10.7 9.0-12.0 SECONDS Prothromb Time International Ratio 1.0 0.9-1.1 Sodium Level 141 136-145 mmol/L Potassium Level 4.7 3.5-5.1 mmol/L Chloride Level 106 98-107 mmol/L Carbon Dioxide Level 27 21-32 mmol/L Anion Gap 8.0 12.0 16-25 mmol/L Blood Urea Nitrogen 24 7-18 mg/dl Creatinine 0.82 0.60-1.20 mg/dl Est Creatinine Clear Calc Drug Dose 62.3 ml/min Estimated GFR () 84.6 Estimated GFR (Non- 73.0 BUN/Creatinine Ratio 29.1 10-20 Random Glucose 105 70-99 mg/dl Calcium Level 8.2 8.5-10.1 mg/dl Magnesium Level 2.1 1.8-2.4 mg/dl Total Bilirubin 0.5 0.2-1 mg/dl Direct Bilirubin 0.1 0-0.2 mg/dl Aspartate Amino Transf (AST/SGOT) 24 15-37 U/L Alanine Aminotransferase (ALT/SGPT) 23 12-78 U/L Alkaline Phosphatase 95 45-117 U/L Total Creatine Kinase 53 26-192 U/L Creatine Kinase MB 1.5 0.5-3.6 ng/ml Creatine Kinase MB Ratio 2.8 0-3.0 Troponin I 0.083 0-0.045 ng/ml Total Protein 6.0 6.4-8.2 gm/dl Albumin 1.8 3.4-5.0 gm/dl Bedside Hemoglobin 9.2 12.0-16.0 g/dl Bedside Hematocrit 27 37-47 % Bedside Sodium 139 135-144 mEq/L Bedside Potassium 4.7 3.3-5.0 mEq/L Bedside Chloride 103 101-112 mEq/L Bedside Total CO2 29 24-31 mEq/l Bedside Blood Urea Nitrogen 25 7-18 mg/dl Bedside Creatinine 1.0 0.6-1.3 mg/dl Bedside Glucose (other) 113 70-99 mg/dl Bedside Ionized Calcium (Teresa) 1.10 1.12-1.32 mmol/l Bedside Lactic Acid Venous 0.79 0.90-1.70 mmol/L Venous Blood pH 7.36 7.36-7.41 Venous Blood Partial Pressure CO2 52 38.0-50.0 mmHg Venous Blood Partial Pressure O2 19 mmHg Venous Blood HCO3 28 mmol/L Venous Blood Oxygen Saturation < 60.0 % Venous Blood Base Excess 2.3 mmol/L Test 09/14/16 17:55 09/15/16 00:00 09/15/16 02:01 09/15/16 07:30 Range/Units Urine Color DK YELLOW Urine Appearance CLOUDY CLEAR Urine pH 5.0 4.5-7.5 Urine Specific [place] 1.029 1.000-1.030 Urine Protein 3+ NEG Urine Glucose (UA) NEG NEG Urine Ketones TRACE NEG Urine Occult Blood 2+ NEG Urine Nitrite NEG NEG Urine Bilirubin NEG NEG Urine Urobilinogen NEG NEG Urine Leukocyte Esterase MODERATE NEG Urine WBC (Auto) >30 0-5 /hpf Urine RBC (Auto) 0-4 0-4 /hpf Urine Hyaline Casts (Auto) 10-30 0-5 /lpf Urine Epithelial Cells (Auto) >30 0-5 /lpf Urine Bacteria (Auto) 4+ NEG Urine Pathogenic Casts 0-3 GRANULAR CASTS 0 /lpf Arterial Blood pH 7.40 7.35-7.45 Arterial Blood Partial Pressure CO2 43 35-46 mmHg Arterial Blood Partial Pressure O2 53 80-95 mm/Hg Arterial Blood HCO3 26 19-24 mmol/L Arterial Blood Oxygen Saturation 85.0 90-95 % Arterial Blood Base Excess 0.9 -9-1.8 mEq/L Arterial Blood Gas Delivery 5 L Case Test POS POS White Blood Count 6.84 4.8-10.8 K/uL Red Blood Count 3.45 4.2-5.4 M/uL Hemoglobin 9.1 12.0-16.0 g/dL Hematocrit 29.2 37-47 % Mean Corpuscular Volume 84.6 80-100 fL Mean Corpuscular Hemoglobin 26.4 25-34 pg Mean Corpuscular Hemoglobin Concent 31.2 32-36 g/dl Platelet Count 186 130-400 K/uL Mean Platelet Volume 9.0 7.4-10.4 fL Neutrophils (%) (Auto) 87.2 % Lymphocytes (%) (Auto) 6.3 % Monocytes (%) (Auto) 5.8 % Eosinophils (%) (Auto) 0.3 % Basophils (%) (Auto) 0.1 % Neutrophils # (Auto) 5.96 1.4-6.5 K/uL Lymphocytes # (Auto) 0.43 1.2-3.4 K/uL Monocytes # (Auto) 0.40 0.11-0.59 K/uL Eosinophils # (Auto) 0.02 0-0.5 K/uL Basophils # (Auto) 0.01 0-0.2 K/uL RDW Standard Deviation 56.4 36.4-46.3 fL RDW Coefficient of Variation 18.1 11.5-14.5 % Immature Granulocyte % (Auto) 0.3 % Immature Granulocyte # (Auto) 0.02 0.00-0.02 K/uL Sodium Level 141 136-145 mmol/L Potassium Level 4.1 3.5-5.1 mmol/L Chloride Level 106 98-107 mmol/L Carbon Dioxide Level 28 21-32 mmol/L Anion Gap 7.0 3-11 mmol/L Blood Urea Nitrogen 26 7-18 mg/dl Creatinine 0.91 0.60-1.20 mg/dl Est Creatinine Clear Calc Drug Dose 56.2 ml/min Estimated GFR () 74.6 Estimated GFR (Non- 64.4 BUN/Creatinine Ratio 29.1 10-20 Random Glucose 160 70-99 mg/dl Calcium Level 8.0 8.5-10.1 mg/dl Magnesium Level 1.7 1.8-2.4 mg/dl Troponin I 0.037 0-0.045 ng/ml Pro-B-Type Natriuretic Peptide 96756 0-900 pg/ml Microbiology Results 09/14/16 Blood Culture, Received Pending 09/14/16 Blood Culture, Received Pending 09/14/16 Urine Culture - Preliminary, Resulted Gram Negative Bacilli 09/15/16 Acid Fast Stain, Received Pending 09/15/16 Mycobacterial Culture, Received Pending 09/15/16 Gram Stain, Received Pending 09/15/16 Bacterial Culture, Received Pending
[2016-09-15] MEDS: ACETAMINOPHEN 325 MG TAB PO PRN ×2 (03:01→09:27)
[2016-09-15] MEDS ORDERED: FUROSEMIDE INJ 40 MG in SYRINGE 0 ML IV ONE (03:15)
[2016-09-15] MEDS ORDERED: VANCOMYCIN INJ 1,000 MG in SODIUM CHLORIDE 0.9% 250ML 250 ML IV ONE (07:30)
[2016-09-15] MEDS ORDERED: VANCOMYCIN CONSULT ACTIVE PRN (07:30)
[2016-09-15] MEDS: LACOSAMIDE 50 MG TAB PO SCH ×2 (09:27→21:57)
[2016-09-15] MEDS: OXYCODONE HCL IR 5 MG TAB (IMMEDIATE RELEASE) PO PRN (09:27)
[2016-09-15] MEDS: ASPIRIN 81 MG ECTAB PO SCH (09:27)
[2016-09-15] MEDS: MIDODRINE 2.5 MG TAB PO SCH ×3 (09:28→17:08)
--- NOTE | 2016-09-15 10:20 | Pulmonary Consultation ---
History General Date of Service: Sep 15, 2016. Stated Complaint: Adenocarcinoma Of Lung, Stage 4, Brain Mets HPI The patient is a 71 year old female who presents to [facility] with complaints of Adenocarcinoma Of Lung, Stage 4, Brain Mets. The patient's primary care provider is Kj Frias. 71-year-old female diagnosed with stage IV lung carcinoma metastatic disease to her head. On molecular analysis patient was noted to have high expression of PD- L1 markers: To this the patient has been initiated on radiation therapy for her brain metastasis as well as immunotherapy for stage IV lung carcinoma. Patient had an indwelling pleural catheter (IPC) placed for large left-sided pleural effusion relieved after drainage. Patient has had a complicated medical history since February 2016 where she initially presented with an altered level of consciousness requiring prolonged hospital admission, intubation rehabilitation and experienced : respiratory failure, DTs and most likely refeeding syndrome from chronic alcohol abuse. There is an excellent recap performed by Dr. Bambi Mallory on discharge summary on 08/28/2016. The patient was admitted 12/15/2016 through the [facility] emergency room secondary to altered mental status, hypoxemia and hypotension. During our interview the patient noted dyspnea at rest, urinary incontinence and progressive fatigue. She denied: Pleurisy, fever, chills, classic cardiac chest pain or productive cough. Work-Up: WBC: 8K (Nuerto#: >6.80) Plt: 203K H/H: 12/38 AB.40/43/53/26 (5Lnc) INR/PT/aPTT: 1.0/10.7 BUN/Cr: 24/0.82 ALB: 1.8 TP: 6.0 Pro-BNP: 48316 Troponin-I: 0.083 Urine: Gram Negative Bacilli Radiology: CXR: Signs of pulmonary edema with bilateral pleural effusions CT Head: No acute ICH, interval decrease in previous edema associated with metastatic lesions CTA thorax: No pulmonary emboli, Large bilateral pleural effusions, signs of pulmonary edema Historian: patient, family, EMS Review of Systems Constitutional: reports: malaise, weakness Eyes: reports: no symptoms ENT: reports: no symptoms Cardiovascular: reports: as stated in HPI Respiratory: reports: as stated in HPI Gastrointestinal: reports: no symptoms Genitourinary - Female: reports: as stated in HPI Musculoskeletal: reports: myalgias Integumentary: reports: no symptoms Neurologic: reports: no symptoms Psychiatric: reports: anxiety, depression Endocrine: no symptoms Hematologic / Lymphatic: no symptoms Allergic / Immunologic: no symptoms Past Medical History Past Medical History: 1) Chronic low back pain 2) CVA (cerebral vascular accident) 3) Dyslipidemia 4) GERD 5) Heart disease 6) Hypertension 7) Foot fractures 3rd metatarsal and proximal right 5th phalanx 8) Macular degeneration 9) Left eye cataract 10) alcoholism: DTs, refeeding syndrome 11) upper GI bleeding 12) stage IV lung carcinoma 13) malignant pleural effusions Past Surgical History: 1) L5-S1 laminectomy 2) Left Knee repair 3) Tonsillectomy 4) IVC filter 5) indwelling pleural catheter Family History Patient is unable to give a full understanding of her family history Social History Smoking Status: Discontinue last hospitalization smoker for greater than 30 year period of time notably inconsistent use and exact pack per day history is unknown Alcohol Use: none Drug Use: none Marital Status: Housing Status: lives with family Occupation Status: retired Smoking Status: Current Every Day Smoker Marital status: Occupational Status: retired Hx Tobacco Use In Past Year?: Yes Smoking Status: Former Smoker Marital status: Housing status: other ([employer]) Occupational Status: retired Allergies Coded Allergies: Penicillins (Verified Allergy, Intermediate, RASH-HAPPENED A CHILD, ) Current Medications Reported Home Medications Medications Dose Route/Sig Max Daily Dose Days Date Category Fleet Enema (Sodium Phosphate/Biphosphate) Eloisa 1 Ea TN DAILY PRN 09/14/16 Reported Bisacodyl 5 Mg Tab 2 Tab PO UD PRN 09/14/16 Reported Milk Of Magnesia (Magnesium Hydroxide) 30 Ml Susp 30 Ml PO PRN 09/14/16 Reported Tylenol (Acetaminophen) 325 Mg Tab 650 Mg PO Q6 PRN 09/14/16 Reported Ativan (Lorazepam) 0.5 Mg Tab 0.5 Mg PO Q6H PRN 09/14/16 Reported Vimpat (Lacosamide) 50 Mg Tab 100 Mg PO BID 30 08/25/16 Rx Oxycodone HCl 5 Mg Tab 5 Mg PO Q8 PRN 3 08/25/16 Rx Oxycontin (Oxycodone HCl) 10 Mg Tabcr 10 Mg PO BID PRN 3 08/25/16 Rx Midodrine HCl (Midodrine) 2.5 Mg Tab 2.5 Mg PO TID 07/28/16 Reported Neurontin (Gabapentin) 300 Mg Cap 600 Mg PO HS 07/28/16 Reported Aspirin Ec (Aspirin) 81 Mg Tab 81 Mg PO QAM 07/28/16 Reported Folvite (Folic Acid) 1 Mg Tab 1 Mg PO QAM 07/28/16 Reported Lipitor (Atorvastatin Calcium) 40 Mg Tab 40 Mg PO HS 07/28/16 Reported Physical Physical Exam Vital Signs: Date Time Temp Pulse Resp B/P (MAP) Pulse Ox O2 Delivery O2 Flow Rate FiO2 09/15/16 08:06 95 Nasal Cannula 6.0 09/15/16 08:02 36.8 98 22 108/76 (87) 95 Nasal Cannula 6.0 09/15/16 04:11 37.8 109 22 93/56 (68) 93 Nasal Cannula 6.0 09/15/16 04:00 94 Nasal Cannula 6.0 09/15/16 03:19 118 117/61 (79) 09/15/16 00:51 124 22 94 Nasal Cannula 6.0 09/15/16 00:00 94 Nasal Cannula 6.0 09/14/16 23:36 37.5 117 22 115/66 (82) 09/14/16 20:48 36.8 118 24 168/77 (107) 91 Nasal Cannula 6.0 09/14/16 20:48 92 Nasal Cannula 6.0 09/14/16 19:51 103 20 143/72 93 Mask 6.0 09/14/16 18:05 109 16 97/49 98 Non-Rebreather 15.0 143/72 09/14/16 16:42 108 09/14/16 16:09 93 Nasal Cannula 5.0 09/14/16 16:09 37.0 100 22 134/75 94 Nasal Cannula 5.0 General Appearance: mild distress, cachetic Head: NORMOCEPHALIC, ATRAUMATIC Eyes: PERRLA, NO DISCHARGE, EOMI ENT: NORMAL EAR EXAM, NORMAL NASAL EXAM, NORMAL MOUTH EXAM Neck: NORMAL RANGE OF MOTION, NO TENDERNESS Respiratory: other (bilateral crackles decreased breath sounds at the bases with dullness to percussion/left hemithorax IPC catheter no signs of infection there are signs of skin excoriation in the anterior axillary region) Cardiovasular: REGULAR RATE/RHYTHM, NORMAL S1S2, other (distant heart sounds unable to auscultate for murmurs rubs or gallops) Abdomen: NON TENDER, NORMAL BOWEL SOUNDS, NO REBOUND, NO MASSES, NO GUARDING Genitourinary - Female: EXTERNAL GENITALIA NORMAL Back: NORMAL INSPECTION, NO MIDLINE TENDERNESS, other Upper Extremities: edema, other Lower Extremities: edema Edema: Bilateral UE (1+), Bilateral LE (3+) Pulses: carotid (R) (1+), carotid (L) (1+), dorsalis pedis (R) (1+), dorsalis pedis (L) (1+) Neuro: other (awake and alert and orientated times person place but not date. She is able to recall previous hospital admission and is currently able to make appropriate medical decisions) Reflexes: biceps (R) (1+), bicpes (L) (1+), achilles (R) (2+), achilles (L) (2+ ) Babinski Testing: right (equivocal), left (equivocal) Psychiatric: depressed, anxious Diagnostics Labs Results Past 24 Hours Test 09/14/16 15:59 09/14/16 16:40 09/14/16 17:02 09/14/16 17:12 Range/Units White Blood Count 8.17 4.8-10.8 K/uL Red Blood Count 3.47 4.2-5.4 M/uL Hemoglobin 9.3 12.0-16.0 g/dL Hematocrit 29.4 37-47 % Mean Corpuscular Volume 84.7 80-100 fL Mean Corpuscular Hemoglobin 26.8 25-34 pg Mean Corpuscular Hemoglobin Concent 31.6 32-36 g/dl Platelet Count 203 130-400 K/uL Mean Platelet Volume 9.3 7.4-10.4 fL Neutrophils (%) (Auto) 83.3 % Lymphocytes (%) (Auto) 9.2 % Monocytes (%) (Auto) 7.1 % Eosinophils (%) (Auto) 0.1 % Basophils (%) (Auto) 0.1 % Neutrophils # (Auto) 6.80 1.4-6.5 K/uL Lymphocytes # (Auto) 0.75 1.2-3.4 K/uL Monocytes # (Auto) 0.58 0.11-0.59 K/uL Eosinophils # (Auto) 0.01 0-0.5 K/uL Basophils # (Auto) 0.01 0-0.2 K/uL RDW Standard Deviation 56.6 36.4-46.3 fL RDW Coefficient of Variation 18.2 11.5-14.5 % Immature Granulocyte % (Auto) 0.2 % Immature Granulocyte # (Auto) 0.02 0.00-0.02 K/uL Prothrombin Time 10.7 9.0-12.0 SECONDS Prothromb Time International Ratio 1.0 0.9-1.1 Sodium Level 141 136-145 mmol/L Potassium Level 4.7 3.5-5.1 mmol/L Chloride Level 106 98-107 mmol/L Carbon Dioxide Level 27 21-32 mmol/L Anion Gap 8.0 12.0 16-25 mmol/L Blood Urea Nitrogen 24 7-18 mg/dl Creatinine 0.82 0.60-1.20 mg/dl Est Creatinine Clear Calc Drug Dose 62.3 ml/min Estimated GFR () 84.6 Estimated GFR (Non- 73.0 BUN/Creatinine Ratio 29.1 10-20 Random Glucose 105 70-99 mg/dl Calcium Level 8.2 8.5-10.1 mg/dl Magnesium Level 2.1 1.8-2.4 mg/dl Total Bilirubin 0.5 0.2-1 mg/dl Direct Bilirubin 0.1 0-0.2 mg/dl Aspartate Amino Transf (AST/SGOT) 24 15-37 U/L Alanine Aminotransferase (ALT/SGPT) 23 12-78 U/L Alkaline Phosphatase 95 45-117 U/L Total Creatine Kinase 53 26-192 U/L Creatine Kinase MB 1.5 0.5-3.6 ng/ml Creatine Kinase MB Ratio 2.8 0-3.0 Troponin I 0.083 0-0.045 ng/ml Total Protein 6.0 6.4-8.2 gm/dl Albumin 1.8 3.4-5.0 gm/dl Bedside Hemoglobin 9.2 12.0-16.0 g/dl Bedside Hematocrit 27 37-47 % Bedside Sodium 139 135-144 mEq/L Bedside Potassium 4.7 3.3-5.0 mEq/L Bedside Chloride 103 101-112 mEq/L Bedside Total CO2 29 24-31 mEq/l Bedside Blood Urea Nitrogen 25 7-18 mg/dl Bedside Creatinine 1.0 0.6-1.3 mg/dl Bedside Glucose (other) 113 70-99 mg/dl Bedside Ionized Calcium (Teresa) 1.10 1.12-1.32 mmol/l Bedside Lactic Acid Venous 0.79 0.90-1.70 mmol/L Venous Blood pH 7.36 7.36-7.41 Venous Blood Partial Pressure CO2 52 38.0-50.0 mmHg Venous Blood Partial Pressure O2 19 mmHg Venous Blood HCO3 28 mmol/L Venous Blood Oxygen Saturation < 60.0 % Venous Blood Base Excess 2.3 mmol/L Test 09/14/16 17:55 09/15/16 00:00 09/15/16 02:01 09/15/16 07:30 Range/Units Urine Color DK YELLOW Urine Appearance CLOUDY CLEAR Urine pH 5.0 4.5-7.5 Urine Specific [place] 1.029 1.000-1.030 Urine Protein 3+ NEG Urine Glucose (UA) NEG NEG Urine Ketones TRACE NEG Urine Occult Blood 2+ NEG Urine Nitrite NEG NEG Urine Bilirubin NEG NEG Urine Urobilinogen NEG NEG Urine Leukocyte Esterase MODERATE NEG Urine WBC (Auto) >30 0-5 /hpf Urine RBC (Auto) 0-4 0-4 /hpf Urine Hyaline Casts (Auto) 10-30 0-5 /lpf Urine Epithelial Cells (Auto) >30 0-5 /lpf Urine Bacteria (Auto) 4+ NEG Urine Pathogenic Casts 0-3 GRANULAR CASTS 0 /lpf Arterial Blood pH 7.40 7.35-7.45 Arterial Blood Partial Pressure CO2 43 35-46 mmHg Arterial Blood Partial Pressure O2 53 80-95 mm/Hg Arterial Blood HCO3 26 19-24 mmol/L Arterial Blood Oxygen Saturation 85.0 90-95 % Arterial Blood Base Excess 0.9 -9-1.8 mEq/L Arterial Blood Gas Delivery 5 L Case Test POS POS White Blood Count 6.84 4.8-10.8 K/uL Red Blood Count 3.45 4.2-5.4 M/uL Hemoglobin 9.1 12.0-16.0 g/dL Hematocrit 29.2 37-47 % Mean Corpuscular Volume 84.6 80-100 fL Mean Corpuscular Hemoglobin 26.4 25-34 pg Mean Corpuscular Hemoglobin Concent 31.2 32-36 g/dl Platelet Count 186 130-400 K/uL Mean Platelet Volume 9.0 7.4-10.4 fL Neutrophils (%) (Auto) 87.2 % Lymphocytes (%) (Auto) 6.3 % Monocytes (%) (Auto) 5.8 % Eosinophils (%) (Auto) 0.3 % Basophils (%) (Auto) 0.1 % Neutrophils # (Auto) 5.96 1.4-6.5 K/uL Lymphocytes # (Auto) 0.43 1.2-3.4 K/uL Monocytes # (Auto) 0.40 0.11-0.59 K/uL Eosinophils # (Auto) 0.02 0-0.5 K/uL Basophils # (Auto) 0.01 0-0.2 K/uL RDW Standard Deviation 56.4 36.4-46.3 fL RDW Coefficient of Variation 18.1 11.5-14.5 % Immature Granulocyte % (Auto) 0.3 % Immature Granulocyte # (Auto) 0.02 0.00-0.02 K/uL Sodium Level 141 136-145 mmol/L Potassium Level 4.1 3.5-5.1 mmol/L Chloride Level 106 98-107 mmol/L Carbon Dioxide Level 28 21-32 mmol/L Anion Gap 7.0 3-11 mmol/L Blood Urea Nitrogen 26 7-18 mg/dl Creatinine 0.91 0.60-1.20 mg/dl Est Creatinine Clear Calc Drug Dose 56.2 ml/min Estimated GFR () 74.6 Estimated GFR (Non- 64.4 BUN/Creatinine Ratio 29.1 10-20 Random Glucose 160 70-99 mg/dl Calcium Level 8.0 8.5-10.1 mg/dl Magnesium Level 1.7 1.8-2.4 mg/dl Troponin I 0.037 0-0.045 ng/ml Pro-B-Type Natriuretic Peptide 74930 0-900 pg/ml Pleural Fluid Glucose 129 mg/dl Microbiology Results 09/14/16 Blood Culture, Received Pending 09/14/16 Blood Culture, Received Pending 09/14/16 Urine Culture - Preliminary, Resulted Gram Negative Bacilli 09/15/16 Acid Fast Stain, Received Pending 09/15/16 Mycobacterial Culture, Received Pending 09/15/16 Gram Stain, Received Pending 09/15/16 Bacterial Culture, Received Pending Diagnostic Radiology CXR: Signs of pulmonary edema with bilateral pleural effusions CT Head: No acute ICH, interval decrease in previous edema associated with metastatic lesions CTA thorax: No pulmonary emboli, Large bilateral pleural effusions, signs of pulmonary edema EKG Sinus tachycardia rate 128 no signs of acute infarction Impression Assessment and Plan 71-year-old female with stage IV adenocarcinoma admitted with altered level consciousness, hypotension and hypoxemia: #1 stage IV adenocarcinoma: Patient is currently undergoing immunotherapy she has a PD-L1 molecular marker by Dr. Thor Wisdom. Dr. Medrano's currently interviewing the patient and will discuss her overall prognosis and possible continuation or discontinuation of the immunotherapy. #2 metastatic brain lesions: Patient is currently in the care of the radiation oncology team. The radiation oncology team is also been consultation for further discuss continuation of care with the patient. #3 hypoxemia: This is a combination most likely of underlying lung disease that has not been defined, volume overload status secondary to hypoalbuminemia and mild diastolic dysfunction and an metastatic pleural disease all leading to volume overload/parenchymal infiltration as well as large bilateral pleural effusions. I was able to go in and drain the IPC on the left hemithorax and remove 1 L fluid earlier today. I've also discussed performing therapeutic thoracentesis of the right hemithorax with the brother and patient and they have agreed. Continue to monitor at this time and give oxygen support try to maintain SaO2 is greater than 90%. #4 prognosis: Patient is stage IV metastatic adenocarcinoma with lesions to the PRIMER CHARGER. At this time her prognosis is extremely poor most likely patient has less than 3 months. I believe that further discussion with radiation oncology and hematology oncology and education to the patient and family members is important for them to possibly move forward with more treatment and/or hospice care. The patient and brother have discussed at this time there Gold care his quality of life. #5: Status: There was some mild confusion in the chart earlier today as patient had a plasterer saying full code and there was a level V order placed in to assist him. At this time there has been a long discussion with the patient her brother and the bedside nurse. The patient will be a level V: Status and the pulse odor has been removed from the active record. #6 ID: At this time the patient is on cefepime and vancomycin for possible hospital associated/acquired infection. Her altered mental status was most likely in association of a UTI as well as deconditioning and hypovolemia intravascularly. Continue current antibiotics and follow up on cultures. I've also sent off the pleural fluid that was removed for microbiologic analysis.
--- NOTE | 2016-09-15 11:06 | Pharmacy Progress Note ---
Pharmacy Antibiotic Consult Date of Service: Sep 15, 2016. Pharmacy Dosing Scope Pharmacy is consulted to initiate vancomycin IV dosing therapy, order appropriate labs and adjust drug dose/frequency. Subjective The patient is a 71 year old female admitted on Sep 14, 2016 at 18:54 with altered mental status following initiation of immunomodulator therapy for adenocarcinoma of Lung, Stage 4, Brain Mets. Objective Height (Feet): 5 Height (Inches): 3.00 Weight (Kilograms): 67.500 Lab Results (24hrs): Test 09/14/16 15:59 09/14/16 16:40 09/14/16 17:02 09/14/16 17:12 White Blood Count 8.17 K/uL (4.8-10.8) Red Blood Count 3.47 M/uL (4.2-5.4) Hemoglobin 9.3 g/dL (12.0-16.0) Hematocrit 29.4 % (37-47) Mean Corpuscular Volume 84.7 fL (80-100) Mean Corpuscular Hemoglobin 26.8 pg (25-34) Mean Corpuscular Hemoglobin Concent 31.6 g/dl (32-36) Platelet Count 203 K/uL (130-400) Mean Platelet Volume 9.3 fL (7.4-10.4) Neutrophils (%) (Auto) 83.3 % Lymphocytes (%) (Auto) 9.2 % Monocytes (%) (Auto) 7.1 % Eosinophils (%) (Auto) 0.1 % Basophils (%) (Auto) 0.1 % Neutrophils # (Auto) 6.80 K/uL (1.4-6.5) Lymphocytes # (Auto) 0.75 K/uL (1.2-3.4) Monocytes # (Auto) 0.58 K/uL (0.11-0.59) Eosinophils # (Auto) 0.01 K/uL (0-0.5) Basophils # (Auto) 0.01 K/uL (0-0.2) RDW Standard Deviation 56.6 fL (36.4-46.3) RDW Coefficient of Variation 18.2 % (11.5-14.5) Immature Granulocyte % (Auto) 0.2 % Immature Granulocyte # (Auto) 0.02 K/uL (0.00-0.02) Prothrombin Time 10.7 SECONDS (9.0-12.0) Prothromb Time International Ratio 1.0 (0.9-1.1) Sodium Level 141 mmol/L (136-145) Potassium Level 4.7 mmol/L (3.5-5.1) Chloride Level 106 mmol/L (98-107) Carbon Dioxide Level 27 mmol/L (21-32) Blood Urea Nitrogen 24 mg/dl (7-18) Creatinine 0.82 mg/dl (0.60-1.20) Est Creatinine Clear Calc Drug Dose 62.3 ml/min Estimated GFR () 84.6 Estimated GFR (Non- 73.0 BUN/Creatinine Ratio 29.1 (10-20) Random Glucose 105 mg/dl (70-99) Calcium Level 8.2 mg/dl (8.5-10.1) Magnesium Level 2.1 mg/dl (1.8-2.4) Total Bilirubin 0.5 mg/dl (0.2-1) Direct Bilirubin 0.1 mg/dl (0-0.2) Aspartate Amino Transf (AST/SGOT) 24 U/L (15-37) Alanine Aminotransferase (ALT/SGPT) 23 U/L (12-78) Alkaline Phosphatase 95 U/L (45-117) Total Creatine Kinase 53 U/L (26-192) Creatine Kinase MB 1.5 ng/ml (0.5-3.6) Creatine Kinase MB Ratio 2.8 (0-3.0) Troponin I 0.083 ng/ml (0-0.045) Total Protein 6.0 gm/dl (6.4-8.2) Albumin 1.8 gm/dl (3.4-5.0) Bedside Hemoglobin 9.2 g/dl (12.0-16.0) Bedside Hematocrit 27 % (37-47) Bedside Sodium 139 mEq/L (135-144) Bedside Potassium 4.7 mEq/L (3.3-5.0) Bedside Chloride 103 mEq/L (101-112) Bedside Total CO2 29 mEq/l (24-31) Anion Gap 12.0 mmol/L (16-25) Bedside Blood Urea Nitrogen 25 mg/dl (7-18) Bedside Creatinine 1.0 mg/dl (0.6-1.3) Bedside Glucose (other) 113 mg/dl (70-99) Bedside Ionized Calcium (Teresa) 1.10 mmol/l (1.12-1.32) Bedside Lactic Acid Venous 0.79 mmol/L (0.90-1.70) Venous Blood pH 7.36 (7.36-7.41) Venous Blood Partial Pressure CO2 52 mmHg (38.0-50.0) Venous Blood Partial Pressure O2 19 mmHg Venous Blood HCO3 28 mmol/L Venous Blood Oxygen Saturation < 60.0 % Venous Blood Base Excess 2.3 mmol/L Test 09/14/16 17:55 09/15/16 00:00 09/15/16 02:01 09/15/16 07:30 Urine Color DK YELLOW Urine Appearance CLOUDY (CLEAR) Urine pH 5.0 (4.5-7.5) Urine Specific [place] 1.029 (1.000-1.030) Urine Protein 3+ (NEG) Urine Glucose (UA) NEG (NEG) Urine Ketones TRACE (NEG) Urine Occult Blood 2+ (NEG) Urine Nitrite NEG (NEG) Urine Bilirubin NEG (NEG) Urine Urobilinogen NEG (NEG) Urine Leukocyte Esterase MODERATE (NEG) Urine WBC (Auto) >30 /hpf (0-5) Urine RBC (Auto) 0-4 /hpf (0-4) Urine Hyaline Casts (Auto) 10-30 /lpf (0-5) Urine Epithelial Cells (Auto) >30 /lpf (0-5) Urine Bacteria (Auto) 4+ (NEG) Urine Pathogenic Casts 0-3 GRANULAR CASTS /lpf (0) Arterial Blood pH 7.40 (7.35-7.45) Arterial Blood Partial Pressure CO2 43 mmHg (35-46) Arterial Blood Partial Pressure O2 53 mm/Hg (80-95) Arterial Blood HCO3 26 mmol/L (19-24) Arterial Blood Oxygen Saturation 85.0 % (90-95) Arterial Blood Base Excess 0.9 mEq/L (-9-1.8) Arterial Blood Gas Delivery 5 L Case Test POS (POS) White Blood Count 6.84 K/uL (4.8-10.8) Red Blood Count 3.45 M/uL (4.2-5.4) Hemoglobin 9.1 g/dL (12.0-16.0) Hematocrit 29.2 % (37-47) Mean Corpuscular Volume 84.6 fL (80-100) Mean Corpuscular Hemoglobin 26.4 pg (25-34) Mean Corpuscular Hemoglobin Concent 31.2 g/dl (32-36) Platelet Count 186 K/uL (130-400) Mean Platelet Volume 9.0 fL (7.4-10.4) Neutrophils (%) (Auto) 87.2 % Lymphocytes (%) (Auto) 6.3 % Monocytes (%) (Auto) 5.8 % Eosinophils (%) (Auto) 0.3 % Basophils (%) (Auto) 0.1 % Neutrophils # (Auto) 5.96 K/uL (1.4-6.5) Lymphocytes # (Auto) 0.43 K/uL (1.2-3.4) Monocytes # (Auto) 0.40 K/uL (0.11-0.59) Eosinophils # (Auto) 0.02 K/uL (0-0.5) Basophils # (Auto) 0.01 K/uL (0-0.2) RDW Standard Deviation 56.4 fL (36.4-46.3) RDW Coefficient of Variation 18.1 % (11.5-14.5) Immature Granulocyte % (Auto) 0.3 % Immature Granulocyte # (Auto) 0.02 K/uL (0.00-0.02) Sodium Level 141 mmol/L (136-145) Potassium Level 4.1 mmol/L (3.5-5.1) Chloride Level 106 mmol/L (98-107) Carbon Dioxide Level 28 mmol/L (21-32) Anion Gap 7.0 mmol/L (3-11) Blood Urea Nitrogen 26 mg/dl (7-18) Creatinine 0.91 mg/dl (0.60-1.20) Est Creatinine Clear Calc Drug Dose 56.2 ml/min Estimated GFR () 74.6 Estimated GFR (Non- 64.4 BUN/Creatinine Ratio 29.1 (10-20) Random Glucose 160 mg/dl (70-99) Calcium Level 8.0 mg/dl (8.5-10.1) Magnesium Level 1.7 mg/dl (1.8-2.4) Troponin I 0.037 ng/ml (0-0.045) Pro-B-Type Natriuretic Peptide 65420 pg/ml (0-900) Pleural Fluid Glucose 129 mg/dl Micro Results: Pending: BC X 2 UC Recent Pertinent Medications Given in ED: Cefepime 1gm X 1 Levaquin 750mg IV X 1. Levaquin was initially continued on admission, but then dc'd because of QT prolongation. Vancomycin 1400mg X 1 Assessment & Plan Vancomycin is ordered in a 71 year old female who presents to [facility] with complaints of Adenocarcinoma Of Lung, Stage 4, Brain Mets. Pt is a resident of [facility], and is admitted with AMS following 1st dose of immunomodulator therapy. She has bilateral leg cellulitis and bilateral pleural effusions, with vanco for pnx. Loading dose: 1400mg IV X 1 dose (~21mg/kg) then: vancomycin 1000 mg IV every 18 hours (~15mg/kg). Goal trough level estimate: between 15 - 20 mcg/mL. Peak and trough or random level has been ordered for: 09/16 prior to 2000 dose. Pharmacy will continue to follow and will adjust dose/frequency as necessary. Thank you
--- NOTE | 2016-09-15 11:48 | Procedure Note ---
Procedure Note Date of Service Sep 15, 2016. Procedure Note Procedures: right sided Thoracentesis Consent: obtained via the patient and placed into the chart Pre-Procedural Dx: Malignant pleural effusion Post-Procedural Dx: Malignant pleural effusion Analgesia: 8cc of 1% Liquid Lidocaine Procedure: The patient was placed in an upright position and thoracic US was used to select a spot for the procedure. A spot along the posterior axillary line was marked in the 7th intercostal space. The patient was then draped and prepped in a sterile fashion. A modified Seldinger technique was then used for catheter placement. Flowing this approximately 1000cc of perez pleural fluid was removed. The patient was then cleaned and placed at a 60 degree angle in the bed were the US was used to evaluate for possible pneumothorax. The US showed good lung sliding and [place] signs. EBL: None Complications: None
--- NOTE | 2016-09-15 12:32 | Clinical Documentation Query ---
QUERY 1 OF [address] GARSIA, If pt is being treated for acute CHF, please document if this diagnosis was POA In your clinical opinion is this patient being managed for: ( ) Acute diastolic CHF, POA or not POA ( ) Acute systolic CHF, POA or not POA ( ) Acute systolic and diastolic CHF, POA or not POA ( ) Other explanation of clinical findings (Please Explain) ( + ) Unable to determine (Please Define) ( ) Need to Discuss ( ) Not Agree May have mild fluid overload,Has Metastatic ADENOCARCINOMA of the lung The medical record reflects the following clinical findings, treatment, and risk factors. Clinical Indicators: 71 yo female presenting with change in mental status and hypoxia. Initial CXR showed moderate pulmonary edema. Pt with known pleural effusions. BNP [id number]. Vital signs: 37.0-100-22, 134/75, 94% on 5 L. Treatment: tele, O2 support, IV lasix, pulmonary consult, thoracentesis Risk Factors: age, hx HTN, CVA and heart disease, lung cancer, QUERY 2 OF 3 In your clinical opinion is this patient being managed for: ( + ) Multifactorial Encephalopathy, including brain metastasis, UTI, hypoxia, ( ) Other explanation of clinical findings (Please Explain) ( ) Unable to determine (Please Define) ( ) Need to Discuss ( ) Not Agree The medical record reflects the following clinical findings, treatment, and risk factors. Clinical Indicators: Pt presented with an altered mental status. UA cx prelim shows gram negative bacilli. O2 sat 84% on chronic 2.5L at time of ER arrival. Per nursing documentation, pt's mentation significantly improved overnight with treatments given. Treatment: IV cefepime, IV vancomcyin, IV levaquin, O2 support Risk Factors: UTI, acute CHF, lung cancer with brain mets, hypoxia QUERY 3 OF 3 In your clinical opinion is this patient being managed for: (+ ) Urinary tract infection ( ) Other explanation of clinical findings (Please Explain) ( ) Unable to determine (Please Define) ( ) Need to Discuss ( ) Not Agree The medical record reflects the following clinical findings, treatment, and risk factors. Clinical Indicators: Urine cx prelim with gram negative bacilli Treatment: currently receiving IV vancomycin and IV levaquin, final culture results are pending. Risk Factors: age, gender, immunocompromised Please clarify and document your clinical opinion in the progress notes and discharge summary. Terms such as "probable", "suspected", "likely", "questionable", "possible", or "still to be ruled out" are acceptable. IF IN AGREEMENT, YOU MUST DOCUMENT ABOVE DIAGNOSTIC STATEMENT IN DAILY PROGRESS NOTES AND DISCHARGE SUMMARY. This document is not part of the patient's record. Thank You, Esperanza Duong RN [phone]
[2016-09-15 12:46] LABS: PLEURAL FLUID TOTAL PROTEIN 1.9 g/dl
--- NOTE | 2016-09-15 12:47 | Progress Note ---
Internal Med Progress Note Date of Service: Sep 15, 2016. Provider Documentation: SUBJECTIVE: The patient was seen and examined Moderate SOB at rest Has had issues with DNR issue this morning Patient has intermittent confusion Patient is now DNR OBJECTIVE: Vital Signs-as noted below Exam: General-Moderate SOB at rest Eyes-normal ENT-normal Neck-supple Lungs-Decreased breath sound bilaterally left more than the right Heart-Regular Abdomen-Benign,no masses,bowel sound present Mildly tender Extremities-Trace edema bilaterally Redness of the lower extremities are improved Neuro-AAOx3 Occasional confusion Lab data as noted below. ASSESSMENT & PLAN: Change in Mental Status-acute on Chronic Bilateral Leg Cellulitis,No definite Pneumonia and or Sepsis Probable causes-Brain Mets,Infection,Hypoxemia,related to recent Immunotherapy, dehydration Admit to Tele Received Vanco and Cefepime in ER and continued IV fluid discontinued -possible Pulmonary edema Blood culture-pending Urine culture-preliminary Gm Negative baccili Has fluctuating mental Status Leg redness is better Metastatic Adenocarcinoma Bilateral Pleural Effusion Left pleural catheter in place CT of the chest as above Pulmonary consult-appreciate input and recommendation Management per Medical Oncology. BRAIN METS Neuroimaging demonstrated right frontal and occipital lesions with associated vasogenic edema. Received Radiation therapy and will get opinion about more therapy and guidance Continue current dose of Dexamethasone MALIGNANT LEFT PLEURAL EFFUSION Has left Pleural Catheter Appreciate Dr Mckay's input and thoracentesis Prognosis is poor DEPRESSION Continue sertraline. VTE PROPHYLAXIS History of DVT. No anticoagulants due to brain mets. S/P IV filter. SCD's. Ambulate. Code Status-DNR ,discussed with the patient and the Brother Has had some isue with DNR this morning-patient wanted to be Full code Thanks to Dr Mckay to take care of the issue on my behalf Patient is now DNR DISPOSITION To be determined. Anticipate need for inpatient rehabilitation for skilled care. Medical follow-up with Dr. Bowden. Vital Signs: Date Time Temp Pulse Resp B/P (MAP) Pulse Ox O2 Delivery O2 Flow Rate FiO2 09/15/16 08:06 95 Nasal Cannula 6.0 09/15/16 08:02 36.8 98 22 108/76 (87) 95 Nasal Cannula 6.0 09/15/16 04:11 37.8 109 22 93/56 (68) 93 Nasal Cannula 6.0 09/15/16 04:00 94 Nasal Cannula 6.0 09/15/16 03:19 118 117/61 (79) 09/15/16 00:51 124 22 94 Nasal Cannula 6.0 09/15/16 00:00 94 Nasal Cannula 6.0 09/14/16 23:36 37.5 117 22 115/66 (82) 09/14/16 20:48 36.8 118 24 168/77 (107) 91 Nasal Cannula 6.0 09/14/16 20:48 92 Nasal Cannula 6.0 09/14/16 19:51 103 20 143/72 93 Mask 6.0 09/14/16 18:05 109 16 97/49 98 Non-Rebreather 15.0 143/72 09/14/16 16:42 108 09/14/16 16:09 93 Nasal Cannula 5.0 09/14/16 16:09 37.0 100 22 134/75 94 Nasal Cannula 5.0 Lab Results: Results Past 24 Hours Test 09/14/16 15:59 09/14/16 16:40 09/14/16 17:02 09/14/16 17:12 Range/Units White Blood Count 8.17 4.8-10.8 K/uL Red Blood Count 3.47 4.2-5.4 M/uL Hemoglobin 9.3 12.0-16.0 g/dL Hematocrit 29.4 37-47 % Mean Corpuscular Volume 84.7 80-100 fL Mean Corpuscular Hemoglobin 26.8 25-34 pg Mean Corpuscular Hemoglobin Concent 31.6 32-36 g/dl Platelet Count 203 130-400 K/uL Mean Platelet Volume 9.3 7.4-10.4 fL Neutrophils (%) (Auto) 83.3 % Lymphocytes (%) (Auto) 9.2 % Monocytes (%) (Auto) 7.1 % Eosinophils (%) (Auto) 0.1 % Basophils (%) (Auto) 0.1 % Neutrophils # (Auto) 6.80 1.4-6.5 K/uL Lymphocytes # (Auto) 0.75 1.2-3.4 K/uL Monocytes # (Auto) 0.58 0.11-0.59 K/uL Eosinophils # (Auto) 0.01 0-0.5 K/uL Basophils # (Auto) 0.01 0-0.2 K/uL RDW Standard Deviation 56.6 36.4-46.3 fL RDW Coefficient of Variation 18.2 11.5-14.5 % Immature Granulocyte % (Auto) 0.2 % Immature Granulocyte # (Auto) 0.02 0.00-0.02 K/uL Prothrombin Time 10.7 9.0-12.0 SECONDS Prothromb Time International Ratio 1.0 0.9-1.1 Sodium Level 141 136-145 mmol/L Potassium Level 4.7 3.5-5.1 mmol/L Chloride Level 106 98-107 mmol/L Carbon Dioxide Level 27 21-32 mmol/L Anion Gap 8.0 12.0 16-25 mmol/L Blood Urea Nitrogen 24 7-18 mg/dl Creatinine 0.82 0.60-1.20 mg/dl Est Creatinine Clear Calc Drug Dose 62.3 ml/min Estimated GFR () 84.6 Estimated GFR (Non- 73.0 BUN/Creatinine Ratio 29.1 10-20 Random Glucose 105 70-99 mg/dl Calcium Level 8.2 8.5-10.1 mg/dl Magnesium Level 2.1 1.8-2.4 mg/dl Total Bilirubin 0.5 0.2-1 mg/dl Direct Bilirubin 0.1 0-0.2 mg/dl Aspartate Amino Transf (AST/SGOT) 24 15-37 U/L Alanine Aminotransferase (ALT/SGPT) 23 12-78 U/L Alkaline Phosphatase 95 45-117 U/L Total Creatine Kinase 53 26-192 U/L Creatine Kinase MB 1.5 0.5-3.6 ng/ml Creatine Kinase MB Ratio 2.8 0-3.0 Troponin I 0.083 0-0.045 ng/ml Total Protein 6.0 6.4-8.2 gm/dl Albumin 1.8 3.4-5.0 gm/dl Bedside Hemoglobin 9.2 12.0-16.0 g/dl Bedside Hematocrit 27 37-47 % Bedside Sodium 139 135-144 mEq/L Bedside Potassium 4.7 3.3-5.0 mEq/L Bedside Chloride 103 101-112 mEq/L Bedside Total CO2 29 24-31 mEq/l Bedside Blood Urea Nitrogen 25 7-18 mg/dl Bedside Creatinine 1.0 0.6-1.3 mg/dl Bedside Glucose (other) 113 70-99 mg/dl Bedside Ionized Calcium (Teresa) 1.10 1.12-1.32 mmol/l Bedside Lactic Acid Venous 0.79 0.90-1.70 mmol/L Venous Blood pH 7.36 7.36-7.41 Venous Blood Partial Pressure CO2 52 38.0-50.0 mmHg Venous Blood Partial Pressure O2 19 mmHg Venous Blood HCO3 28 mmol/L Venous Blood Oxygen Saturation < 60.0 % Venous Blood Base Excess 2.3 mmol/L Test 09/14/16 17:55 09/15/16 00:00 09/15/16 02:01 09/15/16 07:30 Range/Units Urine Color DK YELLOW Urine Appearance CLOUDY CLEAR Urine pH 5.0 4.5-7.5 Urine Specific [place] 1.029 1.000-1.030 Urine Protein 3+ NEG Urine Glucose (UA) NEG NEG Urine Ketones TRACE NEG Urine Occult Blood 2+ NEG Urine Nitrite NEG NEG Urine Bilirubin NEG NEG Urine Urobilinogen NEG NEG Urine Leukocyte Esterase MODERATE NEG Urine WBC (Auto) >30 0-5 /hpf Urine RBC (Auto) 0-4 0-4 /hpf Urine Hyaline Casts (Auto) 10-30 0-5 /lpf Urine Epithelial Cells (Auto) >30 0-5 /lpf Urine Bacteria (Auto) 4+ NEG Urine Pathogenic Casts 0-3 GRANULAR CASTS 0 /lpf Arterial Blood pH 7.40 7.35-7.45 Arterial Blood Partial Pressure CO2 43 35-46 mmHg Arterial Blood Partial Pressure O2 53 80-95 mm/Hg Arterial Blood HCO3 26 19-24 mmol/L Arterial Blood Oxygen Saturation 85.0 90-95 % Arterial Blood Base Excess 0.9 -9-1.8 mEq/L Arterial Blood Gas Delivery 5 L Case Test POS POS White Blood Count 6.84 4.8-10.8 K/uL Red Blood Count 3.45 4.2-5.4 M/uL Hemoglobin 9.1 12.0-16.0 g/dL Hematocrit 29.2 37-47 % Mean Corpuscular Volume 84.6 80-100 fL Mean Corpuscular Hemoglobin 26.4 25-34 pg Mean Corpuscular Hemoglobin Concent 31.2 32-36 g/dl Platelet Count 186 130-400 K/uL Mean Platelet Volume 9.0 7.4-10.4 fL Neutrophils (%) (Auto) 87.2 % Lymphocytes (%) (Auto) 6.3 % Monocytes (%) (Auto) 5.8 % Eosinophils (%) (Auto) 0.3 % Basophils (%) (Auto) 0.1 % Neutrophils # (Auto) 5.96 1.4-6.5 K/uL Lymphocytes # (Auto) 0.43 1.2-3.4 K/uL Monocytes # (Auto) 0.40 0.11-0.59 K/uL Eosinophils # (Auto) 0.02 0-0.5 K/uL Basophils # (Auto) 0.01 0-0.2 K/uL RDW Standard Deviation 56.4 36.4-46.3 fL RDW Coefficient of Variation 18.1 11.5-14.5 % Immature Granulocyte % (Auto) 0.3 % Immature Granulocyte # (Auto) 0.02 0.00-0.02 K/uL Sodium Level 141 136-145 mmol/L Potassium Level 4.1 3.5-5.1 mmol/L Chloride Level 106 98-107 mmol/L Carbon Dioxide Level 28 21-32 mmol/L Anion Gap 7.0 3-11 mmol/L Blood Urea Nitrogen 26 7-18 mg/dl Creatinine 0.91 0.60-1.20 mg/dl Est Creatinine Clear Calc Drug Dose 56.2 ml/min Estimated GFR () 74.6 Estimated GFR (Non- 64.4 BUN/Creatinine Ratio 29.1 10-20 Random Glucose 160 70-99 mg/dl Calcium Level 8.0 8.5-10.1 mg/dl Magnesium Level 1.7 1.8-2.4 mg/dl Troponin I 0.037 0-0.045 ng/ml Pro-B-Type Natriuretic Peptide 44462 0-900 pg/ml Pleural Fluid Glucose 129 mg/dl Test 09/15/16 11:38 Range/Units Microbiology Results 09/14/16 Blood Culture, Received Pending 09/14/16 Blood Culture, Received Pending 09/14/16 Urine Culture - Preliminary, Resulted Gram Negative Bacilli 09/15/16 Acid Fast Stain, Received Pending 09/15/16 Mycobacterial Culture, Received Pending 09/15/16 Gram Stain, Received Pending 09/15/16 Bacterial Culture, Received Pending 09/15/16 Acid Fast Stain, Received Pending 09/15/16 Mycobacterial Culture, Received Pending 09/15/16 Gram Stain - Final, Resulted 09/15/16 Bacterial Culture, Resulted Pending
[2016-09-15 13:06] LABS: PLEURAL FLUID APPEARANCE CLOUDY; PLEURAL FLUID COLOR YELLOW; PLEURAL FLUID MONONUC RELAT 97.9 %; PLEURAL FLUID POLYNUC 2.1 %; PLEURAL FLUID SOURCE OTHER-PLEURAL; PLEURAL FLUID WBC (A) 3335 /uL
--- NOTE | 2016-09-15 13:42 | Palliative Care Consultation ---
Consultation Date of Consultation: Sep 15, 2016. Requesting Physician: Dr. Tsai Attending Physician: Dr. Tsai Reason for Consultation: Goals of care History of Present Illness This 71 year old female patient presented to the ED yesterday with c/o altered mental status following her first immunotherapy infusion for her stage IV metastatic lung cancer. History obtained mostly from record and the patient's brother, Ang Fan, as the patient is rather forgetful and a poor historian. This patient was recently admitted to the hospital from 08/06-08/25/2016 for left pleural effusion and placement of pleur-x catheter. Pleural fluid at that time showed metastatic adenocarcinoma. She was initially admitted to ICU with hypotension requiring pressors, multiple subacute strokes on MRI with right frontal lobe brain mets, right leg DVT s/p IVC filter placement, UGIB w/p EGD showing gastritis and fungal esophagitis. Eventually was discharged to [facility] rehab then to the [facility]. She underwent radiation to the brain mets. Patient had her first immunotherapy infusion and apparently had increased confusion and altered mental status following. Brought to ED. 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 Patient admitted to PCU. She has consults to med/onc, rad/onc, pulmonary and now to palliative care. Patient was seen by oncologist who stated that in her current state, further immunotherapy would probably not be helpful. Still awaiting rad/onc consult. Patient to undergo thoracentesis of the right lung for symptom management. Palliative care consulted given patient's rather poor prognosis to assist with establishing goals of care. I met with the patient and her brother/POA, Ang Fan, in room 242-1. Patient is awake, alert and oriented to person, place and time but she has a lot of difficulty articulating her thoughts and seems to be getting the past and present mixed up. One minute she was talking about being at her brother's apartment (which was 30 years ago), but also was recalling details about her current illness. She has chronic back pain, which was her main concern. It is currently at bay and she states that as long as she receives her pain meds in a timely manner, they work well for her. She was experiencing headaches after radiation therapy but she denies at this time. Ang was at bedside and is quite knowledgeable about the patient's conditions and all the recent interventions. Patient has just moved here at the beginning of the year from [place], [place]. Apparently the patient was found down at home in [place] with empty bottles of alcohol. She was admitted to the hospital in [place] and was discharged to [facility] where she exhausted her 100 day stay. Her brother eventually decided to move her here with him. Ang states that all he wants for his sister is to have a good quality of life and be comfortable. He said, "We make decisions together, but it's ultimately her choice whether to continue treatment or not." They are still waiting to speech to the radiation oncologist and for patient to have thoracentesis. They'd like to see how things go over the weekend, then they will start making decisions. they had some questions regarding hospice which the outsole caser and I answered to their satisfaction. Of note-- patient had POLST form on chart from 09/06/2016 which stated patient was full code and full treatment. After some discussions between the patient, her brother, and the physicians, patient has made the decision to be a level 5 DNR. She confirmed this with me. A copy of that POLST form is on the chart, but I will redo a new POLST before discharge reflecting new wishes. My visit was cut a little short and physical exam and full ROS was NOT performed by myself as Dr. Mckay came to room to do thoracentesis. Past Medical/Surgical History Medical History: Chronic low back pain CVA Dyslipidemia GERD Hypertension Heart disease Recurrent DVT s/p IVC filter Metastatic lung CA with mets to right frontal lobe of brain Pleural effusion s/p left Pleur-x catheter placement Former smoker Social History Smoking Status: Former Smoker History of Alcohol Use: No (wine/beer in the past) Drug Use: none Marital Status: Housing Status: other ([facility]) Occupation Status: retired Review of Systems Respiratory: + cough, + dyspnea on exertion, No wheezing Cardiac: No chest pain Abdomen: No pain, No nausea, No vomiting Neurologic: + see HPI, + memory loss Psychiatric: No anxiety Allergies Coded Allergies: Penicillins (Verified Allergy, Intermediate, RASH-HAPPENED A CHILD, ) Medications Current Inpatient Medications Medications (Trade) Dose Ordered Sig/Yuriy Route Start Time Stop Time Status Last Admin Dose Admin Ioversol (Optiray 320) 125 ml UD PRN IV 09/14/16 16:45 09/18/16 16:44 Acetaminophen (Tylenol Tab) 650 mg Q4H PRN PO 09/14/16 19:00 10/14/16 18:59 09/15/16 09:27 650 MG Ondansetron HCl (Zofran Inj) 4 mg Q6H PRN IV 09/14/16 19:00 10/14/16 18:59 Aspirin (Ecotrin Tab) 81 mg QAM PO 09/15/16 09:00 10/15/16 08:59 09/15/16 09:27 81 MG Atorvastatin Calcium (Lipitor Tab) 40 mg HS PO 09/14/16 21:00 10/14/16 20:59 09/14/16 21:50 40 MG Bisacodyl (Dulcolax Tab) 10 mg DAILY PRN PO 09/14/16 19:00 10/14/16 18:59 Folic Acid (Folvite Tab) 1 mg QAM PO 09/15/16 09:00 10/15/16 08:59 09/15/16 09:27 1 MG Gabapentin (Neurontin Tab) 600 mg HS PO 09/14/16 21:00 10/14/16 20:59 09/14/16 21:51 600 MG Lacosamide (Vimpat Tab) 100 mg BID PO 09/14/16 21:00 10/14/16 20:59 09/15/16 09:27 100 MG Magnesium Hydroxide (Milk Of Magnesia Susp) 30 ml DAILY PRN PO 09/14/16 19:00 10/14/16 18:59 Midodrine (Proamatine Tab) 2.5 mg TID@1000,1400,1800 PO 09/15/16 10:00 10/15/16 09:59 09/15/16 09:28 2.5 MG Oxycodone HCl (Roxicodone Immediate Rel Tab) 5 mg Q8 PRN PO 09/14/16 19:00 09/28/16 18:59 09/15/16 09:27 5 MG Oxycodone HCl (Oxycontin Tab) 10 mg BID PRN PO 09/14/16 19:00 09/28/16 18:59 Sodium Biphosphate/ Sodium Phosphate (Fleet Enema) 132 ml DAILY PRN OR 09/14/16 19:00 10/14/16 18:59 Levalbuterol (Xopenex 0.31MG/ 3ML Neb) 0.31 mg Q6H PRN INH 09/14/16 19:00 10/14/16 18:59 Lorazepam (Ativan Tab) 0.5 mg Q6H PRN PO 09/15/16 01:00 10/14/16 18:59 Vancomycin HCl 1000 mg/Sodium Chloride 270 ml @ 125 mls/hr Q18H IV 09/16/16 02:00 09/21/16 17:59 Vancomycin HCl (Consult) 1 ea UD PRN N/A 09/15/16 07:30 10/15/16 07:29 Physical Exam Date Time Temp Pulse Resp B/P (MAP) Pulse Ox O2 Delivery O2 Flow Rate FiO2 09/15/16 08:06 95 Nasal Cannula 6.0 09/15/16 08:02 36.8 98 22 108/76 (87) 95 Nasal Cannula 6.0 09/15/16 04:11 37.8 109 22 93/56 (68) 93 Nasal Cannula 6.0 09/15/16 04:00 94 Nasal Cannula 6.0 09/15/16 03:19 118 117/61 (79) 09/15/16 00:51 124 22 94 Nasal Cannula 6.0 09/15/16 00:00 94 Nasal Cannula 6.0 09/14/16 23:36 37.5 117 22 115/66 (82) 09/14/16 20:48 36.8 118 24 168/77 (107) 91 Nasal Cannula 6.0 09/14/16 20:48 92 Nasal Cannula 6.0 09/14/16 19:51 103 20 143/72 93 Mask 6.0 09/14/16 18:05 109 16 97/49 98 Non-Rebreather 15.0 143/72 09/14/16 16:42 108 09/14/16 16:09 93 Nasal Cannula 5.0 09/14/16 16:09 37.0 100 22 134/75 94 Nasal Cannula 5.0 General Appearance: no apparent distress ENT: hearing grossly normal Neck: supple, no JVD Respiratory: no respiratory distress Cardiovascular: + tachycardia (per telemetry) Neurologic/Psychiatric: alert, normal mood/affect, oriented x 3 (but also forgetful with periods of confusion) Laboratory Results Last 24 Hours Test 09/14/16 15:59 09/14/16 16:40 09/14/16 17:02 09/14/16 17:12 White Blood Count 8.17 K/uL Red Blood Count 3.47 M/uL Hemoglobin 9.3 g/dL Hematocrit 29.4 % Mean Corpuscular Volume 84.7 fL Mean Corpuscular Hemoglobin 26.8 pg Mean Corpuscular Hemoglobin Concent 31.6 g/dl Platelet Count 203 K/uL Mean Platelet Volume 9.3 fL Neutrophils (%) (Auto) 83.3 % Lymphocytes (%) (Auto) 9.2 % Monocytes (%) (Auto) 7.1 % Eosinophils (%) (Auto) 0.1 % Basophils (%) (Auto) 0.1 % Neutrophils # (Auto) 6.80 K/uL Lymphocytes # (Auto) 0.75 K/uL Monocytes # (Auto) 0.58 K/uL Eosinophils # (Auto) 0.01 K/uL Basophils # (Auto) 0.01 K/uL RDW Standard Deviation 56.6 fL RDW Coefficient of Variation 18.2 % Immature Granulocyte % (Auto) 0.2 % Immature Granulocyte # (Auto) 0.02 K/uL Prothrombin Time 10.7 SECONDS Prothromb Time International Ratio 1.0 Sodium Level 141 mmol/L Potassium Level 4.7 mmol/L Chloride Level 106 mmol/L Carbon Dioxide Level 27 mmol/L Anion Gap 8.0 mmol/L 12.0 mmol/L Blood Urea Nitrogen 24 mg/dl Creatinine 0.82 mg/dl Est Creatinine Clear Calc Drug Dose 62.3 ml/min Estimated GFR () 84.6 Estimated GFR (Non- 73.0 BUN/Creatinine Ratio 29.1 Random Glucose 105 mg/dl Calcium Level 8.2 mg/dl Magnesium Level 2.1 mg/dl Total Bilirubin 0.5 mg/dl Direct Bilirubin 0.1 mg/dl Aspartate Amino Transf (AST/SGOT) 24 U/L Alanine Aminotransferase (ALT/SGPT) 23 U/L Alkaline Phosphatase 95 U/L Total Creatine Kinase 53 U/L Creatine Kinase MB 1.5 ng/ml Creatine Kinase MB Ratio 2.8 Troponin I 0.083 ng/ml Total Protein 6.0 gm/dl Albumin 1.8 gm/dl Bedside Hemoglobin 9.2 g/dl Bedside Hematocrit 27 % Bedside Sodium 139 mEq/L Bedside Potassium 4.7 mEq/L Bedside Chloride 103 mEq/L Bedside Total CO2 29 mEq/l Bedside Blood Urea Nitrogen 25 mg/dl Bedside Creatinine 1.0 mg/dl Bedside Glucose (other) 113 mg/dl Bedside Ionized Calcium (Teresa) 1.10 mmol/l Bedside Lactic Acid Venous 0.79 mmol/L Venous Blood pH 7.36 Venous Blood Partial Pressure CO2 52 mmHg Venous Blood Partial Pressure O2 19 mmHg Venous Blood HCO3 28 mmol/L Venous Blood Oxygen Saturation < 60.0 % Venous Blood Base Excess 2.3 mmol/L Test 09/14/16 17:55 09/15/16 00:00 09/15/16 02:01 09/15/16 07:30 Urine Color DK YELLOW Urine Appearance CLOUDY Urine pH 5.0 Urine Specific [place] 1.029 Urine Protein 3+ Urine Glucose (UA) NEG Urine Ketones TRACE Urine Occult Blood 2+ Urine Nitrite NEG Urine Bilirubin NEG Urine Urobilinogen NEG Urine Leukocyte Esterase MODERATE Urine WBC (Auto) >30 /hpf Urine RBC (Auto) 0-4 /hpf Urine Hyaline Casts (Auto) 10-30 /lpf Urine Epithelial Cells (Auto) >30 /lpf Urine Bacteria (Auto) 4+ Urine Pathogenic Casts 0-3 GRANULAR CASTS /lpf Arterial Blood pH 7.40 Arterial Blood Partial Pressure CO2 43 mmHg Arterial Blood Partial Pressure O2 53 mm/Hg Arterial Blood HCO3 26 mmol/L Arterial Blood Oxygen Saturation 85.0 % Arterial Blood Base Excess 0.9 mEq/L Arterial Blood Gas Delivery 5 L Case Test POS White Blood Count 6.84 K/uL Red Blood Count 3.45 M/uL Hemoglobin 9.1 g/dL Hematocrit 29.2 % Mean Corpuscular Volume 84.6 fL Mean Corpuscular Hemoglobin 26.4 pg Mean Corpuscular Hemoglobin Concent 31.2 g/dl Platelet Count 186 K/uL Mean Platelet Volume 9.0 fL Neutrophils (%) (Auto) 87.2 % Lymphocytes (%) (Auto) 6.3 % Monocytes (%) (Auto) 5.8 % Eosinophils (%) (Auto) 0.3 % Basophils (%) (Auto) 0.1 % Neutrophils # (Auto) 5.96 K/uL Lymphocytes # (Auto) 0.43 K/uL Monocytes # (Auto) 0.40 K/uL Eosinophils # (Auto) 0.02 K/uL Basophils # (Auto) 0.01 K/uL RDW Standard Deviation 56.4 fL RDW Coefficient of Variation 18.1 % Immature Granulocyte % (Auto) 0.3 % Immature Granulocyte # (Auto) 0.02 K/uL Sodium Level 141 mmol/L Potassium Level 4.1 mmol/L Chloride Level 106 mmol/L Carbon Dioxide Level 28 mmol/L Anion Gap 7.0 mmol/L Blood Urea Nitrogen 26 mg/dl Creatinine 0.91 mg/dl Est Creatinine Clear Calc Drug Dose 56.2 ml/min Estimated GFR () 74.6 Estimated GFR (Non- 64.4 BUN/Creatinine Ratio 29.1 Random Glucose 160 mg/dl Calcium Level 8.0 mg/dl Magnesium Level 1.7 mg/dl Troponin I 0.037 ng/ml Pro-B-Type Natriuretic Peptide 47009 pg/ml Pleural Fluid Glucose 129 mg/dl Test 09/15/16 11:38 Assessment & Plan Palliative Performance Scale: 40 % Problem list: Altered mental status Weakness SOB/MIN Back pain, chronic Metastatic adenocarcinoma of lung with mets to brain Malignant pleural effusion s/p left Pleur-x catheter insertion Bilateral leg cellulitis Goals of care (Z51.5) Palliative care recommendations: -Patient confirmed she is a level 5 DNR. Her brother/POA, Ang, was present as well. -Patient's focus is on maximizing her quality of life and being as comfortable as possible. She is unsure if she would want to pursue any further cancer treatment, if it would even be offered to her. Further goals of care need to be discussed. -Plan is to continue current treatment. Patient and brother are waiting to speak with rad/onc. -Hospice was discussed and questions answered. Plan will most likely be to go back to the [facility] once medically cleared. Case management following. -Patient states the oxycodone works well for her, but sometimes she forgets to ask for it and sometimes it took a long time for her to receive it at the [facility]. Consider adding fentanyl patch 12mcg/hr TD Q72h and keeping Oxy IR 5mg Q8 PRN. Thank you kindly for this consult. I will continue to follow.
[2016-09-15] MEDS: LORAZEPAM 0.5 MG TAB PO PRN (15:16)
--- NOTE | 2016-09-15 16:29 | Oncology Consultation ---
Oncology/Heme Consultation Date of Consultation: Sep 15, 2016. Attending Physician: Zeina Tsai M.D. Reason for Consultation: Metastatic NSCLC Confusion Pleural effusions History of Present Illness Ms. Lisa is a 71 year old woman known to me as an outpatient. She has a history of alcoholism and was admitted here in February, after being found unconscious and intoxicated. She was profoundly malnourished at that time and experienced refeeding syndrome during that admission. She was also found to have a lung mass but deferred further workup until she recovered. She moved back to [place], where her workup was further delayed due to her condition. Once she became fit enough to leave her rehab facility, she came back to [place]. I recently met her and found that she had metastatic NSCLC with brain metastases. The brain lesions have been treated. Her tumor was strongly PD-L1 positive, so we decided to start front-line pembrolizumab, despite her borderline performance status. She received a dose earlier this week. At that visit, she seemed weak and confused. She was also mildly tachycardic and hypotensive. We attributed this to dehydration secondary to poor PO intake. She was afebrile, she had no infectious symptoms, and her labs were unremarkable. We gave her some fluids and she seemed to perk up, so we let her go home. However, her brother called back yesterday afternoon stating that she was declining. As a result, I sent her to the ER. There, she was noted to be hypoxemic and to have a UTI. The hypoxemia was attributed to pulmonary edema and bilateral pleural effusions. A head CT revealed improved cerebral edema and no evidence of hemorrhage. She looks somewhat better today. Dr. Mckay performed a thoracentesis today and will treat the other side tomorrow. She's also been diuresed and is, including the thoracentesis, about 2.5L negative over 24 hours. Past Medical/Surgical History Medical Problems: (1) Altered mental status Status: Acute (2) Chronic low back pain Status: Chronic (3) Contusion of right foot Status: Acute (4) Dyslipidemia Status: Chronic (5) Elevated troponin Status: Acute (6) GERD (gastroesophageal reflux disease) Status: Chronic (7) Heart disease Status: Chronic (8) Hypertension Status: Chronic (9) Hypoxia Status: Acute (10) Pleural effusion Status: Acute (11) Pleural effusion on left Status: Acute Social History Smoking Status: Former Smoker Alcohol Use: none Drug Use: none Marital Status: Housing Status: lives with family Occupation Status: retired Allergies Coded Allergies: Penicillins (Verified Allergy, Intermediate, RASH-HAPPENED A CHILD, ) Home Medications Scheduled Aspirin (Aspirin Ec), 81 MG PO QAM Atorvastatin (Lipitor), 40 MG PO HS Folic Acid (Folvite), 1 MG PO QAM Gabapentin (Neurontin), 600 MG PO HS Lacosamide (Vimpat), 100 MG PO BID Midodrine (Midodrine HCl), 2.5 MG PO TID Scheduled PRN Acetaminophen (Tylenol), 650 MG PO Q6 PRN for Pain or Fever Bisacodyl (Bisacodyl), 2 TAB PO UD PRN for constipation Lorazepam (Ativan), 0.5 MG PO Q6H PRN for Anxiety/Agitation Magnesium Hydroxide (Milk Of Magnesia), 30 ML PO for Constipation Oxycodone HCl (Oxycontin), 10 MG PO BID PRN for Pain Oxycodone HCl (Oxycodone HCl), 5 MG PO Q8 PRN for severe Pain Sodium Phosphate/Biphosphate (Fleet Enema), 1 EA AR DAILY PRN for constipation Current Inpatient Medications Current Inpatient Medications Medications (Trade) Dose Ordered Sig/Yuriy Route Start Time Stop Time Status Last Admin Dose Admin Ioversol (Optiray 320) 125 ml UD PRN IV 09/14/16 16:45 09/18/16 16:44 Acetaminophen (Tylenol Tab) 650 mg Q4H PRN PO 09/14/16 19:00 10/14/16 18:59 09/15/16 09:27 650 MG Ondansetron HCl (Zofran Inj) 4 mg Q6H PRN IV 09/14/16 19:00 10/14/16 18:59 Aspirin (Ecotrin Tab) 81 mg QAM PO 09/15/16 09:00 10/15/16 08:59 09/15/16 09:27 81 MG Atorvastatin Calcium (Lipitor Tab) 40 mg HS PO 09/14/16 21:00 10/14/16 20:59 09/14/16 21:50 40 MG Bisacodyl (Dulcolax Tab) 10 mg DAILY PRN PO 09/14/16 19:00 10/14/16 18:59 Folic Acid (Folvite Tab) 1 mg QAM PO 09/15/16 09:00 10/15/16 08:59 09/15/16 09:27 1 MG Gabapentin (Neurontin Tab) 600 mg HS PO 09/14/16 21:00 10/14/16 20:59 09/14/16 21:51 600 MG Lacosamide (Vimpat Tab) 100 mg BID PO 09/14/16 21:00 10/14/16 20:59 09/15/16 09:27 100 MG Magnesium Hydroxide (Milk Of Magnesia Susp) 30 ml DAILY PRN PO 09/14/16 19:00 10/14/16 18:59 Midodrine (Proamatine Tab) 2.5 mg TID@1000,1400,1800 PO 09/15/16 10:00 10/15/16 09:59 09/15/16 13:12 2.5 MG Oxycodone HCl (Roxicodone Immediate Rel Tab) 5 mg Q8 PRN PO 09/14/16 19:00 09/28/16 18:59 09/15/16 09:27 5 MG Sodium Biphosphate/ Sodium Phosphate (Fleet Enema) 132 ml DAILY PRN AR 09/14/16 19:00 10/14/16 18:59 Levalbuterol (Xopenex 0.31MG/ 3ML Neb) 0.31 mg Q6H PRN INH 09/14/16 19:00 10/14/16 18:59 Lorazepam (Ativan Tab) 0.5 mg Q6H PRN PO 09/15/16 01:00 10/14/16 18:59 09/15/16 15:16 0.5 MG Vancomycin HCl 1000 mg/Sodium Chloride 270 ml @ 125 mls/hr Q18H IV 09/16/16 02:00 09/21/16 17:59 Vancomycin HCl (Consult) 1 ea UD PRN N/A 09/15/16 07:30 10/15/16 07:29 Oxycodone HCl (Oxycontin Tab) 10 mg BID PO 09/15/16 21:00 09/28/16 18:59 Review of Systems Constitutional: + weight loss, + weakness, + fatigue, No fever, No chills Respiratory: + shortness of breath, No cough, No sputum Cardiovascular: + edema, No chest pain Abdomen: No pain, No nausea, No vomiting Genitourinary - Female: + dysuria Neurologic: No weakness, No numbness/tingling Hematologic / Lymphatic: No abnormal bleeding/bruising, No night sweats Integumentary: No rash Physical Exam Date Time Temp Pulse Resp B/P (MAP) Pulse Ox O2 Delivery O2 Flow Rate FiO2 09/15/16 12:43 36.7 97 100/67 (78) 09/15/16 12:06 Nasal Cannula 6.0 09/15/16 08:06 95 Nasal Cannula 6.0 09/15/16 08:02 36.8 98 22 108/76 (87) 95 Nasal Cannula 6.0 09/15/16 04:11 37.8 109 22 93/56 (68) 93 Nasal Cannula 6.0 09/15/16 04:00 94 Nasal Cannula 6.0 09/15/16 03:19 118 117/61 (79) 09/15/16 00:51 124 22 94 Nasal Cannula 6.0 09/15/16 00:00 94 Nasal Cannula 6.0 09/14/16 23:36 37.5 117 22 115/66 (82) 09/14/16 20:48 36.8 118 24 168/77 (107) 91 Nasal Cannula 6.0 09/14/16 20:48 92 Nasal Cannula 6.0 09/14/16 19:51 103 20 143/72 93 Mask 6.0 09/14/16 18:05 109 16 97/49 98 Non-Rebreather 15.0 143/72 09/14/16 16:42 108 General Appearance: no apparent distress, + thin, + pertinent finding ( chronically ill appearing) Eyes: EOMI Respiratory/Chest: + decreased breath sounds (on left in lower guevara) Cardiovascular: regular rate, rhythm Abdomen/GI: non tender, soft Extremities/Musculoskelatal: + pedal edema Neurologic/Psych: alert, oriented x 3 Skin: no rash Laboratory Results Last 24 Hours Test 09/14/16 16:40 09/14/16 17:02 09/14/16 17:12 09/14/16 17:55 Bedside Hemoglobin 9.2 g/dl Bedside Hematocrit 27 % Bedside Sodium 139 mEq/L Bedside Potassium 4.7 mEq/L Bedside Chloride 103 mEq/L Bedside Total CO2 29 mEq/l Anion Gap 12.0 mmol/L Bedside Blood Urea Nitrogen 25 mg/dl Bedside Creatinine 1.0 mg/dl Bedside Glucose (other) 113 mg/dl Bedside Ionized Calcium (Teresa) 1.10 mmol/l Bedside Lactic Acid Venous 0.79 mmol/L Venous Blood pH 7.36 Venous Blood Partial Pressure CO2 52 mmHg Venous Blood Partial Pressure O2 19 mmHg Venous Blood HCO3 28 mmol/L Venous Blood Oxygen Saturation < 60.0 % Venous Blood Base Excess 2.3 mmol/L Urine Color DK YELLOW Urine Appearance CLOUDY Urine pH 5.0 Urine Specific [place] 1.029 Urine Protein 3+ Urine Glucose (UA) NEG Urine Ketones TRACE Urine Occult Blood 2+ Urine Nitrite NEG Urine Bilirubin NEG Urine Urobilinogen NEG Urine Leukocyte Esterase MODERATE Urine WBC (Auto) >30 /hpf Urine RBC (Auto) 0-4 /hpf Urine Hyaline Casts (Auto) 10-30 /lpf Urine Epithelial Cells (Auto) >30 /lpf Urine Bacteria (Auto) 4+ Urine Pathogenic Casts 0-3 GRANULAR CASTS /lpf Test 09/15/16 00:00 09/15/16 02:01 09/15/16 07:30 09/15/16 11:38 Arterial Blood pH 7.40 Arterial Blood Partial Pressure CO2 43 mmHg Arterial Blood Partial Pressure O2 53 mm/Hg Arterial Blood HCO3 26 mmol/L Arterial Blood Oxygen Saturation 85.0 % Arterial Blood Base Excess 0.9 mEq/L Arterial Blood Gas Delivery 5 L Case Test POS White Blood Count 6.84 K/uL Red Blood Count 3.45 M/uL Hemoglobin 9.1 g/dL Hematocrit 29.2 % Mean Corpuscular Volume 84.6 fL Mean Corpuscular Hemoglobin 26.4 pg Mean Corpuscular Hemoglobin Concent 31.2 g/dl Platelet Count 186 K/uL Mean Platelet Volume 9.0 fL Neutrophils (%) (Auto) 87.2 % Lymphocytes (%) (Auto) 6.3 % Monocytes (%) (Auto) 5.8 % Eosinophils (%) (Auto) 0.3 % Basophils (%) (Auto) 0.1 % Neutrophils # (Auto) 5.96 K/uL Lymphocytes # (Auto) 0.43 K/uL Monocytes # (Auto) 0.40 K/uL Eosinophils # (Auto) 0.02 K/uL Basophils # (Auto) 0.01 K/uL RDW Standard Deviation 56.4 fL RDW Coefficient of Variation 18.1 % Immature Granulocyte % (Auto) 0.3 % Immature Granulocyte # (Auto) 0.02 K/uL Sodium Level 141 mmol/L Potassium Level 4.1 mmol/L Chloride Level 106 mmol/L Carbon Dioxide Level 28 mmol/L Anion Gap 7.0 mmol/L Blood Urea Nitrogen 26 mg/dl Creatinine 0.91 mg/dl Est Creatinine Clear Calc Drug Dose 56.2 ml/min Estimated GFR () 74.6 Estimated GFR (Non- 64.4 BUN/Creatinine Ratio 29.1 Random Glucose 160 mg/dl Calcium Level 8.0 mg/dl Magnesium Level 1.7 mg/dl Troponin I 0.037 ng/ml Pro-B-Type Natriuretic Peptide 19064 pg/ml Pleural Fluid Glucose 129 mg/dl 128 mg/dl Pleural Fluid Source OTHER-PLEURAL Pleural Fluid Color YELLOW Pleural Fluid Appearance CLOUDY Pleural Fluid WBC 3335 /uL Pleural Fluid RBC 3000 /uL Pleural Fluid Polynuclear WBCs % 2.1 % Pleural Fluid Mononuclear WBCs % 97.9 % Pleural Fluid Total Protein 1.9 g/dl Pleural Fluid LDH 265 IU Pleural Fluid Amylase 119 U/L Assessment & Plan Ms. Lisa has metastatic NSCLC with brain metastases. Her tumor is strongly PD-L1 positive, which predicts an excellent response to single-agent pembrolizumab. The advantage of drugs like pembro is that their side effect profiles are favorable and they can be used in patients who would not otherwise be candidates for chemotherapy. However, responses to these agents take time, often multiple cycles (i.e. weeks to months). Given her overall clinical decline , I worry she may before we reach that point. She is hemodynamically unstable due to third-spacing from hypoalbuminemia and poor nutrition. She also has chronic lung disease that is exacerbated by the volume overload. In light of her overall decline and the low likelihood that these issues will be reversible in the time it will take to see a response to treatment, I think hospice would be a reasonable consideration for Ms. Lisa. We discussed some of the principles of hospice care and I requested a consultation with palliative care. Her primary concern is not being at her brother's home, so as not to expose her family to excess stress. Palliative care can discuss options for this care with her. I will check back in tomorrow to discuss the issues of her disposition and further care again.
[2016-09-15] MEDS ORDERED: LEVOFLOXACIN / D5W 750 MG in PREMIXED IN D5W 150 ML IV SCH (18:00)
[2016-09-15] MEDS: ATORVASTATIN 40 MG TAB PO SCH (21:34)
[2016-09-15] MEDS: OXYCODONE HCL 10 MG TABCR (OXYCONTIN) PO SCH (21:35)
[2016-09-15] MEDS: GABAPENTIN 600 MG TAB PO SCH (21:35)
[2016-09-16] VITALS (7 sets, daily range): BP systolic 92–107; BP diastolic 56–71; PULSE 88–103; TEMP 36.8–37.7; O2SAT 90–96
[2016-09-16] MEDS ORDERED: VANCOMYCIN INJ 1,000 MG in SODIUM CHLORIDE 0.9% 250ML 250 ML IV SCH (02:00)
[2016-09-16] MEDS: OXYCODONE HCL IR 5 MG TAB (IMMEDIATE RELEASE) PO PRN ×2 (04:28→17:10)
[2016-09-16 05:45] LABS: HEMATOCRIT 25.9 % (37-47); MEAN CORPUSCULAR HEMOGLOBIN 26.9 pg (25-34); MEAN CORPUSCULAR HGB CONC 32.4 g/dl (32-36); MEAN PLATELET VOLUME 9.2 fL (7.4-10.4); PLATELET COUNT 206 K/uL (130-400); RED BLOOD COUNT 3.12 M/uL (4.2-5.4); WHITE BLOOD COUNT 4.72 K/uL (4.8-10.8)
[2016-09-16 06:13] LABS: BUN/CREATININE RATIO 27.1 (10-20); CREATININE 0.78 mg/dl (0.60-1.20); MAGNESIUM 1.7 mg/dl (1.8-2.4); PHOSPHORUS 2.4 mg/dl (2.5-4.9)
[2016-09-16 06:16] LABS: CALCIUM 7.6 mg/dl (8.5-10.1)
[2016-09-16] MEDS: OXYCODONE HCL 10 MG TABCR (OXYCONTIN) PO SCH ×2 (07:35→20:47)
[2016-09-16] MEDS: ASPIRIN 81 MG ECTAB PO SCH (07:46)
[2016-09-16] MEDS: LACOSAMIDE 50 MG TAB PO SCH ×2 (08:23→20:46)
[2016-09-16] MEDS: MIDODRINE 2.5 MG TAB PO SCH ×3 (08:24→15:45)
--- NOTE | 2016-09-16 09:17 | Hematology/Oncology Prog Note ---
Hematology/Onc Progress Note Date of Service Sep 16, 2016. Diagnoses Metastatic NSCLC Confusion UTI Volume overload Medications Medications Administered Medications (Trade) Dose Ordered Sig/Yuriy Route Start Time Stop Time Status Last Admin Dose Admin Cefepime HCl 1000 mg/Dextrose 111.3 ml @ 200 mls/hr NOW STAT IV 09/14/16 16:32 09/14/16 17:05 DC 09/14/16 16:32 200 MLS/HR Vancomycin HCl 1400 mg/Sodium Chloride 528 ml @ 200 mls/hr ONE STAT IV 09/14/16 18:09 09/14/16 20:51 DC 09/14/16 18:09 200 MLS/HR Potassium Chloride/Sodium Chloride 1,000 ml @ 75 mls/hr [id number] IV 09/14/16 21:21 09/14/16 22:29 DC 09/14/16 21:50 75 MLS/HR Acetaminophen (Tylenol Tab) 650 mg Q4H PRN PO 09/14/16 19:00 10/14/16 18:59 09/15/16 09:27 650 MG Aspirin (Ecotrin Tab) 81 mg QAM PO 09/15/16 09:00 10/15/16 08:59 09/16/16 07:46 81 MG Atorvastatin Calcium (Lipitor Tab) 40 mg HS PO 09/14/16 21:00 10/14/16 20:59 09/15/16 21:34 40 MG Folic Acid (Folvite Tab) 1 mg QAM PO 09/15/16 09:00 10/15/16 08:59 09/16/16 07:45 1 MG Gabapentin (Neurontin Tab) 600 mg HS PO 09/14/16 21:00 10/14/16 20:59 09/15/16 21:35 600 MG Lacosamide (Vimpat Tab) 100 mg BID PO 09/14/16 21:00 10/14/16 20:59 09/16/16 08:23 100 MG Midodrine (Proamatine Tab) 2.5 mg TID@1000,1400,1800 PO 09/15/16 10:00 10/15/16 09:59 09/16/16 08:24 2.5 MG Oxycodone HCl (Roxicodone Immediate Rel Tab) 5 mg Q8 PRN PO 09/14/16 19:00 09/28/16 18:59 7/1/17 04:28 5 MG Oxycodone HCl (Oxycontin Tab) 10 mg BID PRN PO 09/14/16 19:00 09/15/16 15:53 DC 09/15/16 12:48 10 MG Levofloxacin 150 ml @ 100 mls/hr 1858 STAT IV 09/14/16 19:27 09/14/16 20:56 DC 09/14/16 19:27 100 MLS/HR Furosemide 40 mg/ Syringe 4 ml @ 4 mls/min NOW ONCE IV 09/14/16 22:45 09/14/16 22:46 DC 09/14/16 23:55 4 MLS/MIN Lorazepam (Ativan Tab) 0.5 mg Q6H PRN PO 09/15/16 01:00 10/14/16 18:59 09/15/16 15:16 0.5 MG Ipratropium [place] (Atrovent 0.02% 0.5MG/2.5ML Neb) 0.5 mg TODAY@2300 INH 09/14/16 23:00 09/15/16 02:00 DC 09/15/16 00:50 0.5 MG Levalbuterol (Xopenex 1.25MG/ 0.5ML Neb) 1.25 mg TODAY@2300 INH 09/14/16 23:00 09/15/16 02:00 DC 09/15/16 00:50 1.25 MG Magnesium Sulfate 1 gm/Prmx 100 ml @ 100 mls/hr ONE ONCE IV 09/15/16 02:45 09/15/16 03:44 DC 09/15/16 03:17 100 MLS/HR Furosemide 40 mg/ Syringe 4 ml @ 4 mls/min NOW ONCE IV 09/15/16 03:15 09/15/16 03:16 DC 09/15/16 03:19 4 MLS/MIN Vancomycin HCl 1000 mg/Sodium Chloride 270 ml @ 125 mls/hr Q18H IV 09/16/16 02:00 09/21/16 17:59 09/16/16 02:11 125 MLS/HR Vancomycin HCl 1000 mg/Sodium Chloride 270 ml @ 125 mls/hr NOW ONCE IV 09/15/16 07:30 09/15/16 09:39 DC 09/15/16 09:02 125 MLS/HR Oxycodone HCl (Oxycontin Tab) 10 mg BID PO 09/15/16 21:00 09/28/16 18:59 09/16/16 07:35 10 MG Subjective Ms. Lisa seems confused today. She answers some questions appropriately, but has a very circular conversation pattern that is difficult to follow. She is very fixated on her physical therapy, in particular transfers. She felt she was more aware of her breathing this morning, but "because it was better." She said she had a nice conversation with palliative care last night, but when I pressed further about hospice, she deflected and continued discussing PT. Review of Systems: Constitutional: + fatigue, No fever, No chills Respiratory: + shortness of breath (improving), No cough Cardiovascular: No chest pain Abdomen: No pain, No nausea, No vomiting Musculoskeletal: + joint pain (some back pain, R>L) Neurologic: No weakness Heme: No abnormal bleeding/bruising Vital Signs Vital Signs Past 12 Hours Date Time Temp Pulse Resp B/P (MAP) Pulse Ox O2 Delivery O2 Flow Rate FiO2 09/16/16 07:19 37.0 96 16 92/61 (71) 90 4.0 09/16/16 04:37 37.3 98 22 93/60 (71) 96 Nasal Cannula 4.0 09/16/16 04:00 Nasal Cannula 09/16/16 00:05 37.7 97 17 93/61 (72) 95 Nasal Cannula 5.0 09/15/16 23:59 Nasal Cannula Physical Exam Constitutional: General Apperance: too thin Level of Distress: NAD, chronically ill Psychiatric: Mental Status: active & alert (answers ) Orientation: oriented except where noted (Oriented and aware, but somewhat confused and digressive) Eyes: EOM: EOMI Lungs: Auscuitation: CTA except as noted (anteriorly) Cardiovascular: Heart Auscultation: RRR Abdomen: Inspection & Palpation: soft, no tenderness, guarding & rebound Extremities: edema (Improving bilateral pedal edema) Laboratory Last 24 Hours Test 09/15/16 11:38 09/16/16 05:22 Pleural Fluid Source OTHER-PLEURAL Pleural Fluid Color YELLOW Pleural Fluid Appearance CLOUDY Pleural Fluid WBC 3335 /uL Pleural Fluid RBC 3000 /uL Pleural Fluid Polynuclear WBCs % 2.1 % Pleural Fluid Mononuclear WBCs % 97.9 % Pleural Fluid Total Protein 1.9 g/dl Pleural Fluid LDH 265 IU Pleural Fluid Glucose 128 mg/dl Pleural Fluid Amylase 119 U/L White Blood Count 4.72 K/uL Red Blood Count 3.12 M/uL Hemoglobin 8.4 g/dL Hematocrit 25.9 % Mean Corpuscular Volume 83.0 fL Mean Corpuscular Hemoglobin 26.9 pg Mean Corpuscular Hemoglobin Concent 32.4 g/dl RDW Standard Deviation 55.6 fL RDW Coefficient of Variation 18.3 % Platelet Count 206 K/uL Mean Platelet Volume 9.2 fL Sodium Level 140 mmol/L Potassium Level 4.0 mmol/L Chloride Level 106 mmol/L Carbon Dioxide Level 31 mmol/L Anion Gap 3.0 mmol/L Blood Urea Nitrogen 21 mg/dl Creatinine 0.78 mg/dl Est Creatinine Clear Calc Drug Dose 62.8 ml/min Estimated GFR () 89.9 Estimated GFR (Non- 77.6 BUN/Creatinine Ratio 27.1 Random Glucose 85 mg/dl Calcium Level 7.6 mg/dl Phosphorus Level 2.4 mg/dl Magnesium Level 1.7 mg/dl Assessment & Plan Ms. Lisa looks somewhat better today. However, due to her confusing speech pattern, it is difficult to get a sense for what, if anything, she took away from her conversation with palliative care. I remain concerned about her poor prognosis and the feasibility of further treatment. I will discuss these issues with her brother. In the meantime, we should continue improving her fluid balance and working with PT in preparation for discharge.
[2016-09-16] MEDS: ACETAMINOPHEN 325 MG TAB PO PRN (11:30)
[2016-09-16] MEDS ORDERED: LEVOFLOXACIN / D5W 500 MG in PREMIXED IN D5W 100 ML IV SCH (14:15)
--- NOTE | 2016-09-16 15:23 | Pulmonology Progress Note ---
Pulmonary Progress Note Date of Service Sep 16, 2016. Attending Dr. Kennedy Subjective The patient is generally feeling better since she has had fluid drained from the pleural cavity on each side. Yesterday she had approximately 1 L taken out from both the left and right sides with the left side coming through a Pleurx catheter on the right side being done by thoracentesis. Today nursing staff with through 900 mL's from the left Pleurx catheter. Patient feels that her breathing is much better. She denies coughing. She remains very weak. She did not seem to be a totally reliable historian. I believe she has some confusion today. She has no specific complaints at this time. Objective The patient appeared comfortable. Most recent temperature is 37.1. Palpation of the neck reveals no lymph nodes. Her heart rate is 100/m. The blood pressure is 102/64. There are very coarse breath sounds on the left chest that are almost rub-like. Rales are heard in both the right and left chest. The aeration of the posterior chest is fairly good all things considered. Her respiratory rate is 20 breaths per minute. Her oxygen saturation is 93% on 4 L. The abdomen reveals edema of the anterior abdominal wall. This is especially prominent in the lower area. Her bowel sounds are very active. It was no tenderness to palpation. There is marked edema of the legs especially in the upper legs region up to the pelvis. There is lesser edema in the lower extremities below the knee. Electrolytes today show sodium 140 potassium 4.0 chloride 106 bicarbonate 31. The BUN was 21 with a creatinine of 0.78. White count is 4.72. Hemoglobin is 8.4. Platelets are 206,000. 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 She will continue to have the fluid drained on a regular basis as per the orders of Dr. Mckay. She does have a urinary tract infection and is receiving levofloxacin for this. Data Medications: Current Inpatient Medications Medications (Trade) Dose Ordered Sig/Yuriy Route Start Time Stop Time Status Last Admin Dose Admin Ioversol (Optiray 320) 125 ml UD PRN IV 09/14/16 16:45 09/18/16 16:44 Acetaminophen (Tylenol Tab) 650 mg Q4H PRN PO 09/14/16 19:00 10/14/16 18:59 09/16/16 11:30 650 MG Ondansetron HCl (Zofran Inj) 4 mg Q6H PRN IV 09/14/16 19:00 10/14/16 18:59 Aspirin (Ecotrin Tab) 81 mg QAM PO 09/15/16 09:00 10/15/16 08:59 09/16/16 07:46 81 MG Atorvastatin Calcium (Lipitor Tab) 40 mg HS PO 09/14/16 21:00 10/14/16 20:59 09/15/16 21:34 40 MG Bisacodyl (Dulcolax Tab) 10 mg DAILY PRN PO 09/14/16 19:00 10/14/16 18:59 Folic Acid (Folvite Tab) 1 mg QAM PO 09/15/16 09:00 10/15/16 08:59 09/16/16 07:45 1 MG Gabapentin (Neurontin Tab) 600 mg HS PO 09/14/16 21:00 10/14/16 20:59 09/15/16 21:35 600 MG Lacosamide (Vimpat Tab) 100 mg BID PO 09/14/16 21:00 10/14/16 20:59 09/16/16 08:23 100 MG Magnesium Hydroxide (Milk Of Magnesia Susp) 30 ml DAILY PRN PO 09/14/16 19:00 10/14/16 18:59 Midodrine (Proamatine Tab) 2.5 mg TID@1000,1400,1800 PO 09/15/16 10:00 10/15/16 09:59 09/16/16 13:37 2.5 MG Oxycodone HCl (Roxicodone Immediate Rel Tab) 5 mg Q8 PRN PO 09/14/16 19:00 09/28/16 18:59 09/16/16 04:28 5 MG Sodium Biphosphate/ Sodium Phosphate (Fleet Enema) 132 ml DAILY PRN [place] 09/14/16 19:00 10/14/16 18:59 Levalbuterol (Xopenex 0.31MG/ 3ML Neb) 0.31 mg Q6H PRN INH 09/14/16 19:00 10/14/16 18:59 Lorazepam (Ativan Tab) 0.5 mg Q6H PRN PO 09/15/16 01:00 10/14/16 18:59 09/15/16 15:16 0.5 MG Oxycodone HCl (Oxycontin Tab) 10 mg BID PO 09/15/16 21:00 09/28/16 18:59 09/16/16 07:35 10 MG Levofloxacin 500 mg/Prmx 100 ml @ 100 mls/hr Q24H IV 09/17/16 13:00 09/20/16 13:59 Levofloxacin 500 mg/Prmx 100 ml @ 100 mls/hr 1415 IV 09/16/16 14:15 09/16/16 15:14 09/16/16 14:16 100 MLS/HR I & O: 24-Hour Column 09/17/16 08:00 Intake Total 400 ml Output Total 1150 ml Balance -750 ml Vital Signs: Date Time Temp Pulse Resp B/P (MAP) Pulse Ox O2 Delivery O2 Flow Rate FiO2 09/16/16 12:00 Nasal Cannula 4.0 09/16/16 11:34 37.1 101 18 102/64 (77) 93 4.0 09/16/16 08:00 Nasal Cannula 4.0 09/16/16 07:19 37.0 96 16 92/61 (71) 90 4.0 09/16/16 04:37 37.3 98 22 93/60 (71) 96 Nasal Cannula 4.0 09/16/16 04:00 Nasal Cannula 09/16/16 00:05 37.7 97 17 93/61 (72) 95 Nasal Cannula 5.0 09/15/16 23:59 Nasal Cannula 09/15/16 20:38 37.2 90 18 94/63 (73) 93 Nasal Cannula 5.0 09/15/16 20:00 Nasal Cannula 09/15/16 16:07 36.6 92 22 106/69 (81) 95 Nasal Cannula 6.0 09/15/16 16:03 Nasal Cannula 6.0 Laboratory Results: Last 24 Hours Test 09/16/16 05:22 White Blood Count 4.72 K/uL Red Blood Count 3.12 M/uL Hemoglobin 8.4 g/dL Hematocrit 25.9 % Mean Corpuscular Volume 83.0 fL Mean Corpuscular Hemoglobin 26.9 pg Mean Corpuscular Hemoglobin Concent 32.4 g/dl RDW Standard Deviation 55.6 fL RDW Coefficient of Variation 18.3 % Platelet Count 206 K/uL Mean Platelet Volume 9.2 fL Sodium Level 140 mmol/L Potassium Level 4.0 mmol/L Chloride Level 106 mmol/L Carbon Dioxide Level 31 mmol/L Anion Gap 3.0 mmol/L Blood Urea Nitrogen 21 mg/dl Creatinine 0.78 mg/dl Est Creatinine Clear Calc Drug Dose 62.8 ml/min Estimated GFR () 89.9 Estimated GFR (Non- 77.6 BUN/Creatinine Ratio 27.1 Random Glucose 85 mg/dl Calcium Level 7.6 mg/dl Phosphorus Level 2.4 mg/dl Magnesium Level 1.7 mg/dl
--- NOTE | 2016-09-16 16:10 | Progress Note ---
Internal Med Progress Note Date of Service: Sep 16, 2016. Provider Documentation: SUBJECTIVE: The patient was seen and examined Moderate SOB at rest Has had issues with DNR issue this morning Patient has intermittent confusion Patient is now DNR Feels reasonably better today Denies any significant pain at rest OBJECTIVE: Vital Signs-as noted below Exam: General-Moderate SOB at rest Eyes-normal ENT-normal Neck-supple Lungs-Decreased breath sound bilaterally left more than the right Heart-Regular Abdomen-Benign,no masses,bowel sound present Mildly tender Extremities-Trace edema bilaterally Redness of the lower extremities are improved Neuro-AAOx3 Occasional confusion Lab data as noted below. ASSESSMENT & PLAN: Change in Mental Status-acute on Chronic Bilateral Leg Cellulitis,No definite Pneumonia and or Sepsis Probable causes-Brain Mets,Infection,Hypoxemia,related to recent Immunotherapy, dehydration and secondary to alcohol abuse Admit to Tele Received Vanco and Cefepime in ER and continued until 09/15 IV fluid discontinued -possible Pulmonary edema Blood culture-Negative Urine culture-E Coli-Pansensitive Has chronic fluctuating mental Status Leg redness is better D/C vancomycin and start Levaquin -to cover any pathogen in lung Metastatic Adenocarcinoma Bilateral Pleural Effusion Left pleural catheter in place CT of the chest as above Pulmonary consult-appreciate input and recommendation Management per Medical Oncology-appreciate input Appreciate Palliative care input . BRAIN METS Neuroimaging demonstrated right frontal and occipital lesions with associated vasogenic edema. Received Radiation therapy and will get opinion about more therapy and guidance Finished Dexamethasone as an OP MALIGNANT LEFT PLEURAL EFFUSION Has left Pleural Catheter Appreciate Dr Mckay's input and thoracentesis Prognosis is poor DEPRESSION Continue sertraline. VTE PROPHYLAXIS History of DVT. No anticoagulants due to brain mets. S/P IV filter. SCD's. Ambulate. Code Status-DNR ,discussed with the patient and the Brother Has had some isue with DNR this morning-patient wanted to be Full code Thanks to Dr Mckay to take care of the issue on my behalf Patient is now DNR DISPOSITION To be determined. Anticipate need for inpatient rehabilitation for skilled care. Medical follow-up with Dr. Bowden. Vital Signs: Date Time Temp Pulse Resp B/P (MAP) Pulse Ox O2 Delivery O2 Flow Rate FiO2 09/16/16 15:14 36.8 88 18 96/56 (69) 91 Nasal Cannula 2.0 09/16/16 12:00 Nasal Cannula 4.0 09/16/16 11:34 37.1 101 18 102/64 (77) 93 4.0 09/16/16 08:00 Nasal Cannula 4.0 09/16/16 07:19 37.0 96 16 92/61 (71) 90 4.0 09/16/16 04:37 37.3 98 22 93/60 (71) 96 Nasal Cannula 4.0 09/16/16 04:00 Nasal Cannula 09/16/16 00:05 37.7 97 17 93/61 (72) 95 Nasal Cannula 5.0 09/15/16 23:59 Nasal Cannula 09/15/16 20:38 37.2 90 18 94/63 (73) 93 Nasal Cannula 5.0 09/15/16 20:00 Nasal Cannula 09/15/16 16:07 36.6 92 22 106/69 (81) 95 Nasal Cannula 6.0 Lab Results: Results Past 24 Hours Test 09/16/16 05:22 Range/Units White Blood Count 4.72 4.8-10.8 K/uL Red Blood Count 3.12 4.2-5.4 M/uL Hemoglobin 8.4 12.0-16.0 g/dL Hematocrit 25.9 37-47 % Mean Corpuscular Volume 83.0 80-100 fL Mean Corpuscular Hemoglobin 26.9 25-34 pg Mean Corpuscular Hemoglobin Concent 32.4 32-36 g/dl RDW Standard Deviation 55.6 36.4-46.3 fL RDW Coefficient of Variation 18.3 11.5-14.5 % Platelet Count 206 130-400 K/uL Mean Platelet Volume 9.2 7.4-10.4 fL Sodium Level 140 136-145 mmol/L Potassium Level 4.0 3.5-5.1 mmol/L Chloride Level 106 98-107 mmol/L Carbon Dioxide Level 31 21-32 mmol/L Anion Gap 3.0 3-11 mmol/L Blood Urea Nitrogen 21 7-18 mg/dl Creatinine 0.78 0.60-1.20 mg/dl Est Creatinine Clear Calc Drug Dose 62.8 ml/min Estimated GFR () 89.9 Estimated GFR (Non- 77.6 BUN/Creatinine Ratio 27.1 10-20 Random Glucose 85 70-99 mg/dl Calcium Level 7.6 8.5-10.1 mg/dl Phosphorus Level 2.4 2.5-4.9 mg/dl Magnesium Level 1.7 1.8-2.4 mg/dl
[2016-09-16] MEDS ORDERED: VANCOMYCIN TROUGH SCH (19:30)
[2016-09-16] MEDS: ATORVASTATIN 40 MG TAB PO SCH (20:47)
[2016-09-16] MEDS: GABAPENTIN 600 MG TAB PO SCH (20:47)
[2016-09-17] VITALS (8 sets, daily range): BP systolic 80–160; BP diastolic 56–74; PULSE 97–116; TEMP 36.7–37.6; O2SAT 91–97
[2016-09-17 07:14] LABS: HEMATOCRIT 26.6 % (37-47); MEAN CELL VOLUME 81.3 fL (80-100); MEAN CORPUSCULAR HEMOGLOBIN 25.4 pg (25-34); MEAN CORPUSCULAR HGB CONC 31.2 g/dl (32-36); MEAN PLATELET VOLUME 9.1 fL (7.4-10.4); PLATELET COUNT 243 K/uL (130-400); RED BLOOD COUNT 3.27 M/uL (4.2-5.4); WHITE BLOOD COUNT 4.09 K/uL (4.8-10.8)
[2016-09-17] MEDS: ASPIRIN 81 MG ECTAB PO SCH (07:43)
[2016-09-17] MEDS: OXYCODONE HCL 10 MG TABCR (OXYCONTIN) PO SCH ×2 (07:43→21:41)
[2016-09-17] MEDS: LACOSAMIDE 50 MG TAB PO SCH ×2 (07:44→21:42)
[2016-09-17] MEDS: MIDODRINE 2.5 MG TAB PO SCH ×3 (07:45→15:50)
[2016-09-17 07:46] LABS: BUN/CREATININE RATIO 24.6 (10-20); CALCIUM 7.7 mg/dl (8.5-10.1); CREATININE 0.69 mg/dl (0.60-1.20); MAGNESIUM 1.8 mg/dl (1.8-2.4); POTASSIUM 4.1 mmol/L (3.5-5.1)
[2016-09-17 07:47] LABS: PHOSPHORUS 2.6 mg/dl (2.5-4.9)
[2016-09-17] MEDS: OXYCODONE HCL IR 5 MG TAB (IMMEDIATE RELEASE) PO PRN ×3 (08:47→20:16)
--- NOTE | 2016-09-17 11:52 | Progress Note ---
Internal Med Progress Note Date of Service: Sep 17, 2016. Provider Documentation: SUBJECTIVE: The patient was seen and examined Moderate SOB at rest Patient has intermittent confusion Patient is now DNR Feels much better today Denies any significant pain at rest SOB is much better Complained about headache to the nurse OBJECTIVE: Vital Signs-as noted below Exam: General-Minimal SOB at rest AAOx3 now -gets confused at times Eyes-normal ENT-normal Neck-supple Lungs-Decreased breath sound bilaterally left more than the right Heart-Regular Abdomen-Benign,no masses,bowel sound present Mildly tender Extremities-Trace edema bilaterally-improving Redness of the lower extremities are improved Neuro-AAOx3 Occasional confusion Lab data as noted below. ASSESSMENT & PLAN: Change in Mental Status-acute on Chronic Bilateral Leg Cellulitis,No definite Pneumonia and or Sepsis Probable causes-Brain Mets,Infection,Hypoxemia,related to recent Immunotherapy, dehydration and secondary to alcohol abuse Admit to Tele-no arrhythmia Received Vanco and Cefepime in ER and continued until 09/15 IV fluid discontinued -possible Pulmonary edema Blood culture-Negative Urine culture-E Coli-Pansensitive Has chronic fluctuating mental Status Leg redness is better D/C vancomycin and start Levaquin -to cover any pathogen in lung Clinically much better Metastatic Adenocarcinoma Bilateral Pleural Effusion Left pleural catheter in place CT of the chest as above Pulmonary consult-appreciate input and recommendation Management per Medical Oncology-appreciate input Appreciate Palliative care input . BRAIN METS with Headache Neuroimaging demonstrated right frontal and occipital lesions with associated vasogenic edema. Received Radiation therapy and will get opinion about more therapy and guidance Finished Dexamethasone as an OP Symptomatic management for headache MALIGNANT PLEURAL EFFUSIONS Has left Pleural Catheter Appreciate Dr Mckay's input and thoracentesis on right Prognosis is poor DEPRESSION Continue sertraline. VTE PROPHYLAXIS History of DVT. No anticoagulants due to brain mets. S/P IV filter. SCD's. Ambulate. Code Status-DNR ,discussed with the patient and the Brother Has had some isue with DNR this morning-patient wanted to be Full code Thanks to Dr Mckay to take care of the issue on my behalf Patient is now DNR DISPOSITION To be determined. Anticipate need for inpatient rehabilitation for skilled care. Medical follow-up with Dr. Bowden. Continue PT/OT-wants to go to Rehab Vital Signs: Date Time Temp Pulse Resp B/P (MAP) Pulse Ox O2 Delivery O2 Flow Rate FiO2 09/17/16 11:19 110 89/56 (67) 09/17/16 11:19 116 119/66 (83) 09/17/16 11:08 37.3 112 18 80/56 (64) 95 Nasal Cannula 5.0 Humidified Oxygen 09/17/16 09:10 100 101/66 (78) 94 Nasal Cannula 5.0 09/17/16 08:00 Nasal Cannula 4.0 09/17/16 06:52 99 18 90/60 (70) 92 Nasal Cannula 4.0 09/17/16 04:00 Nasal Cannula 09/17/16 03:54 37.6 97 21 93/58 (70) 91 Nasal Cannula 4.0 09/16/16 23:59 Nasal Cannula 09/16/16 23:11 36.9 103 21 107/71 (83) 94 Nasal Cannula 4.0 09/16/16 20:00 Nasal Cannula 09/16/16 19:59 37.0 94 18 97/62 (74) 96 Nasal Cannula 4.0 09/16/16 16:00 Nasal Cannula 4.0 09/16/16 15:14 36.8 88 18 96/56 (69) 91 Nasal Cannula 4.0 09/16/16 12:00 Nasal Cannula 4.0 Lab Results: Results Past 24 Hours Test 09/17/16 06:06 Range/Units White Blood Count 4.09 4.8-10.8 K/uL Red Blood Count 3.27 4.2-5.4 M/uL Hemoglobin 8.3 12.0-16.0 g/dL Hematocrit 26.6 37-47 % Mean Corpuscular Volume 81.3 80-100 fL Mean Corpuscular Hemoglobin 25.4 25-34 pg Mean Corpuscular Hemoglobin Concent 31.2 32-36 g/dl RDW Standard Deviation 52.9 36.4-46.3 fL RDW Coefficient of Variation 17.9 11.5-14.5 % Platelet Count 243 130-400 K/uL Mean Platelet Volume 9.1 7.4-10.4 fL Sodium Level 140 136-145 mmol/L Potassium Level 4.1 3.5-5.1 mmol/L Chloride Level 107 98-107 mmol/L Carbon Dioxide Level 28 21-32 mmol/L Anion Gap 5.0 3-11 mmol/L Blood Urea Nitrogen 17 7-18 mg/dl Creatinine 0.69 0.60-1.20 mg/dl Est Creatinine Clear Calc Drug Dose 69.9 ml/min Estimated GFR () 102.9 Estimated GFR (Non- 88.8 BUN/Creatinine Ratio 24.6 10-20 Random Glucose 83 70-99 mg/dl Calcium Level 7.7 8.5-10.1 mg/dl Phosphorus Level 2.6 2.5-4.9 mg/dl Magnesium Level 1.8 1.8-2.4 mg/dl
[2016-09-17] MEDS: ACETAMINOPHEN 325 MG TAB PO PRN (12:39)
[2016-09-17] MEDS: LEVOFLOXACIN / D5W 500 MG in PREMIXED IN D5W 100 ML IV SCH (13:07)
[2016-09-17] MEDS ORDERED: OXYCODONE HCL IR 5 MG TAB (IMMEDIATE RELEASE) ONE (13:29)
--- NOTE | 2016-09-17 16:30 | ECHOCARDIOGRAM REPORT ---
*NOTICE TO RECEIVING [employer] This information is strictly Confidential and protected under [place] law. [place] law prohibits you from making any further disclosure of this information unless further disclosure is expressly permitted by the written consent of the person to whom it pertains or is authorized by law. A general authorization for the release of medical or other information is not sufficient for this purpose. Hospital accepts no responsibility if the information is made available to any other person, INCLUDING THE PATIENT. Interpretation Summary * Name: ELGIN GUO Study Date: 09/17/2016 10:45 AM BP: 93/56 mmHg * Patient Location: C.2T\S\S242\S\1 HR: 108 * : 1945 (M/d/yyyy) Gender: Female Height: 63 in * Age: 71 yrs Ethnicity: CA Weight: 162 lb * Ordering Physician: Arthur Jay * Referring Physician: Kj Frias * Performed By: Arthur Villeda RDCS * * Reason For Study: CHF * BSA: 1.8 m2 * Grossly normal valvular structure and function. * -- Conclusions -- * The left ventricle is normal in size. * Left ventricular systolic function is normal. * Ejection Fraction = 50-55%. * The right ventricular systolic function is qualitatively normal. * The left atrial size is normal. * Right atrial size is normal. * Grossly normal valvular structure and function. Procedure Details * A complete two-dimensional transthoracic echocardiogram was performed (2D, M-mode, Doppler and color flow Doppler). * The study was technically adequate. Left Ventricle * The left ventricle is normal in size. * There is normal left ventricular wall thickness. * Left ventricular systolic function is normal. * Ejection Fraction = 50-55%. * The left ventricular wall motion is normal. Right Ventricle * The right ventricle is not well visualized. * The right ventricle is grossly normal size. * The right ventricular systolic function is qualitatively normal. Atria * The left atrial size is normal. * Right atrial size is normal. * There is no evidence of atrial septal defect, but resolution does not allow assessment for a patent foramen ovale. Mitral Valve * The mitral valve is grossly normal. * Significant mitral regurgitation is absent. Aortic Valve * The aortic valve is tricuspid. The leaflet thickness if normal. There is no aortic stenosis, and no significant insufficiency. * No hemodynamically significant valvular aortic stenosis. * There is no significant aortic regurgitation. Pulmonic Valve * The pulmonic valve is not well visualized. Great Vessels * The aortic root and proximal ascending aorta are normal sized. Pericardium/Pleural * There is no pericardial effusion. MMode 2D Measurements and Calculations IVSd 0.97 cm IVSs 1.2 cm LVIDd 5.3 cm LVIDs 3.8 cm LVPWd 0.95 cm LVPWs 1.5 cm IVS/LVPW 1.0 FS 28.3 % EDV(Teich) 138.1 ml ESV(Teich) 63.3 ml EF(Teich) 54.1 % EDV(cubed) 152.8 ml ESV(cubed) 56.4 ml EF(cubed) 63.1 % % IVS thick 29.1 % % LVPW thick 62.1 % LV mass(C)d 191.7 grams LV mass(C)dI 108.4 grams/m\S\2 LV mass(C)s 194.8 grams LV mass(C)sI 110.2 grams/m\S\2 SV(Teich) 74.7 ml SI(Teich) 42.3 ml/m\S\2 SV(cubed) 96.4 ml SI(cubed) 54.5 ml/m\S\2 EPSS 1.5 cm Ao root diam 2.9 cm Ao root area 6.4 cm\S\2 ACS 1.8 cm LA dimension 4.0 cm asc Aorta Diam 2.9 cm LA/Ao 1.4 LVOT diam 2.0 cm LVOT area 3.3 cm\S\2 LVAd ap4 23.4 cm\S\2 LVLd ap4 7.7 cm EDV(MOD-sp4) 59.0 ml LVAs ap4 14.8 cm\S\2 LVLs ap4 6.9 cm ESV(MOD-sp4) 27.0 ml EF(MOD-sp4) 54.2 % LVAd ap2 17.2 cm\S\2 LVLd ap2 7.3 cm EDV(MOD-sp2) 36.0 ml LVAs ap2 10.6 cm\S\2 LVLs ap2 6.5 cm ESV(MOD-sp2) 15.0 ml EF(MOD-sp2) 58.3 % SV(MOD-sp4) 32.0 ml SI(MOD-sp4) 18.1 ml/m\S\2 SV(MOD-sp2) 21.0 ml SI(MOD-sp2) 11.9 ml/m\S\2 Doppler Measurements and Calculations MV E max tracie 80.2 cm/sec MV A max tracie 91.3 cm/sec MV E/A 0.88 MV dec time 0.19 sec Ao V2 max 139.0 cm/sec Ao max PG 7.7 mmHg Ao max PG (full) 3.5 mmHg ALONSO(V,A) 2.4 cm\S\2 ALONSO(V,D) 2.4 cm\S\2 LV V1 max PG 4.2 mmHg LV V1 max 103.0 cm/sec PA V2 max 102.5 cm/sec PA max PG 4.2 mmHg PA acc slope 845.9 cm/sec\S\2 PA acc time 0.12 sec TR max tracie 262.0 cm/sec PA pr(Accel) 23.5 mmHg
[2016-09-17] MEDS: ATORVASTATIN 40 MG TAB PO SCH (21:42)
[2016-09-17] MEDS: GABAPENTIN 600 MG TAB PO SCH (21:42)
[2016-09-18] VITALS (9 sets, daily range): BP systolic 98–133; BP diastolic 63–74; PULSE 105–115; TEMP 36.8–37.1; O2SAT 92–96
[2016-09-18] MEDS: OXYCODONE HCL IR 5 MG TAB (IMMEDIATE RELEASE) PO PRN ×3 (06:18→21:09)
[2016-09-18] MEDS: ASPIRIN 81 MG ECTAB PO SCH (08:05)
[2016-09-18] MEDS: LACOSAMIDE 50 MG TAB PO SCH ×2 (08:05→21:09)
[2016-09-18] MEDS: OXYCODONE HCL 10 MG TABCR (OXYCONTIN) PO SCH ×2 (08:12→21:13)
--- NOTE | 2016-09-18 09:02 | Hematology/Oncology Prog Note ---
Hematology/Onc Progress Note Date of Service Sep 18, 2016. Diagnoses Metastatic NSCLC Confusion UTI Volume overload Medications Medications Administered Medications (Trade) Dose Ordered Sig/Yuriy Route Start Time Stop Time Status Last Admin Dose Admin Cefepime HCl 1000 mg/Dextrose 111.3 ml @ 200 mls/hr NOW STAT IV 09/14/16 16:32 09/14/16 17:05 DC 09/14/16 16:32 200 MLS/HR Vancomycin HCl 1400 mg/Sodium Chloride 528 ml @ 200 mls/hr ONE STAT IV 09/14/16 18:09 09/14/16 20:51 DC 09/14/16 18:09 200 MLS/HR Potassium Chloride/Sodium Chloride 1,000 ml @ 75 mls/hr [id number] IV 09/14/16 21:21 09/14/16 22:29 DC 09/14/16 21:50 75 MLS/HR Acetaminophen (Tylenol Tab) 650 mg Q4H PRN PO 09/14/16 19:00 10/14/16 18:59 09/17/16 12:39 650 MG Aspirin (Ecotrin Tab) 81 mg QAM PO 09/15/16 09:00 10/15/16 08:59 09/18/16 08:05 81 MG Atorvastatin Calcium (Lipitor Tab) 40 mg HS PO 09/14/16 21:00 10/14/16 20:59 09/17/16 21:42 40 MG Folic Acid (Folvite Tab) 1 mg QAM PO 09/15/16 09:00 10/15/16 08:59 09/18/16 08:05 1 MG Gabapentin (Neurontin Tab) 600 mg HS PO 09/14/16 21:00 10/14/16 20:59 09/17/16 21:42 600 MG Lacosamide (Vimpat Tab) 100 mg BID PO 09/14/16 21:00 09/16/16 20:35 DC 09/16/16 08:23 100 MG Midodrine (Proamatine Tab) 2.5 mg TID@1000,1400,1800 PO 09/15/16 10:00 10/15/16 09:59 09/17/16 15:50 2.5 MG Oxycodone HCl (Roxicodone Immediate Rel Tab) 5 mg Q8 PRN PO 09/14/16 19:00 09/17/16 13:00 DC 09/17/16 08:47 5 MG Oxycodone HCl (Oxycontin Tab) 10 mg BID PRN PO 09/14/16 19:00 09/15/16 15:53 DC 09/15/16 12:48 10 MG Levofloxacin 150 ml @ 100 mls/hr 1858 STAT IV 09/14/16 19:27 09/14/16 20:56 DC 09/14/16 19:27 100 MLS/HR Furosemide 40 mg/ Syringe 4 ml @ 4 mls/min NOW ONCE IV 09/14/16 22:45 09/14/16 22:46 DC 09/14/16 23:55 4 MLS/MIN Lorazepam (Ativan Tab) 0.5 mg Q6H PRN PO 09/15/16 01:00 10/14/16 18:59 09/15/16 15:16 0.5 MG Ipratropium [place] (Atrovent 0.02% 0.5MG/2.5ML Neb) 0.5 mg TODAY@2300 INH 09/14/16 23:00 09/15/16 02:00 DC 09/15/16 00:50 0.5 MG Levalbuterol (Xopenex 1.25MG/ 0.5ML Neb) 1.25 mg TODAY@2300 INH 09/14/16 23:00 09/15/16 02:00 DC 09/15/16 00:50 1.25 MG Magnesium Sulfate 1 gm/Prmx 100 ml @ 100 mls/hr ONE ONCE IV 09/15/16 02:45 09/15/16 03:44 DC 09/15/16 03:17 100 MLS/HR Furosemide 40 mg/ Syringe 4 ml @ 4 mls/min NOW ONCE IV 09/15/16 03:15 09/15/16 03:16 DC 09/15/16 03:19 4 MLS/MIN Vancomycin HCl 1000 mg/Sodium Chloride 270 ml @ 125 mls/hr Q18H IV 09/16/16 02:00 09/16/16 13:03 DC 09/16/16 02:11 125 MLS/HR Vancomycin HCl 1000 mg/Sodium Chloride 270 ml @ 125 mls/hr NOW ONCE IV 09/15/16 07:30 09/15/16 09:39 DC 09/15/16 09:02 125 MLS/HR Oxycodone HCl (Oxycontin Tab) 10 mg BID PO 09/15/16 21:00 09/28/16 18:59 09/18/16 08:12 10 MG Levofloxacin 500 mg/Prmx 100 ml @ 100 mls/hr Q24H IV 09/17/16 13:00 09/20/16 13:59 09/17/16 13:07 100 MLS/HR Levofloxacin 500 mg/Prmx 100 ml @ 100 mls/hr 1415 IV 09/16/16 14:15 09/16/16 15:14 DC 09/16/16 14:16 100 MLS/HR Lacosamide (Vimpat Tab) 100 mg BID PO 09/16/16 21:00 10/14/16 20:59 09/18/16 08:05 100 MG Oxycodone HCl (Roxicodone Immediate Rel Tab) 5 mg Q4 PRN PO 09/17/16 16:00 09/28/16 18:59 09/18/16 06:18 5 MG Subjective Ms. Lisa was comfortable today. She denies any pain. She remains mildly short of breath. Review of Systems: Constitutional: + fatigue, No fever Respiratory: + shortness of breath, No cough Cardiovascular: No chest pain Abdomen: No pain, No nausea, No vomiting Musculoskeletal: No joint pain, No muscle pain Neurologic: No weakness Heme: No abnormal bleeding/bruising Vital Signs Vital Signs Past 12 Hours Date Time Temp Pulse Resp B/P (MAP) Pulse Ox O2 Delivery O2 Flow Rate FiO2 09/18/16 07:55 37.1 106 16 107/63 (78) 94 Nasal Cannula 09/18/16 04:00 Nasal Cannula 4.0 09/18/16 03:59 37.0 115 21 133/74 (93) 96 Nasal Cannula 4.0 09/18/16 00:02 Nasal Cannula 4.0 09/17/16 23:41 36.9 111 20 160/73 (102) 95 Nasal Cannula 4.0 Physical Exam Constitutional: General Apperance: too thin Level of Distress: NAD, chronically ill Psychiatric: Mental Status: active & alert (answers ) Orientation: oriented except where noted (Oriented and aware, but somewhat confused and digressive) Eyes: EOM: EOMI Lungs: Auscuitation: CTA except as noted (anteriorly) Cardiovascular: Heart Auscultation: RRR Abdomen: Inspection & Palpation: soft, no tenderness, guarding & rebound Extremities: edema (Improving bilateral pedal edema) Assessment & Plan Ms. Lisa was a bit more lucid today. She continues to work with PT, likely with a plan for discharge to an inpatient rehab facility. Once she has a chance to recover, I can see her back in the office to discuss further treatment versus hospice. I still feel overall hospice is a reasonable direction to take, but if she is not ready to make that choice, we can readdress the issue as an outpatient.
[2016-09-18] MEDS: MIDODRINE 2.5 MG TAB PO SCH ×3 (11:09→17:12)
[2016-09-18] MEDS: LEVOFLOXACIN / D5W 500 MG in PREMIXED IN D5W 100 ML IV SCH (13:36)
--- NOTE | 2016-09-18 14:38 | Progress Note ---
Internal Med Progress Note Date of Service: Sep 18, 2016. Provider Documentation: SUBJECTIVE: The patient was seen and examined Moderate SOB at rest Patient has intermittent confusion Patient is now DNR Becomes pleasantly confused at times Not in any acute distress Denies any pain OBJECTIVE: Vital Signs-as noted below Exam: General-Minimal SOB at rest AAOx3 now -gets confused at times Eyes-normal ENT-normal Neck-supple Lungs-Decreased breath sound bilaterally left more than the right Heart-Regular Abdomen-Benign,no masses,bowel sound present Mildly tender Extremities-Trace edema bilaterally-improving Redness of the lower extremities are improved Neuro-AAOx3 Occasional confusion Lab data as noted below. ASSESSMENT & PLAN: Change in Mental Status-acute on Chronic ::Occasional fluctuation Bilateral Leg Cellulitis,No definite Pneumonia and or Sepsis Probable causes-Brain Mets,Infection,Hypoxemia,related to recent Immunotherapy, dehydration and secondary to alcohol abuse Admit to Tele-no arrhythmia Received Vanco and Cefepime in ER and continued until 09/15 IV fluid discontinued -possible Pulmonary edema Blood culture-Negative Urine culture-E Coli-Pansensitive Has chronic fluctuating mental Status Leg redness is better D/C vancomycin and start Levaquin -to cover any pathogen in lung Clinically much better Levaquin changed to oral Metastatic Adenocarcinoma Bilateral Pleural Effusion Left pleural catheter in place CT of the chest as above Pulmonary consult-appreciate input and recommendation Management per Medical Oncology-appreciate input Appreciate Palliative care input . If her condition improved further treatment options will be discussed with the pt by the oncologist BRAIN METS with Headache Neuroimaging demonstrated right frontal and occipital lesions with associated vasogenic edema. Received Radiation therapy and will get opinion about more therapy and guidance Finished Dexamethasone as an OP Symptomatic management for headache Headache is controlled now MALIGNANT PLEURAL EFFUSIONS Has left Pleural Catheter Appreciate Dr Mckay's input and thoracentesis on right Prognosis is poor DEPRESSION Continue sertraline. VTE PROPHYLAXIS History of DVT. No anticoagulants due to brain mets. S/P IV filter. SCD's. Ambulate. Code Status-DNR ,discussed with the patient and the Brother Has had some isue with DNR this morning-patient wanted to be Full code Thanks to Dr Mckay to take care of the issue on my behalf Patient is now DNR DISPOSITION To be determined. Anticipate need for inpatient rehabilitation for skilled care. Medical follow-up with Dr. Bowden. Continue PT/OT-wants to go to Rehab Not considering Hospice acre now Can be transferred to medical floor Vital Signs: Date Time Temp Pulse Resp B/P (MAP) Pulse Ox O2 Delivery O2 Flow Rate FiO2 09/18/16 12:00 95 Nasal Cannula 4.0 09/18/16 11:47 36.8 111 16 98/64 (75) 92 Nasal Cannula 09/18/16 08:00 94 Nasal Cannula 4.0 09/18/16 07:55 37.1 106 16 107/63 (78) 94 Nasal Cannula 09/18/16 04:00 Nasal Cannula 4.0 09/18/16 03:59 37.0 115 21 133/74 (93) 96 Nasal Cannula 4.0 09/18/16 00:02 Nasal Cannula 4.0 09/17/16 23:41 36.9 111 20 160/73 (102) 95 Nasal Cannula 4.0 09/17/16 20:00 Nasal Cannula 4.0 09/17/16 19:18 36.7 102 20 112/68 (83) 97 Nasal Cannula 4.0 09/17/16 16:00 Nasal Cannula 4.0 09/17/16 15:23 36.7 100 18 124/74 (91) 94 Nasal Cannula 4.0 Humidified Oxygen
--- NOTE | 2016-09-18 16:23 | Palliative Care Progress Note ---
Palliative Care Progress Note Date of Service Sep 18, 2016. Subjective Stopped by patient's room twice today. Curtain pulled and patient receiving care both times. Did not see patient's brother in room or hallway. If patient still here on Sunday, will follow up.
[2016-09-18] MEDS: ONDANSETRON INJ 2 MG/ML 2 ML VIAL IV PRN (17:12)
[2016-09-18] MEDS: GABAPENTIN 600 MG TAB PO SCH (21:09)
[2016-09-18] MEDS: ATORVASTATIN 40 MG TAB PO SCH (21:10)
[2016-09-19] VITALS (7 sets, daily range): BP systolic 76–104; BP diastolic 49–69; PULSE 97–114; TEMP 37–37.4; O2SAT 89–96
[2016-09-19] MEDS: LORAZEPAM 0.5 MG TAB PO PRN ×3 (00:37→19:54)
[2016-09-19] MEDS: OXYCODONE HCL IR 5 MG TAB (IMMEDIATE RELEASE) PO PRN ×3 (01:08→18:42)
[2016-09-19] MEDS: OXYCODONE HCL 10 MG TABCR (OXYCONTIN) PO SCH ×2 (08:35→19:53)
[2016-09-19] MEDS: LACOSAMIDE 50 MG TAB PO SCH ×2 (08:36→19:54)
[2016-09-19] MEDS: ASPIRIN 81 MG ECTAB PO SCH (08:36)
[2016-09-19] MEDS: LEVOFLOXACIN 500 MG TAB PO SCH (10:22)
[2016-09-19] MEDS: MIDODRINE 2.5 MG TAB PO SCH ×3 (10:22→18:36)
--- NOTE | 2016-09-19 16:26 | Progress Note ---
Medicine Progress Note Date & Time of Visit: Sep 19, 2016 at 16:26. Subjective Patient was seen twice, once with her brother present this AM and once in the afternoon. No overnight events noted. Tolerating PO. No complaints at this time. Objective Last 8 Hrs Date Time Temp Pulse Resp B/P (MAP) Pulse Ox O2 Delivery O2 Flow Rate FiO2 09/19/16 15:57 Nasal Cannula 4.0 09/19/16 15:36 37.0 100 21 76/55 (62) 89 Nasal Cannula 4.0 09/19/16 15:30 106 86/49 (61) 96 Nasal Cannula 4.0 09/19/16 12:29 114 95/65 (75) 90 Nasal Cannula 4.0 09/19/16 09:50 Nasal Cannula 4.0 Physical Exam: GENERAL: Patient is in no acute distress. HEENT: No acute trauma, normocephalic, mucous membranes moist, no nasal congestion, no scleral icterus. NECK: No stridor, trachea is midline. LUNGS: Diminished bilaterally, no wheeze, no rhonchi, breath sounds equal. + crackles on right base HEART: Without murmurs gallops or rubs, regular rate and rhythm. ABDOMEN: Soft, nontender, bowel sounds positive EXTREMITIES: No cyanosis or edema NEUROLOGIC: Oriented, no acute motor or sensory deficits, no focal weakness. SKIN: No rash, no jaundice, no diaphoresis. Assessment & Plan Altered Mental Status: acute on Chronic occasional fluctuation -bilateral leg Cellulitis,No definite Pneumonia and or Sepsis -likely multifactorial due to brain mets, infection, hypoxemia, dehydration and possibly alcohol abuse -no arrhythmia on tele, moved to medical -received Vanco and Cefepime in ER and continued until 09/15 -IV fluid discontinued, possible Pulmonary edema -Blood cultures: Negative -Urine culture-E Coli-Pansensitive s/p treatment -at baseline has had chronic fluctuating mental Status -leg redness is better -D/C vancomycin and started Levaquin - to cover lung source as well Metastatic Adenocarcinoma with Brain mets: -Bilateral Pleural Effusion -Left pleural catheter in place -CT of the chest -Pulmonary consult, appreciate recommendation -Medical Oncology consulted, appreciate input -Palliative care consult, will discuss tomorrow with brother and patient and CM about the options for hospice HEADACHE: -secondary to brain mets -Neuroimaging demonstrated right frontal and occipital lesions with associated vasogenic edema. -received Radiation therapy as well -finished dexamethasone as outpatient -symptomatic management for headache MALIGNANT PLEURAL EFFUSIONS: -has left Pleurx Catheter -appreciate Pulm Dr Mckay's recommendations -s/p thoracentesis on right -overall prognosis is poor DEPRESSION: -continue sertraline. VTE PROPHYLAXIS: -had a prior history of DVT. -no anticoagulants due to brain mets. -S/P IV filter. -continue SCD's Code Status was changed to DNR by prior attending and Pulm discussion with the patient and her brother Per discussion today with the patient and oncology and myself, the patient is agreeable to talk with Palliative care and CM about hospice tomorrow (Wed.) Current Inpatient Medications: Current Inpatient Medications Medications (Trade) Dose Ordered Sig/Yuriy Route Start Time Stop Time Status Last Admin Dose Admin Acetaminophen (Tylenol Tab) 650 mg Q4H PRN PO 09/14/16 19:00 10/14/16 18:59 09/17/16 12:39 650 MG Ondansetron HCl (Zofran Inj) 4 mg Q6H PRN IV 09/14/16 19:00 10/14/16 18:59 09/18/16 17:12 4 MG Aspirin (Ecotrin Tab) 81 mg QAM PO 09/15/16 09:00 10/15/16 08:59 09/19/16 08:36 81 MG Atorvastatin Calcium (Lipitor Tab) 40 mg HS PO 09/14/16 21:00 10/14/16 20:59 09/18/16 21:10 40 MG Bisacodyl (Dulcolax Tab) 10 mg DAILY PRN PO 09/14/16 19:00 10/14/16 18:59 Folic Acid (Folvite Tab) 1 mg QAM PO 09/15/16 09:00 10/15/16 08:59 09/19/16 08:36 1 MG Gabapentin (Neurontin Tab) 600 mg HS PO 09/14/16 21:00 10/14/16 20:59 09/18/16 21:09 600 MG Magnesium Hydroxide (Milk Of Magnesia Susp) 30 ml DAILY PRN PO 09/14/16 19:00 10/14/16 18:59 Midodrine (Proamatine Tab) 2.5 mg TID@1000,1400,1800 PO 09/15/16 10:00 10/15/16 09:59 09/19/16 15:50 2.5 MG Sodium Biphosphate/ Sodium Phosphate (Fleet Enema) 132 ml DAILY PRN [place] 09/14/16 19:00 10/14/16 18:59 Levalbuterol (Xopenex 0.31MG/ 3ML Neb) 0.31 mg Q6H PRN INH 09/14/16 19:00 10/14/16 18:59 Lorazepam (Ativan Tab) 0.5 mg Q6H PRN PO 09/15/16 01:00 10/14/16 18:59 09/19/16 08:36 0.5 MG Oxycodone HCl (Oxycontin Tab) 10 mg BID PO 09/15/16 21:00 09/28/16 18:59 09/19/16 08:35 10 MG Lacosamide (Vimpat Tab) 100 mg BID PO 09/16/16 21:00 10/14/16 20:59 09/19/16 08:36 100 MG Oxycodone HCl (Roxicodone Immediate Rel Tab) 5 mg Q4 PRN PO 09/17/16 16:00 09/28/16 18:59 09/19/16 08:35 5 MG Levofloxacin (Levaquin Tab) 500 mg DAILY@11 PO 09/19/16 11:00 09/20/16 13:59 09/19/16 10:22 500 MG
[2016-09-19] MEDS: ATORVASTATIN 40 MG TAB PO SCH (19:53)
[2016-09-19] MEDS: GABAPENTIN 600 MG TAB PO SCH (19:54)
[2016-09-20 03:07] VITALS: BP 111/67; PULSE 99; TEMP 37.5; O2SAT 93
[2016-09-20 06:58] VITALS: BP_SYST 123; BP_SYST 79; BP_DIAS 51; BP_DIAS 75; PULSE 69; TEMP 36.7; O2SAT 99
[2016-09-20] MEDS: LACOSAMIDE 50 MG TAB PO SCH ×2 (07:57→19:38)
[2016-09-20] MEDS: ASPIRIN 81 MG ECTAB PO SCH (07:57)
[2016-09-20] MEDS: OXYCODONE HCL 10 MG TABCR (OXYCONTIN) PO SCH ×2 (08:01→19:39)
[2016-09-20] MEDS: MIDODRINE 2.5 MG TAB PO SCH ×3 (09:36→17:21)
[2016-09-20] MEDS ORDERED: SODIUM CHLORIDE 0.65% NA SOLN 45 ML (OCEAN) PRN (10:00)
--- NOTE | 2016-09-20 10:00 | Pulmonology Progress Note ---
Pulmonary Progress Note Date of Service Sep 20, 2016. Attending Dr Marcia Bowers The patient was seen today with Leobardo Benitez physician help desk assistant student, with the verbal consent of the patient. Patient reports today that she overall is feeling pretty well. From a pulmonary standpoint she has no complaints today her specific comment was that she didn't feel anything going on with her breathing. She states that she thinks they drained about 600 mL off when the hookup her Pleurx catheter. This is verified by nursing staff reported that they did drain out 600 mL this morning. Patient denies any other pulmonary symptoms. She denies any increased shortness of breath. No cough. She states she will get a occasional dry cough but is nothing significant. No significant mucus production. She's not having any pleuritic chest pain. She states that when he drained Pleurx catheter she can feel it up into her left shoulder when they're getting ready to stop. She has some discomfort which is typical. She denies any other concerns. She states that she is tired and just trying to get woken up but otherwise no problems. No headache or lightheadedness. She is complaining of little bit of sinus drainage. She thinks it's okay and isn't really worried about it. She is not having any chest pain. No palpitations. No GI complaints. Overall she's feeling fairly well today. Objective Patient is a 71-year-old female. She is lying in bed. She appears to be alert and oriented to person place and time. She's not having any acute distress. No respiratory distress. She can talk in complete sentences without becoming dyspneic. Mood is good. Affect is good. Vital signs: Temp 36.7, pulse 69, respirations 18, blood pressure 79/51, pulse ox 93% on 4 L. HEENT: PERRLA, EOMI, normocephalic, atraumatic, pink moist gingival buccal mucosa. Neck is supple, no JVD, no visible mass, good range of motion. Chest: Diminished breath sounds bilaterally. Patient does have dullness at the right base up until the mid scapula area. There is dullness to percussion up to this point as well. She does have some faint rales at this point as well. On the left she has some coarser breath sounds. She may have a few rhonchi noted. She does have much better aeration on the left than the right. Cardiovascular: Regular rate and rhythm. No murmurs, gallops, rubs. Abdomen: Unremarkable. 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 At this time the patient seems to be doing relatively well. She appears comfortable in bed. She's not having any visible or exhibited signs of distress. At this time she continues with recurrent pleural effusion on the left. She did have 600 mL drained today compared to 900 mL drained on September 16. She's not had anything done with the right side since the last thoracentesis. At this time, it may be prudent to get a repeat chest x-ray to evaluate this further. She's not in any distress so I don't know that we would need to do thoracentesis initially be beneficial to see how quickly she is reaccumulating fluid. Otherwise from pulmonary standpoint she is continue same regimen that she is on. She's having some sinus symptoms which I think are from her oxygen. At this time I like to start her on some nasal saline and see how she does. She is agreeable to this. At this time, the patient seems to be stable from a pulmonary standpoint and there is little more to offer her,. Therefore, for now, we will sign off on the patient. If the need arises, please let us know or reconsult. Data Medications: Current Inpatient Medications Medications (Trade) Dose Ordered Sig/Yuriy Route Start Time Stop Time Status Last Admin Dose Admin Acetaminophen (Tylenol Tab) 650 mg Q4H PRN PO 09/14/16 19:00 10/14/16 18:59 09/17/16 12:39 650 MG Ondansetron HCl (Zofran Inj) 4 mg Q6H PRN IV 09/14/16 19:00 10/14/16 18:59 09/18/16 17:12 4 MG Aspirin (Ecotrin Tab) 81 mg QAM PO 09/15/16 09:00 10/15/16 08:59 09/20/16 07:57 81 MG Atorvastatin Calcium (Lipitor Tab) 40 mg HS PO 09/14/16 21:00 10/14/16 20:59 09/19/16 19:53 40 MG Bisacodyl (Dulcolax Tab) 10 mg DAILY PRN PO 09/14/16 19:00 10/14/16 18:59 Folic Acid (Folvite Tab) 1 mg QAM PO 09/15/16 09:00 10/15/16 08:59 09/20/16 07:57 1 MG Gabapentin (Neurontin Tab) 600 mg HS PO 09/14/16 21:00 10/14/16 20:59 09/19/16 19:54 600 MG Magnesium Hydroxide (Milk Of Magnesia Susp) 30 ml DAILY PRN PO 09/14/16 19:00 10/14/16 18:59 Midodrine (Proamatine Tab) 2.5 mg TID@1000,1400,1800 PO 09/15/16 10:00 10/15/16 09:59 09/20/16 09:36 2.5 MG Sodium Biphosphate/ Sodium Phosphate (Fleet Enema) 132 ml DAILY PRN [place] 09/14/16 19:00 10/14/16 18:59 Levalbuterol (Xopenex 0.31MG/ 3ML Neb) 0.31 mg Q6H PRN INH 09/14/16 19:00 10/14/16 18:59 Lorazepam (Ativan Tab) 0.5 mg Q6H PRN PO 09/15/16 01:00 10/14/16 18:59 09/19/16 19:54 0.5 MG Oxycodone HCl (Oxycontin Tab) 10 mg BID PO 09/15/16 21:00 09/28/16 18:59 09/20/16 08:01 10 MG Lacosamide (Vimpat Tab) 100 mg BID PO 09/16/16 21:00 10/14/16 20:59 09/20/16 07:57 100 MG Oxycodone HCl (Roxicodone Immediate Rel Tab) 5 mg Q4 PRN PO 09/17/16 16:00 09/28/16 18:59 09/19/16 18:42 5 MG Levofloxacin (Levaquin Tab) 500 mg DAILY@11 PO 09/19/16 11:00 09/20/16 13:59 09/19/16 10:22 500 MG Vital Signs: Date Time Temp Pulse Resp B/P (MAP) Pulse Ox O2 Delivery O2 Flow Rate FiO2 09/20/16 06:58 36.7 69 18 79/51 (60) 99 Room Air 09/20/16 03:07 37.5 99 16 111/67 (82) 93 Nasal Cannula 4.0 09/20/16 00:00 Nasal Cannula 4.0 09/19/16 22:53 37.0 20 96/59 (71) 90 Nasal Cannula 4.0 09/19/16 20:00 Nasal Cannula 4.0 09/19/16 19:21 37.4 103 18 85/55 (65) 93 Nasal Cannula 4.0 09/19/16 15:57 Nasal Cannula 4.0 09/19/16 15:36 37.0 100 21 76/55 (62) 89 Nasal Cannula 4.0 09/19/16 15:30 106 86/49 (61) 96 Nasal Cannula 4.0 09/19/16 12:29 114 95/65 (75) 90 Nasal Cannula 4.0 09/19/16 09:50 Nasal Cannula 4.0
[2016-09-20] MEDS: LEVOFLOXACIN 500 MG TAB PO SCH (11:40)
[2016-09-20 11:56] VITALS: BP_SYST 63; BP_SYST 64; BP_DIAS 45; BP_DIAS 47; PULSE 99; TEMP 36.8; O2SAT 96
[2016-09-20 13:15] VITALS: BP 92/62; PULSE 108
[2016-09-20] MEDS: OXYCODONE HCL IR 5 MG TAB (IMMEDIATE RELEASE) PO PRN (13:21)
[2016-09-20] MEDS: ACETAMINOPHEN 325 MG TAB PO PRN (15:39)
[2016-09-20] MEDS: LORAZEPAM 0.5 MG TAB PO PRN ×2 (15:50→16:43)
[2016-09-20 15:52] VITALS: BP 95/62; PULSE 99; TEMP 37.3; O2SAT 97
[2016-09-20] MEDS ORDERED: NURSING VERBAL MED ORDER ONE (16:45)
[2016-09-20] MEDS ORDERED: LORAZEPAM 0.5 MG TAB PO ONE (17:00)
--- NOTE | 2016-09-20 17:09 | Hematology/Oncology Prog Note ---
Hematology/Onc Progress Note Date of Service Sep 20, 2016. Diagnoses Metastatic NSCLC Confusion UTI Volume overload Medications Medications Administered Medications (Trade) Dose Ordered Sig/Yuriy Route Start Time Stop Time Status Last Admin Dose Admin Cefepime HCl 1000 mg/Dextrose 111.3 ml @ 200 mls/hr NOW STAT IV 09/14/16 16:32 09/14/16 17:05 DC 09/14/16 16:32 200 MLS/HR Vancomycin HCl 1400 mg/Sodium Chloride 528 ml @ 200 mls/hr ONE STAT IV 09/14/16 18:09 09/14/16 20:51 DC 09/14/16 18:09 200 MLS/HR Potassium Chloride/Sodium Chloride 1,000 ml @ 75 mls/hr [id number] IV 09/14/16 21:21 09/14/16 22:29 DC 09/14/16 21:50 75 MLS/HR Acetaminophen (Tylenol Tab) 650 mg Q4H PRN PO 09/14/16 19:00 10/14/16 18:59 09/20/16 15:39 650 MG Ondansetron HCl (Zofran Inj) 4 mg Q6H PRN IV 09/14/16 19:00 10/14/16 18:59 09/18/16 17:12 4 MG Aspirin (Ecotrin Tab) 81 mg QAM PO 09/15/16 09:00 10/15/16 08:59 09/20/16 07:57 81 MG Atorvastatin Calcium (Lipitor Tab) 40 mg HS PO 09/14/16 21:00 10/14/16 20:59 09/19/16 19:53 40 MG Folic Acid (Folvite Tab) 1 mg QAM PO 09/15/16 09:00 10/15/16 08:59 09/20/16 07:57 1 MG Gabapentin (Neurontin Tab) 600 mg HS PO 09/14/16 21:00 10/14/16 20:59 09/19/16 19:54 600 MG Lacosamide (Vimpat Tab) 100 mg BID PO 09/14/16 21:00 09/16/16 20:35 DC 09/16/16 08:23 100 MG Midodrine (Proamatine Tab) 2.5 mg TID@1000,1400,1800 PO 09/15/16 10:00 10/15/16 09:59 09/20/16 14:18 2.5 MG Oxycodone HCl (Roxicodone Immediate Rel Tab) 5 mg Q8 PRN PO 09/14/16 19:00 09/17/16 13:00 DC 09/17/16 08:47 5 MG Oxycodone HCl (Oxycontin Tab) 10 mg BID PRN PO 09/14/16 19:00 09/15/16 15:53 DC 09/15/16 12:48 10 MG Levofloxacin 150 ml @ 100 mls/hr 1858 STAT IV 09/14/16 19:27 09/14/16 20:56 DC 09/14/16 19:27 100 MLS/HR Furosemide 40 mg/ Syringe 4 ml @ 4 mls/min NOW ONCE IV 09/14/16 22:45 09/14/16 22:46 DC 09/14/16 23:55 4 MLS/MIN Lorazepam (Ativan Tab) 0.5 mg Q6H PRN PO 09/15/16 01:00 10/14/16 18:59 09/20/16 16:43 0.5 MG Ipratropium [place] (Atrovent 0.02% 0.5MG/2.5ML Neb) 0.5 mg TODAY@2300 INH 09/14/16 23:00 09/15/16 02:00 DC 09/15/16 00:50 0.5 MG Levalbuterol (Xopenex 1.25MG/ 0.5ML Neb) 1.25 mg TODAY@2300 INH 09/14/16 23:00 09/15/16 02:00 DC 09/15/16 00:50 1.25 MG Magnesium Sulfate 1 gm/Prmx 100 ml @ 100 mls/hr ONE ONCE IV 09/15/16 02:45 09/15/16 03:44 DC 09/15/16 03:17 100 MLS/HR Furosemide 40 mg/ Syringe 4 ml @ 4 mls/min NOW ONCE IV 09/15/16 03:15 09/15/16 03:16 DC 09/15/16 03:19 4 MLS/MIN Vancomycin HCl 1000 mg/Sodium Chloride 270 ml @ 125 mls/hr Q18H IV 09/16/16 02:00 09/16/16 13:03 DC 09/16/16 02:11 125 MLS/HR Vancomycin HCl 1000 mg/Sodium Chloride 270 ml @ 125 mls/hr NOW ONCE IV 09/15/16 07:30 09/15/16 09:39 DC 09/15/16 09:02 125 MLS/HR Oxycodone HCl (Oxycontin Tab) 10 mg BID PO 09/15/16 21:00 09/28/16 18:59 09/20/16 08:01 10 MG Levofloxacin 500 mg/Prmx 100 ml @ 100 mls/hr Q24H IV 09/17/16 13:00 09/18/16 15:00 DC 09/18/16 13:36 100 MLS/HR Levofloxacin 500 mg/Prmx 100 ml @ 100 mls/hr 1415 IV 09/16/16 14:15 09/16/16 15:14 DC 09/16/16 14:16 100 MLS/HR Lacosamide (Vimpat Tab) 100 mg BID PO 09/16/16 21:00 10/14/16 20:59 09/20/16 07:57 100 MG Oxycodone HCl (Roxicodone Immediate Rel Tab) 5 mg Q4 PRN PO 09/17/16 16:00 09/28/16 18:59 09/20/16 13:21 5 MG Levofloxacin (Levaquin Tab) 500 mg DAILY@11 PO 09/19/16 11:00 09/20/16 13:59 DC 09/20/16 11:40 500 MG Subjective Ms. Lisa was comfortable today. She reports feeling slightly better. However, I discussed her condition with her nurse and she is doing poorly. She barely eats and every time they move her, her BP drops. She is pain free and her shortness of breath is largely stable. Review of Systems: Constitutional: + weakness, No fever, No chills Respiratory: + shortness of breath, No cough Cardiovascular: No chest pain, No edema Abdomen: No pain, No nausea Neurologic: + memory loss Heme: No abnormal bleeding/bruising Vital Signs Vital Signs Past 12 Hours Date Time Temp Pulse Resp B/P (MAP) Pulse Ox O2 Delivery O2 Flow Rate FiO2 09/20/16 15:52 37.3 99 22 95/62 (73) 97 Nasal Cannula 4.0 09/20/16 13:15 108 92/62 (72) 09/20/16 11:56 36.8 99 20 63/47 (52) 96 64/45 (51) 09/20/16 09:00 Nasal Cannula 4.0 09/20/16 06:58 36.7 69 18 79/51 (60) 99 Room Air Physical Exam Constitutional: General Apperance: too thin Level of Distress: NAD, chronically ill Psychiatric: Mental Status: active & alert (answers ) Orientation: oriented except where noted (Oriented and aware, but somewhat confused and digressive) Eyes: EOM: EOMI Lungs: Auscuitation: CTA except as noted (anteriorly) Cardiovascular: Heart Auscultation: RRR Abdomen: Inspection & Palpation: soft, no tenderness, guarding & rebound Extremities: edema (Improving bilateral pedal edema) Assessment & Plan I have had several conversations with Ms. Lisa and her brother over the last two days and met with them both in person today. Ms. Lisa's clinical status continues to deteriorate. Her nutrition status has led to hypoalbuminemia , third-spacing, and orthostasis that results in hemodynamic compromise. I strongly doubt she will be able to make a meaningful recovery in time to be effectively treated for her cancer. In fact, the untreated cancer will only make such a recovery more difficult. As a result, I think her best option would be hospice. We discussed that, given her condition, she would likely require inpatient rather than home hospice. I previously consulted palliative care and will have them come back today to lay out options for facilities that could provide this level of care. Ms. Lisa seemed to understand and agree, though at times she was confused. Her brother also seemed in agreement.
--- NOTE | 2016-09-20 19:00 | Progress Note ---
Medicine Progress Note Date & Time of Visit: Sep 20, 2016 at 19:00. Subjective Patient reports feeling ok, her pain and ÁLVAREZ are currently controlled. Denies any overnight events. Her brother Ang was at the bedside as well. Appetite is fair. Had pleural fluid drained from the left pleurx catheter, about 600 ml. Patient denies any changes to her pain or breathing. Objective Last 8 Hrs Date Time Temp Pulse Resp B/P (MAP) Pulse Ox O2 Delivery O2 Flow Rate FiO2 09/20/16 15:52 37.3 99 22 95/62 (73) 97 Nasal Cannula 4.0 09/20/16 15:15 Nasal Cannula 4.0 09/20/16 13:15 108 92/62 (72) 09/20/16 11:56 36.8 99 20 63/47 (52) 96 64/45 (51) Physical Exam: GENERAL: Patient is in no acute distress. HEENT: No acute trauma, normocephalic, mucous membranes moist, no nasal congestion, no scleral icterus. NECK: No stridor, trachea is midline. LUNGS: Diminished bilaterally, no wheeze, no rhonchi, breath sounds equal. + crackles on right base HEART: Without murmurs gallops or rubs, regular rate and rhythm. ABDOMEN: Soft, nontender, bowel sounds positive EXTREMITIES: No cyanosis or edema NEUROLOGIC: Oriented, no acute motor or sensory deficits, no focal weakness. SKIN: No rash, no jaundice, no diaphoresis; has some erythema and moisture in her groin Assessment & Plan Altered Mental Status: acute on Chronic occasional fluctuation -bilateral leg Cellulitis,No definite Pneumonia and or Sepsis -likely multifactorial due to brain mets, infection, hypoxemia, dehydration and possibly alcohol abuse -no arrhythmia on tele, moved to medical -received Vanco and Cefepime in ER and continued until 09/15 -IV fluid discontinued due to possible Pulmonary edema -Blood cultures: Negative -Urine culture-E Coli-Pansensitive s/p treatment -at recent baseline has had chronic fluctuating mental status/forgetfulness -leg redness is better -D/C vancomycin and started levaquin - to cover lung source as well Metastatic Adenocarcinoma with Brain mets: -Bilateral Pleural Effusion -Left pleural catheter in place -CT of the chest -Pulmonary consult, appreciate recommendation -Medical Oncology consulted, appreciate input -Palliative care consult, will discuss tomorrow with brother and patient and CM about the options for hospice HEADACHE: -secondary to brain mets -Brain imaging demonstrated right frontal and occipital lesions with associated vasogenic edema. -s/p radiation therapy as well -finished dexamethasone as outpatient -symptomatic management for headache MALIGNANT PLEURAL EFFUSIONS: -has left Pleurx catheter -appreciate Pulm Dr Mckay's recommendations -s/p thoracentesis on right -overall prognosis is poor DEPRESSION: -continue sertraline. VTE PROPHYLAXIS: -had a prior history of DVT. -no anticoagulants due to brain mets. -S/P IV filter. -continue SCD's Code Status was changed to DNR by prior attending and Pulm discussion with the patient and her brother Per discussion today with the patient, her brother Ang, and oncology, the patient is agreeable to pursue hospice at a facility. CM was in and has started referral process. Current Inpatient Medications: Current Inpatient Medications Medications (Trade) Dose Ordered Sig/Yuriy Route Start Time Stop Time Status Last Admin Dose Admin Acetaminophen (Tylenol Tab) 650 mg Q4H PRN PO 09/14/16 19:00 10/14/16 18:59 09/20/16 15:39 650 MG Ondansetron HCl (Zofran Inj) 4 mg Q6H PRN IV 09/14/16 19:00 10/14/16 18:59 09/18/16 17:12 4 MG Aspirin (Ecotrin Tab) 81 mg QAM PO 09/15/16 09:00 10/15/16 08:59 09/20/16 07:57 81 MG Atorvastatin Calcium (Lipitor Tab) 40 mg HS PO 09/14/16 21:00 10/14/16 20:59 09/19/16 19:53 40 MG Bisacodyl (Dulcolax Tab) 10 mg DAILY PRN PO 09/14/16 19:00 10/14/16 18:59 Folic Acid (Folvite Tab) 1 mg QAM PO 09/15/16 09:00 10/15/16 08:59 09/20/16 07:57 1 MG Gabapentin (Neurontin Tab) 600 mg HS PO 09/14/16 21:00 10/14/16 20:59 09/19/16 19:54 600 MG Magnesium Hydroxide (Milk Of Magnesia Susp) 30 ml DAILY PRN PO 09/14/16 19:00 10/14/16 18:59 Midodrine (Proamatine Tab) 2.5 mg TID@1000,1400,1800 PO 09/15/16 10:00 10/15/16 09:59 09/20/16 17:21 2.5 MG Sodium Biphosphate/ Sodium Phosphate (Fleet Enema) 132 ml DAILY PRN [place] 09/14/16 19:00 10/14/16 18:59 Levalbuterol (Xopenex 0.31MG/ 3ML Neb) 0.31 mg Q6H PRN INH 09/14/16 19:00 10/14/16 18:59 Lorazepam (Ativan Tab) 0.5 mg Q6H PRN PO 09/15/16 01:00 10/14/16 18:59 09/20/16 16:43 0.5 MG Oxycodone HCl (Oxycontin Tab) 10 mg BID PO 09/15/16 21:00 09/28/16 18:59 09/20/16 08:01 10 MG Lacosamide (Vimpat Tab) 100 mg BID PO 09/16/16 21:00 10/14/16 20:59 09/20/16 07:57 100 MG Oxycodone HCl (Roxicodone Immediate Rel Tab) 5 mg Q4 PRN PO 09/17/16 16:00 09/28/16 18:59 09/20/16 13:21 5 MG Sodium Chloride ([place] Nasal [place]) 2 sprays Q2HWA PRN NA 09/20/16 10:00 10/20/16 09:59
[2016-09-20] MEDS: ATORVASTATIN 40 MG TAB PO SCH (19:38)
[2016-09-20] MEDS: GABAPENTIN 600 MG TAB PO SCH (19:38)
[2016-09-20 19:45] VITALS: BP 91/58; PULSE 97; TEMP 36.6; O2SAT 96
[2016-09-21] VITALS (7 sets, daily range): BP systolic 90–105; BP diastolic 51–69; PULSE 61–99; TEMP 36.6–37.1; O2SAT 90–98
[2016-09-21] MEDS: ASPIRIN 81 MG ECTAB PO SCH (08:19)
[2016-09-21] MEDS: LACOSAMIDE 50 MG TAB PO SCH ×2 (08:20→19:30)
[2016-09-21] MEDS: OXYCODONE HCL 10 MG TABCR (OXYCONTIN) PO SCH ×2 (09:15→19:30)
[2016-09-21] MEDS: OXYCODONE HCL IR 5 MG TAB (IMMEDIATE RELEASE) PO PRN ×3 (09:15→18:17)
[2016-09-21] MEDS: MIDODRINE 2.5 MG TAB PO SCH ×3 (10:33→18:15)
[2016-09-21] MEDS: LORAZEPAM 0.5 MG TAB PO PRN (15:46)
--- NOTE | 2016-09-21 18:23 | Progress Note ---
Medicine Progress Note Date & Time of Visit: Sep 21, 2016 at 18:23. Subjective Patient denies any complaints, has been forgetful which is frustrating to her but otherwise feels her ÁLVAREZ and pain are well controlled. No overnight events noted. Tolerating PO without difficulty. Patient is trying to cope with her situation and the new plan for hospice. No visitors at the bedside at the time of eval. Objective Last 8 Hrs Date Time Temp Pulse Resp B/P (MAP) Pulse Ox O2 Delivery O2 Flow Rate FiO2 09/21/16 15:40 Nasal Cannula 4.0 09/21/16 14:58 37.1 88 18 93/51 (65) 95 Nasal Cannula 4.0 09/21/16 10:57 37.1 95 18 100/64 (76) 96 Nasal Cannula 4.0 Physical Exam: GENERAL: Patient is in no acute distress. HEENT: No acute trauma, normocephalic, mucous membranes moist, no nasal congestion, no scleral icterus. NECK: No stridor, trachea is midline. LUNGS: Diminished bilaterally, no wheeze, no rhonchi, breath sounds equal. + crackles on left base HEART: Without murmurs gallops or rubs, regular rate and rhythm. ABDOMEN: Soft, nontender, bowel sounds positive EXTREMITIES: No cyanosis or edema NEUROLOGIC: Oriented, no acute motor or sensory deficits, no focal weakness. SKIN: No rash, no jaundice, no diaphoresis; has some erythema in her groin Assessment & Plan Altered Mental Status: acute on Chronic occasional fluctuation -bilateral leg Cellulitis, no definite Pneumonia and or Sepsis -likely multifactorial due to brain mets, infection, hypoxemia, dehydration and possibly alcohol abuse -no arrhythmia on tele, moved to medical -received Vanco and Cefepime in ER and continued until 09/15 -IV fluid discontinued due to possible Pulmonary edema -Blood cultures: Negative -Urine culture: pansensitive E Coli; completed course of abx -at recent baseline has had chronic fluctuating mental status/forgetfulness -leg redness improved -D/C vancomycin and started levaquin - to cover lung source as well; now completed Metastatic Adenocarcinoma with Brain mets: -Bilateral Pleural Effusion -Left pleural catheter in place -CT of the chest -Pulmonary consult, appreciate recommendation -Medical Oncology consulted, appreciate input -Palliative care consulted, appreciate recs -brother and patient accepting of hospice at a facility, CM aware HEADACHE: -secondary to brain mets -Brain imaging demonstrated right frontal and occipital lesions with associated vasogenic edema. -s/p radiation therapy as well -finished dexamethasone as outpatient -symptomatic management for headache MALIGNANT PLEURAL EFFUSIONS: -has left Pleurx catheter -appreciate Pulm Dr Mckay's recommendations -s/p thoracentesis on right -overall prognosis is poor DEPRESSION: -continue sertraline. VTE PROPHYLAXIS: -had a prior history of DVT. -no anticoagulants due to brain mets. -S/P IV filter. -continue SCD's Code Status was changed to DNR by prior attending and Pulm discussion with the patient and her brother Per discussion with the patient, her brother Ang, and oncology, the patient is agreeable to pursue hospice at a facility. CM has started referral process and are awaiting approval. Current Inpatient Medications: Current Inpatient Medications Medications (Trade) Dose Ordered Sig/Yuriy Route Start Time Stop Time Status Last Admin Dose Admin Acetaminophen (Tylenol Tab) 650 mg Q4H PRN PO 09/14/16 19:00 10/14/16 18:59 09/20/16 15:39 650 MG Ondansetron HCl (Zofran Inj) 4 mg Q6H PRN IV 09/14/16 19:00 10/14/16 18:59 09/18/16 17:12 4 MG Aspirin (Ecotrin Tab) 81 mg QAM PO 09/15/16 09:00 10/15/16 08:59 09/21/16 08:19 81 MG Atorvastatin Calcium (Lipitor Tab) 40 mg HS PO 09/14/16 21:00 10/14/16 20:59 09/20/16 19:38 40 MG Bisacodyl (Dulcolax Tab) 10 mg DAILY PRN PO 09/14/16 19:00 10/14/16 18:59 Folic Acid (Folvite Tab) 1 mg QAM PO 09/15/16 09:00 10/15/16 08:59 09/21/16 08:19 1 MG Gabapentin (Neurontin Tab) 600 mg HS PO 09/14/16 21:00 10/14/16 20:59 09/20/16 19:38 600 MG Magnesium Hydroxide (Milk Of Magnesia Susp) 30 ml DAILY PRN PO 09/14/16 19:00 10/14/16 18:59 Midodrine (Proamatine Tab) 2.5 mg TID@1000,1400,1800 PO 09/15/16 10:00 10/15/16 09:59 09/21/16 18:15 2.5 MG Sodium Biphosphate/ Sodium Phosphate (Fleet Enema) 132 ml DAILY PRN [place] 09/14/16 19:00 10/14/16 18:59 Levalbuterol (Xopenex 0.31MG/ 3ML Neb) 0.31 mg Q6H PRN INH 09/14/16 19:00 10/14/16 18:59 Lorazepam (Ativan Tab) 0.5 mg Q6H PRN PO 09/15/16 01:00 10/14/16 18:59 09/21/16 15:46 0.5 MG Oxycodone HCl (Oxycontin Tab) 10 mg BID PO 09/15/16 21:00 09/28/16 18:59 09/21/16 09:15 10 MG Lacosamide (Vimpat Tab) 100 mg BID PO 09/16/16 21:00 10/14/16 20:59 09/21/16 08:20 100 MG Oxycodone HCl (Roxicodone Immediate Rel Tab) 5 mg Q4 PRN PO 09/17/16 16:00 09/28/16 18:59 09/21/16 18:17 5 MG Sodium Chloride ([place] Nasal [place]) 2 sprays Q2HWA PRN NA 09/20/16 10:00 10/20/16 09:59
[2016-09-21] MEDS: ATORVASTATIN 40 MG TAB PO SCH (20:33)
[2016-09-21] MEDS: GABAPENTIN 600 MG TAB PO SCH (20:34)
[2016-09-22] MEDS: LORAZEPAM 0.5 MG TAB PO PRN ×2 (01:12→13:45)
[2016-09-22] MEDS: OXYCODONE HCL IR 5 MG TAB (IMMEDIATE RELEASE) PO PRN ×3 (01:13→19:39)
[2016-09-22 04:30] VITALS: BP 84/50; PULSE 102; TEMP 37; O2SAT 94
[2016-09-22] MEDS: OXYCODONE HCL 10 MG TABCR (OXYCONTIN) PO SCH ×2 (08:34→21:08)
[2016-09-22] MEDS: MIDODRINE 2.5 MG TAB PO SCH ×3 (08:34→18:35)
[2016-09-22] MEDS: ASPIRIN 81 MG ECTAB PO SCH (08:35)
[2016-09-22] MEDS: LACOSAMIDE 50 MG TAB PO SCH ×2 (08:35→21:09)
[2016-09-22 08:36] VITALS: BP 81/52; PULSE 119; TEMP 38; O2SAT 93
[2016-09-22 11:07] VITALS: BP 108/61; PULSE 104; TEMP 37.7; O2SAT 94
[2016-09-22 14:50] VITALS: BP 125/73; PULSE 103; TEMP 36.8; O2SAT 97
[2016-09-22] MEDS ORDERED: BUTALBITAL/ACETAMIN/CAFFEINE TAB PO ONE (16:00)
--- NOTE | 2016-09-22 18:06 | Progress Note ---
Medicine Progress Note Date & Time of Visit: Sep 22, 2016 at 18:05. Subjective Patient seems slightly more confused today and is not as energetic as she was the last few days. No overnight events noted. Tolerating PO, but appetite is decreased. Complains of ongoing ÁLVAREZ and has been requesting pain meds frequently. Objective Last 8 Hrs Date Time Temp Pulse Resp B/P (MAP) Pulse Ox O2 Delivery O2 Flow Rate FiO2 09/22/16 14:50 36.8 103 18 125/73 (90) 97 Nasal Cannula 4.0 09/22/16 11:07 37.7 104 16 108/61 (77) 94 Nasal Cannula 4.0 Physical Exam: GENERAL: Patient is in no acute distress. HEENT: No acute trauma, normocephalic, mucous membranes moist, no nasal congestion, no scleral icterus. NECK: No stridor, trachea is midline. LUNGS: Diminished bilaterally, no wheeze, no rhonchi, breath sounds equal. + crackles on both bases HEART: Without murmurs gallops or rubs, regular rate and rhythm. ABDOMEN: Soft, nontender, bowel sounds positive EXTREMITIES: No cyanosis or edema NEUROLOGIC: Oriented, no acute motor or sensory deficits, no focal weakness. SKIN: No rash, no jaundice, no diaphoresis Assessment & Plan Altered Mental Status: acute on Chronic occasional fluctuation -bilateral leg Cellulitis, no definite Pneumonia and or Sepsis -likely multifactorial due to brain mets, infection, hypoxemia, dehydration and possibly alcohol abuse -no arrhythmia on tele, moved to medical -received Vanco and Cefepime in ER and continued until 09/15 -IV fluid discontinued due to possible Pulmonary edema -Blood cultures: Negative -Urine culture: pansensitive E Coli; completed course of abx -at recent baseline has had chronic fluctuating mental status/forgetfulness -leg redness resolved -D/C vancomycin and started levaquin - to cover lung source as well; now completed and off since 09/20 Metastatic Adenocarcinoma with Brain mets: -Bilateral Pleural Effusion -Left pleurX catheter in place -last imaging showed bilateral pleural effusions, greater on the left, and left perihilar mass -Pulmonary consult, appreciate recommendation -Medical Oncology consulted, appreciate input -Palliative care consulted, appreciate recs -brother and patient accepting of hospice at a facility, CM aware HEADACHE: -secondary to brain mets -Brain imaging demonstrated right frontal and occipital lesions with associated vasogenic edema. -s/p radiation therapy as well -finished dexamethasone as outpatient -symptomatic management for headache with analgesia MALIGNANT PLEURAL EFFUSIONS: -has left Pleurx catheter -appreciate Pulm Dr Mckay's recommendations -s/p thoracentesis on right -overall prognosis is poor DEPRESSION: -continue sertraline. VTE PROPHYLAXIS: -had a prior history of DVT. -no anticoagulants due to brain mets. -S/P IV filter. -continue SCD's Code Status was changed to DNR by prior attending and Pulm discussion with the patient and her brother Per discussion with the patient, her brother Ang, and oncology, the patient is agreeable to pursue hospice at a facility. CM has started referral process and are awaiting approval; likely will need to return to [facility] with hospice Current Inpatient Medications: Current Inpatient Medications Medications (Trade) Dose Ordered Sig/Yuriy Route Start Time Stop Time Status Last Admin Dose Admin Acetaminophen (Tylenol Tab) 650 mg Q4H PRN PO 09/14/16 19:00 10/14/16 18:59 09/20/16 15:39 650 MG Ondansetron HCl (Zofran Inj) 4 mg Q6H PRN IV 09/14/16 19:00 10/14/16 18:59 09/18/16 17:12 4 MG Aspirin (Ecotrin Tab) 81 mg QAM PO 09/15/16 09:00 10/15/16 08:59 09/22/16 08:35 81 MG Atorvastatin Calcium (Lipitor Tab) 40 mg HS PO 09/14/16 21:00 10/14/16 20:59 09/21/16 20:33 40 MG Bisacodyl (Dulcolax Tab) 10 mg DAILY PRN PO 09/14/16 19:00 10/14/16 18:59 Folic Acid (Folvite Tab) 1 mg QAM PO 09/15/16 09:00 10/15/16 08:59 09/22/16 08:35 1 MG Gabapentin (Neurontin Tab) 600 mg HS PO 09/14/16 21:00 10/14/16 20:59 09/21/16 20:34 600 MG Magnesium Hydroxide (Milk Of Magnesia Susp) 30 ml DAILY PRN PO 09/14/16 19:00 10/14/16 18:59 Midodrine (Proamatine Tab) 2.5 mg TID@1000,1400,1800 PO 09/15/16 10:00 10/15/16 09:59 09/22/16 13:44 2.5 MG Sodium Biphosphate/ Sodium Phosphate (Fleet Enema) [address] 09/14/16 19:00 10/14/16 18:59 Levalbuterol (Xopenex 0.31MG/ 3ML Neb) 0.31 mg Q6H PRN INH 09/14/16 19:00 10/14/16 18:59 Lorazepam (Ativan Tab) 0.5 mg Q6H PRN PO 09/15/16 01:00 10/14/16 18:59 09/22/16 13:45 0.5 MG Oxycodone HCl (Oxycontin Tab) 10 mg BID PO 09/15/16 21:00 09/28/16 18:59 09/22/16 08:34 10 MG Lacosamide (Vimpat Tab) 100 mg BID PO 09/16/16 21:00 10/14/16 20:59 09/22/16 08:35 100 MG Oxycodone HCl (Roxicodone Immediate Rel Tab) 5 mg Q4 PRN PO 09/17/16 16:00 09/28/16 18:59 09/22/16 12:06 5 MG Sodium Chloride ([place] Nasal [place]) 2 sprays Q2HWA PRN NA 09/20/16 10:00 10/20/16 09:59
[2016-09-22 19:02] LABS: URINE APPEARANCE CLEAR (CLEAR); URINE BILIRUBIN NEG (NEG); URINE COLOR YELLOW; URINE NITRITE NEG (NEG); URINE SPECIFIC GRAVITY 1.009 (1.000-1.030); UROBILINOGEN NEG (NEG)
[2016-09-22 19:08] LABS: MANUAL MICROSCOPIC REQUIRED? NO; REVIEW REQ? NO
[2016-09-22 19:25] VITALS: BP 94/60; PULSE 91; TEMP 36.8; O2SAT 97
[2016-09-22] MEDS: GABAPENTIN 600 MG TAB PO SCH (21:09)
[2016-09-22] MEDS: ATORVASTATIN 40 MG TAB PO SCH (21:09)
[2016-09-23] VITALS (9 sets, daily range): BP systolic 67–114; BP diastolic 36–70; PULSE 93–119; TEMP 36.9–38.9; O2SAT 82–99
[2016-09-23] MEDS: LORAZEPAM 0.5 MG TAB PO PRN (05:53)
[2016-09-23] MEDS ORDERED: MoRPHine SULFATE 2 MG/ML CARP IV STA (06:18)
[2016-09-23] MEDS ORDERED: LORAZEPAM 2 MG/ML 1 ML VIAL IV STA (06:18)
[2016-09-23] MEDS ORDERED: LORAZEPAM INJ 0.5 MG in SYRINGE 0.75 ML IV ONE (06:30)
[2016-09-23] MEDS: ACETAMINOPHEN 325 MG TAB PO PRN (07:45)
[2016-09-23] MEDS: OXYCODONE HCL 10 MG TABCR (OXYCONTIN) PO SCH ×2 (09:05→20:26)
[2016-09-23] MEDS: ASPIRIN 81 MG ECTAB PO SCH (09:05)
[2016-09-23] MEDS: LACOSAMIDE 50 MG TAB PO SCH ×2 (09:05→20:25)
--- NOTE | 2016-09-23 10:42 | Hematology/Oncology Prog Note ---
Hematology/Onc Progress Note Date of Service Sep 23, 2016. Diagnoses Metastatic non-small cell lung carcinoma Medications Medications Administered Medications (Trade) Dose Ordered Sig/Yuriy Route Start Time Stop Time Status Last Admin Dose Admin Cefepime HCl 1000 mg/Dextrose 111.3 ml @ 200 mls/hr NOW STAT IV 09/14/16 16:32 09/14/16 17:05 DC 09/14/16 16:32 200 MLS/HR Vancomycin HCl 1400 mg/Sodium Chloride 528 ml @ 200 mls/hr ONE STAT IV 09/14/16 18:09 09/14/16 20:51 DC 09/14/16 18:09 200 MLS/HR Potassium Chloride/Sodium Chloride 1,000 ml @ 75 mls/hr [id number] IV 09/14/16 21:21 09/14/16 22:29 DC 09/14/16 21:50 75 MLS/HR Acetaminophen (Tylenol Tab) 650 mg Q4H PRN PO 09/14/16 19:00 10/14/16 18:59 09/23/16 07:45 650 MG Ondansetron HCl (Zofran Inj) 4 mg Q6H PRN IV 09/14/16 19:00 10/14/16 18:59 09/18/16 17:12 4 MG Aspirin (Ecotrin Tab) 81 mg QAM PO 09/15/16 09:00 10/15/16 08:59 09/22/16 08:35 81 MG Atorvastatin Calcium (Lipitor Tab) 40 mg HS PO 09/14/16 21:00 10/14/16 20:59 09/22/16 21:09 40 MG Folic Acid (Folvite Tab) 1 mg QAM PO 09/15/16 09:00 10/15/16 08:59 09/22/16 08:35 1 MG Gabapentin (Neurontin Tab) 600 mg HS PO 09/14/16 21:00 10/14/16 20:59 09/22/16 21:09 600 MG Lacosamide (Vimpat Tab) 100 mg BID PO 09/14/16 21:00 09/16/16 20:35 DC 09/16/16 08:23 100 MG Midodrine (Proamatine Tab) 2.5 mg TID@1000,1400,1800 PO 09/15/16 10:00 10/15/16 09:59 09/22/16 18:35 2.5 MG Oxycodone HCl (Roxicodone Immediate Rel Tab) 5 mg Q8 PRN PO 09/14/16 19:00 09/17/16 13:00 DC 09/17/16 08:47 5 MG Oxycodone HCl (Oxycontin Tab) 10 mg BID PRN PO 09/14/16 19:00 09/15/16 15:53 DC 09/15/16 12:48 10 MG Levofloxacin 150 ml @ 100 mls/hr 1858 STAT IV 09/14/16 19:27 09/14/16 20:56 DC 09/14/16 19:27 100 MLS/HR Furosemide 40 mg/ Syringe 4 ml @ 4 mls/min NOW ONCE IV 09/14/16 22:45 09/14/16 22:46 DC 09/14/16 23:55 4 MLS/MIN Lorazepam (Ativan Tab) 0.5 mg Q6H PRN PO 09/15/16 01:00 10/14/16 18:59 09/23/16 05:53 0.5 MG Ipratropium [place] (Atrovent 0.02% 0.5MG/2.5ML Neb) 0.5 mg TODAY@2300 INH 09/14/16 23:00 09/15/16 02:00 DC 09/15/16 00:50 0.5 MG Levalbuterol (Xopenex 1.25MG/ 0.5ML Neb) 1.25 mg TODAY@2300 INH 09/14/16 23:00 09/15/16 02:00 DC 09/15/16 00:50 1.25 MG Magnesium Sulfate 1 gm/Prmx 100 ml @ 100 mls/hr ONE ONCE IV 09/15/16 02:45 09/15/16 03:44 DC 09/15/16 03:17 100 MLS/HR Furosemide 40 mg/ Syringe 4 ml @ 4 mls/min NOW ONCE IV 09/15/16 03:15 09/15/16 03:16 DC 09/15/16 03:19 4 MLS/MIN Vancomycin HCl 1000 mg/Sodium Chloride 270 ml @ 125 mls/hr Q18H IV 09/16/16 02:00 09/16/16 13:03 DC 09/16/16 02:11 125 MLS/HR Vancomycin HCl 1000 mg/Sodium Chloride 270 ml @ 125 mls/hr NOW ONCE IV 09/15/16 07:30 09/15/16 09:39 DC 09/15/16 09:02 125 MLS/HR Oxycodone HCl (Oxycontin Tab) 10 mg BID PO 09/15/16 21:00 09/28/16 18:59 09/22/16 21:08 10 MG Levofloxacin 500 mg/Prmx 100 ml @ 100 mls/hr Q24H IV 09/17/16 13:00 09/18/16 15:00 DC 09/18/16 13:36 100 MLS/HR Levofloxacin 500 mg/Prmx 100 ml @ 100 mls/hr 1415 IV 09/16/16 14:15 09/16/16 15:14 DC 09/16/16 14:16 100 MLS/HR Lacosamide (Vimpat Tab) 100 mg BID PO 09/16/16 21:00 10/14/16 20:59 09/22/16 21:09 100 MG Oxycodone HCl (Roxicodone Immediate Rel Tab) 5 mg Q4 PRN PO 09/17/16 16:00 09/28/16 18:59 09/22/16 19:39 5 MG Levofloxacin (Levaquin Tab) 500 mg DAILY@11 PO 09/19/16 11:00 09/20/16 13:59 DC 09/20/16 11:40 500 MG Acetaminophen/ Butalbital/ Caffeine (Fioricet Tab) 1 tab NOW ONCE PO 09/22/16 16:00 09/22/16 16:01 DC 09/22/16 16:04 1 TAB Lorazepam 0.5 mg/ Syringe 1 ml @ 1 mls/min TODAY@0630 ONCE IV 09/23/16 06:30 09/23/16 06:36 DC 09/23/16 06:30 1 MLS/MIN Subjective Rather somnolent this morning unable to elicit any new symptoms Review of Systems: Unable to obtain an accurate review of systems Vital Signs Vital Signs Past 12 Hours Date Time Temp Pulse Resp B/P (MAP) Pulse Ox O2 Delivery O2 Flow Rate FiO2 09/23/16 08:10 Oxymask 6.0 09/23/16 07:49 38.9 119 20 105/55 (72) 94 Mask 6.0 09/23/16 05:21 37.1 114/70 (85) 82 4.0 09/23/16 00:30 Nasal Cannula 4.0 09/23/16 00:15 36.9 118 20 84/47 (59) 92 Nasal Cannula 4.0 Physical Exam Constitutional: vitals are stable. Cachectic appearing female Eyes: Eyes are JACQUELINE EOMI without conjuctival erythema or icterus. ENT: External examination was negative for masses. Neck: Negative for masses or palpable thyromegaly Respiratory: Lung sounds were generally decreased bilaterally Cardiovascular: Heart was RRR without significant murmur, gallops aoe rubs Gastrointestinal: No palpable hepatic or splenomegaly. The abdomen was soft with normal bowel sounds. Lymphatic system: there was no palpable peripheral lymphadenopathy Musculoskeletal System: The musculoskeletal system seemed concordant with age. Skin: The skin was negative for jaundice. Neurologic exam: The exam was negative for any focal findings. Breast exam: Not done Extremities: Trace distal edema Constitutional: General Apperance: too thin Level of Distress: NAD, chronically ill Psychiatric: Mental Status: active & alert (answers ) Orientation: oriented except where noted (Oriented and aware, but somewhat confused and digressive) Eyes: EOM: EOMI Lungs: Auscuitation: CTA except as noted (anteriorly) Cardiovascular: Heart Auscultation: RRR Abdomen: Inspection & Palpation: soft, no tenderness, guarding & rebound Extremities: edema (Improving bilateral pedal edema) Laboratory Last 24 Hours Test 09/22/16 18:40 Urine Color YELLOW Urine Appearance CLEAR Urine pH 7.0 Urine Specific [place] 1.009 Urine Protein NEG Urine Glucose (UA) NEG Urine Ketones NEG Urine Occult Blood 2+ Urine Nitrite NEG Urine Bilirubin NEG Urine Urobilinogen NEG Urine Leukocyte Esterase NEG Urine WBC (Auto) 1-5 /hpf Urine RBC (Auto) 10-30 /hpf Urine Hyaline Casts (Auto) 0 /lpf Urine Epithelial Cells (Auto) 10-20 /lpf Urine Bacteria (Auto) NEG Assessment & Plan Metastatic non-small cell lung carcinoma. There is been extensive conversations with the family and with Dr. Medrano concerning hospice placement. That is currently being pursued. Pain does not seem to be an issue. Supportive care continues. For now we will sign off and please hesitate to recontact us if necessary.
[2016-09-23] MEDS: MIDODRINE 2.5 MG TAB PO SCH ×3 (10:51→18:00)
--- NOTE | 2016-09-23 18:34 | Progress Note ---
Medicine Progress Note Date & Time of Visit: Sep 23, 2016 at 18:34. Subjective Patient more drowsy and confused today. Still complains of headache and neck pain but otherwise denies no complaints. Is disoriented intermittently. No overnight events noted. Tolerating PO but appetite has been decreased today. Taking PO meds. Objective Last 8 Hrs Date Time Temp Pulse Resp B/P (MAP) Pulse Ox O2 Delivery O2 Flow Rate FiO2 09/23/16 16:00 Oxymask 6.0 09/23/16 15:53 36.9 93 24 67/36 (46) 99 Oxymask 6.0 09/23/16 15:48 36.9 93 24 67/36 (46) 99 16.0 09/23/16 11:32 37.9 99 22 92/51 (65) 93 Oxymask 6.0 09/23/16 10:53 37.0 Physical Exam: GENERAL: Patient is in no acute distress. HEENT: No acute trauma, normocephalic, mucous membranes moist, no nasal congestion, no scleral icterus. NECK: No stridor, trachea is midline. LUNGS: Diminished bilaterally, no wheeze, no rhonchi, breath sounds equal. + crackles on left base HEART: Without murmurs gallops or rubs, regular rate and rhythm. ABDOMEN: Soft, nontender, bowel sounds positive EXTREMITIES: No cyanosis or edema NEUROLOGIC: Oriented, no acute motor or sensory deficits, no focal weakness. SKIN: No rash, no jaundice, no diaphoresis Laboratory Results: Last 24 Hours Test 09/22/16 18:40 Urine Color YELLOW Urine Appearance CLEAR Urine pH 7.0 Urine Specific [place] 1.009 Urine Protein NEG Urine Glucose (UA) NEG Urine Ketones NEG Urine Occult Blood 2+ Urine Nitrite NEG Urine Bilirubin NEG Urine Urobilinogen NEG Urine Leukocyte Esterase NEG Urine WBC (Auto) 1-5 /hpf Urine RBC (Auto) 10-30 /hpf Urine Hyaline Casts (Auto) 0 /lpf Urine Epithelial Cells (Auto) 10-20 /lpf Urine Bacteria (Auto) NEG Date/Time Source Procedure Growth Status 09/23/16 16:22 Blood Blood Culture Pending Received 09/23/16 16:17 Blood Blood Culture Pending Received 09/22/16 18:40 Urine , Clean Catch Urine Culture - Preliminary NO GROWTH - LESS THAN 1,000 COLONIES/... Resulted Assessment & Plan Altered Mental Status: acute on chronic occasional fluctuation -bilateral leg Cellulitis, no definite Pneumonia and or Sepsis -likely multifactorial due to brain mets, infection, hypoxemia, dehydration and possibly alcohol abuse -no arrhythmia on tele, moved to medical -received Vanco and Cefepime and continued until 09/15 -IV fluid discontinued due to possible Pulmonary edema -Blood cultures: Negative -Urine culture: pansensitive E Coli; completed course of abx -at recent baseline has had chronic fluctuating mental status/forgetfulness -leg redness resolved -D/C vancomycin and started levaquin - to cover lung source as well; now completed and off since 09/20 -has begun to have fevers again, will obtain pancultures and restart antibiotics as this was discussed with the patient's brother and he would like to pursue workup for infection and antibiotic treatment Metastatic Adenocarcinoma with Brain mets: -Bilateral Pleural Effusion -Left pleurX catheter in place -last imaging showed bilateral pleural effusions, greater on the left, and left perihilar mass -Pulmonary consult, appreciate recommendation -Medical Oncology consulted, appreciate input -Palliative care consulted, appreciate recs -brother and patient accepting of hospice at a facility, CM aware HEADACHE: -secondary to brain mets -Brain imaging demonstrated right frontal and occipital lesions with associated vasogenic edema. -s/p radiation therapy as well -finished dexamethasone as outpatient -symptomatic management for headache with analgesia MALIGNANT PLEURAL EFFUSIONS: -has left Pleurx catheter, being drained daily as per orders -appreciate Pulm Dr Mckay's recommendations -s/p thoracentesis on right -overall prognosis is poor DEPRESSION: -continue sertraline. VTE PROPHYLAXIS: -had a prior history of DVT. -no anticoagulants due to brain mets. -S/P IV filter. -continue SCD's Code Status was changed to DNR by prior attending and Pulm discussion with the patient and her brother Per discussion with the patient, her brother Ang, and oncology, the patient is agreeable to pursue hospice at a facility. CM has started referral process and are awaiting approval; likely will need to return to [facility] with hospice Current Inpatient Medications: Current Inpatient Medications Medications (Trade) Dose Ordered Sig/Yuriy Route Start Time Stop Time Status Last Admin Dose Admin Acetaminophen (Tylenol Tab) 650 mg Q4H PRN PO 09/14/16 19:00 10/14/16 18:59 7/8/17 07:45 650 MG Ondansetron HCl (Zofran Inj) 4 mg Q6H PRN IV 09/14/16 19:00 10/14/16 18:59 09/18/16 17:12 4 MG Aspirin (Ecotrin Tab) 81 mg QAM PO 09/15/16 09:00 10/15/16 08:59 09/22/16 08:35 81 MG Atorvastatin Calcium (Lipitor Tab) 40 mg HS PO 09/14/16 21:00 10/14/16 20:59 09/22/16 21:09 40 MG Bisacodyl (Dulcolax Tab) 10 mg DAILY PRN PO 09/14/16 19:00 10/14/16 18:59 Folic Acid (Folvite Tab) 1 mg QAM PO 09/15/16 09:00 10/15/16 08:59 09/22/16 08:35 1 MG Gabapentin (Neurontin Tab) 600 mg HS PO 09/14/16 21:00 10/14/16 20:59 09/22/16 21:09 600 MG Magnesium Hydroxide (Milk Of Magnesia Susp) 30 ml DAILY PRN PO 09/14/16 19:00 10/14/16 18:59 Midodrine (Proamatine Tab) 2.5 mg TID@1000,1400,1800 PO 09/15/16 10:00 10/15/16 09:59 09/22/16 18:35 2.5 MG Sodium Biphosphate/ Sodium Phosphate (Fleet Enema) 132 ml DAILY PRN [place] 09/14/16 19:00 10/14/16 18:59 Levalbuterol (Xopenex 0.31MG/ 3ML Neb) 0.31 mg Q6H PRN INH 09/14/16 19:00 10/14/16 18:59 Lorazepam (Ativan Tab) 0.5 mg Q6H PRN PO 09/15/16 01:00 10/14/16 18:59 09/23/16 05:53 0.5 MG Oxycodone HCl (Oxycontin Tab) 10 mg BID PO 09/15/16 21:00 09/28/16 18:59 09/22/16 21:08 10 MG Lacosamide (Vimpat Tab) 100 mg BID PO 09/16/16 21:00 10/14/16 20:59 09/22/16 21:09 100 MG Oxycodone HCl (Roxicodone Immediate Rel Tab) 5 mg Q4 PRN PO 09/17/16 16:00 09/28/16 18:59 09/22/16 19:39 5 MG Sodium Chloride ([place] Nasal [place]) 2 sprays Q2HWA PRN NA 09/20/16 10:00 10/20/16 09:59
[2016-09-23] MEDS: OXYCODONE HCL IR 5 MG TAB (IMMEDIATE RELEASE) PO PRN (18:41)
[2016-09-23] MEDS: GABAPENTIN 600 MG TAB PO SCH (20:26)
[2016-09-23] MEDS: ATORVASTATIN 40 MG TAB PO SCH (20:26)
[2016-09-24] VITALS (9 sets, daily range): BP systolic 76–106; BP diastolic 46–76; PULSE 91–103; TEMP 36.6–37.2; O2SAT 93–100
[2016-09-24] MEDS: OXYCODONE HCL IR 5 MG TAB (IMMEDIATE RELEASE) PO PRN ×3 (03:19→23:12)
[2016-09-24] MEDS: LORAZEPAM 0.5 MG TAB PO PRN ×3 (05:00→23:11)
[2016-09-24] MEDS: OXYCODONE HCL 10 MG TABCR (OXYCONTIN) PO SCH ×2 (07:33→20:39)
[2016-09-24] MEDS: LACOSAMIDE 50 MG TAB PO SCH ×2 (07:33→20:39)
[2016-09-24] MEDS: ASPIRIN 81 MG ECTAB PO SCH (07:33)
[2016-09-24] MEDS: MIDODRINE 2.5 MG TAB PO SCH ×3 (09:31→18:00)
[2016-09-24] MEDS: LEVOFLOXACIN 500 MG TAB PO SCH (11:57)
--- NOTE | 2016-09-24 19:00 | Progress Note ---
Medicine Progress Note Date & Time of Visit: Sep 24, 2016 at 18:59. Subjective Patient is less confused today, she reports some neck and back pain but headache is better. No overnight events noted. No other complaints at this time. Tolerating PO, but appetite remains low. Objective Last 8 Hrs Date Time Temp Pulse Resp B/P (MAP) Pulse Ox O2 Delivery O2 Flow Rate FiO2 09/24/16 16:00 Oxymask 6.0 09/24/16 15:31 37.1 103 16 106/71 (83) 97 Nasal Cannula 6.0 09/24/16 12:31 36.6 98 16 94/55 (68) 94 Nasal Cannula 6.0 Physical Exam: GENERAL: Patient is in no acute distress. HEENT: No acute trauma, normocephalic, mucous membranes moist, no nasal congestion, no scleral icterus. NECK: No stridor, trachea is midline. LUNGS: Diminished on right, no wheeze, no rhonchi + crackles on left base HEART: Without murmurs gallops or rubs, regular rate and rhythm. ABDOMEN: Soft, nontender, bowel sounds positive EXTREMITIES: No cyanosis or edema NEUROLOGIC: Oriented, no acute motor or sensory deficits, no focal weakness. SKIN: No rash, no jaundice, no diaphoresis Laboratory Results: Date/Time Source Procedure Growth Status 09/24/16 06:18 Pleural Fluid (Thoracentesis) Left Gram Stain - Final Resulted 09/24/16 06:18 Pleural Fluid (Thoracentesis) Left Bacterial Culture Pending Resulted Assessment & Plan Altered Mental Status: acute on Chronic occasional fluctuation -bilateral leg Cellulitis, no definite Pneumonia and or Sepsis -likely multifactorial due to brain mets, infection, hypoxemia, dehydration and possibly alcohol abuse -no arrhythmia on tele, moved to medical -received Vanco and Cefepime in ER and continued until 09/15 -IV fluid discontinued due to possible Pulmonary edema -Blood cultures: Negative -Urine culture: pansensitive E Coli; completed course of abx -at recent baseline has had chronic fluctuating mental status/forgetfulness -leg redness resolved -D/C vancomycin and started levaquin - to cover lung source as well; now completed and off since 09/20 -patient began to have fever and tachycardia, no clear source; restarted levaquin; blood and pleural fluid cultures pending; urine culture negative Metastatic Adenocarcinoma with Brain mets: -Bilateral Pleural Effusion -Left pleurX catheter in place -last imaging showed bilateral pleural effusions, greater on the left, and left perihilar mass -Pulmonary consult, appreciate recommendation -Medical Oncology consulted, appreciate input -Palliative care consulted, appreciate recs -brother and patient accepting of hospice at a facility, CM aware HEADACHE: -secondary to brain mets -Brain imaging demonstrated right frontal and occipital lesions with associated vasogenic edema. -s/p radiation therapy as well -finished dexamethasone as outpatient -symptomatic management for headache with analgesia MALIGNANT PLEURAL EFFUSIONS: -has left Pleurx catheter, which is drained daily as per instructions -appreciate Pulm Dr Mckay's recommendations -s/p thoracentesis on right -overall prognosis is poor DEPRESSION: -continue sertraline. VTE PROPHYLAXIS: -had a prior history of DVT. -no anticoagulants due to brain mets. -S/P IV filter. -continue SCD's Code Status was changed to DNR by prior attending and Pulm discussion with the patient and her brother Per discussion with the patient, her brother Ang, and oncology, the patient is agreeable to pursue hospice at a facility. CM has started referral process and are awaiting approval; likely will need to return to [facility] with hospice. Stable for transfer. Current Inpatient Medications: Current Inpatient Medications Medications (Trade) Dose Ordered Sig/Yuriy Route Start Time Stop Time Status Last Admin Dose Admin Acetaminophen (Tylenol Tab) 650 mg Q4H PRN PO 09/14/16 19:00 10/14/16 18:59 09/23/16 07:45 650 MG Ondansetron HCl (Zofran Inj) 4 mg Q6H PRN IV 09/14/16 19:00 10/14/16 18:59 09/18/16 17:12 4 MG Aspirin (Ecotrin Tab) 81 mg QAM PO 09/15/16 09:00 10/15/16 08:59 09/24/16 07:33 81 MG Atorvastatin Calcium (Lipitor Tab) 40 mg HS PO 09/14/16 21:00 10/14/16 20:59 09/23/16 20:26 40 MG Bisacodyl (Dulcolax Tab) 10 mg DAILY PRN PO 09/14/16 19:00 10/14/16 18:59 Folic Acid (Folvite Tab) 1 mg QAM PO 09/15/16 09:00 10/15/16 08:59 09/24/16 07:33 1 MG Gabapentin (Neurontin Tab) 600 mg HS PO 09/14/16 21:00 10/14/16 20:59 09/23/16 20:26 600 MG Magnesium Hydroxide (Milk Of Magnesia Susp) 30 ml DAILY PRN PO 09/14/16 19:00 10/14/16 18:59 Midodrine (Proamatine Tab) 2.5 mg TID@1000,1400,1800 PO 09/15/16 10:00 10/15/16 09:59 09/22/16 18:35 2.5 MG Sodium Biphosphate/ Sodium Phosphate (Fleet Enema) 132 ml DAILY PRN [place] 09/14/16 19:00 10/14/16 18:59 Levalbuterol (Xopenex 0.31MG/ 3ML Neb) 0.31 mg Q6H PRN INH 09/14/16 19:00 10/14/16 18:59 Lorazepam (Ativan Tab) 0.5 mg Q6H PRN PO 09/15/16 01:00 10/14/16 18:59 09/24/16 16:53 0.5 MG Oxycodone HCl (Oxycontin Tab) 10 mg BID PO 09/15/16 21:00 09/28/16 18:59 09/24/16 07:33 10 MG Lacosamide (Vimpat Tab) 100 mg BID PO 09/16/16 21:00 10/14/16 20:59 09/24/16 07:33 100 MG Oxycodone HCl (Roxicodone Immediate Rel Tab) 5 mg Q4 PRN PO 09/17/16 16:00 09/28/16 18:59 09/24/16 16:53 5 MG Sodium Chloride ([place] Nasal [place]) 2 sprays Q2HWA PRN NA 09/20/16 10:00 10/20/16 09:59 Levofloxacin (Levaquin Tab) 500 mg DAILY@11 PO 09/24/16 11:00 10/01/16 10:59 09/24/16 11:57 500 MG
[2016-09-24] MEDS: GABAPENTIN 600 MG TAB PO SCH (20:39)
[2016-09-24] MEDS: ATORVASTATIN 40 MG TAB PO SCH (20:39)
[2016-09-25] VITALS (7 sets, daily range): BP systolic 81–103; BP diastolic 49–70; PULSE 85–101; TEMP 36.3–36.9; O2SAT 95–100
[2016-09-25] MEDS ORDERED: MICONAZOLE NITRATE POWDER 43 GM ONE (08:29)
[2016-09-25] MEDS: LACOSAMIDE 50 MG TAB PO SCH ×2 (08:31→20:12)
[2016-09-25] MEDS: ASPIRIN 81 MG ECTAB PO SCH (08:31)
[2016-09-25] MEDS: OXYCODONE HCL 10 MG TABCR (OXYCONTIN) PO SCH ×2 (08:31→20:11)
[2016-09-25] MEDS ORDERED: MICONAZOLE NITRATE POWDER 43 GM EXT PRN (08:45)
[2016-09-25] MEDS: MIDODRINE 2.5 MG TAB PO SCH ×3 (09:55→17:31)
[2016-09-25] MEDS: LEVOFLOXACIN 500 MG TAB PO SCH (11:59)
[2016-09-25] MEDS: OXYCODONE HCL IR 5 MG TAB (IMMEDIATE RELEASE) PO PRN ×3 (13:11→21:58)
--- NOTE | 2016-09-25 19:07 | Progress Note ---
Medicine Progress Note Date & Time of Visit: Sep 25, 2016 at 19:07. Subjective Patient reports her ÁLVRAEZ and pain are controlled, but she has noted some pain in her shoulders. Otherwise denies any complaints of CP or SOB. Tolerating PO without N/V or abdominal pain. Discussed with the patient and her brother the upcoming discharge to [facility] with hospice and they have concerns which they were encouraged to speak with and [facility] about. No overnight events noted. Objective Last 8 Hrs Date Time Temp Pulse Resp B/P (MAP) Pulse Ox O2 Delivery O2 Flow Rate FiO2 09/25/16 16:38 Nasal Cannula 6.0 09/25/16 15:18 36.3 91 16 91/55 (67) 98 Nasal Cannula 6.0 09/25/16 13:14 101 81/49 (60) 09/25/16 11:33 36.8 92 18 93/56 (68) 95 Nasal Cannula 6.0 Physical Exam: GENERAL: Patient is in no acute distress. HEENT: No acute trauma, normocephalic, mucous membranes moist, no nasal congestion, no scleral icterus. NECK: No stridor, trachea is midline. LUNGS: Diminished on right, no wheeze, no rhonchi + crackles on left base HEART: Without murmurs gallops or rubs, regular rate and rhythm. ABDOMEN: Soft, nontender, bowel sounds positive EXTREMITIES: No cyanosis or edema NEUROLOGIC: Oriented, no acute motor or sensory deficits, no focal weakness. SKIN: No rash, no jaundice, no diaphoresis Assessment & Plan Altered Mental Status: acute on Chronic occasional fluctuation -bilateral leg Cellulitis, no definite Pneumonia and or Sepsis -likely multifactorial due to brain mets, infection, hypoxemia, dehydration and possibly alcohol abuse -no arrhythmia on tele, moved to medical -received Vanco and Cefepime in ER and continued until 09/15 -IV fluid discontinued due to possible Pulmonary edema -Blood cultures: Negative -Urine culture: pansensitive E Coli; completed course of abx -at recent baseline has had chronic fluctuating mental status/forgetfulness -leg redness resolved -D/C vancomycin and started levaquin - to cover lung source as well; now completed and off since 09/20 -patient began to have fever and tachycardia, no clear source; restarted levaquin; has been afebrile since resuming levaquin -blood culture pending and pleural fluid cultures growing staph but sensitivities not available yet; urine culture negative Metastatic Adenocarcinoma with Brain mets: -Bilateral Pleural Effusion -Left pleurX catheter in place -last imaging showed bilateral pleural effusions, greater on the left, and left perihilar mass -Pulmonary consult, appreciate recommendation -Medical Oncology consulted, appreciate input -Palliative care consulted, appreciate recs -brother and patient accepting of hospice at a facility, CM aware HEADACHE: -secondary to brain mets -Brain imaging demonstrated right frontal and occipital lesions with associated vasogenic edema. -s/p radiation therapy as well -finished dexamethasone as outpatient -symptomatic management for headache with analgesia MALIGNANT PLEURAL EFFUSIONS: -has left Pleurx catheter, which is drained daily as per instructions -appreciate Pulm Dr Mckay's recommendations -s/p thoracentesis on right -overall prognosis is poor DEPRESSION: -continue sertraline. VTE PROPHYLAXIS: -had a prior history of DVT. -no anticoagulants due to brain mets. -S/P IV filter. -continue SCD's Code Status was changed to DNR by prior attending and Pulm discussion with the patient and her brother Per discussion with the patient, her brother Ang, and oncology, the patient is agreeable to pursue hospice at a facility. Patient was accepted to [facility] with hospice, however hospice was not arranged to start and the patient and her brother do not want to go to [facility] until hospice is able to meet them there. Otherwise stable for transfer. Current Inpatient Medications: Current Inpatient Medications Medications (Trade) Dose Ordered Sig/Yuriy Route Start Time Stop Time Status Last Admin Dose Admin Acetaminophen (Tylenol Tab) 650 mg Q4H PRN PO 09/14/16 19:00 10/14/16 18:59 09/23/16 07:45 650 MG Ondansetron HCl (Zofran Inj) 4 mg Q6H PRN IV 09/14/16 19:00 10/14/16 18:59 09/18/16 17:12 4 MG Aspirin (Ecotrin Tab) 81 mg QAM PO 09/15/16 09:00 10/15/16 08:59 09/25/16 08:31 81 MG Atorvastatin Calcium (Lipitor Tab) 40 mg HS PO 09/14/16 21:00 10/14/16 20:59 7/9/17 20:39 40 MG Bisacodyl (Dulcolax Tab) 10 mg DAILY PRN PO 09/14/16 19:00 10/14/16 18:59 Folic Acid (Folvite Tab) 1 mg QAM PO 09/15/16 09:00 10/15/16 08:59 09/25/16 08:31 1 MG Gabapentin (Neurontin Tab) 600 mg HS PO 09/14/16 21:00 10/14/16 20:59 09/24/16 20:39 600 MG Magnesium Hydroxide (Milk Of Magnesia Susp) 30 ml DAILY PRN PO 09/14/16 19:00 10/14/16 18:59 Midodrine (Proamatine Tab) 2.5 mg TID@1000,1400,1800 PO 09/15/16 10:00 10/15/16 09:59 09/25/16 17:31 2.5 MG Sodium Biphosphate/ Sodium Phosphate (Fleet Enema) 132 ml DAILY PRN [place] 09/14/16 19:00 10/14/16 18:59 Levalbuterol (Xopenex 0.31MG/ 3ML Neb) 0.31 mg Q6H PRN INH 09/14/16 19:00 10/14/16 18:59 Lorazepam (Ativan Tab) 0.5 mg Q6H PRN PO 09/15/16 01:00 10/14/16 18:59 09/24/16 23:11 0.5 MG Oxycodone HCl (Oxycontin Tab) 10 mg BID PO 09/15/16 21:00 09/28/16 18:59 09/25/16 08:31 10 MG Lacosamide (Vimpat Tab) 100 mg BID PO 09/16/16 21:00 10/14/16 20:59 09/25/16 08:31 100 MG Oxycodone HCl (Roxicodone Immediate Rel Tab) 5 mg Q4 PRN PO 09/17/16 16:00 09/28/16 18:59 09/25/16 17:31 5 MG Sodium Chloride ([place] Nasal [place]) 2 sprays Q2HWA PRN NA 09/20/16 10:00 10/20/16 09:59 Levofloxacin (Levaquin Tab) 500 mg DAILY@11 PO 09/24/16 11:00 10/01/16 10:59 09/25/16 11:59 500 MG Miconazole Nitrate (Desenex Powder) 1 appln PRN PRN EXT 09/25/16 08:45 10/25/16 08:44
[2016-09-25] MEDS: ATORVASTATIN 40 MG TAB PO SCH (20:13)
[2016-09-25] MEDS: GABAPENTIN 600 MG TAB PO SCH (20:14)
[2016-09-26] VITALS (8 sets, daily range): BP systolic 77–118; BP diastolic 43–77; PULSE 80–98; TEMP 36.7–37.3; O2SAT 97–100
[2016-09-26] MEDS: OXYCODONE HCL 10 MG TABCR (OXYCONTIN) PO SCH ×2 (08:11→20:21)
[2016-09-26] MEDS: LACOSAMIDE 50 MG TAB PO SCH ×2 (08:12→20:22)
[2016-09-26] MEDS: ASPIRIN 81 MG ECTAB PO SCH (08:12)
[2016-09-26] MEDS ORDERED: CLINDAMYCIN IV 600 MG in DEXTROSE 5% 50ML 50 ML IV SCH (09:00)
[2016-09-26] MEDS: ONDANSETRON INJ 2 MG/ML 2 ML VIAL IV PRN (09:13)
[2016-09-26] MEDS: MIDODRINE 2.5 MG TAB PO SCH ×3 (09:14→17:51)
[2016-09-26] MEDS: OXYCODONE HCL IR 5 MG TAB (IMMEDIATE RELEASE) PO PRN ×3 (10:24→22:19)
[2016-09-26] MEDS: LEVOFLOXACIN 500 MG TAB PO SCH (10:24)
[2016-09-26] MEDS ORDERED: MoRPHine SULFATE 5 MG/0.25 ML UDP PO PRN (12:15)
--- NOTE | 2016-09-26 12:30 | Progress Note ---
Internal Med Progress Note Date of Service: Sep 26, 2016. Provider Documentation: SUBJECTIVE: mentions pain is well controlled had episode of headache last night , had to wait for next dose of Oxycodone frequency of oxycodone increased to Q2 hrs added Roxanol 5ml q 1 hrs PRN d/w at length with Brother Ang and pt pt pleural effusion fluid cx + MRSA pt has been on Abx since 09/14/16 no evidence of sepsis , no fever no symptoms of infection abx changed to PO Clindamycin can be d/c tomorrow ( ~14 days of tx ) pain medication dose adjusted will be transferred to [facility] tomorrow with Hospice OBJECTIVE: Vital Signs-as noted below Exam: General-no sign of distress Eyes-sclera non icteric Lungs-diminished , rt sided plurex catheter present Heart-regular Abdomen-soft Extremities-no edema Neuro-no focal deficit Lab data as noted below. ASSESSMENT & PLAN: Altered Mental Status: resolved now , awake and alert presented with metabolic encephalopathy -likely multifactorial due to brain mets, infection -pneumonia /leg cellulitis , hypoxemia, dehydration and possibly alcohol abuse -received Vanco and Cefepime in ER and continued until 09/15 -Urine culture: pansensitive E Coli; completed course of abx -D/C vancomycin and started Levaquin - to cover lung source as well; Pleural effusion cx -MRSA -Abx changed to clindamycin 24 hrs tx should be adequate will be transitioned to Hospice care tomorrow Palliative care /hospice : Appropriate care in this setting pain medication dose adjusted on Oxycontin 10 mg Q12 hrs Oxy IR 5 mg Q2hrs PRN Roxanol 5 ml q 1 hrs PRN cont bowel regimen Megace ordered for poor appetite Metastatic Adenocarcinoma with Brain mets: -Bilateral Pleural Effusion--malignance -Left pleurX catheter in place -will cont daily drainage -last imaging showed bilateral pleural effusions, greater on the left, and left perihilar mass -Pulmonary consult, appreciate recommendation -Medical Oncology consulted, appreciate input -Palliative care consulted, appreciate recs very poor prognosis , hospice care recommended by Heme onc plan to transfer to [facility] with hospice tomorrow HEADACHE: -secondary to brain mets -Brain imaging demonstrated right frontal and occipital lesions with associated vasogenic edema. -s/p radiation therapy as well -finished dexamethasone as outpatient -symptomatic management for headache with analgesia increased dose of Oxy IR , added Roxanol will be transitioned to Hospice care tomorrow MALIGNANT PLEURAL EFFUSIONS: -has left Pleurx catheter, which is drained daily as per instructions -appreciate Pulm Dr Mckay's recommendations -s/p thoracentesis on right -overall prognosis is poor DEPRESSION: -continue sertraline. VTE PROPHYLAXIS: -had a prior history of DVT. -no anticoagulants due to brain mets. -S/P IV filter. -continue SCD's Code Status was changed to DNR by prior attending and Pulm discussion with the patient and her brother Per discussion with the patient, her brother Ang, and oncology, the patient is agreeable to pursue hospice at a facility. Patient was accepted to [facility] with hospice, DISPOSITION transfer to 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
--- NOTE | 2016-09-26 12:46 | Discharge Instructions ---
Discharge Instructions Date of Service Sep 26, 2016. Admission Reason for Admission: Adenocarcinoma Of Lung, Stage 4, Brain Mets Discharge Discharge Diagnosis / Problem: ADENOCARCINOMA OF LUNGS BRAIN METS /MALIGNANT PLEURAL EFFUSION/HOSPICE Discharge Goals Goal(s): Decrease discomfort, Improve disease control, Therapeutic intervention Activity Recommendations Activity Level: Assistance Required DRAIN PLEURX CATHETER DAILY -please see nursing note for detail instruction . Additional Information Patient informed of condition: Yes Advance Directives: Yes DNR: Yes Level of Care: Other (HOSPICE ) Communicable Disease: No Prognosis: Other (TERMINAL STATUS /HOSPICE ) Baron Catheter: Yes Instructions / Follow-Up Instructions / Follow-Up CONTINUE HOSPICE CARE PLEURX CATHETER DRAINAGE DAILY Current Hospital Diet Patient's current hospital diet: Regular Diet Discharge Diet Recommended Diet: Regular Diet Pending Studies Studies pending at discharge: no Laboratory Results Hemoglobin A1c Test 08/19/16 06:05 Range/Units Estimated Average Glucose 120 mg/dl Hemoglobin A1c 5.8 H 4.5-5.6 % Medical Emergencies . Who to Call and When: Medical Emergencies: If at any time you feel your situation is an emergency, please call 911 immediately. . Non-Emergent Contact Non-Emergency issues call your: Primary Care Provider . . "Provider Documentation" section prepared by Toshia Padgett. . Core Measure Problem Core Measures: None
[2016-09-26] MEDS ORDERED: MGCUDL400 PO (12:50)
[2016-09-26] MEDS ORDERED: OXYSR/10 PO (12:50)
[2016-09-26] MEDS ORDERED: RXNS5 PO (12:50)
[2016-09-26] MEDS ORDERED: RXC5 PO (12:50)
[2016-09-26] MEDS ORDERED: LORA-741 PO (12:55)
[2016-09-26] MEDS: CLINDAMYCIN HCL 150 MG CAP PO SCH ×2 (13:29→20:22)
[2016-09-26] MEDS: MEGESTROL ACETATE 400 MG/10 ML UDP PO SCH (14:19)
[2016-09-26] MEDS: GABAPENTIN 600 MG TAB PO SCH (20:21)
[2016-09-27] VITALS: BP 92/52; PULSE 91; TEMP 36.7; O2SAT 97
[2016-09-27] MEDS: CLINDAMYCIN HCL 150 MG CAP PO SCH (06:15)
[2016-09-27] MEDS: OXYCODONE HCL 10 MG TABCR (OXYCONTIN) PO SCH (08:20)
[2016-09-27] MEDS: LACOSAMIDE 50 MG TAB PO SCH (08:21)
[2016-09-27] MEDS: MEGESTROL ACETATE 400 MG/10 ML UDP PO SCH (08:21)
[2016-09-27 09:28] VITALS: BP 92/52; PULSE 91; TEMP 36.7; O2SAT 97
[2016-09-27] MEDS: OXYCODONE HCL IR 5 MG TAB (IMMEDIATE RELEASE) PO PRN (09:53)
[2016-09-27] MEDS: MIDODRINE 2.5 MG TAB PO SCH (09:53)
--- NOTE | 2016-09-27 10:28 | Progress Note ---
Internal Med Progress Note Date of Service: Sep 27, 2016. Provider Documentation: SUBJECTIVE: pain much well controlled after adjusting meds says had a restful night PO Roxanol helped , likes it better as feels it works faster pt mentions having difficulty sleep at night -asked to use PRN Ativan on oxycodone increased to Q2 hrs Roxanol 5ml q 1 hrs PRN pt will be transferred to [facility] today with Hospice care OBJECTIVE: Vital Signs-as noted below Exam: General-no sign of distress Eyes-sclera non icteric Lungs-diminished , rt sided plurex catheter present Heart-regular Abdomen-soft Extremities-no edema Neuro-no focal deficit Lab data as noted below. ASSESSMENT & PLAN: Altered Mental Status: resolved now , awake and alert presented with metabolic encephalopathy -likely multifactorial due to brain mets, infection -pneumonia /leg cellulitis , hypoxemia, dehydration and possibly alcohol abuse -received Vanco and Cefepime in ER and continued until 09/15 -Urine culture: pansensitive E Coli; completed course of abx -D/C vancomycin and started Levaquin - to cover lung source as well; Pleural effusion cx -MRSA -Abx changed to clindamycin had ~14 days tx Clindamycin D/ankit transitioned to Hospice care will be transferred to [facility] with hospice today Palliative care /hospice : Appropriate care in this setting pain medication dose adjusted on Oxycontin 10 mg Q12 hrs Oxy IR 5 mg Q2hrs PRN Roxanol 5 ml q 1 hrs PRN cont bowel regimen Megace ordered for poor appetite Metastatic Adenocarcinoma with Brain mets: -Bilateral Pleural Effusion--malignance -Left pleurX catheter in place -will cont daily drainage -last imaging showed bilateral pleural effusions, greater on the left, and left perihilar mass -Pulmonary consult, appreciate recommendation -Medical Oncology consulted, appreciate input -Palliative care consulted, appreciate recs very poor prognosis , hospice care recommended by Heme onc plan to transfer to [facility] with hospice today HEADACHE: -secondary to brain mets -Brain imaging demonstrated right frontal and occipital lesions with associated vasogenic edema. -s/p radiation therapy as well -finished dexamethasone as outpatient -symptomatic management for headache with analgesia increased dose of Oxy IR , added Roxanol transitioned to Hospice care MALIGNANT PLEURAL EFFUSIONS: -has left Pleurx catheter, which is drained daily as per instructions -appreciate Pulm Dr Mckay's recommendations -s/p thoracentesis on right -overall prognosis is poor DEPRESSION: -continue sertraline. VTE PROPHYLAXIS: -had a prior history of DVT. -no anticoagulants due to brain mets. -S/P IV filter. -continue SCD's Code Status DNR Patient was accepted to [facility] with hospice, DISPOSITION transfer to [facility] with Hospice today Vital Signs: Date Time Temp Pulse Resp B/P (MAP) Pulse Ox O2 Delivery O2 Flow Rate FiO2 09/27/16 09:28 36.7 91 18 97 Nasal Cannula 09/27/16 08:30 Nasal Cannula 6.0 09/27/16 00:00 97 Nasal Cannula 6.0 09/27/16 00:00 36.7 91 18 92/52 (65) 97 6.0 09/26/16 20:00 97 Nasal Cannula 6.0 09/26/16 19:09 36.8 89 20 77/51 (60) 97 6.0 09/26/16 17:49 94 88/56 (67) 09/26/16 16:00 Nasal Cannula 6.0 09/26/16 15:17 36.7 80 20 87/58 (68) 99 6.0 09/26/16 13:31 83/43 (56) 09/26/16 11:17 36.9 90 16 84/48 (60) 100 Nasal Cannula 6.0
--- NOTE | 2016-09-27 10:29 | Discharge Summary ---
Discharge Summary Date of Service Sep 27, 2016. Discharge Summary Admission Date: Sep 14, 2016 at 18:54 Discharge Date: Sep 27, 2016 Discharge Disposition: snf facility ([facility] with Hospice care ) Principal Diagnosis: ADENOCARCINOMA OF LUNGS BRAIN METS /MALIGNANT PLEURAL EFFUSION/HOSPICE Procedures: Procedures: right sided Thoracentesis ON 09/15/16 Consultations: [facility] PULMONOLOGY PALLIATIVE CARE Medication Reconciliation New Medications: Megestrol Acetate (Megestrol Acetate) 400 Mg/10 Ml Susp 400 MG PO QAM for 30 Days Morphine Sulfate (Morphine Sulfate) 5 Mg/0.25 Ml Soln 5 MG PO Q1HWA PRN for Pain, #20 Oxycodone HCl (Oxycodone HCl) 5 Mg Tab 5 MG PO Q2H PRN for severe Pain, #30 TAB Continued Medications: Acetaminophen (Tylenol) 325 Mg Tab 650 MG PO Q6 PRN for Pain or Fever, TAB Bisacodyl (Bisacodyl) 5 Mg Tab 2 TAB PO UD PRN for constipation, #2 TAB Folic Acid (Folvite) 1 Mg Tab 1 MG PO QAM, TAB Gabapentin (Neurontin) 300 Mg Cap 600 MG PO HS, CAP Lacosamide (Vimpat) 50 Mg Tab 100 MG PO BID for 30 Days, TAB Lorazepam (Ativan) 0.5 Mg Tab 0.5 MG PO Q6H PRN for Anxiety/Agitation, #30 TAB (This prescription has been renewed) Magnesium Hydroxide (Milk Of Magnesia) 30 Ml Susp 30 ML PO PRN for Constipation, ML Midodrine (Midodrine HCl) 2.5 Mg Tab 2.5 MG PO TID Oxycodone HCl (Oxycontin) 10 Mg Tabcr 10 MG PO BID PRN for Pain for 3 Days, #6 (This prescription has been renewed) Sodium Phosphate/Biphosphate (Fleet Enema) Eloisa 1 EA [facility] DAILY PRN for constipation, BTL Discontinued Medications: Aspirin (Aspirin Ec) 81 Mg Tab 81 MG PO QAM Atorvastatin (Lipitor) 40 Mg Tab 40 MG PO HS, TAB Oxycodone HCl (Oxycodone HCl) 5 Mg Tab 5 MG PO Q8 PRN for severe Pain for 3 Days, #9 TAB Admission Information HPI (per Admitting provider): 71 year old female who presents to the Emergency Room with complaints of constant altered mental status beginning yesterday following her first immunotherapy infusion for stage IV lung cancer with metastases to the brain. The patient's brother reports that after the treatment the patient became confused and began speaking about things that happened 30 years ago. Today he reports that the patient was at [facility] and they noted that she was also confused today. The patient complains of a headache that is not unusual, cough beginning 10 days ago, leg swelling that began a few weeks ago and those are erythematous now . She denies any change in vision, weakness in the arms or legs , nausea, vomiting, urinary symptoms, abdominal pain, recent falls, and trauma. Per nursing staff the patient is usually on 2.5L of oxygen and her oxygen was 84 % on arrival. Her brother states that she is on Lasix and is not on any blood thinners. 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 She received her first Immunomodulator therapy yesterday. She was hemodynamically stable with Tachycardia and anxiety.CT of the chest did not show any PE and the effusions are increased ,no definite Pneumonia,CT of the Brain edema is decreasing.She has bilateral leg edema with cellulitis.Started to feel better following IVF and IV antibiotics Admitted to Telemetry unit for continuation of care. Physical Exam (per Admitting): General Appearance: + moderate distress Head: atraumatic Eyes: normal inspection ENT: normal ENT inspection Neck: supple Respiratory/Chest: + decreased breath sounds (Bilateral,left more than the right) Cardiovascular: + tachycardia Abdomen/GI: normal bowel sounds Extremities/Musculoskelatal: + inflammation (Redness lower extremities), + pedal edema, + swelling Skin: warm/dry Hospital Course Altered Mental Status: resolved now , awake and alert presented with metabolic encephalopathy -likely multifactorial due to brain mets, infection -pneumonia /leg cellulitis , hypoxemia, dehydration and possibly alcohol abuse -received Vanco and Cefepime in ER and continued until 09/15 -Urine culture: pansensitive E Coli; completed course of abx -D/C vancomycin and started Levaquin - to cover lung source as well; Pleural effusion cx -MRSA -Abx changed to clindamycin had ~14 days tx Clindamycin D/ankit transitioned to Hospice care will be transferred to [facility] with hospice today Palliative care /hospice : Appropriate care in this setting pain medication dose adjusted on Oxycontin 10 mg Q12 hrs Oxy IR 5 mg Q2hrs PRN Roxanol 5 ml q 1 hrs PRN cont bowel regimen Megace ordered for poor appetite Metastatic Adenocarcinoma with Brain mets: -Bilateral Pleural Effusion--malignance -Left pleurX catheter in place -will cont daily drainage -last imaging showed bilateral pleural effusions, greater on the left, and left perihilar mass -Pulmonary consult, appreciate recommendation -Medical Oncology consulted, appreciate input -Palliative care consulted, appreciate recs very poor prognosis , hospice care recommended by Heme onc plan to transfer to [facility] with hospice today HEADACHE: -secondary to brain mets -Brain imaging demonstrated right frontal and occipital lesions with associated vasogenic edema. -s/p radiation therapy as well -finished dexamethasone as outpatient -symptomatic management for headache with analgesia increased dose of Oxy IR , added Roxanol transitioned to Hospice care MALIGNANT PLEURAL EFFUSIONS: -has left Pleurx catheter, which is drained daily as per instructions -appreciate Pulm Dr Mckay's recommendations -s/p thoracentesis on right -overall prognosis is poor DEPRESSION: -continue sertraline. VTE PROPHYLAXIS: -had a prior history of DVT. -no anticoagulants due to brain mets. -S/P IV filter. -continue SCD's Code Status DNR Patient was accepted to [facility] with hospice, DISPOSITION transfer to [facility] with Hospice today Total time spent on discharge = 35MINS This includes examination of the patient, discharge planning, medication reconciliation, and communication with other providers. Discharge Instructions Discharge Instructions Date of Service Sep 26, 2016. Admission Reason for Admission: Adenocarcinoma Of Lung, Stage 4, Brain Mets Discharge Discharge Diagnosis / Problem: ADENOCARCINOMA OF LUNGS BRAIN METS /MALIGNANT PLEURAL EFFUSION/HOSPICE Discharge Goals Goal(s): Decrease discomfort, Improve disease control, Therapeutic intervention Activity Recommendations Activity Level: Assistance Required DRAIN PLEURX CATHETER DAILY -please see nursing note for detail instruction . Additional Information Patient informed of condition: Yes Advance Directives: Yes DNR: Yes Level of Care: Other (HOSPICE ) Communicable Disease: No Prognosis: Other (TERMINAL STATUS /HOSPICE ) Baron Catheter: Yes Instructions / Follow-Up Instructions / Follow-Up CONTINUE HOSPICE CARE PLEURX CATHETER DRAINAGE DAILY Current Hospital Diet Patient's current hospital diet: Regular Diet Discharge Diet Recommended Diet: Regular Diet Pending Studies Studies pending at discharge: no Laboratory Results Hemoglobin A1c Test 08/19/16 06:05 Range/Units Estimated Average Glucose 120 mg/dl Hemoglobin A1c 5.8 H 4.5-5.6 % Medical Emergencies . Who to Call and When: Medical Emergencies: If at any time you feel your situation is an emergency, please call 911 immediately. . Non-Emergent Contact Non-Emergency issues call your: Primary Care Provider . . "Provider Documentation" section prepared by Toshia Padgett. . Core Measure Problem Core Measures: None
== END 2016-09-27 10:40 | disposition hospice, inpatient (51) | DRG 180 ==
LOC: EDBD 16:07 → C.EDC 16:08 → C.2T 18:54 → ENRESERV 19:27 → C.4E 09-18 17:28 → ENRESERV 09-18 18:24
PROVIDERS: ADMIT Internal Medicine; ATTEND Hospitalist
PROC: 0W993ZZ Drainage of Right Pleural Cavity, Percutaneous Approach (ICD-10-PCS; principal; 2016-09-15)
DX: C34.90 Malignant neoplasm of unspecified part of unspecified bronchus or lung (principal); G93.41 Metabolic encephalopathy; G93.6 Cerebral edema; N39.0 Urinary tract infection, site not specified; J91.0 Malignant pleural effusion; C79.31 Secondary malignant neoplasm of brain; L03.116 Cellulitis of left lower limb; L03.115 Cellulitis of right lower limb; B96.20 Unspecified Escherichia coli [E. coli] as the cause of diseases classified elsewhere; B95.62 Methicillin resistant Staphylococcus aureus infection as the cause of diseases classified elsewhere; R09.02 Hypoxemia; E86.0 Dehydration; E86.1 Hypovolemia; E87.70 Fluid overload, unspecified; R60.0 Localized edema; R53.81 Other malaise; R00.0 Tachycardia, unspecified; E88.09 Other disorders of plasma-protein metabolism, not elsewhere classified; R51 Headache; G89.29 Other chronic pain; M54.9 Dorsalgia, unspecified; F32.9 Major depressive disorder, single episode, unspecified; F10.21 Alcohol dependence, in remission; Z66 Do not resuscitate; Z51.5 Encounter for palliative care; Z96.89 Presence of other specified functional implants; Z95.828 Presence of other vascular implants and grafts; Z86.718 Personal history of other venous thrombosis and embolism; Z86.73 Personal history of transient ischemic attack (TIA), and cerebral infarction without residual deficits; Z99.81 Dependence on supplemental oxygen; Z87.891 Personal history of nicotine dependence; Z79.82 Long term (current) use of aspirin; Z79.891 Long term (current) use of opiate analgesic; Z79.899 Other long term (current) drug therapy; C34.32 Malignant neoplasm of lower lobe, left bronchus or lung; J43.9 Emphysema, unspecified; K57.90 Diverticulosis of intestine, part unspecified, without perforation or abscess without bleeding

== ENCOUNTER → 2016-10-08 | Outpatient (CLI) | payer OTHER, BC ==
[~2016-10-08] MED LIST changes: +ACET-1311 PO; -ASPI81TA28 PO; -ATOR-24 PO; +BISA1TAB15 PO; -DEXA2TAB PO; -DICL1GEL12 TOP; -KFL500 PO; +LORA-741 PO; +MGCUDL400 PO; +MOML PO; -ONDA4TAB46 PO; -PANT40TA PO; -POLY335019 PO; +RXNS5 PO; -SERT25TA PO; +SODIENE PR
[2016-10-08 18:27] LABS: URINE APPEARANCE CLEAR (CLEAR); URINE BILIRUBIN NEG (NEG); URINE COLOR YELLOW; URINE NITRITE NEG (NEG); URINE SPECIFIC GRAVITY 1.007 (1.000-1.030); UROBILINOGEN NEG (NEG); ZZUR CULT IF INDIC CLEAN CATCH NO
[2016-10-08 18:32] LABS: MANUAL MICROSCOPIC REQUIRED? NO; REVIEW REQ? NO
--- NOTE | 2016-12-15 07:58 | CODING QUERY NO DIAGNOSIS ---
TREATMENT RENDERED WITHOUT A DIAGNOSIS : 1945 To promote full compliance with coding requirements relating to patient care, physician participation is requested in all cases of creative services specialist uncertainty. Please assist us with providing a diagnosis/symptom for the test(s) below: A diagnosis/symptom was not documented on your Order. A valid diagnosis/symptom is required to bill all insurances. Please remember that we are unable to code a diagnosis of rule out, probable, possible, questionable, or suspected. Tests that require a diagnosis: DOS: 10/08/16 * [facility] CATCH CULT DIAGNOSIS: Provider Signature: Date: Thank you Ewelina Spencer Health Information Management Once completed, please kindly fax back to [phone] For questions please call [phone]
== END ==
LOC: C.LABUPNIT 17:30
PROVIDERS: ATTEND Nurse Practitioner Family
DX: N39.0 Urinary tract infection, site not specified (principal)

== ENCOUNTER → 2016-11-19 | Outpatient (CLI) | payer OTHER, BC ==
[2016-11-19 06:52] LABS: MANUAL MICROSCOPIC REQUIRED? YES; REVIEW REQ? NO; SULFASALICYLIC ACID POS (NEG); URINE APPEARANCE TURBID (CLEAR); URINE COLOR YELLOW
[2016-11-19 06:55] LABS: URINE BACTERIA 4+ (NEG); URINE MUCUS PRESENT (NONE PRSENT)
[2016-11-19 06:56] LABS: URINE RBC 0-4 /hpf (0-4)
--- NOTE | 2016-12-01 12:21 | CODING QUERY NO DIAGNOSIS ---
TREATMENT RENDERED WITHOUT A DIAGNOSIS To promote full compliance with coding requirements relating to patient care, physician participation is requested in all cases of neonatal icu coordinator uncertainty. Please assist us with providing a diagnosis/symptom for the test(s) below: A diagnosis/symptom was not documented on your Order. A valid diagnosis/symptom is required to bill all insurances. Please remember that we are unable to code a diagnosis of rule out, probable, possible, questionable, or suspected. Tests that require a diagnosis: * UA CATH W/ MICROSCOPIC DIAGNOSIS: * URINE CULTURE CATH DIAGNOSIS: Provider Signature: Date: Thank you Angy Wilson [employer] Management Once completed, please kindly fax back to [phone] For questions please call [phone]
== END | disposition short-term general hospital (02) ==
LOC: C.LABUPNIT 08:29
PROVIDERS: ATTEND Nurse Practitioner Family
DX: N39.0 Urinary tract infection, site not specified (principal)

== ENCOUNTER → 2016-11-30 | Outpatient (CLI) | payer OTHER, BC ==
[2016-11-30 10:00] LABS: BLOOD UREA NITROGEN 32 mg/dl (7-18); BUN/CREATININE RATIO 36.6 (10-20); CALCIUM 8.1 mg/dl (8.5-10.1); CARBON DIOXIDE 28 mmol/L (21-32); CHLORIDE 109 mmol/L (98-107); CREATININE 0.87 mg/dl (0.60-1.20); GLUCOSE 163 mg/dl (70-99); POTASSIUM 3.4 mmol/L (3.5-5.1); SODIUM 144 mmol/L (136-145)
== END ==
LOC: C.LABUPNIT 09:01
PROVIDERS: ATTEND Nurse Practitioner Family
DX: N39.0 Urinary tract infection, site not specified (principal)

== ENCOUNTER → 2016-12-07 | Outpatient (CLI) | payer OTHER, BC ==
[2016-12-07 09:49] LABS: MANUAL MICROSCOPIC REQUIRED? YES; URINE APPEARANCE TURBID (CLEAR); URINE BILIRUBIN NEG (NEG); URINE COLOR YELLOW; URINE NITRITE POS (NEG); URINE PH >= 9.0 (4.5-7.5); UROBILINOGEN POS (NEG)
[2016-12-07 09:56] LABS: REVIEW REQ? NO; SULFASALICYLIC ACID POS (NEG)
[2016-12-07 10:05] LABS: URINE MUCUS PRESENT (NONE PRSENT)
[2016-12-07 10:07] LABS: URINE BACTERIA 3+ (NEG)
[2016-12-07 10:11] LABS: URINE AMORPHOUS SEDIMENT PRESENT (NONE PRSENT)
== END | disposition home or self-care (01) ==
LOC: C.LABUPNIT 08:52
PROVIDERS: ATTEND Nurse Practitioner Family
DX: N39.0 Urinary tract infection, site not specified (principal)